=== PATIENT | male | born 1955 | race Caucasian/White ===

== ENCOUNTER → 2016-04-24 | Day surgery (SDC) | payer OTHER ==
[~2016-04-24] VITALS: Ht 162.6 cm; Wt 83.9 kg
[~2016-04-24] MED LIST: ASPIRIN 81 MG CHEW TABLET PO ONE; ATOR1TAB18 PO; BSS with VANC/TOB/EPI for EYE CASES IR ONE; CARV12.5 PO; ESMOLOL INJ 100MG/10ML VIAL As Ordered ONE; GLYCOPYRROLATE INJ 0.2 MG/ML 2 ML VIAL As Ordered ONE; LIDOCAINE 2% INJ 100 MG/5 ML SDV (FOR ANES.) As Ordered ONE; LIDOCAINE 2% W/EPIN INJ 20ML **PRES FREE As Ordered ONE; LIDOCAINE 2% W/EPIN INJ 20ML **PRES FREE XX ONE; LIDOCAINE 4% INJ 5 ML AMP OU ONE; LR 1,000 ML IV SCH; MAXITROL OPHTH OINT 3.5 GM As Ordered ONE; MAXITROL OPHTH OINT 3.5 GM OD ONE; MAXITROL OPHTH SUSP 5 ML As Ordered ONE; MAXITROL OPHTH SUSP 5 ML XX ONE; MIDAZOLAM INJ 2 MG/2 ML VIAL (J2250) As Ordered ONE; NEOSTIGMINE 1MG/ML 5 ML SYRINGE (J2710) As Ordered ONE; OMEP20CA3 PO; ONDANSETRON 4MG/2ML VIAL (J2405) As Ordered ONE; ONDANSETRON 4MG/2ML VIAL (J2405) IV PRN; POVIDONE-IODINE 5% OPHTH PREP SOL 30ML As Ordered ONE; PROPOFOL 200 MG/20 ML VIAL As Ordered ONE; fentaNYL 100 MCG/2 ML INJECTION (J3010) As Ordered ONE; fentaNYL 100 MCG/2 ML INJECTION (J3010) IV PRN
[2016-04-24 13:15] VITALS: BP 150/72
--- NOTE | 2016-04-28 13:59 | RO ---
DATE OF PROCEDURE: 04/24/2016 PREPROCEDURE DIAGNOSIS: Blind, painful right eye. POSTPROCEDURE DIAGNOSIS: Status post enucleation with silicone implant, 22 mm in orbit and placement of a large conformer, right side. There is no longer a right eye. INDICATION FOR PROCEDURE: Blind, painful right eye. SURGEON: Tristin Kitchen Jr., DO, FACS PHOTOENGRAVING ETCHER APPRENTICE: ANESTHESIA: General, 2% lidocaine with epinephrine block was performed to help with anesthesia and hemostasis. SPECIMEN: Sent to pathology and will also be sent to [facility] Department of Opthalmology Pathology Division for analysis. ESTIMATED BLOOD LOSS: Minimal. COMPLICATIONS: None. DESCRIPTION OF PROCEDURE: After obtaining informed consent and ascertaining that there was no light perception from the right eye, the patient was taken to the operating room and placed under general endotracheal anesthesia. The right eye was prepped and draped in a sterile fashion. A Daniela lid speculum was introduced in the right eye. It was obvious that this eye was very inflamed, the cornea was cloudy. A 360 degree conjunctival peritomy was performed. This was also advanced through Tenon's capsule 360 degrees and the fornices were opened horizontally. The extraocular muscles were hooked, tagged with #5-0 Vicryl and disinserted. The optic nerve was found with blunt and sharp dissection and the right eye was enucleated. Orbital sizer, 20 mm, was put in the orbit and loose. Therefore, a 22 mm silicone implant was inserted in the posterior orbit. The extraocular muscles were tied in place over the orbit with #5-0 Vicryl suture. Tenon's capsule and then conjunctiva were closed with running #5-0 Vicryl suture, creating a three layer closure. A large conformer was introduced into the conjunctival fornix. Maxitrol ointment was placed in the conjunctival fornix. The upper lids did not close all the say so a #4-0 silk Barnes suture was created. Next, a pressure patch was created using eye pads and Elastoplast dressing. The patient was successfully extubated and returned to the recovery room in excellent condition. He will followup in the office on postoperative day #2. He will also take Keflex postoperatively 500 mg four times a day.
== END | disposition home or self-care (01) ==
LOC: M SDC 06:54
PROVIDERS: ATTEND Ophthalmology
DX: H54.41 Blindness, right eye, normal vision left eye (principal); I25.10 Atherosclerotic heart disease of native coronary artery without angina pectoris; I10 Essential (primary) hypertension; E78.00 Pure hypercholesterolemia, unspecified; K21.9 Gastro-esophageal reflux disease without esophagitis; R29.898 Other symptoms and signs involving the musculoskeletal system; G43.909 Migraine, unspecified, not intractable, without status migrainosus; Z72.0 Tobacco use; Z95.5 Presence of coronary angioplasty implant and graft; Z79.899 Other long term (current) drug therapy; Z96.1 Presence of intraocular lens
CPT/HCPCS: 65103; 88300; J2250; J2405; J2710; J3010

== ENCOUNTER 2016-11-04 09:51 | Emergency (ER) | payer OTHER ==
[~2016-11-04] VITALS: Ht 167.6 cm; Wt 79.5 kg
[~2016-11-04 09:51] MED LIST changes: -ASPIRIN 81 MG CHEW TABLET PO ONE; -ATOR1TAB18 PO; +ATOR80TA59 PO; -BSS with VANC/TOB/EPI for EYE CASES IR ONE; -ESMOLOL INJ 100MG/10ML VIAL As Ordered ONE; -GLYCOPYRROLATE INJ 0.2 MG/ML 2 ML VIAL As Ordered ONE; -LIDOCAINE 2% INJ 100 MG/5 ML SDV (FOR ANES.) As Ordered ONE; -LIDOCAINE 2% W/EPIN INJ 20ML **PRES FREE As Ordered ONE; -LIDOCAINE 2% W/EPIN INJ 20ML **PRES FREE XX ONE; -LIDOCAINE 4% INJ 5 ML AMP OU ONE; -LR 1,000 ML IV SCH; -MAXITROL OPHTH OINT 3.5 GM As Ordered ONE; -MAXITROL OPHTH OINT 3.5 GM OD ONE; -MAXITROL OPHTH SUSP 5 ML As Ordered ONE; -MAXITROL OPHTH SUSP 5 ML XX ONE; -MIDAZOLAM INJ 2 MG/2 ML VIAL (J2250) As Ordered ONE; -NEOSTIGMINE 1MG/ML 5 ML SYRINGE (J2710) As Ordered ONE; -ONDANSETRON 4MG/2ML VIAL (J2405) As Ordered ONE; -ONDANSETRON 4MG/2ML VIAL (J2405) IV PRN; -POVIDONE-IODINE 5% OPHTH PREP SOL 30ML As Ordered ONE; -PROPOFOL 200 MG/20 ML VIAL As Ordered ONE; -fentaNYL 100 MCG/2 ML INJECTION (J3010) As Ordered ONE; -fentaNYL 100 MCG/2 ML INJECTION (J3010) IV PRN
[2016-11-04 09:52] VITALS: BP 196/79
[2016-11-04] MEDS ORDERED: ASPI81TA85 PO (10:07)
[2016-11-04] MEDS ORDERED: KETOROLAC 30 MG/ML VIAL (J1885) IV ONE (10:15)
[2016-11-04 10:22] LABS: BASO # 0.1 K/mm3 (0.0-0.2); BASO % 0.8 % (0.0-1.0); EOS # 0.3 K/mm3 (0.0-0.50); EOS % 2.6 % (0.0-3.0); LARGE UNSTAINED CELL # 0.2 K/mm3 (0.0-0.4); LARGE UNSTAINED CELL % 1.4 % (0.0-4.0); LYMPH # 1.9 K/mm3 (1.5-4.5); LYMPH % 13.8 % (24.0-44.0); MEAN CORPUSCULAR HEMOGLOBIN 32.9 pg (27.0-33.0); MEAN CORPUSCULAR HGB CONC 34.3 g/dl (32.0-36.5); MONO # 0.7 K/mm3 (0.0-0.8); MONO % 5.9 % (0.0-5.0); NEUTROPHILS # 9.3 K/mm3 (1.8-7.7); NEUTROPHILS % 75.4 % (36.0-66.0); PLATELET COUNT, AUTOMATED 262 k/mm3 (150-450); RED CELL DISTRIBUTION WIDTH 12.5 % (11.5-14.5); WHITE BLOOD COUNT 12.4 K/mm3 (4.0-10.0)
--- NOTE | 2016-11-04 10:40 | REP ---
Portable chest, single AP view, patient sitting: Comparison is 08/28/2010. There is no interval change. The lung marrero are clear. The cardiac size is normal. The dasha, mediastinum, and bony thorax are unremarkable. Impression: Negative portable chest. No interval change. Signed by Henrik Ziegler MD 11/04/2016 10:31 A
[2016-11-04 10:47] LABS: ALBUMIN 3.3 GM/DL (3.2-5.2); ALBUMIN/GLOBULIN RATIO 0.85 (1.00-1.93); ALKALINE PHOSPHATASE 136 U/L (45-117); ALT/SGPT 21 U/L (12-78); ANION GAP 4 MEQ/L (8-16); AST/SGOT 12 U/L (15-37); BILIRUBIN,DIRECT < 0.1 MG/DL (0.0-0.2); BILIRUBIN,TOTAL 0.4 MG/DL (0.2-1.0); BLOOD UREA NITROGEN 11 MG/DL (7-18); CALCIUM LEVEL 8.9 MG/DL (8.5-10.1); CARBON DIOXIDE LEVEL 28 MEQ/L (21-32); CHLORIDE LEVEL 102 MEQ/L (98-107); CREATININE FOR GFR 0.87 MG/DL (0.70-1.30); GLOMERULAR FILTRATION RATE > 60.0 (>56); GLUCOSE, FASTING 99 MG/DL (70-105); POTASSIUM SERUM 3.9 MEQ/L (3.5-5.1); SODIUM LEVEL 134 MEQ/L (136-145); TOTAL PROTEIN 7.2 GM/DL (6.4-8.2)
[2016-11-04] MEDS ORDERED: ISOVUE-370 76% 100ML VIAL (Q9967) As Ordered ONE (12:27)
--- NOTE | 2016-11-04 13:05 | REP ---
CT of the chest, pulmonary CT angiography: Comparison is the portable plain film study performed earlier today. There are no emboli in the pulmonary trunk or central pulmonary arteries. There are no emboli in the lobe or segment pulmonary artery branches. There are no infiltrates. There are no effusions. There is no mediastinal or hilar adenopathy or mass. There is no axillary adenopathy. The thoracic aorta is unremarkable. Cardiac size is normal. There is no pericardial effusion. Within the visualized upper abdomen there is a ring-shaped gallbladder calcification in the gallbladder neck measuring 70 mm in diameter. The gallbladder is not distended. There is no biliary duct distension. The visualized areas of the pancreas, spleen and adrenals are unremarkable except for multiple calcified splenic granulomas. Impression: There are no pulmonary emboli. There are no acute infiltrates or effusions. No mass or adenopathy. There is a gallbladder calculus. There are calcified granulomas in the spleen. Signed by Henrik Ziegler MD 11/04/2016 12:56 P
--- NOTE | 2016-11-04 15:08 | ED PDOC ---
Post-Departure Follow-Up certitied letter sent to pt re formal read of cta. incidental gallstone found on report. please let pt know. Meg Lewis MD Nov 04, 2016 15:08
--- NOTE | 2016-11-05 08:55 | ECGEPIP ---
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
== END 2016-11-04 14:17 | disposition home or self-care (01) ==
LOC: M ED 09:51
DX: R07.89 Other chest pain (principal); F17.210 Nicotine dependence, cigarettes, uncomplicated; Z79.2 Long term (current) use of antibiotics; Z98.61 Coronary angioplasty status
CPT/HCPCS: 71010; 71275; 80048; 80076; 82550; 82553; 83690; 83880; 85025; 85379; 85652; 93000; 93041; 94760; 96374; 99284; J1885; Q9967

== ENCOUNTER 2016-11-09 18:04 | Emergency (ER) | payer OTHER ==
[~2016-11-09] VITALS: Ht 167.6 cm; Wt 81.8 kg
[~2016-11-09 18:04] MED LIST changes: +ASPI81TA85 PO
[2016-11-09] MEDS ORDERED: PANTOPRAZOLE 40MG INJ (PROTONIX) (C9113) IV ONE (19:00)
[2016-11-09] MEDS ORDERED: NS 1,000 ML IV ONE (19:00)
[2016-11-09] MEDS ORDERED: ONDANSETRON 4MG/2ML VIAL (J2405) IV ONE (19:00)
[2016-11-09 19:06] LABS: BASO # 0.1 K/mm3 (0.0-0.2); BASO % 0.6 % (0.0-1.0); EOS # 0.1 K/mm3 (0.0-0.50); EOS % 0.8 % (0.0-3.0); LARGE UNSTAINED CELL # 0.3 K/mm3 (0.0-0.4); LARGE UNSTAINED CELL % 1.7 % (0.0-4.0); LYMPH # 1.9 K/mm3 (1.5-4.5); LYMPH % 10.4 % (24.0-44.0); MEAN CORPUSCULAR HEMOGLOBIN 32.3 pg (27.0-33.0); MEAN CORPUSCULAR HGB CONC 34.1 g/dl (32.0-36.5); MEAN CORPUSCULAR VOLUME 94.6 fl (80.0-96.0); MONO # 1.1 K/mm3 (0.0-0.8); MONO % 7.1 % (0.0-5.0); NEUTROPHILS # 12.7 K/mm3 (1.8-7.7); NEUTROPHILS % 79.4 % (36.0-66.0); PLATELET COUNT, AUTOMATED 281 k/mm3 (150-450); RED CELL DISTRIBUTION WIDTH 12.3 % (11.5-14.5)
[2016-11-09 19:37] LABS: ALBUMIN/GLOBULIN RATIO 0.73 (1.00-1.93); ALKALINE PHOSPHATASE 116 U/L (45-117); ALT/SGPT 31 U/L (12-78); AMYLASE 30 U/L (25-115); ANION GAP 9 MEQ/L (8-16); AST/SGOT 27 U/L (15-37); BILIRUBIN,DIRECT 0.2 MG/DL (0.0-0.2); BILIRUBIN,TOTAL 0.5 MG/DL (0.2-1.0); BLOOD UREA NITROGEN 16 MG/DL (7-18); CALCIUM LEVEL 8.7 MG/DL (8.5-10.1); CARBON DIOXIDE LEVEL 29 MEQ/L (21-32); CHLORIDE LEVEL 95 MEQ/L (98-107); CREATININE FOR GFR 1.09 MG/DL (0.70-1.30); GLOMERULAR FILTRATION RATE > 60.0 (>56); GLUCOSE, FASTING 114 MG/DL (70-105); POTASSIUM SERUM 4.2 MEQ/L (3.5-5.1); SODIUM LEVEL 133 MEQ/L (136-145); TOTAL PROTEIN 7.1 GM/DL (6.4-8.2)
--- NOTE | 2016-11-09 21:20 | REPUSA ---
CT of the abdomen and pelvis without contrast Clinical statement: Pain. Technique: Multiple axial CT images were obtained from the base of the lungs to the floor of the pelv is utilizing 5 mm axial slices without administration of contrast. Coronal and sagittal reconstructio ns were also obtained. No comparison is available. Findings: Chest: The visualized lung bases are clear. Abdomen: The kidneys are normal in size bilaterally. There is no evidence of hydronephrosis or nephro lithiasis. There is a 1.2 cm gallstone within the gallbladder. No pericholecystic inflammation is not ed. The liver, spleen, pancreas, and adrenal glands are unremarkable. The aorta demonstrates normal c aliber and contour. There is no abdominal lymphadenopathy or ascites. Pelvis: The bowel is unremarkable, with no obstructive or inflammatory changes. The appendix is jose l. The urinary bladder is within normal limits. There is no pelvic lymphadenopathy or ascites. The ot her pelvic structures appear unremarkable. Bones: There are no suspicious osseous abnormalities seen. Impression: 1. No focal abnormality to explain the patient's pain. 2. Cholelithiasis without evidence of acute cholecystitis.
[2016-11-09] MEDS ORDERED: MOXIFLOXACIN 400 MG TAB PO ONE (21:30)
[2016-11-09] MEDS ORDERED: ACETAMINOPHEN 325 MG TAB As Ordered ONE (21:39)
[2016-11-09] MEDS ORDERED: AVEL1TAB3 PO (21:44)
[2016-11-09] MEDS ORDERED: ALBUTEROL 90 MCG/ACT 8GM HFA INHALER INH ONE (21:45)
[2016-11-09] MEDS ORDERED: ACETAMINOPHEN 325 MG TAB PO ONE (21:45)
[2016-11-09 22:04] VITALS: BP 123/77
--- NOTE | 2016-11-10 08:22 | REP ---
REASON: Abdominal pain. COMPARISON: Chest portable exam of 11/04/2016. The accompanying frontal view of the chest of today shows a new left lower lobe opacity with blunting of the left CP angle. The lung marrero are otherwise clear and the heart is not enlarged. The osseous structures are stable and intact. Supine and upright views of the abdomen show the intestinal gas pattern to be nonspecific. There is no free intraperitoneal air. The organ silhouettes, insofar as delineated, are within normal limits. The osseous structures are within normal limits. Left lower lobe pneumonia. Signed by Jeff Self DO 11/10/2016 09:21 A
== END 2016-11-09 22:07 | disposition home or self-care (01) ==
LOC: M ED 18:04
DX: J18.9 Pneumonia, unspecified organism (principal); I10 Essential (primary) hypertension; Z72.0 Tobacco use; Z98.61 Coronary angioplasty status
CPT/HCPCS: 74022; 74176; 80048; 80076; 80320; 81001; 82150; 83690; 85025; 96374; 96375; 96376; 99283; C9113; J2405

== ENCOUNTER 2017-08-06 16:32 | Observation (INO) | payer OTHER ==
[2017-08-06] MEDS ORDERED: ISOVUE-370 76% 100ML VIAL (Q9967) As Ordered (17:19)
[2017-08-06 17:23] LABS: BASO # 0.1 10^3/uL (0.0-0.2); BASO % 0.7 % (0.0-1.0); EOS # 0.2 10^3/uL (0.0-0.50); EOS % 2.1 % (0.0-3.0); HEMATOCRIT 43.2 % (42.0-52.0); IMMATURE GRANULOCYTE % 0.6 % (0-3.0); LYMPH # 2.6 10^3/uL (1.5-4.5); LYMPH % 24.2 % (24.0-44.0); MEAN CORPUSCULAR HEMOGLOBIN 32.2 pg (27.0-33.0); MEAN CORPUSCULAR HGB CONC 34.7 g/dl (32.0-36.5); MEAN CORPUSCULAR VOLUME 92.7 fl (80.0-96.0); MONO # 0.8 10^3/uL (0.0-0.8); MONO % 7.4 % (0.0-5.0); PLATELET COUNT, AUTOMATED 293 10^3/uL (150-450); RED BLOOD COUNT 4.66 10^6/uL (4.30-6.10); RED CELL DISTRIBUTION WIDTH 12.4 % (11.5-14.5); WHITE BLOOD COUNT 10.7 10^3/uL (4.0-10.0)
[2017-08-06] MEDS: ASPIRIN 325 MG TAB PO (17:34)
[2017-08-06 17:35] LABS: BEDSIDE GLUCOSE 130 MG/DL (70-105)
[2017-08-06 17:44] LABS: INR 0.89
[2017-08-06 17:45] LABS: PARTIAL THROMBOPLASTIN TIME 31.4 SECONDS (26.8-37.9)
[2017-08-06 17:58] LABS: ANION GAP 7 MEQ/L (8-16); BLOOD UREA NITROGEN 17 MG/DL (7-18); CARBON DIOXIDE LEVEL 26 MEQ/L (21-32); CHLORIDE LEVEL 108 MEQ/L (98-107); CK-MB VALUE MASS 2.7 NG/ML (<3.6); CPK CREATINE PHOSPHOKINASE 251 U/L (39-308); CREATININE FOR GFR 0.95 MG/DL (0.70-1.30); GLOMERULAR FILTRATION RATE > 60.0 (>56); GLUCOSE, FASTING 122 MG/DL (70-100); MB/CK RELATIVE INDEX 1.07 (< OR =4); POTASSIUM SERUM 3.7 MEQ/L (3.5-5.1); SODIUM LEVEL 141 MEQ/L (136-145); TROPONIN I < 0.02 NG/ML (< 0.10)
[2017-08-06] MEDS: METOPROLOL TART 25 MG TABLET PO (20:13)
[2017-08-06] MEDS: D5W 1,000 ML IV (21:48)
[2017-08-06] MEDS: ATORVASTATIN 20 MG TAB PO (22:20)
[2017-08-07] MEDS: D5W 1,000 ML IV (04:59)
[2017-08-07] MEDS: HEPARIN SOD (PORCINE) 5000 UNITS/ML VIAL SC ×3 (05:38→21:11)
[2017-08-07] MEDS: ASPIRIN 325 MG TAB PO (08:01)
[2017-08-07] MEDS ORDERED: PRAVASTATIN 20 MG TAB PO (09:00)
[2017-08-07] MEDS ORDERED: SLF 3 ML SYR IV (15:15)
[2017-08-07] MEDS: SLF 3 ML SYR IV (21:11)
[2017-08-07] MEDS: ATORVASTATIN 20 MG TAB PO (21:11)
[2017-08-08] MEDS: HEPARIN SOD (PORCINE) 5000 UNITS/ML VIAL SC ×3 (06:02→22:51)
[2017-08-08] MEDS: SLF 3 ML SYR IV ×3 (06:03→19:58)
[2017-08-08 08:17] LABS: HEMATOCRIT 42.9 % (42.0-52.0); HEMOGLOBIN 14.5 g/dl (13.5-17.5); MEAN CORPUSCULAR HEMOGLOBIN 31.7 pg (27.0-33.0); MEAN CORPUSCULAR HGB CONC 33.8 g/dl (32.0-36.5); MEAN CORPUSCULAR VOLUME 93.9 fl (80.0-96.0); PLATELET COUNT, AUTOMATED 274 10^3/uL (150-450); RED BLOOD COUNT 4.57 10^6/uL (4.30-6.10); RED CELL DISTRIBUTION WIDTH 12.4 % (11.5-14.5)
[2017-08-08] MEDS: ASPIRIN 325 MG TAB PO (08:39)
[2017-08-08 08:44] LABS: ANION GAP 5 MEQ/L (8-16); BLOOD UREA NITROGEN 14 MG/DL (7-18); CALCIUM LEVEL 8.7 MG/DL (8.5-10.1); CARBON DIOXIDE LEVEL 26 MEQ/L (21-32); CHLORIDE LEVEL 111 MEQ/L (98-107); CREATININE FOR GFR 0.91 MG/DL (0.70-1.30); GLOMERULAR FILTRATION RATE > 60.0 (>56); GLUCOSE, FASTING 95 MG/DL (70-100); MAGNESIUM LEVEL 2.2 MG/DL (1.8-2.4); POTASSIUM SERUM 4.4 MEQ/L (3.5-5.1); SODIUM LEVEL 142 MEQ/L (136-145)
[2017-08-08 09:46] LABS: CHOLESTEROL LEVEL 154 MG/DL (<200); CHOLESTEROL RISK RATIO 4.529 (<5); HDL CHOLESTEROL 34 MG/DL (>40); LDL CHOLESTEROL 96.6 MG/DL (<100); NON-HDL-C 120 MG/DL; TRIGLYCERIDES LEVEL 117 MG/DL (<150)
[2017-08-08] MEDS: amLODIPine 5 MG TAB PO (09:47)
[2017-08-08] MEDS: NICOTINE 7 MG/24 HR TRANSDERMAL TD (17:02)
[2017-08-08] MEDS: ATORVASTATIN 20 MG TAB PO (19:58)
[2017-08-09] MEDS: SLF 3 ML SYR IV (05:48)
[2017-08-09] MEDS: HEPARIN SOD (PORCINE) 5000 UNITS/ML VIAL SC (05:48)
[2017-08-09 06:23] LABS: HEMATOCRIT 41.7 % (42.0-52.0); HEMOGLOBIN 14.2 g/dl (13.5-17.5); MEAN CORPUSCULAR HGB CONC 34.1 g/dl (32.0-36.5); MEAN CORPUSCULAR VOLUME 93.9 fl (80.0-96.0); PLATELET COUNT, AUTOMATED 247 10^3/uL (150-450); RED BLOOD COUNT 4.44 10^6/uL (4.30-6.10); RED CELL DISTRIBUTION WIDTH 11.9 % (11.5-14.5)
[2017-08-09 06:42] LABS: ANION GAP 6 MEQ/L (8-16); BLOOD UREA NITROGEN 15 MG/DL (7-18); CALCIUM LEVEL 8.6 MG/DL (8.5-10.1); CARBON DIOXIDE LEVEL 26 MEQ/L (21-32); CHLORIDE LEVEL 110 MEQ/L (98-107); CREATININE FOR GFR 0.83 MG/DL (0.70-1.30); GLOMERULAR FILTRATION RATE > 60.0 (>56); GLUCOSE, FASTING 90 MG/DL (70-100); MAGNESIUM LEVEL 2.1 MG/DL (1.8-2.4); POTASSIUM SERUM 3.9 MEQ/L (3.5-5.1); SODIUM LEVEL 142 MEQ/L (136-145)
[2017-08-09] MEDS: ASPIRIN 325 MG TAB PO (08:35)
[2017-08-09] MEDS: NICOTINE 7 MG/24 HR TRANSDERMAL TD (08:35)
[2017-08-09] MEDS: amLODIPine 10 MG TAB PO (08:35)
[2017-08-09] MEDS: LISINOPRIL 5 MG TAB PO (11:12)
[2017-08-10] MEDS ORDERED: LISINOPRIL 5 MG TAB PO (09:00)
== END 2017-08-09 11:50 | disposition home health service (06) ==
LOC: M PCU 08-07 04:30 → M ED 16:32 → M MS5PR 08-07 21:30 → M ED INP 21:48
PROVIDERS: Internal Medicine
DX: I63.8 Other cerebral infarction (principal); I67.82 Cerebral ischemia; I25.10 Atherosclerotic heart disease of native coronary artery without angina pectoris; I10 Essential (primary) hypertension; Z98.61 Coronary angioplasty status; F17.210 Nicotine dependence, cigarettes, uncomplicated; Z91.14 Patient's other noncompliance with medication regimen; Z79.82 Long term (current) use of aspirin; Z79.899 Other long term (current) drug therapy
CPT/HCPCS: Q9967

== ENCOUNTER 2017-08-20 08:37 | Outpatient (RCR) | payer OTHER | END 2017-09-11 | LOC: M OT 08:37 → M PT 08-25 09:42 → M OT 08-28 08:15 → M ST 09-02 13:40 → M PT 09-04 10:45 → M OT 08:37 → M PT 09-04 10:45 → M OT 08-28 08:15 | DX: Z51.89 Encounter for other specified aftercare (principal); I63.9 Cerebral infarction, unspecified ==

== ENCOUNTER 2017-09-16 09:38 | Outpatient (RCR) | payer OTHER | END 2017-10-11 | LOC: M PT 09:38 → M OT 09-22 07:00 → M PT 09:38 | DX: Z51.89 Encounter for other specified aftercare (principal); I63.9 Cerebral infarction, unspecified; I69.019 Unspecified symptoms and signs involving cognitive functions following nontraumatic subarachnoid hemorrhage | CPT/HCPCS: 97110 ==

== ENCOUNTER → 2017-10-04 | Outpatient (CLI) | payer OTHER ==
[2017-10-04 10:00] LABS: ALBUMIN 3.3 GM/DL (3.2-5.2); ALBUMIN/GLOBULIN RATIO 0.97 (1.00-1.93); ALKALINE PHOSPHATASE 136 U/L (45-117); ALT/SGPT 42 U/L (12-78); AST/SGOT 17 U/L (7-37); BILIRUBIN,DIRECT 0.1 MG/DL (0.0-0.2); BILIRUBIN,TOTAL 0.5 MG/DL (0.2-1.0); CHOLESTEROL LEVEL 151 MG/DL (<200); CHOLESTEROL RISK RATIO 3.595 (<5); CPK CREATINE PHOSPHOKINASE 220 U/L (39-308); HDL CHOLESTEROL 42 MG/DL (>40); NON-HDL-C 109 MG/DL; TOTAL PROTEIN 6.7 GM/DL (6.4-8.2); TRIGLYCERIDES LEVEL 140 MG/DL (<150)
== END ==
LOC: M LAB 08:53
DX: E78.00 Pure hypercholesterolemia, unspecified (principal)
CPT/HCPCS: 82550

== ENCOUNTER → 2017-10-20 | Outpatient (REF) | payer OTHER ==
[2017-10-20 16:13] LABS: D-DIMER QUANT 328.7 ng/ml (<500)
== END ==
LOC: M LAB REF 15:41
DX: R06.09 Other forms of dyspnea (principal)
CPT/HCPCS: 85379

== ENCOUNTER → 2017-11-13 | Outpatient (CLI) | payer OTHER ==
[2017-11-13 13:26] LABS: ERYTHROCYTE SEDIMENTATION RATE 29 mm/hr (0-20)
[2017-11-13 13:45] LABS: RHEUMATOID FACTOR QUANT < 10.0 IU/ML (<15.0); TOTAL PROTEIN 7.2 GM/DL (6.4-8.2)
[2017-11-13 13:47] LABS: VITAMIN B12 LEVEL 224 PG/ML
[2017-11-13 13:48] LABS: FOLATE 6.6 NG/ML
[2017-11-13 14:25] LABS: ESTIMATED AVERAGE GLUCOSE 114 MG/DL (60-110); HEMOGLOBIN A1c 5.6 %
[2017-11-14 14:15] LABS: ANTINUCLEAR ANTIBODIES DIRECT Negative (Negative); IgG P18 AB Absent (.); IgG P23 AB Present (.); IgG P28 AB Absent (.); IgG P30 AB Absent (.); IgG P39 AB Absent (.); IgG P41 AB Absent (.); IgG P45 AB Absent (.); IgG P58 AB Absent (.); IgG P66 AB Present (.); IgG P93 AB Absent (.); IgM P23 AB Absent (.); IgM P39 AB Absent (.); IgM P41 AB Absent (.); LYME IgG WB INTERPRETATION Negative (.); LYME IgM WB INTERPRETATION Negative (.)
== END ==
LOC: M LAB 12:24
DX: G62.9 Polyneuropathy, unspecified (principal); R51 Headache; M54.9 Dorsalgia, unspecified; M79.606 Pain in leg, unspecified
CPT/HCPCS: 82746

== ENCOUNTER → 2018-03-18 | Outpatient (CLI) | payer OTHER | LOC: M RAD 10:34 | DX: Z12.2 Encounter for screening for malignant neoplasm of respiratory organs (principal); Z87.891 Personal history of nicotine dependence | CPT/HCPCS: G0297 ==

== ENCOUNTER → 2018-03-19 | Outpatient (CLI) | payer OTHER | LOC: M CARPUL 08:18 | DX: R06.00 Dyspnea, unspecified (principal) | CPT/HCPCS: 94060 ==

== ENCOUNTER 2018-06-28 19:11 | Observation (INO) | payer OTHER ==
[~2018-06-28] VITALS: Ht 170.2 cm; Wt 96.0 kg
[2018-06-28] MEDS: GABAPENTIN 400 MG CAP PO SCH (01:08)
[2018-06-28] MEDS: HEPARIN SOD (PORCINE) 5000 UNITS/ML VIAL SC SCH (01:08)
[~2018-06-28 19:11] MED LIST changes: +AMLO10TA5 PO; +ASPI1TAB PO; +ATOR1TAB21 PO; +AVEL1TAB3 PO; +LISI-542 PO; +NICO7PA TD
[2018-06-28] MEDS ORDERED: MONT10TA2 PO (19:39)
[2018-06-28] MEDS ORDERED: AMIT50TA PO (19:39)
[2018-06-28] MEDS ORDERED: HYDR-3713 PO (19:39)
[2018-06-28] MEDS ORDERED: GABA800T4 PO (19:39)
[2018-06-28] MEDS ORDERED: STRI1AER2 INH (19:39)
[2018-06-28] MEDS ORDERED: ATOR40TA75 PO (19:39)
[2018-06-28] MEDS ORDERED: OMEP40CA2 PO (19:39)
[2018-06-28] MEDS ORDERED: ISOS60TA2 PO (19:39)
[2018-06-28] MEDS ORDERED: LIPI10TA PO (19:39)
[2018-06-28 20:02] LABS: BASO # 0.1 10^3/uL (0.0-0.2); BASO % 0.9 % (0.0-1.0); EOS # 0.4 10^3/uL (0.0-0.50); EOS % 3.3 % (0.0-3.0); HEMOGLOBIN 13.3 g/dl (13.5-17.5); LYMPH # 2.5 10^3/uL (1.5-4.5); LYMPH % 23.6 % (24.0-44.0); MEAN CORPUSCULAR HEMOGLOBIN 31.1 pg (27.0-33.0); MEAN CORPUSCULAR HGB CONC 33.3 g/dl (32.0-36.5); MEAN CORPUSCULAR VOLUME 93.7 fl (80.0-96.0); MONO % 9.1 % (0.0-5.0); NEUTROPHILS # 6.6 10^3/uL (1.8-7.7); NEUTROPHILS % 62.4 % (36.0-66.0); PLATELET COUNT, AUTOMATED 281 10^3/uL (150-450); RED BLOOD COUNT 4.27 10^6/uL (4.30-6.10); WHITE BLOOD COUNT 10.6 10^3/uL (4.0-10.0)
[2018-06-28 20:13] LABS: INR 0.92; PROTHROMBIN TIME 12.4 SECONDS (12.1-14.4)
[2018-06-28 20:14] LABS: PARTIAL THROMBOPLASTIN TIME 28.6 SECONDS (25.4-37.6)
[2018-06-28] MEDS ORDERED: hydrALAZINE INJ 20 MG/ML VIAL IV ONE (20:15)
--- NOTE | 2018-06-28 20:29 | REPVR ---
EXAM: CT Head Without Contrast EXAM DATE/TIME: 06/28/2018 7:50 PM CLINICAL HISTORY: 62 years old, male; Pain; Headache; Headache not specified TECHNIQUE: Axial computed tomography images of the head/brain without contrast. All CT scans at this facility use at least one of these dose optimization techniques: automated exposure control; mA and/or kV adjustment per patient size (includes targeted exams where dose is matched to clinical indication); or iterative reconstruction. COMPARISON: CT Head without contrast 08/06/2017 4:50 PM FINDINGS: Brain: Very mild low density in the periventricular white matter extending into the enrique radiata and the centrum semiovale bilaterally. No hemorrhage.. No edema. Ventricles: Normal. No ventriculomegaly. Bones/joints: Unremarkable. No acute fracture. Sinuses: Visualized sinuses are unremarkable. No acute sinusitis. Mastoid air cells: Visualized mastoid air cells are unremarkable. No mastoid effusion. Orbits: There is a right ocular prosthesis. Soft tissues: Unremarkable. IMPRESSION: No acute findings 2. Mild chronic microvascular ischemic change in the deep white matter Electronically signed by: Shaye Kumar On 06/28/2018 20:28:39 PM
[2018-06-28 20:33] LABS: BLOOD UREA NITROGEN 18 MG/DL (7-18); CALCIUM LEVEL 8.9 MG/DL (8.8-10.2); CARBON DIOXIDE LEVEL 29 MEQ/L (21-32); CHLORIDE LEVEL 105 MEQ/L (98-107); CPK CREATINE PHOSPHOKINASE 429 U/L (39-308); CREATININE FOR GFR 1.08 MG/DL (0.70-1.30); GLOMERULAR FILTRATION RATE > 60.0 (>49); GLUCOSE, FASTING 115 MG/DL (70-100); MB/CK RELATIVE INDEX 1.45 (< OR =4); POTASSIUM SERUM 4.4 MEQ/L (3.5-5.1); SODIUM LEVEL 140 MEQ/L (136-145); TROPONIN I < 0.02 NG/ML (< 0.10)
[2018-06-28] MEDS ORDERED: LORazepam 2 MG/ML VIAL (J2060) IV STA (20:58)
[2018-06-28] MEDS ORDERED: ISOVUE-370 76% 125ML VIAL (Q9967 PER ML) As Ordered ONE (20:58)
[2018-06-28] MEDS ORDERED: MONTELUKAST 10 MG TAB PO SCH (21:00)
[2018-06-28] MEDS ORDERED: AMITRIPTYLINE 50 MG TAB PO SCH (21:00)
[2018-06-28] MEDS ORDERED: ATORVASTATIN 20 MG TAB PO SCH (21:00)
--- NOTE | 2018-06-28 21:27 | REPVR ---
EXAM: CT Angiography Abdomen and Pelvis With Contrast EXAM DATE/TIME: 06/28/2018 9:06 PM CLINICAL HISTORY: 62 years old, male; Pain; Abdominal pain; Acute; Additional info: Chest pain, back pain, AMS, R/O dissection TECHNIQUE: Axial computed tomographic angiography images of the abdomen and pelvis with intravenous contrast material, including non-contrast images if performed. All CT scans at this facility use at least one of these dose optimization techniques: automated exposure control; mA and/or kV adjustment per patient size (includes targeted exams where dose is matched to clinical indication); or iterative reconstruction. Coronal and sagittal reformatted images were created and reviewed. MIP reconstructed images were created and reviewed. CONTRAST: Contrast Material: 100 ml of iso 370; Contrast Route: iv COMPARISON: CT ABD PELVIS W/O CONTRAST 11/09/2016 8:57 PM FINDINGS: Mediastinum: There is a small sliding hiatal hernia. VASCULATURE: Aorta: Arteriosclerotic changes noted of the abdominal aorta with no evidence of aneurysm. Celiac trunk and mesenteric arteries: No occlusion or significant stenosis. Renal arteries: There is a 50-60% stenosis noted of the left main renal artery. Right iliac arteries: There is a 60-70% stenosis at the origin of the right common iliac artery. Left iliac arteries: No occlusion or significant stenosis. ABDOMEN: Liver: The liver is low in density. Gallbladder and bile ducts: 1.7 cm gallstone noted in the gallbladder. Pancreas: Unremarkable. No mass. No ductal dilation. Spleen: Multiple calcified splenic granulomas are present. Adrenals: Unremarkable. No mass. Kidneys and ureters: 9 mm simple cyst in the midportion of the left kidney. Stomach and bowel: Unremarkable. No obstruction. No mucosal thickening. Appendix: No evidence of appendicitis. PELVIS: Bladder: Unremarkable. No mass. Reproductive: The prostate measures 4.1 x 3.2 x 3.8 cm. ABDOMEN and PELVIS: Intraperitoneal space: Unremarkable. No free air. No significant fluid collection. Bones/joints: Compression deformity of the L1 vertebral body with approximately 20% loss of height of the vertebral body. No retropulsed fragments seen.. No dislocation. Soft tissues: Unremarkable. Lymph nodes: Unremarkable. No enlarged lymph nodes. IMPRESSION: 1. No evidence of aortic dissection or aneurysm. 2. Compression fracture of L1 with approximately 20% loss of height of the vertebral body. No retropulsed fragments. This was not present on a CT scan dated 11/09/2016. 3. 50-60% stenosis of left main renal artery. 4. 60-70% stenosis at the origin of the right common iliac artery. 5. Hepatic steatosis. 6. Small sliding dasha hernia. 7. 9 mm simple cyst in the left kidney. 8. Gallstone. Electronically signed by: Shaye Kumar On 06/28/2018 21:26:22 PM
--- NOTE | 2018-06-28 21:33 | REPVR ---
EXAM: CT Angiography Chest With Contrast EXAM DATE/TIME: 06/28/2018 9:06 PM CLINICAL HISTORY: 62 years old, male; Pain; Chest pain; Additional info: Chest pain, back pain, AMS, R/O dissection TECHNIQUE: Axial computed tomographic angiography images of the chest with intravenous contrast using CT angiography protocol. All CT scans at this facility use at least one of these dose optimization techniques: automated exposure control; mA and/or kV adjustment per patient size (includes targeted exams where dose is matched to clinical indication); or iterative reconstruction. Coronal and sagittal reformatted images were created and reviewed. MIP reconstructed images were created and reviewed. CONTRAST: Contrast Material: 100 ml of iso 370; Contrast Route: iv COMPARISON: CT ANGIO CHEST 11/04/2016 12:28 PM FINDINGS: Pulmonary arteries: Normal. No pulmonary emboli. Aorta: Arteriosclerotic changes noted of the thoracic aorta. No aortic dissection. Lungs: Normal. No consolidation. No masses. Pleural space: Normal. No pneumothorax. No pleural effusion. Heart: Coronary calcifications present. Liver: There is hepatic steatosis. Gallbladder: There is a calcified gallstone. Spleen: Splenic calcifications are present. Lymph nodes: Unremarkable. No enlarged lymph nodes. Bones/joints: Compression deformity noted of the L1 vertebral body with approximately 20% loss of height of the vertebral body. Soft tissues: Unremarkable. Stomach: There is a small sliding hiatal hernia. IMPRESSION: 1. No aortic aneurysm or dissection. Arteriosclerotic changes noted. 2. Compression deformity of the L1 vertebral body with 20% loss of height of the vertebral body. 3. Hepatic steatosis. 4. Gallstones 5. Small sliding hiatal hernia. Electronically signed by: Shaye Kumar On 06/28/2018 21:32:55 PM
[2018-06-28 22:04] LABS: AMORPHOUS SEDIMENT SMALL (NEGATIVE); APPEARANCE, URINE HAZY (CLEAR); BACTERIA, URINE AUTO NEGATIVE (NEGATIVE); BILIRUBIN, URINE AUTO NEGATIVE (NEGATIVE); BLOOD, URINE BLOOD NEGATIVE (NEGATIVE); COLOR, URINE YELLOW (YELLOW); GLUCOSE, URINE (UA) AUTO NEGATIVE (NEGATIVE); KETONE, URINE AUTO NEGATIVE (NEGATIVE); LEUKOCYTE ESTERASE, URINE AUTO NEGATIVE (NEGATIVE); MUCUS, URINE SMALL (NEGATIVE); NITRITE, URINE AUTO NEGATIVE (NEGATIVE); PROTEIN, URINE AUTO NEGATIVE (NEGATIVE); RBC, URINE AUTO 1 /HPF (0-3); SPECIFIC GRAVITY URINE AUTO 1.024 (1.002-1.035); SQUAMOUS EPITHELIAL CELL UR AU 0 /HPF (0-6); WBC, URINE AUTO 2 /HPF (0-3)
[2018-06-28] MEDS ORDERED: ASPI1TAB PO (22:56)
[2018-06-28] MEDS ORDERED: LISI-538 PO (22:59)
[2018-06-28] MEDS ORDERED: IPRATROPIUM 0.5MG/ALBUTEROL 2.5MG INH SOL UD 3ML (DUONEB)(J7620) NEB PRN (23:00)
[2018-06-28] MEDS ORDERED: ARNU1INH PO (23:10)
[2018-06-28] MEDS ORDERED: NORCO, ANEXSIA 5/325MG TABLET (HYDROcodone/ACETAMINOPHEN) PO PRN (23:15)
--- NOTE | 2018-06-29 00:55 | REPVR ---
EXAM: MR Head Without Contrast EXAM DATE/TIME: 06/28/2018 11:56 PM CLINICAL HISTORY: 62 years old, male; Signs and symptoms; Other: Overall weakness, and headache with high blood pressure; Patient HX: PT states had nasty headache that started in the front and wrapped arount, PT was shaking with pain and did have slurred speech and high blood pressure; Additional info: AMS, weakness TECHNIQUE: MR of the head without contrast. COMPARISON: MRI-Brain without Contrast 08/07/2017 9:01 AM FINDINGS: Brain: No evidence of restricted diffusion to suggest an acute infarct. No mass effect or midline shift, or mass effect. No evidence of hemorrhage. Mild small vessel ischemic changes. Ventricles: Ventricles and sulci representing mild volume loss. Bones/joints: Unremarkable. Soft tissues: Normal. Sinuses: Normal as visualized. No acute sinusitis. Mastoid air cells: Normal as visualized. No mastoid effusion. Orbits: Unremarkable. IMPRESSION: No acute finding. Mild volume loss and small vessel ischemic changes. Electronically signed by: Marilyn Adkins On 06/29/2018 00:54:28 AM
--- NOTE | 2018-06-29 00:58 | REPVR ---
EXAM: MR Angiogram Head Without Contrast, Arteries EXAM DATE/TIME: 06/28/2018 11:56 PM CLINICAL HISTORY: 62 years old, male; Signs and symptoms; Headache and weakness; Patient HX: PT states had nasty headache that started in the front and wrapped arount, PT was shaking with pain and did have slurred speech and high blood pressure; Additional info: AMS, weakness TECHNIQUE: MR angiogram head without contrast. Exam focused on the arteries. MIP reconstructed images were created and reviewed. COMPARISON: MRA BRAIN W/O CONTRAST 08/07/2017 8:51 AM FINDINGS: Right internal carotid artery: Unremarkable. Intracranial segment is patent with no significant stenosis. No aneurysm. Right anterior cerebral artery: Unremarkable. No occlusion or significant stenosis. No aneurysm. Right middle cerebral artery: Unremarkable. No occlusion or significant stenosis. No aneurysm. Right posterior cerebral artery: Unremarkable. No occlusion or significant stenosis. No aneurysm. Right vertebral artery: Unremarkable. No occlusion or significant stenosis. No aneurysm. Left internal carotid artery: Unremarkable. Intracranial segment is patent with no significant stenosis. No aneurysm. Left anterior cerebral artery: Unremarkable. No occlusion or significant stenosis. No aneurysm. Left middle cerebral artery: Unremarkable. No occlusion or significant stenosis. No aneurysm. Left posterior cerebral artery: Unremarkable. No occlusion or significant stenosis. No aneurysm. Left vertebral artery: Mild narrowing of the left intracranial left mid vertebral artery. Basilar artery: Unremarkable. No occlusion or significant stenosis. No aneurysm. IMPRESSION: Mild narrowing of the left intracranial left mid vertebral artery. Electronically signed by: Marilyn Adkins On 06/29/2018 00:57:37 AM
[2018-06-29 01:35] VITALS: BP 137/74
--- NOTE | 2018-06-29 03:59 | REP ---
Clinical: Acute cerebrovascular accident . Comparison: 08/06/2017 . Findings: The mediastinum and cardiac silhouette are stable and within normal limits for portable technique. The lung marrero are clear without acute consolidation, effusion, or pneumothorax. Skeletal structures are intact. Impression: No acute cardiopulmonary process appreciated. Electronically Signed by Jevon Klein MD 06/29/2018 03:49 A
--- NOTE | 2018-06-29 04:41 | REP ---
Clinical: Possible cerebrovascular accident . Technique: Gonzalez scale and color Doppler evaluation using linear high frequency transducer Findings: Two-dimensional gonzalez scale and color images demonstrate normal arterial lumen with laminar flow and no appreciable narrowing. Color Doppler interrogation demonstrates normal arterial wave patterns and velocities with no significant spectral broadening. Normal flow direction is appreciated in the bilateral vertebral arteries. RIGHT (cm/s) LEFT (cm/s) ICA peak systolic velocity 148.1 124.4 ICA diastolic velocity 54.7 54.5 ECA peak systolic velocity 145.6 133.7 CCA peak systolic velocity 109.4 101.1 ICA/CCA ratio 1.35 1.03 Impression: No hemodynamically significant areas of narrowing or stenosis appreciated. Based on set standards narrowing falls within the less than 50% range for the left ICA and 50-69% range for the right ICA. Electronically Signed by Jevon Klein MD 06/29/2018 04:33 A
[2018-06-29 06:00] VITALS: BP 155/68
[2018-06-29 06:01] LABS: HEMATOCRIT 40.4 % (42.0-52.0); HEMOGLOBIN 13.4 g/dl (13.5-17.5); MEAN CORPUSCULAR HEMOGLOBIN 31.2 pg (27.0-33.0); MEAN CORPUSCULAR HGB CONC 33.2 g/dl (32.0-36.5); PLATELET COUNT, AUTOMATED 254 10^3/uL (150-450); WHITE BLOOD COUNT 8.5 10^3/uL (4.0-10.0)
[2018-06-29] MEDS: HEPARIN SOD (PORCINE) 5000 UNITS/ML VIAL SC SCH ×2 (06:07→13:27)
--- NOTE | 2018-06-29 06:29 | ECGEPIP ---
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
[2018-06-29 06:36] LABS: BLOOD UREA NITROGEN 17 MG/DL (7-18); CALCIUM LEVEL 8.6 MG/DL (8.8-10.2); CARBON DIOXIDE LEVEL 29 MEQ/L (21-32); CHLORIDE LEVEL 104 MEQ/L (98-107); CHOLESTEROL LEVEL 148 MG/DL (<200); CHOLESTEROL RISK RATIO 4.111 (<5); CREATININE FOR GFR 1.05 MG/DL (0.70-1.30); GLOMERULAR FILTRATION RATE > 60.0 (>49); GLUCOSE, FASTING 100 MG/DL (70-100); HDL CHOLESTEROL 36 MG/DL (>40); LDL CHOLESTEROL 91 MG/DL (<100); NON-HDL-C 112 MG/DL; POTASSIUM SERUM 4.1 MEQ/L (3.5-5.1); SODIUM LEVEL 138 MEQ/L (136-145); TRIGLYCERIDES LEVEL 106 MG/DL (<150); TROPONIN I < 0.02 NG/ML (< 0.10)
[2018-06-29 08:23] VITALS: BP 130/78
[2018-06-29] MEDS: GABAPENTIN 400 MG CAP PO SCH (08:24)
[2018-06-29] MEDS ORDERED: LISINOPRIL 20 MG TAB PO SCH (09:00)
[2018-06-29] MEDS ORDERED: ASPIRIN 81 MG ENTERIC TAB PO SCH (09:00)
[2018-06-29] MEDS ORDERED: ISOSORBIDE MON. (IMDUR) 60 MG XR TAB PO SCH (09:00)
[2018-06-29] MEDS ORDERED: OMEPRAZOLE 20 MG CAP PO SCH (09:00)
--- NOTE | 2018-06-29 12:21 | HPE ---
DATE OF ADMISSION: 06/28/2018 CHIEF COMPLAINT: Headache, uncontrolled blood pressure. HISTORY OF PRESENT ILLNESS: The patient is a 62-year-old male with significant past medical history of coronary artery disease (CAD) status post PCI in 2016, chronic obstructive pulmonary disease (COPD), hypertension, history of cerebrovascular accident (CVA) with right sided residual deficits, migraines, who presents to the emergency room with headache that started today. It is a bitemporal headache associated with what his family seems to believe was confusion, through during my examination the patient is alert and oriented, has no focal neurological deficits during the exam. He states he has been having chest pain on and off with exertion for the previous several months. He states the chest pain is substernal, it relieves with rest. He had a stress test in 2018. He cannot pinpoint the exact date which was negative. He has stents from 2016. He denies any cough, fevers, chills, urinary symptoms, abdominal pain, constipation, diarrhea. PAST MEDICAL HISTORY: See history of present illness. PAST SURGICAL HISTORY: He has a right eye removal with prosthetic right eye, unstated reason why, as well as stents. ALLERGIES: No known drug allergies. HOME MEDICATIONS: - aspirin - Lipitor - Striverdi Respimat - Breo Ellipta - [place] - amitriptyline - gabapentin - Imdur - lisinopril - Montelukast - omeprazole SOCIAL HISTORY: He is a former smoker. Denies alcohol or elicit drug use. REVIEW OF SYSTEMS: A 12 point review of system was complete all of which were negative except those in history of present illness. FAMILY HISTORY: Cerebrovascular accident. VITAL SIGNS ON ADMISSION: He is afebrile. Pulse is 99, respirations 20, sating 97% on room air. Initial blood pressure 189/101, subsequently dropped down to 125/94 after IV hydralazine. PHYSICAL EXAMINATION: General: He is well nourished, in no apparent distress. Head is normocephalic, atraumatic. Lungs are clear to auscultation. No crackles, wheezes, rales or rhonchi. Cardiovascular: Regular rate and rhythm. Normal S1, S2. No murmurs, gallops or rubs. Abdomen is soft, nontender, nondistended. Positive bowel sounds. No rebound or guarding. Extremities: No pitting edema or calf tenderness. Skin is intact. No rashes, lesions or breakdown. Neurological exam: He is alert and oriented times three. Power is diminished in the right lower extremity which is at his baseline. Sensation is intact. LABS AND IMAGING COMPLETED IN THE EMERGENCY ROOM: White count of 10, hemoglobin and hematocrit of 13/40, platelet count of 281. Coags within normal limits. Chemistry shows a BUN and creatinine of 18/1.08. UA is negative. Fingerstick of 128. Imaging done: CT of the chest only shows compression deformity of L1 and hepatic steatosis as well as a hiatal hernia. CT of the abdomen and pelvis shows 50-60% stenosis of the left main artery, 60-70% stenosis of the right common iliac artery. Chest x-ray: No acute disease. Noncontrast CT of the head, no acute findings. ASSESSMENT AND PLAN: Headache likely secondary to hypertensive urgency/emergency. Blood pressure has since decreased within goal. Symptoms have since resolved. Will continue her oral medications. Will keep the patient on telemetry. Will rule out cerebrovascular accident. Emergency room provider was concerned. He ordered the MRI/MRA. Will finish up the stroke workup by getting ultrasound, carotid Doppler and echo. The patient has no focal deficits at this point in time other than the baseline deficit. This is very unlikely to be cerebrovascular accident (CVA) or transient ischemic attack (TIA). We will complete the workup. Neuro checks. Will keep the patient on telemetry. Will continue aspirin and Lipitor. Will send lipid panel. Chest pain. Will rule out ACS. He is status post PCI in 2016, had a negative stress test per the patient in 2018, the month unclear. Serial troponins, serial EKG, telemetry, continue aspirin, Imdur, and Lipitor. Chronic obstructive pulmonary disease (COPD), DuoNebs as needed. This is currently stable. Migraines. The patient is not on any medication. Hypertensive urgency, see problem 1. Continue oral medication. Cerebrovascular accident with right sided deficit. Continue aspirin and Lipitor. Supportive deep venous thrombosis (DVT) prophylaxis, heparin subcutaneous. Gastroesophageal (GI) prophylaxis not indicated. Diet: Cardiac. MRI/MRA of the head has been ordered by the emergency room provider. Will followup when studies are completed. LENARD
--- NOTE | 2018-06-29 16:30 | DS.PDOC ---
Discharge Summary General Date of Admission Jun 28, 2018 at 22:55 Date of Discharge 06/29/2018 Attending Physician: RAHUL MONTAGUE MD Discharge Summary PROCEDURES PERFORMED DURING STAY: [None]. ADMITTING DIAGNOSES: 1. Hypertensive Urgency DISCHARGE DIAGNOSES: 1. Hypertensive Urgency COMPLICATIONS/CHIEF COMPLAINT: Ams/Hypertensive Urgency. HISTORY OF PRESENT ILLNESS: Patient is a 62 year old male with a past medical history significant for CAD s/p PCI in 2016, COPD, hypertension, history of CVA with right sided residual deficits, and migraines who presented to the [facility] ER with complaint of a headache. Patients family had noted that during the time of his headache he appeared to be confused. In addition, the patient admitted that he has had some chest pain on and off for the past several months, he denied chest pain at presentation. Patient states that he had a stress test in 2018 which was negative. The patient stated that he had not taken his blood pressure medication for several days because he has run out and did not have time to fill his script. In the ER the patient was found to have hypertensive urgency/emergency and was admitted for further blood pressure management HOSPITAL COURSE: Once admitted the patient received a stroke workup including an MRI/MRA, Carotid U/S w/ doppler, and echo which was negative for any acute findings. He was noted to have no focal neurological deficits different from his baseline throughout his hospital stay. He was given hydralazine and aspirin. He was continued on his home blood pressure medications. The patients blood pressure did come down and his headache resolved. Patient was informed that it is important to continue his medications. Patient was discharged home with instructions to follow-up with his primary care physician in 1-2 weeks. DISCHARGE MEDICATIONS: Please see below. ALLERGIES: Please see below. PHYSICAL EXAMINATION ON DISCHARGE: VITAL SIGNS: Please see below. GENERAL: Awake, alert, and oriented. He appears in no acute distress. Lying comfortably in bed. HEENT: Atraumamtic normocephalic. Eyes are nonicteric. Trachea is midline. CARDIOVASCULAR EXAMINATION: Normal S1, S2. Regular rate and rhythm. No clicks, rubs, or murmurs appreciated RESPIRATORY EXAMINATION: Clear vesicular lung sounds to auscultation bilaterally. No wheezes, rhonci, or rales ABDOMINAL EXAMINATION: Obese, distended. Nontender to palpation throughout out. No rebound tenderness or guarding. Positive bowel sounds throughout EXTREMITIES: No edema. Pulses full and equal in upper and lower extremities bilaterally SKIN: No rashes or lesions NEUROLOGICAL EXAMINATION: Decreased strength 3/5 in right lower extremity consistent with patients baseline. No facial asymmetry. CN II-XII grossly intact PSYCHIATRIC EXAMINATION: Mood and affect appear appropriate LABORATORY DATA: Please see below. IMAGING: EXAM: CT Head Without Contrast EXAM DATE/TIME: 06/28/2018 7:50 PM CLINICAL HISTORY: 62 years old, male; Pain; Headache; Headache not specified TECHNIQUE: Axial computed tomography images of the head/brain without contrast. All CT scans at this facility use at least one of these dose optimization techniques: automated exposure control; mA and/or kV adjustment per patient size (includes targeted exams where dose is matched to clinical indication); or iterative reconstruction. COMPARISON: CT Head without contrast 08/06/2017 4:50 PM FINDINGS: Brain: Very mild low density in the periventricular white matter extending into the enrique radiata and the centrum semiovale bilaterally. No hemorrhage.. No edema. Ventricles: Normal. No ventriculomegaly. Bones/joints: Unremarkable. No acute fracture. Sinuses: Visualized sinuses are unremarkable. No acute sinusitis. Mastoid air cells: Visualized mastoid air cells are unremarkable. No mastoid effusion. Orbits: There is a right ocular prosthesis. Soft tissues: Unremarkable. IMPRESSION: No acute findings 2. Mild chronic microvascular ischemic change in the deep white matter Electronically signed by: Shaye Kumar On 06/28/2018 20:28:39 PM Clinical: Acute cerebrovascular accident . Comparison: 08/06/2017 . Findings: The mediastinum and cardiac silhouette are stable and within normal limits for portable technique. The lung marrero are clear without acute consolidation, effusion, or pneumothorax. Skeletal structures are intact. Impression: No acute cardiopulmonary process appreciated. Electronically Signed by Jevon Klein MD 06/29/2018 03:49 A EXAM: CT Angiography Abdomen and Pelvis With Contrast EXAM DATE/TIME: 06/28/2018 9:06 PM CLINICAL HISTORY: 62 years old, male; Pain; Abdominal pain; Acute; Additional info: Chest pain, back pain, AMS, R/O dissection TECHNIQUE: Axial computed tomographic angiography images of the abdomen and pelvis with intravenous contrast material, including non-contrast images if performed. All CT scans at this facility use at least one of these dose optimization techniques: automated exposure control; mA and/or kV adjustment per patient size (includes targeted exams where dose is matched to clinical indication); or iterative reconstruction. Coronal and sagittal reformatted images were created and reviewed. MIP reconstructed images were created and reviewed. CONTRAST: Contrast Material: 100 ml of iso 370; Contrast Route: iv COMPARISON: CT ABD PELVIS W/O CONTRAST 11/09/2016 8:57 PM FINDINGS: Mediastinum: There is a small sliding hiatal hernia. VASCULATURE: Aorta: Arteriosclerotic changes noted of the abdominal aorta with no evidence of aneurysm. Celiac trunk and mesenteric arteries: No occlusion or significant stenosis. Renal arteries: There is a 50-60% stenosis noted of the left main renal artery. Right iliac arteries: There is a 60-70% stenosis at the origin of the right common iliac artery. Left iliac arteries: No occlusion or significant stenosis. ABDOMEN: Liver: The liver is low in density. Gallbladder and bile ducts: 1.7 cm gallstone noted in the gallbladder. Pancreas: Unremarkable. No mass. No ductal dilation. Spleen: Multiple calcified splenic granulomas are present. Adrenals: Unremarkable. No mass. Kidneys and ureters: 9 mm simple cyst in the midportion of the left kidney. Stomach and bowel: Unremarkable. No obstruction. No mucosal thickening. Appendix: No evidence of appendicitis. PELVIS: Bladder: Unremarkable. No mass. Reproductive: The prostate measures 4.1 x 3.2 x 3.8 cm. ABDOMEN and PELVIS: Intraperitoneal space: Unremarkable. No free air. No significant fluid collection. Bones/joints: Compression deformity of the L1 vertebral body with approximately 20% loss of height of the vertebral body. No retropulsed fragments seen.. No dislocation. Soft tissues: Unremarkable. Lymph nodes: Unremarkable. No enlarged lymph nodes. IMPRESSION: 1. No evidence of aortic dissection or aneurysm. 2. Compression fracture of L1 with approximately 20% loss of height of the vertebral body. No retropulsed fragments. This was not present on a CT scan dated 11/09/2016. 3. 50-60% stenosis of left main renal artery. 4. 60-70% stenosis at the origin of the right common iliac artery. 5. Hepatic steatosis. 6. Small sliding dasha hernia. 7. 9 mm simple cyst in the left kidney. 8. Gallstone. Electronically signed by: Shaye Kumar On 06/28/2018 21:26:22 PM EXAM: MR Angiogram Head Without Contrast, Arteries EXAM DATE/TIME: 06/28/2018 11:56 PM CLINICAL HISTORY: 62 years old, male; Signs and symptoms; Headache and weakness; Patient HX: PT states had nasty headache that started in the front and wrapped arount, PT was shaking with pain and did have slurred speech and high blood pressure; Additional info: AMS, weakness TECHNIQUE: MR angiogram head without contrast. Exam focused on the arteries. MIP reconstructed images were created and reviewed. COMPARISON: MRA BRAIN W/O CONTRAST 08/07/2017 8:51 AM FINDINGS: Right internal carotid artery: Unremarkable. Intracranial segment is patent with no significant stenosis. No aneurysm. Right anterior cerebral artery: Unremarkable. No occlusion or significant stenosis. No aneurysm. Right middle cerebral artery: Unremarkable. No occlusion or significant stenosis. No aneurysm. Right posterior cerebral artery: Unremarkable. No occlusion or significant stenosis. No aneurysm. Right vertebral artery: Unremarkable. No occlusion or significant stenosis. No aneurysm. Left internal carotid artery: Unremarkable. Intracranial segment is patent with no significant stenosis. No aneurysm. Left anterior cerebral artery: Unremarkable. No occlusion or significant stenosis. No aneurysm. Left middle cerebral artery: Unremarkable. No occlusion or significant stenosis. No aneurysm. Left posterior cerebral artery: Unremarkable. No occlusion or significant stenosis. No aneurysm. Left vertebral artery: Mild narrowing of the left intracranial left mid vertebral artery. Basilar artery: Unremarkable. No occlusion or significant stenosis. No aneurysm. IMPRESSION: Mild narrowing of the left intracranial left mid vertebral artery. Electronically signed by: Marilyn Adkins On 06/29/2018 00:57:37 AM EXAM: MR Head Without Contrast EXAM DATE/TIME: 06/28/2018 11:56 PM CLINICAL HISTORY: 62 years old, male; Signs and symptoms; Other: Overall weakness, and headache with high blood pressure; Patient HX: PT states had nasty headache that started in the front and wrapped arount, PT was shaking with pain and did have slurred speech and high blood pressure; Additional info: AMS, weakness TECHNIQUE: MR of the head without contrast. COMPARISON: MRI-Brain without Contrast 08/07/2017 9:01 AM FINDINGS: Brain: No evidence of restricted diffusion to suggest an acute infarct. No mass effect or midline shift, or mass effect. No evidence of hemorrhage. Mild small vessel ischemic changes. Ventricles: Ventricles and sulci representing mild volume loss. Bones/joints: Unremarkable. Soft tissues: Normal. Sinuses: Normal as visualized. No acute sinusitis. Mastoid air cells: Normal as visualized. No mastoid effusion. Orbits: Unremarkable. IMPRESSION: No acute finding. Mild volume loss and small vessel ischemic changes. Electronically signed by: Marilyn Adkins On 06/29/2018 00:54:28 AM EXAM: CT Angiography Chest With Contrast EXAM DATE/TIME: 06/28/2018 9:06 PM CLINICAL HISTORY: 62 years old, male; Pain; Chest pain; Additional info: Chest pain, back pain, AMS, R/O dissection TECHNIQUE: Axial computed tomographic angiography images of the chest with intravenous contrast using CT angiography protocol. All CT scans at this facility use at least one of these dose optimization techniques: automated exposure control; mA and/or kV adjustment per patient size (includes targeted exams where dose is matched to clinical indication); or iterative reconstruction. Coronal and sagittal reformatted images were created and reviewed. MIP reconstructed images were created and reviewed. CONTRAST: Contrast Material: 100 ml of iso 370; Contrast Route: iv COMPARISON: CT ANGIO CHEST 11/04/2016 12:28 PM FINDINGS: Pulmonary arteries: Normal. No pulmonary emboli. Aorta: Arteriosclerotic changes noted of the thoracic aorta. No aortic dissection. Lungs: Normal. No consolidation. No masses. Pleural space: Normal. No pneumothorax. No pleural effusion. Heart: Coronary calcifications present. Liver: There is hepatic steatosis. Gallbladder: There is a calcified gallstone. Spleen: Splenic calcifications are present. Lymph nodes: Unremarkable. No enlarged lymph nodes. Bones/joints: Compression deformity noted of the L1 vertebral body with approximately 20% loss of height of the vertebral body. Soft tissues: Unremarkable. Stomach: There is a small sliding hiatal hernia. IMPRESSION: 1. No aortic aneurysm or dissection. Arteriosclerotic changes noted. 2. Compression deformity of the L1 vertebral body with 20% loss of height of the vertebral body. 3. Hepatic steatosis. 4. Gallstones 5. Small sliding hiatal hernia. Electronically signed by: Shaye Kumar On 06/28/2018 21:32:55 PM Clinical: Possible cerebrovascular accident . Technique: Gonzalez scale and color Doppler evaluation using linear high frequency transducer Findings: Two-dimensional gonzalez scale and color images demonstrate normal arterial lumen with laminar flow and no appreciable narrowing. Color Doppler interrogation demonstrates normal arterial wave patterns and velocities with no significant spectral broadening. Normal flow direction is appreciated in the bilateral vertebral arteries. RIGHT (cm/s) LEFT (cm/s) ICA peak systolic velocity 148.1 124.4 ICA diastolic velocity 54.7 54.5 ECA peak systolic velocity 145.6 133.7 CCA peak systolic velocity 109.4 101.1 ICA/CCA ratio 1.35 1.03 Impression: No hemodynamically significant areas of narrowing or stenosis appreciated. Based on set standards narrowing falls within the less than 50% range for the left ICA and 50-69% range for the right ICA. Electronically Signed by Jevon Klein MD 06/29/2018 04:33 A PROGNOSIS: Good ACTIVITY: [As tolerated]. DIET: As tolerated DISCHARGE PLAN: Patient is to be discharged home with follow-up with his primary care doctor in 1-2 weeks. He is to continue taking his hypertensive medications as prescribed. He is to return to the ER if his symptoms worsen. DISPOSITION: 01 Home, Self-Care. DISCHARGE CONDITION: [Stable]. TIME SPENT ON DISCHARGE: Greater than 40 minutes. Vital Signs/I&Os Vital Signs Date Time Temp Pulse Resp B/P (MAP) Pulse Ox O2 Delivery O2 Flow Rate FiO2 06/29/18 08:23 130/78 06/29/18 06:00 97.4 66 18 94 06/29/18 01:21 Room Air I&O- Last 24 Hours up to 6 AM 06/29/18 06:00 Intake Total 0 ml Output Total 0 ml Balance 0 ml Laboratory Data Labs 24H Laboratory Tests 2 06/28/18 19:33: Immature Granulocyte % (Auto) 0.7, White Blood Count 10.6H, Red Blood Count 4.27L, Hemoglobin 13.3L, Hematocrit 40.0L, Mean Corpuscular Volume 93.7, Mean Corpuscular Hemoglobin 31.1, Mean Corpuscular Hemoglobin Concent 33.3, Red Cell Distribution Width 12.1, Platelet Count 281, Neutrophils (%) (Auto) 62.4, Lymphocytes (%) (Auto) 23.6L, Monocytes (%) (Auto) 9.1H, Eosinophils (%) (Auto) 3.3H, Basophils (%) (Auto) 0.9, Neutrophils # (Auto) 6.6, Lymphocytes # (Auto) 2.5, Monocytes # (Auto) 1.0H, Eosinophils # (Auto) 0.4, Basophils # (Auto) 0.1, Nucleated Red Blood Cells % (auto) 0.0, Prothrombin Time 12.4, Prothromb Time International Ratio 0.92, Activated Partial Thromboplast Time 28.6, Anion Gap 6L, Glomerular Filtration Rate > 60.0, Blood Urea Nitrogen 18, Creatinine 1.08, Sodium Level 140, Potassium Level 4.4, Chloride Level 105, Carbon Dioxide Level 29, Calcium Level 8.9, Total Creatine Kinase 429H, Creatine Kinase MB 6.0H, Creatine Kinase MB Relative Index 1.45, Troponin I < 0.02 06/28/18 19:55: Bedside Glucose (Misc Panel) 128H 06/28/18 20:18: Urine Appearance HAZY, Urine Color YELLOW, Urine pH 6.0, Urine Specific Ernest 1.024, Urine Protein NEGATIVE, Urine Glucose (UA) NEGATIVE, Urine Ketones NEGATIVE, Urine Urobilinogen 4.0H, Urine Bilirubin NEGATIVE, Urine Leukocyte Esterase NEGATIVE, Urine Blood NEGATIVE, Urine Nitrite NEGATIVE, Urine WBC (Auto) 2, Urine RBC (Auto) 1, Urine Hyaline Casts (Auto) 0, Urine Bacteria (Auto) NEGATIVE, Urine Squamous Epithelial Cells 0, Urine Amorphous Sediment SMALLH, Urine Mucus (Auto) SMALL, Urine Sperm (Auto) 06/29/18 05:25: Nucleated Red Blood Cells % (auto) 0.0, Anion Gap 5L, Glomerular Filtration Rate > 60.0, Calcium Level 8.6L, Troponin I < 0.02, Triglycerides Level 106, LDL Cholesterol 91, Total Cholesterol 148, Non-HDL Cholesterol (LDL + VLDL) 112, Total HDL Cholesterol 36L, Cholesterol/HDL Ratio 4.111 06/29/18 10:35: Troponin I < 0.02 CBC/BMP Laboratory Tests 06/28/18 19:33 Red Blood Count 4.27 L, Mean Corpuscular Volume 93.7, Mean Corpuscular Hemoglobin 31.1, Mean Corpuscular Hemoglobin Concent 33.3, Red Cell Distribution Width 12.1, Neutrophils (%) (Auto) 62.4, Lymphocytes (%) (Auto) 23.6 L, Monocytes (%) (Auto) 9.1 H, Eosinophils (%) (Auto) 3.3 H, Basophils (%) (Auto) 0.9, Neutrophils # (Auto) 6.6, Lymphocytes # (Auto) 2.5, Monocytes # (Auto) 1.0 H, Eosinophils # (Auto) 0.4, Basophils # (Auto) 0.1, Calcium Level 8.9, Total Creatine Kinase 429 H 06/29/18 05:25 Red Blood Count 4.30, Mean Corpuscular Volume 94.0, Mean Corpuscular Hemoglobin 31.2, Mean Corpuscular Hemoglobin Concent 33.2, Red Cell Distribution Width 12.3 FSBS Laboratory Tests Test 06/28/18 19:55 Range/Units Bedside Glucose (Misc Panel) 128 80-115 MG/DL Discharge Medications Scheduled (Striverdi Respimat) 2.5 Mcg/Act Aer, 2 PUFFS INH DAILY, (Reported) (Arnuity Ellipta) 100 Mcg/Act Inh, 1 PUFF PO DAILY, (Reported) Amitriptyline HCl (Amitriptyline HCl) 50 Mg Tab, 50 MG PO QHS, (Reported) Aspirin (Aspirin 81) 81 Mg Tab, 81 MG PO DAILY, (Reported) Atorvastatin Calcium (Atorvastatin Calcium) 40 Mg Tab, 40 MG PO QHS, (Reported) Gabapentin (Gabapentin) 800 Mg Tab, 800 MG PO BID, (Reported) Isosorbide Mononitrate (Isosorbide Mononitrate ER) 60 Mg Tab, 60 MG PO DAILY, (Reported) Lisinopril (Lisinopril) 20 Mg Tab, 20 MG PO DAILY, (Reported) Montelukast Sodium (Montelukast Sodium) 10 Mg Tab, 10 MG PO QHS, (Reported) Omeprazole (Omeprazole) 40 Mg Cap, 40 MG PO DAILY, (Reported) Scheduled PRN Acetaminophen/Hydrocodone (Hydrocodone/Acetaminophen 5-325 mg) 1 Tab Tab, 1 TAB PO BID PRN for PAIN, (Reported) Allergies Coded Allergies: No Known Allergies (Unverified , 11/09/16) GME ATTESTATION GME ATTESTATION My faculty preceptor for this patient encounter was physically present during the encounter and was fully available. All aspects of the patient interview, examination, medical decision making process, and medical care plan development were reviewed and approved by the faculty preceptor. The faculty preceptor is aware and concurs with the plan as stated in the body of this note and will attest to such by his/her cosignature. PINA BURKS DO Jun 29, 2018 16:30
--- NOTE | 2018-07-01 00:34 | ECGEPIP ---
Stationary ECG Study [facility] Test Date: 2018-06-29 Pat Name: HUNTER DUARTE Department: Room: [place] [address] Gender: M Section Gang: DOMINIQUE : 1955 Requested By: SHERICE CHRISTINE Order Number: [id number] Reading MD: Roman Queen Measurements Intervals [place] Rate: 70 P: 40 [place]: 162 QRS: 10 QRSD: 100 T: 43 QT: 395 QTc: 429 Interpretive Statements SINUS RHYTHM POSSIBLE INFERIOR MYOCARDIAL INFARCTION, PROBABLY OLD COMPARED TO THE FOR TRACINGS IN THE SYSTEM, NO SIGNIFICANT CHANGES Electronically Signed On 07-01-2018 0:34:35 EDT by Roman Queen
== END 2018-06-29 14:04 | disposition home or self-care (01) ==
LOC: M ED 19:11 → M ED INP 22:55 → M MSPAV 06-29 01:34
PROVIDERS: ADMIT Internal Medicine; ATTEND Internal Medicine
DX: I16.0 Hypertensive urgency (principal); I25.10 Atherosclerotic heart disease of native coronary artery without angina pectoris; J44.9 Chronic obstructive pulmonary disease, unspecified; I10 Essential (primary) hypertension; Z98.61 Coronary angioplasty status; Z86.73 Personal history of transient ischemic attack (TIA), and cerebral infarction without residual deficits; Z79.82 Long term (current) use of aspirin; Z79.899 Other long term (current) drug therapy; Z87.891 Personal history of nicotine dependence
CPT/HCPCS: 36415; 70450; 70544; 70551; 71045; 71275; 74174; 80048; 80061; 81001; 82550; 82553; 85025; 85027; 85610; 85730; 86850; 86900; 86901; 93005; 93041; 93880; 94760; 96374; 96375; 99285; J2060; Q9967

== ENCOUNTER → 2018-07-28 | Outpatient (CLI) | payer OTHER ==
[~2018-07-28] MED LIST changes: +AMIT50TA PO; +ARNU1INH PO; -ASPI1TAB PO; +ASPI81TA26 PO; +ATOR40TA75 PO; +GABA800T4 PO; +HYDR-3713 PO; +ISOS60TA2 PO; +LIPI10TA PO; +LISI-538 PO; +MONT10TA2 PO; +OMEP40CA2 PO; +STRI1AER2 INH
--- NOTE | 2018-07-28 10:45 | REP ---
Renal ultrasound: The right kidney measures 11.2 x 6.06 point 8 cm. The left kidney measures 11.1 x 5.5 x 6.6 cm. There is bilateral renal cortical echogenicity, compatible with medical renal disease. There is no hydronephrosis on the right on the left. There are no renal calculi. There are no solid or cystic renal masses. There nonobstructive are calcifications in the kidneys bilaterally, artifact from vascular atheroma versus renal collecting system calculi. Bladder: The bladder appears adequately distended. No bladder wall masses are identified. No bladder calculi are identified. Impression: The Bilateral renal cortical echogenicity, compatible with medical renal disease. Bilateral renal calculi, artifact from vascular calcified atheroma versus nonobstructing collecting system calculi. Electronically Signed by Henrik Ziegler MD 07/28/2018 10:36 A
--- NOTE | 2018-07-28 11:01 | REP ---
Bilateral lower extremity arterial Doppler ultrasound: History: Peripheral vascular disease. Bilateral claudication. Atherosclerosis. Findings: Elevated distal superficial femoral artery velocities are noted on the right consistent with moderate stenosis. Mild bilateral plaquing is seen. The ankle brachial indices are normal measured at 1.1 on the right and 1.0 on the left. Right lower extremity arterial Doppler velocity chart: CF A 163 cm/S Profunda 128 Proximal SFA 138 Mid SFA 124 Distal SFA 200 Popliteal 96 Proximal AT A 21 Tibioperoneal trunk 76 Proximal OPEN SOAPER TENDER 50 Distal OPEN SOAPER TENDER 60 Distal AT A 22 Left lower extremity arterial Doppler velocity chart: Left CF A 98 cm/S Profunda 71 Proximal SFA 84 Mid SFA 106 Distal SFA 58 Popliteal 80 Proximal AT A 36 Tibioperoneal trunk 63 Proximal OPEN SOAPER TENDER 61 Distal OPEN SOAPER TENDER 60 Distal AT A 46 Electronically Signed by Dirk Red MD 07/28/2018 10:52 A
== END ==
LOC: M RAD 08:42
PROVIDERS: ATTEND Surgery Vascular Surgery
DX: I70.213 Atherosclerosis of native arteries of extremities with intermittent claudication, bilateral legs (principal)

== ENCOUNTER → 2018-08-24 | Outpatient (CLI) | payer OTHER ==
--- NOTE | 2018-08-25 04:20 | REP ---
Clinical: Atherosclerotic disease. Technique: Gonzalez scale and color Doppler evaluation of the kidneys and renal vasculature using curved array transducer. Findings: The kidneys are essentially normal in contour size and echogenicity and reniform shape without hydronephrosis, nephrolithiasis, or renal mass lesion. Right kidney measures 10/01 9 x 5.4 x 6.7 cm . Left kidney measures 11.5 x 5.1 x 5.9 cm with 12 mm simple upper pole cyst. Bladder is incompletely distended and grossly normal by current evaluation. Color Doppler evaluation of the renal vasculature demonstrates normal arterial wave patterns, velocities, renal aortic ratios, resistive indices and the acceleration time. No sonographic evidence for renal arterial stenosis noted. Renal vein is patent. Right Kidney: Peak arterial velocity: 91.6 cm/sec . Renal aortic ratio: 2.0 . Resistive indices: 0.71 - 0.72 . Acceleration times: 0.017 - 0.033 . Left kidney: Peak arterial velocity: 123.0 cm/sec . Renal aortic ratio: 2.6 . Resistive indices: 0.66 - 0.67 . Acceleration times: 0.034 - 0.042 . Impression: Essentially normal examination. No evidence for renal arterial stenosis. Electronically Signed by Jevon Klein MD 08/25/2018 04:12 A
== END ==
LOC: M RAD 08:27
PROVIDERS: ATTEND Surgery Vascular Surgery
DX: Z87.448 Personal history of other diseases of urinary system (principal)

== ENCOUNTER → 2018-08-24 | Outpatient (CLI) | payer OTHER ==
[2018-08-24 08:48] LABS: BASO # 0.1 10^3/uL (0.0-0.2); EOS # 0.3 10^3/uL (0.0-0.50); EOS % 3.3 % (0.0-3.0); HEMATOCRIT 40.6 % (42.0-52.0); HEMOGLOBIN 13.5 g/dl (13.5-17.5); LYMPH # 2.2 10^3/uL (1.5-4.5); LYMPH % 21.4 % (24.0-44.0); MEAN CORPUSCULAR HEMOGLOBIN 31.5 pg (27.0-33.0); MEAN CORPUSCULAR HGB CONC 33.3 g/dl (32.0-36.5); MEAN CORPUSCULAR VOLUME 94.6 fl (80.0-96.0); MONO # 0.8 10^3/uL (0.0-0.8); MONO % 7.9 % (0.0-5.0); NEUTROPHILS # 6.7 10^3/uL (1.8-7.7); NEUTROPHILS % 65.5 % (36.0-66.0); PLATELET COUNT, AUTOMATED 328 10^3/uL (150-450); RED BLOOD COUNT 4.29 10^6/uL (4.30-6.10); WHITE BLOOD COUNT 10.2 10^3/uL (4.0-10.0)
[2018-08-24 09:12] LABS: ALBUMIN 3.4 GM/DL (3.2-5.2); ALT/SGPT 45 U/L (12-78); BILIRUBIN,TOTAL 0.4 MG/DL (0.2-1.0); BLOOD UREA NITROGEN 21 MG/DL (7-18); CALCIUM LEVEL 8.8 MG/DL (8.8-10.2); CARBON DIOXIDE LEVEL 27 MEQ/L (21-32); CHLORIDE LEVEL 105 MEQ/L (98-107); CHOLESTEROL LEVEL 179 MG/DL (<200); CHOLESTEROL RISK RATIO 4.261 (<5); CREATININE FOR GFR 1.01 MG/DL (0.70-1.30); GLOMERULAR FILTRATION RATE > 60.0 (>49); GLUCOSE, FASTING 122 MG/DL (70-100); HDL CHOLESTEROL 42 MG/DL (>40); LDL CHOLESTEROL 113 MG/DL (<100); NON-HDL-C 137 MG/DL; POTASSIUM SERUM 4.4 MEQ/L (3.5-5.1); SODIUM LEVEL 137 MEQ/L (136-145); TOTAL PROTEIN 6.9 GM/DL (6.4-8.2); TRIGLYCERIDES LEVEL 121 MG/DL (<150)
== END ==
LOC: M LAB 08:13
PROVIDERS: ATTEND Physician Assistant
DX: I25.10 Atherosclerotic heart disease of native coronary artery without angina pectoris (principal)

== ENCOUNTER → 2018-08-28 | Outpatient (CLI) | payer OTHER ==
[2018-08-28 14:11] LABS: APPEARANCE, URINE CLEAR (CLEAR); BACTERIA, URINE AUTO NEGATIVE (NEGATIVE); BILIRUBIN, URINE AUTO NEGATIVE (NEGATIVE); BLOOD, URINE BLOOD NEGATIVE (NEGATIVE); COLOR, URINE STRAW (YELLOW); GLUCOSE, URINE (UA) AUTO NEGATIVE (NEGATIVE); KETONE, URINE AUTO NEGATIVE (NEGATIVE); LEUKOCYTE ESTERASE, URINE AUTO NEGATIVE (NEGATIVE); NITRITE, URINE AUTO NEGATIVE (NEGATIVE); PROTEIN, URINE AUTO NEGATIVE (NEGATIVE); RBC, URINE AUTO 0 /HPF (0-3); SPECIFIC GRAVITY URINE AUTO 1.006 (1.002-1.035); SQUAMOUS EPITHELIAL CELL UR AU 0 /HPF (0-6); UROBILINOGEN, URINE AUTO 0.2 mg/dL (0.0-2.0); WBC, URINE AUTO 1 /HPF (0-3)
== END ==
LOC: M SMT 11:08
PROVIDERS: ATTEND Nurse Practitioner Women's Health
DX: Z12.5 Encounter for screening for malignant neoplasm of prostate (principal); R35.0 Frequency of micturition

== ENCOUNTER → 2018-09-22 | Outpatient (CLI) | payer OTHER ==
--- NOTE | 2018-09-22 12:29 | REP ---
TRANSRECTAL PROSTATE BIOPSY WITH ULTRASOUND GUIDANCE FOR PROSTATE BIOPSY: Real-time sonographic evaluation of the prostate performed utilizing transrectal probe. The size of the gland is 3.3 x 3.2 x 3.8 cm for a total volume of 20.9 mL. Echotexture is heterogenous with scattered cysts and calcifications. A hypoechoic nodule in the mid left lateral apex measures 5 mm and another in the anterior right lobe measures 7 mm. Seminal vesicles appear symmetrical. Ultrasound guidance was provided for Dr. Cueto who performed ultrasound-guided biopsy of the prostate. Electronically Signed by Henrik Gonzalez MD 09/22/2018 07:35 P
== END ==
LOC: M SMT PRO 10:17
PROVIDERS: ATTEND Urology
DX: R97.20 Elevated prostate specific antigen [PSA] (principal); C61 Malignant neoplasm of prostate
CPT/HCPCS: 76872; 76942; G0416

== ENCOUNTER → 2018-10-01 | Outpatient (CLI) | payer OTHER ==
[2018-10-01 13:54] LABS: BLOOD UREA NITROGEN 23 MG/DL (7-18); CALCIUM LEVEL 9.3 MG/DL (8.8-10.2); CARBON DIOXIDE LEVEL 26 MEQ/L (21-32); CHLORIDE LEVEL 106 MEQ/L (98-107); CREATININE FOR GFR 1.11 MG/DL (0.70-1.30); GLOMERULAR FILTRATION RATE > 60.0 (>49); GLUCOSE, FASTING 100 MG/DL (70-100); SODIUM LEVEL 139 MEQ/L (136-145)
== END ==
LOC: M WUC 10:10
PROVIDERS: ATTEND Urology
DX: C61 Malignant neoplasm of prostate (principal)

== ENCOUNTER → 2018-10-05 | Outpatient (CLI) | payer OTHER ==
[~2018-10-05] MED LIST changes: +ISOVUE-370 76% 100ML VIAL (Q9967) As Ordered ONE
--- NOTE | 2018-10-05 18:02 | REP ---
Clinical: History of prostate carcinoma. Technique: Axial contrast enhanced images from the lung bases to the pubic symphysis using 100 ml Isovue 370 intravenous contrast material with coronal and sagittal re-formations. Delayed images of the abdomen obtained. Comparison: 06/28/2018, 11/09/2016. Findings: Lung bases demonstrate chronic changes. Very subtle air space disease involving the lingula cannot be excluded. The fatty infiltration to the liver noted without focal hepatic lesion. Parenchymal calcifications within the spleen consistent with prior granulomas disease. Cholelithiasis noted without acute cholecystitis. Pancreas, and bilateral adrenal glands are normal. Kidneys demonstrate age-related cortical thinning without obvious acute renal process. 1.1 cm left renal cyst noted. The enteric system is without obstruction or acute inflammatory process. Colonic diverticulosis noted without acute diverticulitis. Normal terminal ileum and appendix identified in the right lower quadrant. Pelvis demonstrates normal bladder and grossly age appropriate prostate gland without obvious focal prostate lesion or abnormality noted. No pelvic fluid or ascites. No significant adenopathy. Abdominal aorta demonstrates atherosclerotic changes without aneurysm or dissection. Musculoskeletal structures demonstrate age-related degenerative changes without focal sclerotic or lytic / destructive lesions appreciated. Impression: 1. Hepatic steatosis without focal hepatic lesion. 2. 1.1 cm left renal hypodensity compatible with cyst. 3. Cholelithiasis. 4. Colonic diverticula without acute diverticulitis. 5. Atherosclerotic disease to the aorta and coronary arteries. 6. No obvious evidence for metastatic disease. Electronically Signed by Jevon Klein MD 10/05/2018 05:54 P
== END ==
LOC: M RAD 16:01
PROVIDERS: ATTEND Urology
DX: I70.0 Atherosclerosis of aorta (principal); I70.8 Atherosclerosis of other arteries; K57.30 Diverticulosis of large intestine without perforation or abscess without bleeding; K76.0 Fatty (change of) liver, not elsewhere classified; K76.89 Other specified diseases of liver; K80.00 Calculus of gallbladder with acute cholecystitis without obstruction; C61 Malignant neoplasm of prostate
CPT/HCPCS: 74177; Q9967

== ENCOUNTER → 2018-10-22 | Outpatient (CLI) | payer OTHER ==
[~2018-10-22] MED LIST changes: -ISOVUE-370 76% 100ML VIAL (Q9967) As Ordered ONE; -OMEP20CA3 PO; +OMEP20CA4 PO
--- NOTE | 2018-10-22 18:07 | REP ---
WHOLE BODY BONE SCAN: Following the intravenous administration of 21.8 millicuries of Technetium 99M MDP, patient's whole body was imaged in the anterior and posterior projections with additional oblique and lateral views obtained. There is no compelling scintigraphic evidence of osseous metastases in the axial appendicular skeleton. There is arthritic uptake in the left knee. There appears to be stress changes at the inferior and posterior aspect of the left calcaneus. Renal and bladder activity are seen. IMPRESSION: No compelling scintigraphic evidence of osseous metastases. Electronically Signed by Henrik Gonzalez MD 10/24/2018 10:34 A
== END ==
LOC: M RAD 09:58
PROVIDERS: ATTEND Urology
DX: C61 Malignant neoplasm of prostate (principal)
CPT/HCPCS: 78306; A9503

== ENCOUNTER → 2018-10-30 | Outpatient (CLI) | payer OTHER ==
--- NOTE | 2018-10-30 13:49 | REP ---
PA and lateral chest: Comparison is 08/28/2010. The lung marrero are clear. The cardiac size is normal. The dasha, mediastinum, and skeletal structures are unremarkable. Impression: Negative PA and lateral chest. There are no interval changes. Electronically Signed by Henrik Ziegler MD 10/30/2018 01:41 P
[2018-10-30 13:55] LABS: HEMATOCRIT 37.8 % (42.0-52.0); HEMOGLOBIN 12.5 g/dl (13.5-17.5); MEAN CORPUSCULAR HEMOGLOBIN 32.1 pg (27.0-33.0); MEAN CORPUSCULAR HGB CONC 33.1 g/dl (32.0-36.5); MEAN CORPUSCULAR VOLUME 96.9 fl (80.0-96.0); PLATELET COUNT, AUTOMATED 296 10^3/uL (150-450); WHITE BLOOD COUNT 9.2 10^3/uL (4.0-10.0)
[2018-10-30 14:12] LABS: PARTIAL THROMBOPLASTIN TIME 25.9 SECONDS (25.0-38.4)
[2018-10-30 14:29] LABS: BLOOD UREA NITROGEN 13 MG/DL (7-18); CARBON DIOXIDE LEVEL 28 MEQ/L (21-32); CHLORIDE LEVEL 107 MEQ/L (98-107); CREATININE FOR GFR 1.01 MG/DL (0.70-1.30); GLOMERULAR FILTRATION RATE > 60.0 (>49); GLUCOSE, FASTING 89 MG/DL (70-100); POTASSIUM SERUM 4.2 MEQ/L (3.5-5.1); SODIUM LEVEL 141 MEQ/L (136-145)
[2018-10-30 14:44] LABS: INR 0.99; PROTHROMBIN TIME 12.8 SECONDS (11.8-14.0)
== END ==
LOC: M LAB 12:42
PROVIDERS: ATTEND Urology
DX: Z01.818 Encounter for other preprocedural examination (principal); C61 Malignant neoplasm of prostate

== ENCOUNTER → 2018-11-10 | Outpatient (REF) | payer OTHER | LOC: M SMT 11:44 | PROVIDERS: ATTEND Urology | DX: C61 Malignant neoplasm of prostate (principal); N39.0 Urinary tract infection, site not specified; Z01.818 Encounter for other preprocedural examination ==

== ENCOUNTER 2018-11-19 05:56 | Inpatient (IN) | payer OTHER ==
[~2018-11-19] VITALS: Ht 170.2 cm; Wt 95.2 kg
[2018-11-19] MEDS ORDERED: LR 1,000 ML IV ONE (06:00)
[2018-11-19] MEDS ORDERED: DESFLURANE 240 ML INHALANT As Ordered ONE (06:58)
[2018-11-19] MEDS ORDERED: dexameTHASONE 4 MG/ML 1ML VIAL (J1100) As Ordered ONE (06:59)
[2018-11-19] MEDS ORDERED: KETOROLAC 60 MG/2 ML VIAL (J1885) As Ordered ONE (06:59)
[2018-11-19] MEDS ORDERED: ONDANSETRON 4MG/2ML VIAL (J2405) As Ordered ONE (06:59)
[2018-11-19] MEDS ORDERED: ROCURONIUM BROMIDE 50 MG/5 ML VIAL As Ordered ONE ×2 (07:00→08:30)
[2018-11-19] MEDS ORDERED: PROPOFOL 200 MG/20 ML VIAL As Ordered ONE (07:00)
[2018-11-19] MEDS ORDERED: LIDOCAINE 2% INJ 100 MG/5 ML SDV (FOR ANES.) As Ordered ONE (07:00)
[2018-11-19] MEDS ORDERED: SUGAMMADEX SODIUM 500 MG/5 ML VIAL (BRIDION) As Ordered ONE (07:00)
[2018-11-19] MEDS ORDERED: fentaNYL 250 MCG/5 ML INJECTION (J3010) As Ordered ONE (07:00)
[2018-11-19] MEDS ORDERED: MIDAZOLAM INJ 2 MG/2 ML VIAL (J2250) As Ordered ONE (07:01)
[2018-11-19] MEDS ORDERED: ALBUTEROL SULFATE 2.5 MG/0.5 ML INH NEB SOLN As Ordered ONE (07:04)
[2018-11-19] MEDS ORDERED: BUPIVACAINE HCL 0.25% 30 ML VIAL As Ordered ONE (07:12)
[2018-11-19] MEDS ORDERED: LIDOCAINE 1% SDV INJ 30 ML VIAL As Ordered ONE (07:12)
[2018-11-19] MEDS ORDERED: ALBUTEROL SULFATE 2.5 MG/0.5 ML INH NEB SOLN INH ONE (07:15)
[2018-11-19] MEDS ORDERED: ONDANSETRON 4MG/2ML VIAL (J2405) IV PRN ×2 (07:30→13:15)
[2018-11-19] MEDS ORDERED: MORPHINE 4 MG/ML 1ML VIAL/SYRINGE (J2270) IV PRN (07:30)
[2018-11-19] MEDS ORDERED: PERCOCET 5MG/325MG TAB PO PRN ×2 (07:30→13:15)
[2018-11-19] MEDS ORDERED: ACETAMINOPHEN TAB 650MG DOSE (2X325MG) PO PRN (07:30)
[2018-11-19] MEDS: HEPARIN SOD (PORCINE) 5000 UNITS/ML VIAL SC SCH ×2 (07:45→21:14)
[2018-11-19] MEDS ORDERED: ePHEDrine SULFATE 25 MG/5 ML(5MG/ML) SYRINGE As Ordered ONE (08:34)
[2018-11-19] MEDS ORDERED: PHENYLephrine HCL 500 MCG/5 ML (100MCG/ML) SYRINGE (J2370) As Ordered ONE (08:34)
[2018-11-19] MEDS ORDERED: HEPARIN SOD (PORCINE) 5000 UNITS/ML VIAL As Ordered ONE (11:52)
[2018-11-19] MEDS ORDERED: HYDROmorphone HCL 2 MG/ML 1ML VIAL (J1170) As Ordered ONE (11:55)
[2018-11-19] MEDS ORDERED: HYDROMORPHONE HCL 0.5 MG/ 0.5 ML SYRINGE (J1170 PER 1) IV PRN (13:15)
[2018-11-19] MEDS ORDERED: LR 1,000 ML IV SCH (13:15)
[2018-11-19] MEDS: fentaNYL 100 MCG/2 ML INJECTION (J3010) IV PRN ×4 (13:17→13:50)
--- NOTE | 2018-11-19 13:17 | ROOPDOC ---
[facility] Report Of Operation Report of Operation DATE OF PROCEDURE: 11/19/18 PREPROCEDURE DIAGNOSES: Prostate Cancer. POSTPROCEDURE DIAGNOSES: Prostate Cancer. PROCEDURE: Robotic-assisted Laparoscopic Radical Prostatectomy with Bilateral Pelvic Lymph Node Dissection. SURGEON: Yuniel Galicia MD MASCARA MOLDER: Rebecca Meneses NP ANESTHESIA: General. OPERATIVE INDICATIONS: This is a 63 year old male with clinical T1c [place] 4+3 prostate cancer, here today for treatment. DESCRIPTION OF PROCEDURE: The patient was brought to the operating room and general anesthesia was induced. Prophylactic antibiotics were infused. He was then placed in the supine position and prepped and draped in the usual sterile fashion. At this point, a Knox catheter was inserted into the bladder and the balloon was filled with 10 mL of sterile water. We then made a midline incision just above the umbilicus for an 8 mm port. A Veress needle was utilized to achieve pneumoperitoneum. Next, an 8 mm port was inserted into the incision and subsequently a camera was inserted. There were no injuries from the Veress needle or initial trocar placement. Then three robotic ports were placed in the usual configuration in line just below the level of the umbilicus. An 12 mm physician assistant surgery port was inserted lateral to the camera port. Once all the ports were placed, the robot was docked. Additional lysis of adhesions between the sigmoid colon and abdominal wall was then performed. The bladder was then released from the anterior abdominal wall using electrocautery. Once the bladder was dropped, the fat overlying the prostate was cleared using electrocautery. The superficial dorsal vein was controlled with electrocautery. The endopelvic fascia was opened on both sides and the dorsal venous complex was cleared. Next, a #0 Vicryl [id number] stitch was placed around the dorsal venous complex. Once that was done, the bladder was opened and dissected away from the prostate. At this point, the prostate was lifted up. The vasa deferentia were identified in the midline. They were controlled with electrocautery and then transected. The seminal vesicles were also dissected bilaterally. The rectum was safely mobilized away from the prostate. At this point I ligated and transected bilateral prostatic pedicles using the Harmonic scalpel. The pedicles were carried towards the apex. After taking care of the pedicles and mobilizing the rectum off the prostate below, the prostate was only connected by the urethra. At this point, the dorsal venous complex was transected with electrocautery. The urethra was then opened and the catheter was withdrawn and the posterior urethra was transected, thus freeing the prostate. At this point, we checked for hemostasis and it appeared very good. Next, we performed bilateral pelvic lymph node dissection. This was done in a standard fashion. The limits of dissection were the iliac vein proximally, the obturator nerve distally, the pelvic sidewall laterally, and the bladder medially. All lymphatic tissue within these limits was removed. I performed the same procedure on both the right and left sides. Hemostasis was then obtained with a combination of bipolar electrocautery and Weck clips. The lymphatic packets were then placed in separate Endo Catch bags for future retrieval. Once hemostasis was confirmed, I then moved on to perform the vesicourethral anastomosis. The vesicourethral anastomosis was performed in running fashion using a Quill stitch. Once this was done, the final #20-Pashto Knox catheter was placed. The balloon was filled with 15 mL of sterile water. Upon completion of the vesicourethral anastomosis, it was tested by filling the bladder with sterile water. The anastomosis appeared to be watertight. At this point, the p rostate and seminal vesicles were placed in an Endo Catch bag for future retrieval. A Javier-Fields drain was brought in through the left robotic port skin site and the drain was positioned anterior to the bladder. The robot was then undocked. A Rasta-Trina fascial closure device was utilized to place a #0 Vicryl suture through the fascia of the 12 mm physician assistant surgery port. The drain was secured to the skin with #2-0 Ethilon suture. The prostate, as well as the lymphatic packets were then extracted from the camera port site after the skin was extended. The fascia in this incision was then closed with a running #0 Vicryl stitch. Next, all the remaining ports were removed and there did not appear to be any bleeding from any of the port sites. The previously placed #0 Vicryl free ties through the physician assistant surgery port were then tied down and all incisions were irrigated. Last, all of the incisions were closed with running subcuticular #4-0 Monocryl sutures. Local anesthesia was applied. Dermabond was then applied to the incisions. This marked the conclusion of the procedure. The patient was then awakened from anesthesia and transported to the recovery room in stable condition. ESTIMATED BLOOD LOSS: 100 mL. COMPLICATIONS: None. SPECIMENS: Prostate and seminal vesicles, right pelvic lymph nodes, left pelvic lymph nodes. PLAN: The patient will be admitted to the hospital postoperatively, and he will likely be discharged home within the next 1-2 days. YUNIEL GALICIA MD Nov 19, 2018 13:17
[2018-11-19 13:29] LABS: HEMATOCRIT 36.7 % (42.0-52.0); HEMOGLOBIN 12.1 g/dl (13.5-17.5); MEAN CORPUSCULAR HEMOGLOBIN 31.3 pg (27.0-33.0); MEAN CORPUSCULAR VOLUME 95.1 fl (80.0-96.0); PLATELET COUNT, AUTOMATED 283 10^3/uL (150-450); RED BLOOD COUNT 3.86 10^6/uL (4.30-6.10); WHITE BLOOD COUNT 13.3 10^3/uL (4.0-10.0)
[2018-11-19 13:57] LABS: CALCIUM LEVEL 9.5 MG/DL (8.8-10.2); CREATININE FOR GFR 1.58 MG/DL (0.70-1.30); GLOMERULAR FILTRATION RATE 47.7 (>49); POTASSIUM SERUM 5.3 MEQ/L (3.5-5.1)
[2018-11-19] MEDS ORDERED: FUROSEMIDE 20 MG/2 ML VIAL (J1940) As Ordered ONE (14:38)
[2018-11-19] MEDS ORDERED: FUROSEMIDE 20 MG/2 ML VIAL (J1940) IV ONE (14:45)
[2018-11-19] MEDS: NS 1,000 ML IV SCH ×2 (15:16→16:03)
[2018-11-19 16:00] VITALS: BP 94/66
[2018-11-19] MEDS: PERCOCET 5MG/325MG TAB PO PRN ×2 (16:03→21:13)
[2018-11-19] MEDS: DOCUSATE SODIUM 100 MG CAP PO SCH ×2 (16:03→21:12)
[2018-11-19 16:30] VITALS: BP 112/73
[2018-11-19] MEDS: GABAPENTIN 300 MG CAP PO SCH ×2 (17:10→21:13)
[2018-11-19] MEDS: ceFAZolin SOD 1 GM in D5W MINI-BAG PLUS 50 ML IV SCH (17:10)
[2018-11-19 17:29] VITALS: BP 118/73
[2018-11-19 18:34] VITALS: BP 116/74
[2018-11-19] MEDS ORDERED: MONTELUKAST 10 MG TAB PO SCH (21:00)
[2018-11-19] MEDS ORDERED: AMITRIPTYLINE 25 MG TAB PO SCH (21:00)
[2018-11-19] MEDS ORDERED: ISOSORBIDE MON. (IMDUR) 60 MG XR TAB PO SCH (21:00)
[2018-11-19] MEDS ORDERED: ATORVASTATIN 20 MG TAB PO SCH (21:00)
[2018-11-19] MEDS ORDERED: AMITRIPTYLINE 50 MG TAB PO SCH (21:00)
[2018-11-19 21:35] VITALS: BP 119/74
[2018-11-20] MEDS: NS 1,000 ML IV SCH (00:06)
[2018-11-20] MEDS: ceFAZolin SOD 1 GM in D5W MINI-BAG PLUS 50 ML IV SCH (00:06)
[2018-11-20 01:41] VITALS: BP 122/76
[2018-11-20] MEDS: PERCOCET 5MG/325MG TAB PO PRN ×3 (02:09→12:35)
[2018-11-20] MEDS: HEPARIN SOD (PORCINE) 5000 UNITS/ML VIAL SC SCH ×2 (05:53→14:00)
[2018-11-20] MEDS ORDERED: LevoFLOXacin 500 MG TABLET PO SCH (06:00)
[2018-11-20 06:13] LABS: HEMATOCRIT 32.1 % (42.0-52.0); HEMOGLOBIN 10.4 g/dl (13.5-17.5); MEAN CORPUSCULAR HEMOGLOBIN 31.5 pg (27.0-33.0); MEAN CORPUSCULAR HGB CONC 32.4 g/dl (32.0-36.5); MEAN CORPUSCULAR VOLUME 97.3 fl (80.0-96.0); PLATELET COUNT, AUTOMATED 263 10^3/uL (150-450); WHITE BLOOD COUNT 17.1 10^3/uL (4.0-10.0)
[2018-11-20 06:34] LABS: BLOOD UREA NITROGEN 28 MG/DL (7-18); CALCIUM LEVEL 8.1 MG/DL (8.8-10.2); CARBON DIOXIDE LEVEL 26 MEQ/L (21-32); CHLORIDE LEVEL 101 MEQ/L (98-107); CREATININE FOR GFR 1.25 MG/DL (0.70-1.30); GLOMERULAR FILTRATION RATE > 60.0 (>49); GLUCOSE, FASTING 108 MG/DL (70-100); POTASSIUM SERUM 4.8 MEQ/L (3.5-5.1); SODIUM LEVEL 132 MEQ/L (136-145)
[2018-11-20 07:12] VITALS: BP 12/71
[2018-11-20] MEDS ORDERED: SALMETEROL DISKUS 50MCG INHALER (SEREVENT) INH SCH (08:00)
[2018-11-20] MEDS ORDERED: FLUTICASONE HFA 110 MCG 12 GM INHALER (FLOVENT) INH SCH (08:00)
[2018-11-20 08:49] VITALS: BP 120/71
[2018-11-20] MEDS: GABAPENTIN 300 MG CAP PO SCH ×2 (08:49→16:09)
[2018-11-20] MEDS: DOCUSATE SODIUM 100 MG CAP PO SCH (08:49)
--- NOTE | 2018-11-20 08:51 | IPNPDOC ---
Subjective Review oF Systems Chief Complaint The patient is a 63-year-old male admitted with a reason for visit of Prostate Cancer. Events since Last Encounter No acute events o/n. Patient notes acceptable incision pain. He notes that the majority of his discomfort is from intermittent suprapubic pressure giving him the sensation that he needs to void. He also notes left hand numbness since surgery. Denies n/v. No f/c/ns. Objective Physical Examination General Exam: Alert, Cooperative, No Acute Distress ABDOMEN EXAM: Soft, Tenderness (minimal), Other (incisions clean/dry/intact; INEZ w/ serosanguinous output) Vital Signs/I&O Vital Signs Date Time Temp Pulse Resp B/P (MAP) Pulse Ox O2 Delivery O2 Flow Rate FiO2 11/20/18 07:28 16 11/20/18 07:12 97.6 67 (52) 94 11/19/18 15:18 2 I&O- Last 24 Hours up to 6 AM 11/20/18 06:00 Intake Total 1645 ml Output Total 1795 ml Balance -150 ml Laboratory Data Labs 24H Laboratory Tests 2 11/19/18 13:07: Nucleated Red Blood Cells % (auto) 0.0, Anion Gap 5L, Glomerular Filtration Rate 47.7L, Blood Urea Nitrogen 21H, Creatinine 1.58H, Sodium Level 132L, Potassium Level 5.3H, Chloride Level 102, Carbon Dioxide Level 25, Calcium Level 9.5 11/20/18 05:22: Nucleated Red Blood Cells % (auto) 0.0, Anion Gap 5L, Glomerular Filtration Rate > 60.0, Blood Urea Nitrogen 28H, Creatinine 1.25, Sodium Level 132L, Potassium Level 4.8, Chloride Level 101, Carbon Dioxide Level 26, Calcium Level 8.1L CBC/BMP Laboratory Tests 11/19/18 13:07 Red Blood Count 3.86 L, Mean Corpuscular Volume 95.1, Mean Corpuscular Hemogl obin 31.3, Mean Corpuscular Hemoglobin Concent 33.0, Red Cell Distribution Width 13.0, Calcium Level 9.5 11/20/18 05:22 Red Blood Count 3.30 L, Mean Corpuscular Volume 97.3 H, Mean Corpuscular Hemoglobin 31.5, Mean Corpuscular Hemoglobin Concent 32.4, Red Cell Distribution Width 13.2, Calcium Level 8.1 L Assessment/Plan Date Seen The patient was seen on 11/20/18. Patient Summary This is a 63 y/o M POD1 s/p RALP w/ BPLND. UOP has been good w/ minimal INEZ output. His main complaint this morning is suprapubic pressure, likely due to bladder spasms. He also has left hand numbness and is likely due the IV that was previously in that hand. Plan/VTE VTE Prophylaxis Ordered?: Yes VTE Exclusion Mechanical Proph: N/A:VTE Prophy Ordered VTE Exclusion Pharmacological: N/A:VTE Prophy Ordered Plan/Urinary Catheter Urinary Catheter: Other Catheter: (catheter will need to stay in for 7-10 days for healing of the vesicourethral anastomosis) Plan - d/c IVF - start oxybutynin for bladder spasms - cont percocet for incisional pain - cont home meds - start levaquin for UTI diagnosed preop - SCDs when in bed - ambulate - SQH - incentive spirometry - advance diet as tolerated YUNIEL GALICIA MD Nov 20, 2018 08:51
[2018-11-20] MEDS: oxyBUTYnin 5 MG TAB PO PRN ×2 (08:55→16:10)
[2018-11-20] MEDS ORDERED: LISINOPRIL 20 MG TAB PO SCH (09:00)
[2018-11-20] MEDS ORDERED: COLA100C5 PO (16:35)
[2018-11-20] MEDS ORDERED: LEVA1TAB2 PO (16:36)
[2018-11-20] MEDS ORDERED: ACET1TAB55 PO (16:37)
[2018-11-20] MEDS ORDERED: Ditropan PO (16:38)
--- NOTE | 2018-11-22 20:25 | DSES ---
DATE OF ADMISSION: 11/19/2018 DATE OF DISCHARGE: 11/20/2018 ADMISSION DIAGNOSIS: Prostate cancer. DISCHARGE DIAGNOSIS: Prostate cancer. ADMITTING PHYSICIAN: Bandar Cueto MD DISCHARGING PHYSICIAN: Bandar Cueto MD PROCEDURES PERFORMED: Robotic assisted laparoscopic radical prostatectomy with bilateral pelvic lymph node dissection on 11/19/2018. HISTORY OF PRESENT ILLNESS: This is a 63-year-old male who underwent the above listed procedure and was admitted to the hospital postoperatively. HOSPITALIZATION COURSE: The patient's postoperative course was unremarkable. On postoperative day #1, he had good incisional pain control with oral pain medication. He did note that he had a moderate amount of bladder spasms and this improved with oxybutynin. His labs were all within acceptable limits. He had excellent urine output through his catheter and minimal output from his Javier-Fields drain. He ambulated well on postoperative day #1 and tolerated a regular diet. He was deemed ready for discharge home on postoperative day #1. His Javier-Fields drain was removed and he was discharged home with his catheter in place with a plan for him to followup in clinic in approximately 10 days for catheter removal and pathology results.
== END 2018-11-20 17:20 | disposition home or self-care (01) | DRG 484 ==
LOC: M OR 05:56 → M MS5PR 15:40
PROVIDERS: ADMIT Urology; ATTEND Urology
PROC: 07BC4ZX Excision of Pelvis Lymphatic, Percutaneous Endoscopic Approach, Diagnostic (ICD-10-PCS; 2018-11-19)
PROC: 8E0W4CZ Robotic Assisted Procedure of Trunk Region, Percutaneous Endoscopic Approach (ICD-10-PCS; 2018-11-19)
PROC: 0VT04ZZ Resection of Prostate, Percutaneous Endoscopic Approach (ICD-10-PCS; principal; 2018-11-19 07:30)
DX: C61 Malignant neoplasm of prostate (principal); N32.89 Other specified disorders of bladder; I73.9 Peripheral vascular disease, unspecified; I10 Essential (primary) hypertension; R06.09 Other forms of dyspnea; K21.9 Gastro-esophageal reflux disease without esophagitis; E66.9 Obesity, unspecified; N52.9 Male erectile dysfunction, unspecified; H54.61 Unqualified visual loss, right eye, normal vision left eye; I25.10 Atherosclerotic heart disease of native coronary artery without angina pectoris; E55.9 Vitamin D deficiency, unspecified; K02.9 Dental caries, unspecified; Z86.73 Personal history of transient ischemic attack (TIA), and cerebral infarction without residual deficits; Z79.82 Long term (current) use of aspirin; Z79.899 Other long term (current) drug therapy; Z95.5 Presence of coronary angioplasty implant and graft; Z87.891 Personal history of nicotine dependence; Z68.33 Body mass index [BMI] 33.0-33.9, adult

== ENCOUNTER 2018-12-20 11:18 | Observation (INO) | payer OTHER ==
[~2018-12-20] VITALS: Ht 167.6 cm; Wt 92.0 kg
[~2018-12-20 11:18] MED LIST changes: +ACET1TAB55 PO; +COLA100C5 PO; +Ditropan PO; +LEVA1TAB2 PO; +OMEP1CAP73 PO; -OMEP20CA4 PO; -OMEP40CA2 PO; +OMEP40CA97 PO
[2018-12-20] MEDS ORDERED: ASPIRIN 81 MG CHEW TABLET PO ONE (12:45)
[2018-12-20 13:15] LABS: BASO # 0.1 10^3/uL (0.0-0.2); BASO % 0.7 % (0.0-1.0); EOS # 0.2 10^3/uL (0.0-0.5); EOS % 1.9 % (0.0-3.0); HEMATOCRIT 39.3 % (42.0-52.0); HEMOGLOBIN 13.1 g/dl (13.5-17.5); LYMPH # 1.7 10^3/uL (1.5-5.0); LYMPH % 13.5 % (24.0-44.0); MEAN CORPUSCULAR HEMOGLOBIN 31.4 pg (27.0-33.0); MEAN CORPUSCULAR HGB CONC 33.3 g/dl (32.0-36.5); MEAN CORPUSCULAR VOLUME 94.2 fl (80.0-96.0); MONO % 8.4 % (0.0-5.0); NEUTROPHILS # 9.1 10^3/uL (1.5-8.5); NEUTROPHILS % 74.4 % (36.0-66.0); PLATELET COUNT, AUTOMATED 337 10^3/uL (150-450); RED BLOOD COUNT 4.17 10^6/uL (4.30-6.10); WHITE BLOOD COUNT 12.2 10^3/uL (4.0-10.0)
[2018-12-20 13:26] LABS: INR 0.96; PROTHROMBIN TIME 12.5 SECONDS (11.8-14.0)
[2018-12-20 13:27] LABS: PARTIAL THROMBOPLASTIN TIME 27.9 SECONDS (25.0-38.4)
[2018-12-20 13:44] LABS: ALBUMIN 3.4 GM/DL (3.2-5.2); ALT/SGPT 31 U/L (12-78); BILIRUBIN,DIRECT < 0.1 MG/DL (0.0-0.2); BILIRUBIN,TOTAL 0.4 MG/DL (0.2-1.0); BLOOD UREA NITROGEN 25 MG/DL (7-18); CALCIUM LEVEL 9.5 MG/DL (8.8-10.2); CARBON DIOXIDE LEVEL 26 MEQ/L (21-32); CHLORIDE LEVEL 101 MEQ/L (98-107); CK-MB VALUE MASS 7.4 NG/ML (<3.6); CPK CREATINE PHOSPHOKINASE 214 U/L (39-308); CREATININE FOR GFR 1.41 MG/DL (0.70-1.30); GLOMERULAR FILTRATION RATE 54.4 (>49); GLUCOSE, FASTING 92 MG/DL (70-100); LIPASE 116 U/L (73-393); MB/CK RELATIVE INDEX 3.46 (< OR =4); NT-PRO BNP 35 PG/ML (<125); POTASSIUM SERUM 4.7 MEQ/L (3.5-5.1); SODIUM LEVEL 135 MEQ/L (136-145); TROPONIN I < 0.02 NG/ML (< 0.10)
[2018-12-20] MEDS ORDERED: ISOVUE-370 76% 100ML VIAL (Q9967) As Ordered ONE (13:48)
--- NOTE | 2018-12-20 14:13 | REP ---
Clinical: Chest pain. . Technique: Axial contrast enhanced images from the thoracic inlet to the upper abdomen using 100 ml Isovue 370 intravenous contrast material with multiplanar re-formations. Findings: Satisfactory enhancement of the pulmonary vasculature is achieved and no filling defects are identified to suggest pulmonary embolus. Further evaluation of the mediastinum demonstrates normal thoracic aorta, heart and pericardium. The bilateral lung marrero are well aerated and clear without consolidation pleural effusion or pneumothorax. Tracheobronchial tree is patent. No nodule or mass lesion is identified. No adenopathy noted. Surrounding musculoskeletal structures intact Impression: No evidence for pulmonary embolus. No acute mediastinal or pleural parenchymal process. Electronically Signed by Jevon Klein MD 12/20/2018 02:05 P
--- NOTE | 2018-12-20 14:19 | REP ---
Clinical: Abdominal pain. Right incisional hernia. Technique: Axial contrast enhanced images from the lung bases to the pubic symphysis using 100 ml Isovue 370 intravenous contrast material with coronal and sagittal re-formations. Comparison: 10/05/2018. Findings: Lung bases are clear. Visualized heart and pericardium normal. Liver, pancreas, bilateral adrenal glands and kidneys are normal. Incidental 1.1 cm left renal cyst remain stable. The spleen demonstrates parenchymal calcifications consistent with prior granulomas disease and geographic areas of low density likely related to timing of enhancement and image acquisition and less likely representing areas of infarction. Cholelithiasis. The enteric system demonstrates small hiatal hernia. There is no evidence for bowel obstruction or acute inflammatory process. Normal terminal ileum and appendix are identified in the right lower quadrant. Few sigmoid diverticula noted without acute diverticulitis. Pelvis demonstrates normal bladder and evidence of prior prostate surgery. No ascites. No free air. No adenopathy. No significant hernia. Small amounts of granulation tissue in the subcutaneous tissues of the umbilicus and along the right lateral abdominopelvic wall suggesting sites of prior surgical trocar placement. Atherosclerotic changes to the aorta and vasculature noted without aneurysm or dissection. Musculoskeletal structures demonstrate degenerative changes without focal osseous abnormality. Impression: 1. Cholelithiasis. 2. Likely normal spleen as described above. 3. Sigmoid diverticula without acute diverticulitis. 4. No acute abdominopelvic pathology appreciated. Electronically Signed by Jevon Klein MD 12/20/2018 02:10 P
[2018-12-20] MEDS ORDERED: PANT40TA3 PO (14:23)
[2018-12-20] MEDS ORDERED: CARV6.25 PO (14:23)
[2018-12-20] MEDS ORDERED: FLOM0.4C39 PO (14:23)
[2018-12-20] MEDS ORDERED: CHLO125TA PO (14:23)
[2018-12-20 18:03] LABS: CK-MB VALUE MASS 6.4 NG/ML (<3.6); CPK CREATINE PHOSPHOKINASE 182 U/L (39-308); MB/CK RELATIVE INDEX 3.52 (< OR =4); TROPONIN I < 0.02 NG/ML (< 0.10)
[2018-12-20] MEDS ORDERED: AMLO10TA5 PO (19:32)
[2018-12-20] MEDS ORDERED: GABA600T4 PO (19:32)
[2018-12-20] MEDS ORDERED: ACETAMINOPHEN TAB 650MG DOSE (2X325MG) PO PRN (20:15)
[2018-12-20] MEDS ORDERED: MAALOX 30 ML SUSP *UDC PO PRN (20:15)
--- NOTE | 2018-12-20 20:36 | ECGEPIP ---
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
--- NOTE | 2018-12-20 20:43 | ECGEPIP ---
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
[2018-12-20 23:59] VITALS: BP 141/75
[2018-12-21] MEDS: ENOXAPARIN 40 MG/0.4 ML SYRINGE (J1650) SC SCH ×2 (00:04→20:09)
[2018-12-21] MEDS ORDERED: NS 1,000 ML IV SCH (03:15)
--- NOTE | 2018-12-21 03:17 | HPEPDOC ---
General Date of Admission Dec 20, 2018 at 11:19 Date of Service: Dec 20, 2018 Chief Complaint The patient is a 63-year-old male admitted with a reason for visit of Syncope/ Collapse. History of Present Illness 63m with hx of cad/stents, copd, cva, prostate ca s/p robotic prostatectomy last month, who presents with syncope. Pt denies any chest pain, sob, or palpitations. He states he was walking, he became dizzy, then suddenly he was on the floor. He had a similar episode a few days ago when he stood up from the toilet too fast. He feels well now. a full ros was performed and negative except as above Home Medications Scheduled Amitriptyline HCl (Amitriptyline HCl) 50 Mg Tab, 50 MG PO QHS, (Reported) Amlodipine Besylate (Amlodipine Besylate) 10 Mg Tablet, 10 MG PO DAILY, (Reported) FAMILY STATES HE TAKES .5 TABLET DAILY Aspirin (Aspirin EC) 81 Mg Tab, 81 MG PO DAILY, (Reported) Atorvastatin Calcium (Atorvastatin Calcium) 40 Mg Tab, 40 MG PO QHS, (Reported) Carvedilol (Carvedilol) 6.25 Mg Tablet, 6.25 MG PO BID, (Reported) Chlorthalidone (Chlorthalidone) 25 Mg Tablet, 12.5 MG PO DAILY, (Reported) Fluticasone Furoate (Arnuity Ellipta) 100 Mcg/Act Inh, 1 PUFF PO DAILY, (Reported) Gabapentin (Gabapentin) 600 Mg Tablet, 600 MG PO TID, (Reported) Isosorbide Mononitrate (Isosorbide Mononitrate ER) 60 Mg Tab, 60 MG PO QHS, (Reported) Lisinopril (Lisinopril) 20 Mg Tab, 20 MG PO QHS, (Reported) Montelukast Sodium (Montelukast Sodium) 10 Mg Tab, 10 MG PO QHS, (Reported) Olodaterol HCl (Striverdi Respimat) 2.5 Mcg/Act Aer, 2 PUFFS INH DAILY, (Reported) Pantoprazole Sodium (Pantoprazole Sodium) 40 Mg Tablet.dr, 40 MG PO DAILY, (Reported) Tamsulosin HCl (Flomax) 0.4 Mg Capsule, 0.4 MG PO QHS, (Reported) Allergies Coded Allergies: No Known Allergies (Unverified , 11/11/18) Past Medical History Medical History cad, cva, copd, prostate ca Surgical History prostatectomy left eye prosthesis Social History * Smoker: former Smoker Alcohol: Denies Drugs: denies A-FIB/CHADSVASC A-FIB History Current/History of A-Fib/PAF?: No Current PO Anticoag Therapy: No Age/Risk Factor Scoring CHADSVASC: CHADSVASC Response (Comments) Value Age Risk Factor Age < 65 years old 0 Gender Risk Factor Male 0 Hx of CHF No 0 Hx of HTN Yes 1 Hx of Stroke/TIA/or VTE Yes 2 Hx of Diabetes No 0 Hx of Vascular Disease No 0 Total 3 Treatment Treatment ordered: NONE Reason Anticoagulant not given: Not indicated/[id number] Physical Examination General Exam: Positive: Alert, No Acute Distress Eye Exam: Positive: Conjunctiva & lids normal, Other Eye Symptoms (left eye immobile) ENT Exam: Positive: Atraumatic, Mucous membr. moist/pink, Pharynx Normal Neck Exam: Positive: Supple; Negative: JVD, thyromegaly Chest Exam: Positive: Clear to auscultation, Normal air movement Heart Exam: Positive: Rate Normal, Regular Rhythm, Normal S1, Normal S2; Negative: Murmurs, Rubs Telemetry: Positive: No significant arrhythmia Abdomen Exam: Positive: Normal bowel sounds, Soft; Negative: Tenderness, Hepatospenomegaly Extremity Exam: Positive: Normal pulses; Negative: Clubbing, Cyanosis, Edema Skin Exam: Positive: Nl turgor and temperature; Negative: Breakdown, Lesion Neuro Exam: Positive: Normal Gait, Normal Speech, Cranial Nerves 3-12 NL, Reflexes 2+ Psych Exam: Positive: Mental status NL, Mood NL, Oriented x 3 Vital Signs Vital Signs Date Time Temp Pulse Resp B/P (MAP) Pulse Ox O2 Delivery O2 Flow Rate FiO2 12/20/18 23:59 97.7 72 16 141/75 (97) 97 12/20/18 12:37 Room Air Laboratory Data Labs 24H Laboratory Tests 2 12/20/18 12:42: Immature Granulocyte % (Auto) 1.1, White Blood Count 12.2H, Red Blood Count 4.17L, Hemoglobin 13.1L, Hematocrit 39.3L, Mean Corpuscular Volume 94.2, Mean Corpuscular Hemoglobin 31.4, Mean Corpuscular Hemoglobin Concent 33.3, Red Cell Distribution Width 13.1, Platelet Count 337, Neutrophils (%) (Auto) 74.4H, Lymphocytes (%) (Auto) 13.5L, Monocytes (%) (Auto) 8.4H, Eosinophils (%) (Auto) 1.9, Basophils (%) (Auto) 0.7, Neutrophils # (Auto) 9.1H, Lymphocytes # (Auto) 1.7, Monocytes # (Auto) 1.0H, Eosinophils # (Auto) 0.2, Basophils # (Auto) 0.1, Nucleated Red Blood Cells % (auto) 0.0, Prothrombin Time 12.5, Prothromb Time International Ratio 0.96, Activated Partial Thromboplast Time 27.9, Anion Gap 8, Glomerular Filtration Rate 54.4, Calcium Level 9.5, Aspartate Amino Transf (AST/SGOT) 21, Alanine Aminotransferase (ALT/SGPT) 31, Alkaline Phosphatase 129H, Total Bilirubin 0.4, Direct Bilirubin < 0.1, Total Creatine Kinase 214, Creatine Kinase MB 7.4H, Creatine Kinase MB Relative Index 3.46, Troponin I < 0.02, CC-Xja-N-Type Natriuretic Peptide 35, Total Protein 7.0, Albumin 3.4, Albumin/Globulin Ratio 0.94L, Lipase 116 12/20/18 17:21: Total Creatine Kinase 182, Creatine Kinase MB 6.4H, Creatine Kinase MB Relative Index 3.52, Troponin I < 0.02 CBC/BMP Laboratory Tests 12/20/18 12:42 Red Blood Count 4.17 L, Mean Corpuscular Volume 94.2, Mean Corpuscular Hemoglobin 31.4, Mean Corpuscular Hemoglobin Concent 33.3, Red Cell Distribution Width 13.1, Neutrophils (%) (Auto) 74.4 H, Lymphocytes (%) (Auto) 13.5 L, Monocytes (%) (Auto) 8.4 H, Eosinophils (%) (Auto) 1.9, Basophils (%) (Auto) 0.7, Neutrophils # (Auto) 9.1 H, Lymphocytes # (Auto) 1.7, Monocytes # (Auto) 1.0 H, Eosinophils # (Auto) 0.2, Basophils # (Auto) 0.1 Assessment/Plan 63m p/w syncope not orthostatic first two troponins negative suspicious for arrhythmia monitor on tele repeat cardiac enzymes capo gentle hydration avoid nephrotoxins repeat chem in am hold lisinopril and chlorthalidone cad/htn continue asa, lipitor, coreg, norvasc prostate ca continue flomax Plan / VTE VTE Prophylaxis Ordered?: Yes ARVIND MCNAIR MD Dec 21, 2018 03:17
[2018-12-21 04:00] VITALS: BP 135/77
[2018-12-21] MEDS ORDERED: ARNU1INH3 PO (04:00)
[2018-12-21 07:09] LABS: BASO # 0.1 10^3/uL (0.0-0.2); EOS # 0.4 10^3/uL (0.0-0.5); EOS % 3.3 % (0.0-3.0); HEMATOCRIT 39.7 % (42.0-52.0); LYMPH # 2.1 10^3/uL (1.5-5.0); MEAN CORPUSCULAR HEMOGLOBIN 31.8 pg (27.0-33.0); MEAN CORPUSCULAR HGB CONC 32.7 g/dl (32.0-36.5); MEAN CORPUSCULAR VOLUME 97.1 fl (80.0-96.0); MONO # 0.9 10^3/uL (0.0-0.8); MONO % 8.9 % (0.0-5.0); NEUTROPHILS # 6.9 10^3/uL (1.5-8.5); NEUTROPHILS % 65.8 % (36.0-66.0); PLATELET COUNT, AUTOMATED 285 10^3/uL (150-450); RED BLOOD COUNT 4.09 10^6/uL (4.30-6.10); WHITE BLOOD COUNT 10.5 10^3/uL (4.0-10.0)
--- NOTE | 2018-12-21 07:36 | REP ---
Clinical: Acute chest pain . Comparison: 10/30/2018 . Findings: The mediastinum and cardiac silhouette are stable and within normal limits for portable technique. The lung marrero are clear without acute consolidation, effusion, or pneumothorax. Skeletal structures are intact. Impression: No acute cardiopulmonary process appreciated. Electronically Signed by Jevon Klein MD 12/20/2018 12:52 P
[2018-12-21 08:00] VITALS: BP 148/90
[2018-12-21] MEDS ORDERED: ENTER DRUG NAME HERE (PATIENT'S OWN MED) INH SCH ×2 (08:00)
[2018-12-21 08:17] LABS: BLOOD UREA NITROGEN 21 MG/DL (7-18); CALCIUM LEVEL 9.3 MG/DL (8.8-10.2); CARBON DIOXIDE LEVEL 26 MEQ/L (21-32); CHLORIDE LEVEL 103 MEQ/L (98-107); CK-MB VALUE MASS 5.4 NG/ML (<3.6); CPK CREATINE PHOSPHOKINASE 156 U/L (39-308); CREATININE FOR GFR 1.06 MG/DL (0.70-1.30); GLOMERULAR FILTRATION RATE > 60.0 (>49); GLUCOSE, FASTING 138 MG/DL (70-100); MB/CK RELATIVE INDEX 3.46 (< OR =4); POTASSIUM SERUM 3.6 MEQ/L (3.5-5.1); SODIUM LEVEL 139 MEQ/L (136-145); TROPONIN I < 0.02 NG/ML (< 0.10)
[2018-12-21] MEDS: PANTOPRAZOLE 40MG TAB (PROTONIX) PO SCH (08:53)
[2018-12-21] MEDS: CARVedilol 6.25 MG TAB PO SCH ×2 (08:53→20:08)
[2018-12-21] MEDS: GABAPENTIN 300 MG CAP PO SCH ×3 (08:53→20:07)
[2018-12-21] MEDS: ASPIRIN 81 MG ENTERIC TAB PO SCH (08:53)
[2018-12-21] MEDS ORDERED: amLODIPine 10 MG TAB PO SCH (09:00)
--- NOTE | 2018-12-21 11:53 | IPNPDOC ---
Text Note Date of Service The patient was seen on 12/21/18. NOTE SUBJECTIVE: No acute events overnight. Patient states that his syncope typically occurs when he is moving from a sitting to a standing position. He also notes that in the last several weeks he is had new medications added on in gabapentin increased to 600mg three times a day, as well as 2 new blood pressure medications with chlorthalidone and amlodipine. Patient presently denies any weakness, dizziness, lightheadedness, vision changes, chest pain, shortness of breath, or additional episodes of syncope. OBJECTIVE: PHYSICAL EXAM: Vitals: (see below) General: No acute distress, laying comfortably in bed. HEENT: Normocephalic, atraumatic. EOMI. strabismus present Moist mucous membranes with poor dentition. Cardiac: RRR, Normal S1 and S2, No murmurs, gallops, rubs. Pulm: Clear to auscultation b/l. Symmetric thorax. No wheezing, crackles, rhonchi Abd: Bowel Sounds present. Abdomen is soft, non-tender, non-distended. Ext: No edema or cyanosis Neuro: No focal neuro deficits psych: normal affect. LABORATORY DATA, MICROBIOLOGY: Please see below. IMAGING STUDIES: Chest x-ray: No acute cardiopulmonary process appreciated. CT angiogram of chest: No evidence for pulmonary embolus. No acute mediastinal or pleural parenchymal process. CT abdomen and pelvis: 1. Cholelithiasis. 2. Likely normal spleen as described above. 3. Sigmoid diverticula without acute diverticulitis. 4. No acute abdominopelvic pathology appreciated. ASSESSMENT AND PLAN: #. Syncopal episode Normal ECG, orthostatics negative, troponins negative. Chlorthalidone held on admission, we will also try holding the patient's Norvasc today, stopping the patient's IV fluids and having him walk around with assistance to see if he has any recurrences of his dizziness. We suspect this is likely secondary to his recent medication additions given how recently they were added to his formulary (the past month). We will continue to monitor his blood pressure to see if additional medications are truly necessary for blood pressure control. #.Renal Insufficiency Creatinine improved with fluids overnight. Will continue holding chlorthalidone. #. COPD Continue montelukast, inhaler #. CAD w/ stent placement. Continue atorvastatin, aspirin, carvedilol, isosorbide mononitrate. #. Neuropathy s/p CVA Continue amitriptyline and gabapentin #. Hx of prostate cancer s/p prostatectomy Continue flomax. #.GERD Continue pantoprazole DVT prophylaxis: Lovenox DISPOSITION: Anticipate D/C tomorrow. I saw and evaluated the patient. I agree with the findings and plan of care as d ocumented in the above note VS,Fishbone, I+O VS, Fishbone, I+O Laboratory Tests 12/20/18 12:42 Red Blood Count 4.17 L, Mean Corpuscular Volume 94.2, Mean Corpuscular Hemoglobin 31.4, Mean Corpuscular Hemoglobin Concent 33.3, Red Cell Distribution Width 13.1, Neutrophils (%) (Auto) 74.4 H, Lymphocytes (%) (Auto) 13.5 L, Monocytes (%) (Auto) 8.4 H, Eosinophils (%) (Auto) 1.9, Basophils (%) (Auto) 0.7, Neutrophils # (Auto) 9.1 H, Lymphocytes # (Auto) 1.7, Monocytes # (Auto) 1.0 H, Eosinophils # (Auto) 0.2, Basophils # (Auto) 0.1 12/21/18 06:55 Red Blood Count 4.09 L, Mean Corpuscular Volume 97.1 H, Mean Corpuscular Hemoglobin 31.8, Mean Corpuscular Hemoglobin Concent 32.7, Red Cell Distribution Width 13.1, Neutrophils (%) (Auto) 65.8, Lymphocytes (%) (Auto) 20.0 L, Monocytes (%) (Auto) 8.9 H, Eosinophils (%) (Auto) 3.3 H, Basophils (%) (Auto) 1.0, Neutrophils # (Auto) 6.9, Lymphocytes # (Auto) 2.1, Monocytes # (Auto) 0.9 H, Eosinophils # (Auto) 0.4, Basophils # (Auto) 0.1, Calcium Level 9.3, Total Creatine Kinase 156 Vital Signs Date Time Temp Pulse Resp B/P (MAP) Pulse Ox O2 Delivery O2 Flow Rate FiO2 12/21/18 08:53 148/90 12/21/18 08:00 97.1 96 19 97 12/20/18 12:37 Room Air I&O- Last 24 Hours up to 6 AM 12/21/18 06:00 Output Total 450 ml Balance -450 ml GME ATTESTATION GME ATTESTATION My faculty preceptor for this patient encounter was physically present during the encounter and was fully available. All aspects of the patient interview, examination, medical decision making process, and medical care plan development were reviewed and approved by the faculty preceptor. The faculty preceptor is aware and concurs with the plan as stated in the body of this note and will attest to such by his/her cosignature. BETSY HOWARD DO Dec 21, 2018 11:53 RAHUL MONTAGUE MD Dec 29, 2018 12:11
[2018-12-21 12:00] VITALS: BP 118/78
[2018-12-21] MEDS ORDERED: SLF 3 ML SYR IV PRN (15:30)
[2018-12-21 16:00] VITALS: BP 140/70
[2018-12-21] MEDS ORDERED: CALCIUM CARBONATE 500 MG CHEW U/D PO PRN (17:45)
[2018-12-21 20:00] VITALS: BP 138/88
[2018-12-21] MEDS ORDERED: ISOSORBIDE MON. (IMDUR) 60 MG XR TAB PO SCH (21:00)
[2018-12-21] MEDS ORDERED: TAMSULOSIN 0.4 MG CAP PO SCH (21:00)
[2018-12-21] MEDS ORDERED: AMITRIPTYLINE 50 MG TAB PO SCH (21:00)
[2018-12-21] MEDS ORDERED: ATORVASTATIN 20 MG TAB PO SCH (21:00)
[2018-12-21] MEDS ORDERED: MONTELUKAST 10 MG TAB PO SCH (21:00)
[2018-12-21] MEDS: SLF 3 ML SYR IV SCH (21:41)
[2018-12-22] VITALS: BP 111/72
[2018-12-22 04:00] VITALS: BP 122/57
[2018-12-22] MEDS: SLF 3 ML SYR IV SCH (06:24)
[2018-12-22 08:00] VITALS: BP 144/82
[2018-12-22] MEDS: ASPIRIN 81 MG ENTERIC TAB PO SCH (08:45)
[2018-12-22] MEDS: GABAPENTIN 300 MG CAP PO SCH (08:45)
[2018-12-22 08:46] VITALS: BP 164/70
[2018-12-22] MEDS: PANTOPRAZOLE 40MG TAB (PROTONIX) PO SCH (08:46)
[2018-12-22] MEDS: CARVedilol 6.25 MG TAB PO SCH (08:46)
--- NOTE | 2018-12-22 11:37 | DS.PDOC ---
Discharge Summary General Date of Admission Dec 20, 2018 at 11:19 Date of Discharge 12/22/18 Attending Physician: PHUC YAP MD Specialist/Consultants Involve PCP: Wolfgang Herrera at [facility] Discharge Summary PROCEDURES PERFORMED DURING STAY: [None]. ADMITTING/DISCHARGE DIAGNOSES: Syncopal episode likely vasovagal secondary to anti-hypertensives Renal insufficiency COPD CAD w/ stent placement Neuropathy status post CVA CVA History of prostate cancer s/p prostatectomy GERD COMPLICATIONS/CHIEF COMPLAINT: Altered Mental Status, Suicide Attempt. HISTORY OF PRESENT ILLNESS/HOSPITAL COURSE: Patient admitted on 12/20/18 after presenting to [facility] emergency department with chief complaints of becoming dizzy while walking and suddenly collapsing to the floor. He had a similar episode a couple days prior after he stood up from the toilet too fast. On admission he was found to not be orthostatic, with negative troponins, and a mildly elevated creatinine. He received some fluids overnight and nephrotoxic medications were held including lisinopril and chlorthalidone. Discussion with patient on hospital stay day 1, it was determined that his syncope was likely from too many blood pressure medications that were added from various providers so we continued to hold chlorthalidone, lisinopril, and stopped his Norvasc as well. He was ambulated and monitored by physical therapy and did well without any further episodes of syncope. He was discharged with chlorthalidone and Norvasc being held. Given his history of coronary artery disease and since his creatinine had returned to baseline, his lisinopril was restarted. DISCHARGE MEDICATIONS: Please see below. ALLERGIES: Please see below. Vitals: (see below) General: No acute distress, sitting up next to the side of the bed HEENT: Normocephalic, atraumatic. EOMI. strabismus present. Moist mucous membranes with poor dentition. Neck: No JVD, lymphadenopathy, or thyromegaly. Cardiac: RRR, Normal S1 and S2, No murmurs, gallops, rubs. Pulm: Clear to auscultation b/l. Symmetric thorax. No wheezing, crackles, rhonchi Abd: Bowel Sounds present. Abdomen is soft, non-tender, non-distended. No guarding, rebound tenderness, or rigidity. No hepatosplenomegaly. No masses or eccymosis. Ext: No edema or cyanosis Skin: No skin changes Neuro: No focal neuro deficits Psych: Appropriate affect LABORATORY DATA: Please see below. IMAGIN12/20/18 chest x-ray: No acute cardiopulmonary process appreciated. 12/20/18 CTA chest: No evidence for pulmonary embolus. No acute mediastinal or pleural parenchymal process. 12/20/18 Abdomen/pelvis CT: 1. Cholelithiasis. 2. Likely normal spleen as described above. 3. Sigmoid diverticula without acute diverticulitis. 4. No acute abdominopelvic pathology appreciated. PROGNOSIS: Stable ACTIVITY: [As tolerated]. DIET: Low-sodium diet DISPOSITION: Discharge home. DISCHARGE INSTRUCTIONS: 1. Stopped taking Norvasc and chlorthalidone. 2. Follow-up with your primary care provider in the next 7 days. 3. Return to emergency department if symptoms worsen. DISCHARGE CONDITION: [Stable]. TIME SPENT ON DISCHARGE: Greater than 30 minutes. Vital Signs/I&Os Vital Signs Date Time Temp Pulse Resp B/P (MAP) Pulse Ox O2 Delivery O2 Flow Rate FiO2 12/22/18 08:46 164/70 12/22/18 08:00 97.0 60 20 97 12/20/18 12:37 Room Air I&O- Last 24 Hours up to 6 AM 12/22/18 06:00 Intake Total 1905 ml Output Total 600 ml Balance 1305 ml Discharge Medications Scheduled Amitriptyline HCl (Amitriptyline HCl) 50 Mg Tab, 50 MG PO QHS, (Reported) Aspirin (Aspirin EC) 81 Mg Tab, 81 MG PO DAILY, (Reported) Atorvastatin Calcium (Atorvastatin Calcium) 40 Mg Tab, 40 MG PO QHS, (Reported) Carvedilol (Carvedilol) 6.25 Mg Tablet, 6.25 MG PO BID, (Reported) Fluticasone Furoate (Arnuity Ellipta) 200 Mcg Blst.w.dev, 1 PUFF PO DAILY, (Reported) Gabapentin (Gabapentin) 600 Mg Tablet, 600 MG PO TID, (Reported) Isosorbide Mononitrate (Isosorbide Mononitrate ER) 60 Mg Tab, 60 MG PO QHS, (Re ported) Lisinopril (Lisinopril) 20 Mg Tab, 20 MG PO QHS, (Reported) Montelukast Sodium (Montelukast Sodium) 10 Mg Tab, 10 MG PO QHS, (Reported) Olodaterol HCl (Striverdi Respimat) 2.5 Mcg/Act Aer, 2 PUFFS INH DAILY, (Reported) Pantoprazole Sodium (Pantoprazole Sodium) 40 Mg Tablet.dr, 40 MG PO DAILY, (Reported) Tamsulosin HCl (Flomax) 0.4 Mg Capsule, 0.4 MG PO QHS, (Reported) Allergies Coded Allergies: No Known Allergies (Unverified , 11/11/18) GME ATTESTATION GME ATTESTATION My faculty preceptor for this patient encounter was physically present during the encounter and was fully available. All aspects of the patient interview, examination, medical decision making process, and medical care plan development were reviewed and approved by the faculty preceptor. The faculty preceptor is aware and concurs with the plan as stated in the body of this note and will attest to such by his/her cosignature. ATTENDING NOTE I, Phuc Yap, have independently examined this patient and performed my own physical exam, as well as reviewed the documentation and edited where necessary. I have discussed in detail with the resident / student the findings and plan of treatment as documented by the resident / student and edited their note. I agree with their findings and treatment plan and have edited their documentation. I will continue to follow the patient during this hospital stay. Time spent on discharge 37 minutes BETSY HOWARD DO Dec 22, 2018 11:37 PHUC YAP MD Dec 22, 2018 15:39
== END 2018-12-22 10:48 | disposition home or self-care (01) ==
LOC: M ED 11:18 → M ED INP 11:19 → M PCU 23:30
PROVIDERS: ADMIT Hospitalist; ATTEND Hospitalist
DX: R55 Syncope and collapse (principal); N18.9 Chronic kidney disease, unspecified; J44.9 Chronic obstructive pulmonary disease, unspecified; I25.10 Atherosclerotic heart disease of native coronary artery without angina pectoris; Z95.5 Presence of coronary angioplasty implant and graft; Z86.73 Personal history of transient ischemic attack (TIA), and cerebral infarction without residual deficits; Z85.46 Personal history of malignant neoplasm of prostate; K21.9 Gastro-esophageal reflux disease without esophagitis; Z79.899 Other long term (current) drug therapy
CPT/HCPCS: 36415; 71045; 71275; 74177; 80048; 80076; 81001; 82550; 82553; 83690; 83880; 85025; 85610; 85730; 93005; 93041; 94760; 96360; 96361; 96372; 97161; 99285; J1650; Q9967

== ENCOUNTER → 2018-12-31 | Outpatient (CLI) | payer OTHER ==
[~2018-12-31] MED LIST changes: +ARNU1INH3 PO; +CARV6.25 PO; +CHLO125TA PO; +FLOM0.4C39 PO; +GABA600T4 PO; -OMEP1CAP73 PO; +OMEP20CA4 PO; +OMEP40CA2 PO; -OMEP40CA97 PO; +PANT40TA3 PO
== END ==
LOC: M SMT 13:21
PROVIDERS: ATTEND Urology
DX: C61 Malignant neoplasm of prostate (principal)

== ENCOUNTER → 2019-03-23 | Outpatient (CLI) | payer OTHER ==
[~2019-03-23] MED LIST changes: +OMEP-172 PO; -OMEP20CA4 PO; -OMEP40CA2 PO; +OMEP40CA97 PO
--- NOTE | 2019-03-23 17:32 | REP ---
CAROTID ULTRASOUND: Real-time ultrasound evaluation and duplex Doppler interrogation of the extracranial carotid vasculature is performed. There is mild plaquing and narrowing in both carotid bulbs extending into the internal and external carotid arteries. Luminal narrowing is less than 50%. There is no evidence of hemodynamically significant stenosis of either internal carotid artery. Normal flow velocities are seen. The vertebral arteries demonstrate normal direction of flow. RIGHT LEFT Peak systolic velocity ICA 103 cm/s 114 cm/s End diastolic velocity ICA 29.4 cm/s 35.1 cm/s Peak systolic velocity CCA 140 cm/s 127 cm/s Peak systolic velocity ECA 150 cm/s 230 cm/s ICA/CCA ratio 0.73 0.9 IMPRESSION: Bilateral luminal narrowing of the internal carotid arteries less than 50%. No evidence of hemodynamically significant stenosis. Electronically Signed by Henrik Gonzalez MD 03/23/2019 05:24 P
== END ==
LOC: M RAD 16:03
PROVIDERS: ATTEND Surgery Vascular Surgery
DX: I65.23 Occlusion and stenosis of bilateral carotid arteries (principal)

== ENCOUNTER → 2019-04-15 | Outpatient (CLI) | payer OTHER | LOC: M LAB 09:42 | PROVIDERS: ATTEND Urology | DX: C61 Malignant neoplasm of prostate (principal) ==

== ENCOUNTER → 2019-07-14 | Outpatient (CLI) | payer OTHER ==
[~2019-07-14] MED LIST changes: -MONT10TA2 PO; +MONT10TA4 PO; -OMEP-172 PO; +OMEP1CAP73 PO
== END ==
LOC: M WUC 11:19
PROVIDERS: ATTEND Urology
DX: C61 Malignant neoplasm of prostate (principal)

== ENCOUNTER → 2019-07-19 | Outpatient (CLI) | payer OTHER ==
--- NOTE | 2019-07-19 10:17 | REP ---
The bilateral lower extremity arterial Doppler ultrasound: History: Atherosclerosis of the [place] arteries. Comparison study is from July 28, 2018. Comparison CT study abdomen and pelvis December 20, 2018. Findings: Ankle brachial indices are normal measured at 1.2 on the right and left lower extremity. Relatively normal triphasic and biphasic waveforms are noted in the lower extremities bilaterally. Monophasic waveforms noted in the distal posterior tibial artery on the right. A increase in some peak systolic flow velocity is again observed in the distal superficial femoral artery on the right although it is not as prominent as on the prior study. A 3:1 velocity ratio stenosis is observed in the mid superficial femoral artery on the left on today's study. This was not observed previously. Right lower extremity arterial Doppler velocity chart: CF A PSV 179 cm/S Profunda 141 Proximal SFA 135 Mid SFA 137 Distal SFA 178 Popliteal 68 Proximal AT A 62 Tibioperoneal trunk 64 Proximal CODING VALIDATOR 49 Distal CODING VALIDATOR 65 Distal AT A 18 Left lower extremity arterial Doppler velocity chart: CF A PSV 96 cm/S Profunda 53 Proximal SFA 81 Mid SFA 226 Distal SFA 50 Popliteal 77 Proximal AT A 48 Tibioperoneal trunk 66 Proximal CODING VALIDATOR 48 Distal CODING VALIDATOR 50 Distal AT A 30 Electronically Signed by Dirk Red MD 07/19/2019 10:09 A
== END ==
LOC: M RAD 08:25
PROVIDERS: ATTEND Physician Assistant
DX: I70.203 Unspecified atherosclerosis of native arteries of extremities, bilateral legs (principal)

== ENCOUNTER → 2019-08-17 | Outpatient (CLI) | payer OTHER ==
[~2019-08-17] MED LIST changes: +BACL10TA2 PO; +MELA10TA6 PO; +PREG75CA2 PO; +SING10TA32 PO
== END ==
LOC: M ONCR 09:01
PROVIDERS: ATTEND Radiology Radiation Oncology
DX: C61 Malignant neoplasm of prostate (principal)

== ENCOUNTER 2019-09-10 09:14 | Outpatient (RCR) | payer OTHER ==
[2019-08-19 14:53] LABS: HEMATOCRIT 41.6 % (42.0-52.0); HEMOGLOBIN 13.7 g/dl (13.5-17.5); MEAN CORPUSCULAR HEMOGLOBIN 31.4 pg (27.0-33.0); MEAN CORPUSCULAR HGB CONC 32.9 g/dl (32.0-36.5); MEAN CORPUSCULAR VOLUME 95.2 fl (80.0-96.0); PLATELET COUNT, AUTOMATED 279 10^3/uL (150-450); RED BLOOD COUNT 4.37 10^6/uL (4.30-6.10); WHITE BLOOD COUNT 11.3 10^3/uL (4.0-10.0)
--- NOTE | 2019-08-20 08:10 | RADONC ---
RADIATION ONCOLOGY CONSULTATION NOTE: DATE: CHART NUMBER: [id number] DIAGNOSIS: Prostate cancer. STAGE III B, pT3b, N0, M0, Job score 7 (4-3), grade group 3, initial PSA 11.7. ECOG PERFORMANCE STATUS: 1 Mr. Crowell is a very pleasant 63-year-old white male with the diagnosis of what appears to be a stage III B, pT3b N0, M0 moderate to poorly differentiated Dong[place] score 7 (4-3), grade group III with an initial PSA of 11.7 who is presenting to me today status post robotic-assisted laparoscopic prostatectomy and bilateral pelvic lymph node sampling with biochemical failure and a rising PSA for consideration of postoperative radiation therapy in attempt to increase the likelihood of achieving local control and cure. HISTORY OF PRESENT ILLNESS: The patient was in his usual state of health until 08/28/2018 when routine PSA level was done and found to be 11.70. On 09/22/2018 the patient underwent prostatic needle biopsy and pathology revealed a Job score 7 (4-3) adenocarcinoma of the prostate involving both left and right signs of the prostate. Up to 90% of the core of the biopsy was positive on at least one sample. On 11/19/2018, the patient underwent robotic-assisted laparoscopic radical prostatectomy and bilateral pelvic lymph node sampling. Pathology revealed a moderately differentiated Job score 7 (3-4), grade group 2 adenocarcinoma of the prostate. The largest focus measured 3 cm. The percent of prostate involved by tumor was 15%. The tumor was present bilaterally. Extracapsular extension was present. The margin of resection was positive with a 3 mm positive margin in the left posterior mid prostate. There was noted to be extensive perineural invasion mainly along nerve bundle. 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 The patient has been monitored since surgery and a PSA level done 12/31/2018 was 0.04. On April 15, 2019 it had risen to 0.11 and 3 months later on 07/14/2019 it had doubled again to 0.22. The patient is now being referred to me for consideration of postoperative radiation therapy in an attempt to obtain control and cure. 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 In addition, the patient had a cardiac stent placed in 2018 at the age of 61. He has had a cystoscopy as well. ALLERGIES: The patient has NO KNOWN DRUG ALLERGIES. SOCIAL HISTORY: The patient smokes three packs of cigarettes per day for the past 45 years. He reports that he quit drinking, but he did drink alcohol heavily. He wears a leg brace on his right leg. He is on Social Security disability. FAMILY HISTORY: The patient's family history is positive for a father with lung cancer, a sister with lung cancer, and a mother with some unknown cancer. REVIEW OF SYSTEMS: The patient's review of systems is positive for physical limitations secondary to blindness in the right eye and the need for a leg brace. He has occasional headaches. His review of systems is otherwise noncontributory. PHYSICAL EXAMINATION Physical examination was deferred as per COVID-19 precautions. This was a telephone consultation. ASSESSMENT: Clearly the patient is a candidate for external beam radiation therapy and I have so informed him. I have discussed with the patient in detail the potential benefits as well as possible acute and chronic sequelae of external beam radiation therapy. We discussed logistics of treatment planning, simulation and subsequent fractionated daily radiation treatments. I have scheduled the patient for the next available simulation slot and radiation treatments will begin subsequently. Thank you for allowing us to participate in the care of this very pleasant gentleman. If I could be of any further assistance or provide you any information, please free to contact me anytime. As always warm regards nausea, cc: MD Dillon Linda MD
--- NOTE | 2019-08-23 10:39 | RADONC ---
RADIATION ONCOLOGY SIMULATION NOTE DATE: 08/19/2019 CHART #: [id number] Mr. Crowell was taken to the CT scan for CT simulation of his prostate bed field. CT was accomplished without difficulty or discomfort. Radiation treatment planning is underway and radiation treatments will begin subsequently. An immobilization device was created and will be used throughout the course of treatment. It was created without difficulty or discomfort. I was physically present throughout the course of CT simulation.
--- NOTE | 2019-08-24 11:30 | RADONC ---
RADIATION ONCOLOGY SIMULATION NOTE DATE OF SERVICE: 08/19/2019 CHART NUMBER: [id number]. SIMULATION NOTE: Mr. Crowell was taken to the CT scan for CT simulation of his prostate bed field. CT was accomplished without difficulty or discomfort. Radiation treatment planning is underway, and radiation treatments will begin subsequently. An immobilization device was created and will be used throughout the course of treatment. It was created without difficulty or discomfort. I was physically present throughout the course of CT simulation.
--- NOTE | 2019-09-01 10:14 | RADONC ---
RADIATION ONCOLOGY PROGRESS NOTE DATE: 08/30/2019 CHART NUMBER: [id number] PROGRESS NOTE: Mr. Crowell is presently at a dose of 540 cGy to his prostate bed and is tolerating treatments quite well at this point with no significant difficulties related to his radiation therapy. He is having no urinary or bowel problems. REVIEW OF SYSTEMS: The patient's review of systems continues to be positive for bilateral hip discomfort but is otherwise noncontributory. Denies nausea, vomiting, fevers, chills, night sweats, diplopia, headaches, anxiety or depression, anorexia, weight loss, visual disturbances, chest pain, urinary or bowel difficulties, bone pain, or neurological problems. PHYSICAL EXAMINATION: The patient's skin is in good condition with no evidence of radiation change present. There is no moist or dry desquamation. The remainder of his physical exam remains unchanged. Mr. Crowell is tolerating treatments quite well and radiation will continue as scheduled.
== END 2019-09-12 ==
LOC: M ONCR 09:14
PROVIDERS: ATTEND Radiology Radiation Oncology
DX: C61 Malignant neoplasm of prostate (principal)

== ENCOUNTER → 2019-10-12 | Outpatient (RCR) | payer OTHER ==
--- NOTE | 2019-09-14 15:18 | RADONC ---
RADIATION ONCOLOGY PROGRESS NOTE DATE: 09/07/2019 CHART NUMBER: [id number] PROGRESS NOTE: Mr. Crowell is presently at a dose of 1440 cGy to his prostate bed and is tolerating treatments quite well at this point with no complaints related to his radiation therapy. He is having no increased urinary or bowel difficulties. No bone pain. REVIEW OF SYSTEMS: The patient's review of systems is not basically noncontributory. Denies nausea, vomiting, fevers, chills, night sweats, diplopia, headaches, anxiety or depression, anorexia, weight loss, visual disturbances, chest pain, urinary or bowel difficulties, bone pain, or neurological problems. PHYSICAL EXAMINATION: The patient's skin is in good condition with no evidence radiation change present. There is no moist or dry desquamation. The remainder of his physical exam remains unchanged. Mr. Crowell is tolerating treatments quite well and radiation will continue as scheduled.
--- NOTE | 2019-09-19 08:16 | RADONC ---
RADIATION ONCOLOGY PROGRESS NOTE DATE: 09/13/2019 CHART NUMBER: [id number] PROGRESS NOTE: Mr. Crowell is presently at a dose of 2160 cGy to his prostate bed and is tolerating treatments quite well at this time with some loose bowel movements as well as some abdominal discomfort over the weekend. REVIEW OF SYSTEMS: The patient's review of systems is positive for some abdominal discomfort this weekend as well as some loose bowel movements, but is otherwise noncontributory. Denies nausea, vomiting, fevers, chills, night sweats, diplopia, headaches, anxiety or depression, anorexia, weight loss, visual disturbances, chest pain, urinary or bowel difficulties, bone pain, or neurological problems. PHYSICAL EXAMINATION: The patient's skin is in good condition with no evidence of moist or dry desquamation. The remainder of his physical exam remains unchanged. Mr. Crowell is tolerating treatments quite well and radiation will continue as scheduled.
--- NOTE | 2019-09-23 23:23 | RADONC ---
RADIATION ONCOLOGY PROGRESS NOTE DATE: 09/20/2019 CHART NUMBER: [id number] Mr. Crowell is presently at a dose of 3060 cGy to his prostate bed and is tolerating treatments quite well at this point with no significant difficulties related to his radiation therapy other than some pelvic pain and discomfort. The patient's review of systems is positive for pelvic discomfort but is otherwise noncontributory. He is having no urinary or bowel difficulties. No bone pain. The patient's review of systems is positive for his discomfort but is otherwise noncontributory. He denies nausea, vomiting, fevers, chills, night sweats, diplopia, headaches, anxiety or depression, anorexia, weight loss, visual disturbances, chest pain, urinary or bowel difficulties, bone pain, or neurological problems. PHYSICAL EXAMINATION: The patient's skin is in good condition with no evidence of radiation change present. There is no moist or dry desquamation. The remainder of his physical exam remains unchanged. Mr. Crowell is tolerating treatments quite well and radiation will continue as scheduled. I have instructed him take some anti-inflammatories for his discomfort.
--- NOTE | 2019-09-29 09:50 | RADONC ---
RADIATION ONCOLOGY PROGRESS NOTE DATE: 10/01/2019 CHART NUMBER: [id number] PROGRESS NOTE: Mr. Crowell is presently at a dose of 3780 cGy to his prostate bed and is tolerating treatments quite well at this point with no significant difficulties related to his radiation therapy other than some loose bowel movements. This is alleviated by Imodium. REVIEW OF SYSTEMS: The patient's review of systems is positive for some loose bowel movements but is otherwise noncontributory. Denies nausea, vomiting, fevers, chills, night sweats, diplopia, headaches, anxiety or depression, anorexia, weight loss, visual disturbances, chest pain, urinary or bowel difficulties, bone pain, or neurological problems. PHYSICAL EXAMINATION: The patient's skin is in good condition with no evidence of moist or dry desquamation. The remainder of his physical exam remains unchanged. Mr. Crowell is tolerating treatments quite well and radiation will continue as scheduled.
--- NOTE | 2019-10-06 13:58 | RADONC ---
RADIATION ONCOLOGY DATE OF SERVICE: 10/04/2019 CHART #: [id number] Mr. Crowell has a diagnosis of prostate CA. He is S/P prostatectomy. He is getting radiation to the prostatic bed. So far, he has received a dose of 4500 cGy in 25 fractions. He has a problem with abdominal cramps and loose bowel movements. He was taking Imodium and seems to be pretty well controlled. REVIEW OF SYSTEMS: Other than the loose bowel movements, he has no other complaints. He denies nausea, vomiting, headache, chest pain or bone pain. No symptoms PHYSICAL EXAMINATION: He appears to be in good general condition. The remainder of his physical examination remains unchanged. PLAN: I have discussed diet and treatment will continue as planned. MTDD
--- NOTE | 2019-10-14 08:58 | RADONC ---
RADIATION ONCOLOGY DATE OF SERVICE: 10/11/2019 CHART #: [id number] Mr. Crowell carries a diagnosis of prostatic CA. He is status post prostatectomy and is getting radiation to the prostate bed. So far, he has received a dose of 5400 cGy in 30 fractions. He had diarrhea last week, which was controlled, not taking oranges. REVIEW OF SYSTEMS: His loose bowel movements are controlled stopping oranges. He denies nausea, vomiting, headache, chest pain, bone pain, and no symptoms. PHYSICAL EXAMINATION: He is in good general condition. The remainder of his examination remained unchanged. Kevinnt tolerates tretment well and treatment will continue as planned MTDD
== END ==
LOC: M ONCR 09-13 09:09
PROVIDERS: ATTEND Radiology Radiation Oncology
DX: C61 Malignant neoplasm of prostate (principal)

== ENCOUNTER 2019-10-22 08:49 | Outpatient (RCR) | payer OTHER ==
[~2019-10-22 08:49] MED LIST changes: -AMLO10TA5 PO; +AMLO1TAB25 PO; -ASPI81TA85 PO; +ASPI81TA86 PO; +PANT40TA29 PO; -PANT40TA3 PO
--- NOTE | 2019-10-27 10:30 | RADONC ---
RADIATION ONCOLOGY PROGRESS NOTE DATE: 10/18/2019 CHART NUMBER: [id number] PROGRESS NOTE: Mr. Crowell is presently at a dose of 6120 cGy to his prostate bed and is tolerating treatments quite well at this point with some mild urinary hesitancy. REVIEW OF SYSTEMS: The patient's review of systems is positive for some urinary hesitancy but is otherwise noncontributory. Denies nausea, vomiting, fevers, chills, night sweats, diplopia, headaches, anxiety or depression, anorexia, weight loss, visual disturbances, chest pain, or bowel difficulties, bone pain, or neurological problems. PHYSICAL EXAMINATION: The patient's skin is in good condition with no evidence of moist or dry desquamation. The remainder of his physical exam remains unchanged. Mr. Rocha is tolerating treatments quite well and radiation will continue as scheduled.
--- NOTE | 2019-10-29 16:15 | RADONC ---
RADIATION ONCOLOGY TREATMENT SUMMARY DATE: 10/22/2019 CHART NUMBER: [id number] DIAGNOSIS: Prostate cancer. STAGE: Stage III B, pT3b, N0, M0, Job score 7 (4-3), grade group 3, initial PSA 11.7. ECOG PERFORMANCE STATUS: 0 TREATMENT SUMMARY: Mr. Crowell is a very pleasant 63-year-old white male with the diagnosis of what appears to be a stage III B, pT3b, N0, M0 moderate to poorly differentiated Job score 7 (4-3) adenocarcinoma of the prostate, grade group 3 with an initial PSA level of 11.7 who [place] status post robotic-assisted laparoscopic prostatectomy and bilateral pelvic lymph node sampling with biochemical failure and a rising PSA for consideration of postoperative radiation therapy in attempt to achieve local control. We treated the patient to his prostate bed for a total dose of 6660 cGy delivered in 37 treatments of 180 cGy each over 56 elapsed days from 08/26/2019 through 10/22/2019. The patient's prostate was treated on the linear accelerator utilizing a 15 MV photon beam via 3-D conformal technique with anterior posterior left and right lateral marrero. Following completion of 4500 cGy to a larger area that we coned down in order to make sure all normal structures remained in their tolerance limits. Mr. Crowell tolerated his treatments quite well and was able complete therapy as prescribed without interruption. The patient is scheduled to see me again in 1 month for further followup. He will also continue to be followed by his other physicians as well. cc: MD Dillon Linda MD
[2020-02-21] MEDS ORDERED: MAGN1CAP PO (14:03)
== END 2019-11-12 ==
LOC: M ONCR 08:49
PROVIDERS: ATTEND Radiology Radiation Oncology
DX: C61 Malignant neoplasm of prostate (principal)

== ENCOUNTER → 2019-11-18 | Outpatient (REF) | payer OTHER ==
[~2019-11-18] MED LIST changes: +MAGN1CAP PO
== END ==
LOC: M LAB REF 16:50
PROVIDERS: ATTEND Radiology Radiation Oncology
DX: C61 Malignant neoplasm of prostate (principal)

== ENCOUNTER → 2019-11-24 | Outpatient (CLI) | payer OTHER | LOC: M ONCR 09:49 | PROVIDERS: ATTEND General Practice | DX: C61 Malignant neoplasm of prostate (principal) ==

== ENCOUNTER → 2020-01-20 | Outpatient (CLI) | payer MEDICARE, OTHER | LOC: M WUC 11:08 | PROVIDERS: ATTEND Urology | DX: C61 Malignant neoplasm of prostate (principal) ==

== ENCOUNTER → 2020-01-20 | Outpatient (CLI) | payer MEDICARE, OTHER ==
[2020-01-20 12:42] LABS: HEMATOCRIT 41.6 % (42.0-52.0); HEMOGLOBIN 13.9 g/dl (13.5-17.5); MEAN CORPUSCULAR HEMOGLOBIN 32.6 pg (27.0-33.0); MEAN CORPUSCULAR HGB CONC 33.4 g/dl (32.0-36.5); MEAN CORPUSCULAR VOLUME 97.7 fl (80.0-96.0); PLATELET COUNT, AUTOMATED 267 10^3/uL (150-450); RED BLOOD COUNT 4.26 10^6/uL (4.30-6.10); WHITE BLOOD COUNT 9.2 10^3/uL (4.0-10.0)
[2020-01-20 13:20] LABS: ALBUMIN 3.3 GM/DL (3.2-5.2); ALT/SGPT 34 U/L (12-78); BILIRUBIN,TOTAL 0.4 MG/DL (0.2-1.0); BLOOD UREA NITROGEN 13 MG/DL (7-18); CALCIUM LEVEL 8.9 MG/DL (8.8-10.2); CARBON DIOXIDE LEVEL 28 MEQ/L (21-32); CHLORIDE LEVEL 106 MEQ/L (98-107); FREE T4 1.15 NG/DL (0.76-1.46); GLOMERULAR FILTRATION RATE > 60.0 (>49); GLUCOSE, FASTING 95 MG/DL (70-100); POTASSIUM SERUM 4.5 MEQ/L (3.5-5.1); SODIUM LEVEL 138 MEQ/L (136-145); TOTAL PROTEIN 6.2 GM/DL (6.4-8.2)
== END ==
LOC: M WUC 11:04
PROVIDERS: ATTEND Physician Assistant Medical
DX: R19.7 Diarrhea, unspecified (principal); C61 Malignant neoplasm of prostate

== ENCOUNTER → 2020-01-25 | Outpatient (REF) | payer MEDICARE, OTHER ==
[~2020-01-25] MED LIST changes: -MAGN1CAP PO
== END ==
LOC: M LAB REF 15:07
PROVIDERS: ATTEND Physician Assistant Medical
DX: R19.7 Diarrhea, unspecified (principal)

== ENCOUNTER → 2020-01-27 | Outpatient (CLI) | payer MEDICARE, OTHER ==
[~2020-01-27] MED LIST changes: +GASTROGRAFIN SOLUTION 30ML (Q9963) As Ordered ONE; +GLUCAGON INJ 1MG VIAL As Ordered ONE; +ISOVUE-370 76% 100ML VIAL As Ordered ONE; +MAGN1CAP PO; +VoLumen 0.1% SUSPENSION 450ML BOTTLE As Ordered ONE
--- NOTE | 2020-01-27 11:38 | REP ---
INDICATION: ABNORMAL WEIGHT LOSS, CHANGE IN BOWEL HABITS COMPARISON: None. TECHNIQUE: Axial contrast-enhanced images from the lung bases to the pubic symphysis with images obtained in arterial and portal venous phases of enhancement. Low-dose oral contrast material was administered prior to imaging. Coronal and sagittal reformations were obtained. FINDINGS: There is mild mucosal thickening and subtle pericolonic fat stranding extending from the distal sigmoid colon to the rectum. The remainder of the small and large bowel is unremarkable. Normal terminal ileum, appendix and cecum are identified in the right lower quadrant. Visualized portions of the esophagus as well as the stomach and duodenum are normal in appearance as well. Liver, spleen, pancreas, bilateral adrenal glands and right kidney are normal. Left kidney includes 1.3 cm simple cyst. Incidental splenic calcifications consistent with prior granulomatous disease. Cholelithiasis noted. Pelvis demonstrates normal bladder and findings to suggest prior prostate surgery. No ascites. No adenopathy. No free air. Atherosclerotic changes to the aorta and vasculature noted. Musculoskeletal structures demonstrate age-related changes without acute osseous abnormality. Lung bases are clear. IMPRESSION: 1. Non-specific mild mucosal thickening of the distal sigmoid through rectum with mild adjacent fat stranding. Differential diagnosis includes but is not limited to inflammatory bowel disease/ulcerative colitis and may warrant colonoscopy evaluation. Otherwise normal appearance to the enteric system. 2. Cholelithiasis. 3. Simple left renal cyst. <Electronically signed by Jevon Klein > 01/27/20 2162
== END ==
LOC: M RAD 08:46
PROVIDERS: ATTEND Physician Assistant Medical
DX: Z01.812 Encounter for preprocedural laboratory examination (principal); Z20.828 Contact with and (suspected) exposure to other viral communicable diseases; K80.20 Calculus of gallbladder without cholecystitis without obstruction; N28.1 Cyst of kidney, acquired; R63.4 Abnormal weight loss; R19.4 Change in bowel habit; K62.5 Hemorrhage of anus and rectum
CPT/HCPCS: 74177; C9803; J1610; Q9967; U0003

== ENCOUNTER → 2020-01-27 | Outpatient (CLI) | payer MEDICARE, OTHER ==
[~2020-01-27] MED LIST changes: -GASTROGRAFIN SOLUTION 30ML (Q9963) As Ordered ONE; -GLUCAGON INJ 1MG VIAL As Ordered ONE; -ISOVUE-370 76% 100ML VIAL As Ordered ONE; -VoLumen 0.1% SUSPENSION 450ML BOTTLE As Ordered ONE
== END ==
LOC: M LABSMTC 12:14
PROVIDERS: ATTEND Anesthesiology
DX: Z01.812 Encounter for preprocedural laboratory examination (principal); Z20.828 Contact with and (suspected) exposure to other viral communicable diseases

== ENCOUNTER → 2020-02-01 | Day surgery (SDC) | payer OTHER ==
[~2020-02-01] VITALS: Ht 170.2 cm; Wt 86.2 kg
[~2020-02-01] MED LIST changes: +LIDOCAINE 2% 100MG/5ML SDV (FOR ANES.) As Ordered ONE; -MAGN1CAP PO; +NS 1,000 ML IV ONE; +ePHEDrine SULFATE 25 MG/5 ML(5MG/ML) SYRINGE As Ordered ONE; +fentaNYL 100 MCG/2 ML INJECTION (J3010) As Ordered ONE; +propofoL 500 MG/50 ML VIAL As Ordered ONE
--- NOTE | 2020-02-01 14:25 | ROOR ---
Patient Name: Casa Crowell Procedure Date: 02/01/2020 2:03 PM Date of : 1955 Age: 64 Room: [facility] Gender: Male Note Status: Finalized Procedure: Upper GI endoscopy Indications: Functional Dyspepsia, Weight loss Providers: Adrian Ward MD Referring MD: Yadira Herrera NP Requesting Provider: Medicines: Monitored Anesthesia Care Complications: No immediate complications. Procedure: Pre-Anesthesia Assessment: - Prior to the procedure, a History and Physical was performed, and patient medications and allergies were reviewed. The patient is competent. The risks and benefits of the procedure and the sedation options and risks were discussed with the patient. All questions were answered and informed consent was obtained. Patient identification and proposed procedure were verified by the physician, the nurse and the anesthesiologist in the procedure room. Mental Status Examination: alert and oriented. Airway Examination: normal oropharyngeal airway and neck mobility. Respiratory Examination: clear to auscultation. CV Examination: normal. Prophylactic Antibiotics: The patient does not require prophylactic antibiotics. Prior Anticoagulants: The patient has taken no previous anticoagulant or antiplatelet agents. ASA Grade Assessment: II - A patient with mild systemic disease. After reviewing the risks and benefits, the patient was deemed in satisfactory condition to undergo the procedure. The anesthesia plan was to use monitored anesthesia care (MAC). Immediately prior to administration of medications, the patient was re-assessed for adequacy to receive sedatives. The heart rate, respiratory rate, oxygen saturations, blood pressure, adequacy of pulmonary ventilation, and response to care were monitored throughout the procedure. The physical status of the patient was re-assessed after the procedure. The Endoscope was introduced through the mouth, and advanced to the second part of duodenum. The upper GI endoscopy was accomplished without difficulty. The patient tolerated the procedure well. Findings: A medium-sized hiatal hernia was present. The Z-line was irregular and was found 39 cm from the incisors. Scattered moderate inflammation characterized by erythema and granularity was found in the gastric antrum. Biopsies were taken with a cold forceps for Helicobacter pylori testing. Verification of patient identification for the specimen was done by the physician and nurse using the patient's name, date and medical record number. Estimated blood loss was minimal. The duodenal bulb and second portion of the duodenum were normal. Biopsies for histology were taken with a cold forceps for evaluation of celiac disease. Impression: - Medium-sized hiatal hernia. - Z-line irregular, 39 cm from the incisors. - Gastritis. Biopsied. - Normal duodenal bulb and second portion of the duodenum. Biopsied. Recommendation: - Patient has a contact number available for emergencies. The signs and symptoms of potential delayed complications were discussed with the patient. Return to normal activities tomorrow. Written discharge instructions were provided to the patient. - High fiber diet. - Continue present medications. - Await pathology results. - Follow an antireflux regimen. - Telephone GI clinic for pathology results in 2 weeks. - Return to primary care physician. Adrian Ward MD Adrian Ward MD 02/01/2020 2:24:45 PM Electronically signed by Adrian Ward MD Number of Addenda: 0 Note Initiated On: 02/01/2020 2:03 PM Estimated Blood Loss: Estimated blood loss was minimal.
--- NOTE | 2020-02-01 15:05 | ROOR ---
Patient Name: Casa Crowell Procedure Date: 02/01/2020 2:04 PM Date of : 1955 Age: 64 Room: [facility] Gender: Male Note Status: Finalized Procedure: Colonoscopy Indications: Positive fecal immunochemical test Providers: Adrian Ward MD Referring MD: Yadira Herrera NP Requesting Provider: Medicines: Monitored Anesthesia Care Complications: No immediate complications. Procedure: Pre-Anesthesia Assessment: - Prior to the procedure, a History and Physical was performed, and patient medications and allergies were reviewed. The patient is competent. The risks and benefits of the procedure and the sedation options and risks were discussed with the patient. All questions were answered and informed consent was obtained. Patient identification and proposed procedure were verified by the physician, the nurse and the anesthesiologist in the procedure room. Mental Status Examination: alert and oriented. Airway Examination: normal oropharyngeal airway and neck mobility. Respiratory Examination: clear to auscultation. CV Examination: normal. Prophylactic Antibiotics: The patient does not require prophylactic antibiotics. Prior Anticoagulants: The patient has taken no previous anticoagulant or antiplatelet agents. ASA Grade Assessment: II - A patient with mild systemic disease. After reviewing the risks and benefits, the patient was deemed in satisfactory condition to undergo the procedure. The anesthesia plan was to use monitored anesthesia care (MAC). Immediately prior to administration of medications, the patient was re-assessed for adequacy to receive sedatives. The heart rate, respiratory rate, oxygen saturations, blood pressure, adequacy of pulmonary ventilation, and response to care were monitored throughout the procedure. The physical status of the patient was re-assessed after the procedure. The Colonoscope was introduced through the anus with the intention of advancing to the cecum. The scope was advanced to the transverse colon before the procedure was aborted. Medications were given. The colonoscopy was performed without difficulty. The patient tolerated the procedure well. The quality of the bowel preparation was good. The rectum was photographed. Scope insertion time was 3 minutes. Scope withdrawal time was 9 minutes. The total duration of the procedure was 12 minutes. Findings: The digital rectal exam revealed a hard and fixed rectal mass palpated 7.0 cm from the anal verge. The mass was circumferential. A fungating, infiltrative and ulcerated partially obstructing large mass was found in the rectum. The mass was circumferential. The mass measured thirteen cm in length. In addition, its diameter measured eight mm. No bleeding was present. This was biopsied with a cold forceps for histology. Verification of patient identification for the specimen was done by the physician and nurse using the patient's name, date and medical record number. Estimated blood loss was minimal. A malignant-appearing, intrinsic severe stenosis measuring 6 cm (in length) x 8 mm (inner diameter) was found in the rectum and was traversed after downsizing the scope to ultrathin scope, which could be advanced to hepatic flexure.. Non-bleeding external and internal hemorrhoids were found during retroflexion. The hemorrhoids were medium-sized. Impression: - Rectal mass 7.0 cm from the anal verge. - Likely malignant partially obstructing tumor in the rectum. Biopsied. - Stricture in the rectum. - Non-bleeding external and internal hemorrhoids. Recommendation: - Patient has a contact number available for emergencies. The signs and symptoms of potential delayed complications were discussed with the patient. Return to normal activities tomorrow. Written discharge instructions were provided to the patient. - High fiber diet. - Continue present medications. - Await pathology results. - Perform a CT scan (computed tomography) of chest with contrast, abdomen with contrast and pelvis with contrast at appointment to be scheduled. - Check CEA at appointment to be scheduled. - Telephone GI clinic for pathology results in 1 week. - Return to primary care physician. - Refer to a surgeon at appointment to be scheduled. - Refer to an oncologist at appointment to be scheduled. Adrian Ward MD Adrian Ward MD 02/01/2020 3:04:46 PM Electronically signed by Adrian Ward MD Number of Addenda: 0 Note Initiated On: 02/01/2020 2:04 PM Estimated Blood Loss: Estimated blood loss was minimal.
[2020-02-01 15:21] VITALS: BP 128/68
== END | disposition home or self-care (01) ==
LOC: M OPP 12:00
PROVIDERS: ATTEND Internal Medicine Gastroenterology
DX: C20 Malignant neoplasm of rectum (principal); K62.4 Stenosis of anus and rectum; K64.8 Other hemorrhoids; K56.690 Other partial intestinal obstruction; R19.5 Other fecal abnormalities; K44.9 Diaphragmatic hernia without obstruction or gangrene; K22.8 Other specified diseases of esophagus; K29.70 Gastritis, unspecified, without bleeding; K30 Functional dyspepsia; R63.4 Abnormal weight loss; Z80.43 Family history of malignant neoplasm of testis; Z80.0 Family history of malignant neoplasm of digestive organs; Z79.82 Long term (current) use of aspirin; Z79.899 Other long term (current) drug therapy; Z79.891 Long term (current) use of opiate analgesic; Z86.73 Personal history of transient ischemic attack (TIA), and cerebral infarction without residual deficits; Z95.5 Presence of coronary angioplasty implant and graft
CPT/HCPCS: 43239; 45380; 88305; 88342; J3010

== ENCOUNTER → 2020-02-15 | Outpatient (CLI) | payer MEDICARE, OTHER ==
[~2020-02-15] MED LIST changes: +HYDR-3716; -LIDOCAINE 2% 100MG/5ML SDV (FOR ANES.) As Ordered ONE; +MAGN1CAP PO; +MARIJUANA PO; +MIRA3350 PO; -MONT10TA4 PO; +MONT5TAB2 PO; -NS 1,000 ML IV ONE; +OXYC1TAB23 PO; +TRAZ-257; -ePHEDrine SULFATE 25 MG/5 ML(5MG/ML) SYRINGE As Ordered ONE; -fentaNYL 100 MCG/2 ML INJECTION (J3010) As Ordered ONE; -propofoL 500 MG/50 ML VIAL As Ordered ONE
[2020-02-15 17:09] LABS: ALBUMIN 3.4 GM/DL (3.2-5.2); ALT/SGPT 35 U/L (12-78); BILIRUBIN,DIRECT 0.1 MG/DL (0.0-0.2); BILIRUBIN,TOTAL 0.5 MG/DL (0.2-1.0); BLOOD UREA NITROGEN 18 MG/DL (7-18); CALCIUM LEVEL 9.2 MG/DL (8.8-10.2); CARBON DIOXIDE LEVEL 29 MEQ/L (21-32); CHLORIDE LEVEL 109 MEQ/L (98-107); CREATININE FOR GFR 1.13 MG/DL (0.70-1.30); GLOMERULAR FILTRATION RATE > 60.0 (>49); GLUCOSE, FASTING 105 MG/DL (70-100); POTASSIUM SERUM 4.5 MEQ/L (3.5-5.1); SODIUM LEVEL 140 MEQ/L (136-145); TOTAL PROTEIN 6.6 GM/DL (6.4-8.2)
[2020-02-15 17:22] LABS: BASO # 0.1 10^3/uL (0.0-0.2); BASO % 0.9 % (0.0-1.0); EOS # 0.4 10^3/uL (0.0-0.5); HEMATOCRIT 42.7 % (42.0-52.0); HEMOGLOBIN 14.2 g/dl (13.5-17.5); LYMPH # 1.2 10^3/uL (1.5-5.0); LYMPH % 12.9 % (24.0-44.0); MEAN CORPUSCULAR HEMOGLOBIN 33.7 pg (27.0-33.0); MEAN CORPUSCULAR HGB CONC 33.3 g/dl (32.0-36.5); MEAN CORPUSCULAR VOLUME 101.4 fl (80.0-96.0); MONO # 0.8 10^3/uL (0.0-0.8); MONO % 7.8 % (0.0-5.0); NEUTROPHILS # 7.1 10^3/uL (1.5-8.5); NEUTROPHILS % 73.9 % (36.0-66.0); PLATELET COUNT, AUTOMATED 280 10^3/uL (150-450); RED BLOOD COUNT 4.21 10^6/uL (4.30-6.10); WHITE BLOOD COUNT 9.6 10^3/uL (4.0-10.0)
== END ==
LOC: M WUC 11:57
PROVIDERS: ATTEND Internal Medicine Gastroenterology
DX: C20 Malignant neoplasm of rectum (principal)

== ENCOUNTER → 2020-02-17 | Outpatient (CLI) | payer MEDICARE, OTHER ==
[~2020-02-17] MED LIST changes: -HYDR-3716; -MARIJUANA PO; -MIRA3350 PO; +MONT10TA4 PO; -MONT5TAB2 PO; -OXYC1TAB23 PO; +PROHANCE 279.3MG/ML 15ML VIAL As Ordered ONE; +PROHANCE 279.3MG/ML 5ML VIAL As Ordered ONE; -TRAZ-257
--- NOTE | 2020-02-17 12:50 | REP ---
INDICATION: MAL LATOSHA OF RECTUM/FILE ROOM. COMPARISON: CT enterography 01/27/2020. TECHNIQUE: Multiple sequences obtained in the axial coronal planes prior to and following the intravenous administration of 17 mL ProHance. FINDINGS: There is a small hiatal hernia. There is a tiny subcentimeter cyst in the left lobe of the liver. The spleen demonstrates no abnormalities. The adrenal glands are normal. The pancreas is normal. No abnormalities seen of the right kidney. Left kidney demonstrates a cyst in the upper pole measuring 1.2 cm in diameter. There is no hydronephrosis bilaterally. There is a 1.5 cm gallstone in the neck of the gallbladder. There is no gallbladder wall thickening or edema. There is no evidence of biliary dilatation. The abdominal aorta is normal in caliber with no aneurysm. There is no adenopathy or free fluid in the abdomen. IMPRESSION: Cholelithiasis. No biliary dilatation or free fluid. No adenopathy. Tiny cyst left lobe of liver and small cyst upper pole left kidney. <Electronically signed by Henrik Gonzalez > 02/17/20 [id number]
--- NOTE | 2020-02-17 13:11 | REP ---
INDICATION: MAL LATOSHA OF RECTUM/FILE ROOM. COMPARISON: CT enterography 01/27/2020. TECHNIQUE: Using a phased array surface coil, was acquired using T2 weighted scans in the axial, coronal, and sagittal imaging planes. Small [id number] diffusion-weighted sequences are acquired. Small [id number] axial T1 weighted scans are acquired dynamically before and after the intravenous administration of 17 mL of ProHance. Imaging is reviewed using the [employer] computer-aided detection system. FINDINGS: There is diffuse thickening of the rectum, with enhancement of the rectal wall diffusely. This extends for a length of approximately 14 cm. There may be involvement of the very distal sigmoid colon. No perirectal mass or adenopathy is seen. There is no adenopathy in any portion of the pelvis. No free fluid is seen. Urinary bladder is mildly distended and grossly unremarkable. The appendix is normal. The visualized osseous structures demonstrate no abnormal signal or enhancement. IMPRESSION: Diffuse rectal wall thickening and enhancement consistent with the patient's history of rectal adenocarcinoma. The segment of distal colon involved is approximately 14 cm in length. There may be involvement of the very distal sigmoid colon. No perirectal mass. No adenopathy in the pelvis. <Electronically signed by Henrik Gonzalez > 02/17/20 [id number]
== END ==
LOC: M RAD 08:46
PROVIDERS: ATTEND Internal Medicine Gastroenterology
DX: C20 Malignant neoplasm of rectum (principal)
CPT/HCPCS: 72197; 74183; A9576

== ENCOUNTER → 2020-02-25 | Outpatient (CLI) | payer MEDICARE ==
[~2020-02-25] MED LIST changes: +HYDR-3716; +MIRA3350 PO; -PROHANCE 279.3MG/ML 15ML VIAL As Ordered ONE; -PROHANCE 279.3MG/ML 5ML VIAL As Ordered ONE; +TRAZ-257
--- NOTE | 2020-02-25 13:07 | RADONC.CN ---
Radiation Oncology Hx/Consult Radiation Oncology Consult Date of Service: Feb 25, 2020 Pt Identifier Casa Crowell is a 64 year old male with a history of prostate cancer pT3b [place] 4+3=7 PSA 11.7 s/p RP and salvage RT to 66.6 Gy in 37 fractions completed 10/22/19. He has now been diagnosed with a large mid-rectal tumor T2 vs T3N0M0 adenocarcinoma 7 cm from verge extending ~13 cm to the rectosigmoid junction and nearly obstructing. He is seen for consideration of neoadjuvant radiation to treat this new tumor. Diagnosis/Treatment History Oncologic History Prostate cancer: RALP on 09/22/18 pT3b [place] 4+3=7 PSA 11.2 08/26/19-10/22/19 66.6 Gy in 37 fractions salvage RT (3D plan) PSA 12/31/18 0.04 04/15/19 0.11 07/14/19 0.22 12/08/19 0.21 Seen 11/24/19 (during system wide computer outage) Was feeling well with normally formed BM but sometimes with small BRB on toilet paper. No weight loss. Rectal cancer: In December-January 2020 stools became loose and blood increased, started losing weight 01/27/20 CT enterography with mural thickening in rectum 02/01/20 Colonoscopy with circumferential rectal mass from 7cm-20cm from verge biopsies showing adenocarcinoma 02/17/20 MRI pelvis no perirectal involvement or suspicious adenopathy Interval History Has constant abdominal pain an distension. Able to move bowels and pass gas but with difficulty and pain flaring to 10/10. If he does not pass stool and flatus regularly he notes his abdomen becomes harder and pain increases. Sometime has dry heaves but no vomiting bilious material. His stool is all blood and mucus at this point. His main concern is the abdominal pain which he says is the worst of his life. He is seeing Dr. Honeycutt (general surgery) on Friday02/28/20. From a urinary standpoint his frequency and nocturia are stable (5x as before). Past Medical History: CVA residual right sided weakness Prostate cancer HTN HPL Past Surgical History: RP 2019 Family History: Sister lung cancer Father colon cancer Social History: Current everyday smoker 1 ppd 40 year history Does not drink at present Allergies / Meds Allergies: Coded Allergies: iopamidol (Verified Allergy, Intermediate, ITCHING, SWELLING, 01/27/20) PTS STATEMENT OF FEELING LIKE HIS LIPS ARE SWOLLEN AND THAT HIS THROAT IS ITCHY. Home Meds Reported Medications Magnesium Oxide (Magnesium) 500 Mg Capsule, 1 CAP PO BID for constipation for 30 Days, #60 CAP 02/21/20 Melatonin (Melatonin) 10 Mg Tab.rapdis, 3 TAB PO QPM for sleep MDD 1 Tablet(s) for 30 Days, #30 TAB 08/17/19 Pregabalin (Pregabalin) 75 Mg Capsule, 75 MG PO DAILY, CAP 08/17/19 Baclofen (Baclofen) 10 Mg Tablet, 10 MG PO DAILY, TAB 08/17/19 Tamsulosin HCl (Flomax) 0.4 Mg Capsule, 0.4 MG PO QHS 12/20/18 Pantoprazole Sodium (Pantoprazole Sodium) 40 Mg Tablet.dr, 40 MG PO DAILY 12/20/18 Carvedilol (Carvedilol) 6.25 Mg Tablet, 6.25 MG PO BID 12/20/18 Lisinopril (Lisinopril) 20 Mg Tab, 20 MG PO QHS, TAB 06/28/18 Aspirin (Aspirin EC) 81 Mg Tab, 81 MG PO DAILY 06/28/18 Isosorbide Mononitrate (Isosorbide Mononitrate ER) 60 Mg Tab, 60 MG PO QHS 06/28/18 Atorvastatin Calcium (Atorvastatin Calcium) 40 Mg Tab, 40 MG PO QHS 06/28/18 Discontinued Reported Medications Amitriptyline HCl (Amitriptyline HCl) 50 Mg Tab, 50 MG PO QHS 06/28/18 Review of Systems Constitutional: Reports: Malaise, Weakness, Fatigue, Weight Loss; Denies: Chills, Fever, Night Sweats Eyes: Denies: Pain, Vision change HEENT: Denies: Head Aches, Sore Throat Skin: Denies: Rash Pulmonary: Denies: Dyspnea, Cough Cardiovascular: Denies: Chest Pain, Orthopnea Gastrointestinal: Reports: Nausea, Abdominal Pain, Constipation, Hematochezia; Denies: Vomiting Genitourinary: Reports: Frequency; Denies: Dysuria, Incontinence, Hematuria, Retention Hematologic: Denies: Bruising, Bleeding Excessively Endocrine: Denies: Polydipsia, Heat Intolerance Musculoskeletal: Reports: Back pain; Denies: Neck pain, Leg pain Neurological: Reports: Weakness (Long standing right hemiparesis from CVA); Denies: Change in Speech, Confusion Psych: Denies: Mood Normal (Upset by constant pain), Anxiety Vital Signs Ht 67" Wt 192 lb BMI 30 T 97.2 P 68 BP 137/76 O2 93% Pain 8, abdomen Fatigue 2 General Exam: Positive: Alert, Cooperative, Mild Distress Eye Exam: Positive: PERRLA, EOMI ENT EXAM: Positive: Atraumatic, Pharynx Normal Neck Exam: Positive: Supple; Negative: Lymphadenopathy Chest Exam: Positive: Clear to auscultation, Normal air movement Heart Exam: Positive: Rate Normal, Regular Rhythm Abdomen Exam: Positive: Normal bowel sounds, Soft (Softly distended), Tenderness (Mild tenderness through all quadrants); Negative: Mass, Other (Patient refused TERRIE, concern of pain) Extremity Exam: Negative: Edema Skin Exam: Positive: Nl turgor and temperature Neuro Exam: Positive: Normal Speech, Cranial Nerves 3-12 NL Psych Exam: Positive: Mental status NL, Mood NL; Negative: Anxiety Diagnostic and Laboratory Diagnostic Review Radiologic images, relevant labs and pathology reports were personally reviewed and discussed with Mr. Crowell. Assessment and Plan Impression Mr. Crowell is a 64 year old male with a history of prostate cancer pT3b [place] 4+3=7 PSA 11.7 s/p RP and salvage RT to 66.6 Gy in 37 fractions completed 10/22/19. He has now been diagnosed with a large mid-rectal tumor T2 vs T3N0M0 adenocarcinoma 7 cm from verge extending ~13 cm to the rectosigmoid junction and nearly obstructing. He is seen for consideration of neoadjuvant radiation to treat this new tumor. Stage Stage X cT2/3N0M0 rectal adenocarcinoma Performance Status ECOG 1 Plan We had an extensive discussion with Mr. Crowell regarding the diagnosis at hand and available therapeutic options. He has an extensive rectal tumor, which is near-obstructing based on radiographic appearance and symptomatology. I discussed that diverting ostomy would be the best initial step for him given his near-emergent symptoms. He is seeing Dr. Honeycutt about this on Friday02/28/20. I cautioned him about the symptoms of obstipation and emesis which would warrant immediate surgical intervention. He will come to the ED if he develops them. With respect to his prior RT, there would be some direct overlap in the classic rectal field and the post-prostatectomy RT field. Thus I do not feel that I could safely give him long-course reirradiation. However upon careful review of his current scans and prior plan, I do think that short-course RT 25 Gy in 5 fractions delivered to a limited mesorectal and pre-sacral marilee volume (as is delivered at institutions like [facility] in [place], as a matter of standard course) would be feasible and beneficial. I would use VMAT to lower dose in areas of overlap. This would afford him downstaging, increase local control probability and likely resolve his bleeding. I would move to deliver this after appropriate healing from ostomy surgery. I will follow closely for optimal timing. I will make every effort to delineate and spare the levator complex and anorecta l interface and so hopefully not compromise his ability to undergo LAR with TME rather than APR at the appropriate time, if he responds to neoadjuvant treatment. After RT, he can begin neoadjuvant chemotherapy with Dr. Crain, whom I have discussed this case with. We discussed the logistics of receiving radiation therapy in detail including the need for a 1-time planning session. We reviewed the side effects of RT, nausea, diarrhea, irritative voiding symptoms and increased risk of post-operative complications, which exist independently of the present. After discussing the risks, benefits and alternatives to radiation therapy, Mr. Crowell was amenable to pursuing radiotherapy. All questions were answered to the patient's satisfaction. We instructed the patient that if there were any questions,concerns or changes in clinical status in the interim to contact us. Recommendations Diverting ostomy recommended Neoadjuvant short course RT with VMAT due to prior pelvic RT Neoadjuvant chemotherapy per Dr. Crain Simulation pending ostomy surgery PATRICK CULLEN MD Feb 25, 2020 13:06
== END ==
LOC: M ONCR 09:45
PROVIDERS: ATTEND General Practice
DX: C20 Malignant neoplasm of rectum (principal)

== ENCOUNTER → 2020-03-01 | Outpatient (CLI) | payer MEDICARE, MEDICAID | LOC: M LABSMTC 09:27 | PROVIDERS: ATTEND Anesthesiology | DX: Z01.812 Encounter for preprocedural laboratory examination (principal); Z20.828 Contact with and (suspected) exposure to other viral communicable diseases ==

== ENCOUNTER 2020-03-06 11:44 | Inpatient (IN) | payer MEDICARE, OTHER ==
[~2020-03-06] VITALS: Ht 170.2 cm; Wt 85.9 kg
[~2020-03-06 11:44] MED LIST changes: -MONT10TA4 PO; +MONT5TAB2 PO
[2020-03-08] MEDS ORDERED: cefoTEtan DISODIUM 2 GM in D5W MINI-BAG PLUS 50 ML IV ONE (07:00)
[2020-03-08] MEDS ORDERED: LR 1,000 ML IV ONE (07:00)
[2020-03-08] MEDS ORDERED: fentaNYL 250 MCG/5 ML INJECTION (J3010) As Ordered ONE (12:17)
[2020-03-08] MEDS ORDERED: LIDOCAINE 2% 100MG/5ML SDV (FOR ANES.) As Ordered ONE (12:17)
[2020-03-08] MEDS ORDERED: MIDAZOLAM INJ 2MG/2ML VIAL (J2250 PER 1MG) As Ordered ONE (12:17)
[2020-03-08] MEDS ORDERED: ROCURONIUM BROMIDE 50 MG/5 ML VIAL As Ordered ONE ×3 (12:17→15:25)
[2020-03-08] MEDS ORDERED: propofoL 200 MG/20 ML VIAL As Ordered ONE (12:17)
[2020-03-08] MEDS ORDERED: LIDOCAINE 1% SDV 30ML VIAL As Ordered ONE (12:22)
[2020-03-08] MEDS ORDERED: BUPIVACAINE HCL 0.25% 30ML VIAL As Ordered ONE ×2 (12:22→13:28)
[2020-03-08] MEDS ORDERED: HEPARIN SOD (PORCINE) 5000UNITS/ML 1ML VIAL/SYRINGE As Ordered ONE (12:22)
[2020-03-08] MEDS ORDERED: dexameTHASONE 4 MG/ML 1ML VIAL (J1100 PER 1MG) As Ordered ONE (13:21)
[2020-03-08] MEDS ORDERED: HYDROmorphone HCL 2 MG/ML 1ML VIAL (J1170) As Ordered ONE (13:46)
[2020-03-08] MEDS ORDERED: ONDANSETRON 4MG/2ML VIAL As Ordered ONE (14:33)
[2020-03-08] MEDS ORDERED: METOCLOPRAMIDE INJ 10MG/2ML VIAL (J2765 PER 1) As Ordered ONE (14:33)
[2020-03-08] MEDS ORDERED: ACETAMINOPHEN 1000MG 100ML IV BTL (OFIRMEV) (J0131 PER 10MG) As Ordered ONE (14:33)
[2020-03-08] MEDS ORDERED: ePHEDrine SULFATE 25 MG/5 ML(5MG/ML) SYRINGE As Ordered ONE (16:13)
--- NOTE | 2020-03-08 17:55 | REP ---
INDICATION: INFUSAPORT PLACEMENT. COMPARISON: None. TECHNIQUE: Two C-arm views chest performed. FINDINGS: Central venous catheter is placed. The tip is in the superior vena cava. IMPRESSION: 3 seconds of fluoroscopy time utilized. <Electronically signed by Henrik Gonzalez > 03/08/20 [id number]
[2020-03-08] MEDS: LR 1,000 ML IV SCH (18:07)
[2020-03-08] MEDS: fentaNYL 100 MCG/2 ML INJECTION (J3010) IV PRN ×4 (18:19→18:35)
[2020-03-08] MEDS ORDERED: fentaNYL 100 MCG/2 ML INJECTION (J3010) As Ordered ONE (18:19)
[2020-03-08] MEDS ORDERED: HYDROMORPHONE HCL 0.5 MG/ 0.5 ML SYRINGE (J1170 PER 1) IV PRN (18:30)
[2020-03-08] MEDS ORDERED: LR 1,000 ML IV SCH (18:30)
[2020-03-08] MEDS ORDERED: KETOROLAC 30 MG/ML 1ML VIAL IV PRN (18:30)
[2020-03-08] MEDS ORDERED: oxyCODONE 5MG TAB PO PRN (18:30)
[2020-03-08] MEDS ORDERED: ONDANSETRON 4MG/2ML VIAL IV PRN ×2 (18:30)
[2020-03-08] MEDS ORDERED: ACETAMINOPHEN TAB 650MG DOSE (2X325MG) PO PRN (18:30)
[2020-03-08] MEDS ORDERED: MORPHINE 2 MG/ML 1ML VIAL (J2270) IV PRN (18:30)
[2020-03-08 19:45] VITALS: BP 140/77
[2020-03-08 20:15] VITALS: BP 137/74
[2020-03-08] MEDS: CARVedilol 6.25 MG TAB PO SCH (21:00)
[2020-03-08 21:15] VITALS: BP 124/74
[2020-03-08] MEDS: traZODone 100 MG TAB PO SCH (21:17)
[2020-03-08] MEDS: ATORVASTATIN 20 MG TAB PO SCH (21:18)
[2020-03-08] MEDS: TAMSULOSIN 0.4 MG CAP PO SCH (21:18)
[2020-03-08] MEDS: ISOSORBIDE MON. (IMDUR) 60 MG XR TAB PO SCH (21:19)
[2020-03-08] MEDS: lisinopriL 20 MG TAB PO SCH (21:20)
[2020-03-08 22:15] VITALS: BP 96/59
[2020-03-08 23:15] VITALS: BP 112/67
[2020-03-09 00:15] VITALS: BP 111/67
[2020-03-09] MEDS ORDERED: cefoTEtan DISODIUM 2 GM in D5W MINI-BAG PLUS 50 ML IV ONE (01:00)
[2020-03-09] MEDS: oxyCODONE 5MG TAB PO PRN ×4 (01:12→20:22)
[2020-03-09 04:15] VITALS: BP 106/55
[2020-03-09] MEDS: LR 1,000 ML IV SCH (06:24)
[2020-03-09 07:14] LABS: BASO % 0.3 % (0.0-1.0); EOS % 0.3 % (0.0-3.0); HEMOGLOBIN 11.5 g/dl (13.5-17.5); LYMPH # 0.8 10^3/uL (1.5-5.0); LYMPH % 8.5 % (24.0-44.0); MEAN CORPUSCULAR HEMOGLOBIN 31.9 pg (27.0-33.0); MEAN CORPUSCULAR HGB CONC 32.9 g/dl (32.0-36.5); MEAN CORPUSCULAR VOLUME 97.2 fl (80.0-96.0); MONO # 0.7 10^3/uL (0.0-0.8); MONO % 7.4 % (0.0-5.0); NEUTROPHILS # 7.7 10^3/uL (1.5-8.5); NEUTROPHILS % 83.1 % (36.0-66.0); PLATELET COUNT, AUTOMATED 181 10^3/uL (150-450); WHITE BLOOD COUNT 9.3 10^3/uL (4.0-10.0)
[2020-03-09 07:45] LABS: BLOOD UREA NITROGEN 18 MG/DL (7-18); CALCIUM LEVEL 8.4 MG/DL (8.8-10.2); CARBON DIOXIDE LEVEL 24 MEQ/L (21-32); CHLORIDE LEVEL 109 MEQ/L (98-107); CREATININE FOR GFR 0.95 MG/DL (0.70-1.30); GLOMERULAR FILTRATION RATE > 60.0 (>49); GLUCOSE, FASTING 92 MG/DL (70-100); POTASSIUM SERUM 4.5 MEQ/L (3.5-5.1); SODIUM LEVEL 140 MEQ/L (136-145)
[2020-03-09 10:00] VITALS: BP 127/58
[2020-03-09] MEDS: ENOXAPARIN 40MG/0.4ML SYRINGE (J1650 PER 10MG) SC SCH (10:04)
[2020-03-09] MEDS: ASPIRIN 81 MG ENTERIC TAB PO SCH (10:04)
[2020-03-09] MEDS: PANTOPRAZOLE 40MG TAB (PROTONIX) PO SCH (10:04)
[2020-03-09] MEDS: BACLOFEN 10 MG TAB PO SCH (10:04)
[2020-03-09] MEDS: PREGABALIN 75 MG CAP(LYRICA) PO SCH (10:05)
[2020-03-09] MEDS: CARVedilol 6.25 MG TAB PO SCH ×2 (10:05→20:21)
[2020-03-09 14:00] VITALS: BP 120/57
[2020-03-09 18:00] VITALS: BP 116/61
[2020-03-09] MEDS: traZODone 100 MG TAB PO SCH (20:20)
[2020-03-09] MEDS: lisinopriL 20 MG TAB PO SCH (20:21)
[2020-03-09] MEDS: ATORVASTATIN 20 MG TAB PO SCH (20:21)
[2020-03-09] MEDS: ISOSORBIDE MON. (IMDUR) 60 MG XR TAB PO SCH (20:22)
[2020-03-09] MEDS: TAMSULOSIN 0.4 MG CAP PO SCH (20:22)
[2020-03-09 22:00] VITALS: BP 144/75
[2020-03-10 02:00] VITALS: BP 140/69
[2020-03-10] MEDS: oxyCODONE 5MG TAB PO PRN ×2 (04:44→09:28)
[2020-03-10 06:00] VITALS: BP 134/73
--- NOTE | 2020-03-10 08:18 | IPNPDOC ---
Text Note Date of Service The patient was seen on 03/10/20. NOTE He is POD2 Lap colostomy placement for near obstructing low rectal cancer He is doing well at this point, tolerating diet. His colostomy is working appropriately and he is working with the nurses on learning how to take care of it. He wishes to go home this weekend. VS stable looks very comfortable Left chest infusaport steri strips intact, no bleeding abdomen, round, soft, nondistended, llq ostomy mildly swollen otherwise healthy, with soft brown stools and air in the bag. Port sites with dressing intact Plan: Issues on sending him home over the weekend includes getting him his ostomy supplies set up. We'll see how we can arrange for discharge safely. VS,Fishbone, I+O VS, Fishbone, I+O Vital Signs Date Time Temp Pulse Resp B/P (MAP) Pulse Ox O2 Delivery O2 Flow Rate FiO2 03/10/20 06:00 97.8 54 18 134/73 (93) 96 Room Air 03/08/20 19:15 2 I&O- Last 24 Hours up to 6 AM 03/10/20 05:59 Intake Total 1456 ml Output Total 500 ml Balance 956 ml DARIUS JOYCE MD Mar 10, 2020 08:18
[2020-03-10 09:15] VITALS: BP 134/73
[2020-03-10] MEDS: CARVedilol 6.25 MG TAB PO SCH (09:15)
[2020-03-10] MEDS: PREGABALIN 75 MG CAP(LYRICA) PO SCH (09:15)
[2020-03-10] MEDS: ENOXAPARIN 40MG/0.4ML SYRINGE (J1650 PER 10MG) SC SCH (09:15)
[2020-03-10] MEDS: ASPIRIN 81 MG ENTERIC TAB PO SCH (09:15)
[2020-03-10] MEDS: BACLOFEN 10 MG TAB PO SCH (09:16)
[2020-03-10] MEDS: PANTOPRAZOLE 40MG TAB (PROTONIX) PO SCH (09:16)
[2020-03-10 10:00] VITALS: BP 136/83
[2020-03-10 14:00] VITALS: BP 141/81
--- NOTE | 2020-03-11 15:40 | IPN ---
PROGRESS NOTE DATE: 03/09/2020 05:20:00 pm HISTORY: Patient is now postoperative day #1 from a robotic-assisted laparoscopic sigmoid colectomy and end-descending colostomy. He also had a right internal jugular Dhqbjn-B-Zbcx placed. He is not having much pain and has been up to ambulate. He reports that he has been voiding well. He has tolerated some clear liquids. Vital signs show that he has been afebrile since his surgery with a pulse generally in the 50s and 60s. His blood pressure is good, and his oxygen saturation has been acceptable. Intake and output show that yesterday he had 2000 recorded in with only 200 recorded out, although his urine was not measured. PHYSICAL EXAMINATION: Patient is actually up ambulating in his room when I came to see him. He is alert and oriented. Heart exam shows a regular rhythm. Lungs are clear. The abdomen is mildly protuberant. He reports there has been gas from his stoma. He has active bowel sounds, and the stoma is pink and viable. Laboratory studies show this morning a white count of 9, hemoglobin 12, hematocrit 35, and a platelet count of 181,000. His chemistry profile is significant for a minimal elevation of the chloride to 109 and is otherwise normal. IMPRESSION: Patient is doing very well postoperative day #1 from his diverting colostomy and Mikjji-p-Smvt placement. PLAN: He will be advanced to a regular diet, and his intravenous (IV) fluid will be diminished. If his food is well tolerated, then his IV can be saline locked. He is encouraged to be up ambulating. He will need ostomy teaching. I will sign the patient out today to Dr. Rudd, who is covering for the . I discussed with him the anticipated plan for hospital stay and discharge. LENARD
--- NOTE | 2020-03-11 16:52 | RO ---
OPERATIVE NOTE DATE OF OPERATION: 03/08/2020 PREOPERATIVE DIAGNOSIS: Obstructing rectal cancer. POSTOPERATIVE DIAGNOSIS: Obstructing rectal cancer. PROCEDURES PERFORMED: 1. Robotic-assisted laparoscopic sigmoid resection with end-descending colostomy. 2. Implantation of right internal jugular PowerPort [id number]-a-Dtfh with ultrasound and fluoroscopic guidance. SURGEON: Dr. Honeycutt CHIEF DEPUTY SHERIFF: Rebecca Meneses, nurse practitioner ANESTHESIA: General. INDICATIONS FOR THE PROCEDURE: Patient is a 64-year-old man who was recently evaluated for a several-month history of some changes in his bowel habits and rectal bleeding. He was found to have a large, nearly-obstructing rectal cancer which was palpable at approximately 6-7 cm above the anal verge on digital rectal exam. Imaging has not shown any evidence of adenopathy or evidence of metastatic disease. He is to undergo presurgical chemotherapy and radiation prior to resection of his tumor. He is now for creation of a diverting colostomy and placement of an Uoxisn-z-Cxzs to support his chemotherapy needs. OPERATIVE PROCEDURE: The patient had performed a full mechanical and antibiotic bowel preparation at home. He was brought to the operating room and placed on the table in a supine position. He was placed under general endotracheal anesthesia. Thromboembolic deterrents (TEDs) and sequentials were utilized. A Knox catheter was inserted. The abdomen was prepped and draped in a sterile fashion. Marcaine 0.25% was infiltrated at each of the trocar sites as needed. The initial robotic port was placed high in the left upper quadrant. A short transverse incision was made, and a Veress needle was inserted. After a positive hanging-drop test, the abdomen was inflated with carbon dioxide gas. An 8 mm port was placed over a 5 mm scope and advanced through the abdominal wall without difficulty. Initial examination showed no evidence of any significant intra-abdominal adhesions. There was no evidence of trocar injury. A second 8 mm port was placed approximately midway between this port and a site at the midline just below the umbilicus. A 12 mm port was placed just below the umbilicus, and a final 8 mm port was placed in the left upper quadrant. The patient was tilted to a slight Trendelenburg position. The patient's cart of the SmartyContenti XI robot was brought into position, and the camera port was docked to the lower left upper abdominal port. Targeting took place in the left lower quadrant. The additional robotic arms were then docked. A SynchroSeal device, a grasping retractor, and a fenestrated bipolar were then inserted. I then moved to the control console to proceed with the operation. Inspection in the pelvis took place. The patient was tilted slightly further to a Trendelenburg position. Patient had abundant fibrofatty tissue within the mesentery of the colon. There were no signs of metastatic disease on the peritoneum in the lower abdomen. There was some irregularity to the pelvic peritoneum, consistent with his prior surgery for a prostatectomy. He also had the martin of several prior trocar sites noted on the abdominal wall but without evidence of hernia. The rectal tumor is fairly low, and by palpation I did not identify any palpable mass or thickening in the upper rectum or area of the rectosigmoid. I elected to transect the sigmoid colon just above the rectosigmoid junction. Therefore, the lateral attachments of the distal sigmoid were divided using the SynchroSeal. An opening was created through the mesentery, and the bowel was stapled with a 60 mm endoscopic robotic stapler. The mesentery was divided down to its base, and dissection was then carried superiorly, dividing the mesenteric tissues. The sigmoid vessels were divided. The lateral peritoneum was divided, extending up along a portion of the descending colon. The patient did have a fairly redundant sigmoid. As dissection proceeded, it became clear that the distal portion of the sigmoid did not appear well vascularized. I inspected the sigmoid colon using the Firefly feature of the DaVinci robot and discovered that perhaps the distal 6-8 inches did not have good perfusion. The dissection was then carried more proximally. The freeing of the descending colon was continued. The mobilization was continued from lateral medial to free the mesentry somewhat. Care was taken to try to avoid injury to any additional blood supply to the descending colon. A site was selected in the patient's left upper quadrant, slightly above the level of the umbilicus, for the colostomy. This site was marked by the surveyor's assistant, as I inspected from within the abdomen. Before proceeding with the colostomy, I elected to suture the stapled end of the rectosigmoid region over a raw area of the retroperitoneum that had been left during the dissection of the colon. The stapled end of the colon was sutured back to the retroperitoneum with several simple sutures of 2-0 Vicryl to cover this raw area in hopes that it would help to prevent some adhesion of small bowel loops in this area. After completing this, I returned to the patient's side at the operating room (OR) table. The robotic instruments were removed. The robot was undocked and withdrawn. At the selected site for the ostomy in the left upper quadrant, an approximately 2-2.5 cm disc of skin was excised in the area, approximately 6 cm to the left of midline overlying the rectus muscle. The subcutaneous fatty tissues were opened, and the rectus sheath was opened longitudinally. The rectus muscle fibers were spread, and the posterior sheath was also opened longitudinally. The end of the sigmoid colon, which was held with a clamp through one of the robotic ports, was then delivered through the ostomy site. Approximately 10 inches of the colon did not appear to be well vascularized. This was all delivered through the site so that there was clearly viable and pink colon at the site. The end of the colon was transected, and this was sent as a specimen, labeled sigmoid colon. Several sutures of 3-0 Vicryl were placed between the edge of the skin and the bowel wall to prevent retraction. The end of the colon was then opened, and the colostomy was matured with four corner sutures of 3-0 Vicryl to wilberto the end of the colon. Multiple additional sutures were then placed, suturing the wall of the bowel to the skin edge. The ostomy was covered, and the remaining robotic trocars were removed. The trocar sites were closed with buried sutures of 4-0 Vicryl. It was possible in the 12 mm port in the infraumbilical site to identify the fascia and close this with several sutures of 0 Vicryl first. The wounds were additionally covered with Steri-Strips. An ostomy appliance was then placed over the stoma, and small dressings were placed on the abdominal incisions. These were held in place with tape. I them moved on to the second procedure, which was placement of an Infuse-a- Port. The abdominal drapes were removed after dressings were applied. The patient's right neck and upper chest were exposed, and this area was prepped and draped sterilely. The ultrasound probe was draped, and this was used to inspect the right side of the neck. Patient had a large internal jugular vein, and the artery was noted adjacent. Some local anesthesia was achieved at the base of the neck, and an 18-gauge needle was inserted under ultrasound guidance into the internal jugular vein. There was excellent blood return. The guidewire was passed and the needle removed. The skin was nicked, and the peel-away sheath introducer was placed. The catheter of the Xoqxwz-k-Nigq was inserted through the peel-away sheath, and this was then removed. Blood aspirated readily from the catheter, and this was flushed with heparinized saline. Using the fluoroscopy, the insertion depth of the catheter was assessed, and at a depth of approximately 13 cm at the skin surface, the catheter appeared to lie just above the junction of the superior vena cava and the right atrium. The port being used was a PowerPort, ClearVCompositence. This was reference code [id number], lot #[id number]. A site was selected for the subcutaneous pocket for the port. This was in the infra-clavicular space, perhaps 5 cm below the edge of the clavicle. Local anesthesia was infiltrated, and a transverse incision was made approximately 3 cm in length. This was deepened into the subcutaneous tissues. The cautery was used to develop a subcutaneous space. Some of this was also accomplished with scissors. The pocket was inspected, and hemostasis was ensured with the cautery. The port site was tested by inserting the port, and this would fit nicely. The tunneling device was used to tunnel the catheter down to the port site. The port, which had been flushed with heparinized saline, was then attached to the end of the catheter using the locking ring after cutting the catheter to the appropriate length. The port was placed into the subcutaneous pocket, and two 3-0 Vicryl sutures were placed through the silicone cover of the port, suturing this at the two superior corners. The edges of the skin at the port site were brought into apposition with several buried sutures of 3-0 Vicryl. The small neck incision was closed with a 5-0 Vicryl. A running 5-0 Vicryl was used to close the port site. The port was accessed with a Toussaint needle and flushed with 100 unit/mL heparin solution. Steri-Strips were applied to the two small incisions followed by small OpSite dressings. The patient tolerated the procedure well without apparent complication. He was then awakened in the operating room, extubated, and moved to the recovery room in stable condition. LENARD
--- NOTE | 2020-03-11 18:45 | HPE ---
HISTORY AND PHYSICAL DATE OF ADMISSION: 03/08/2020 ADMITTING DIAGNOSIS: Obstructing rectal cancer. HISTORY OF PRESENT ILLNESS: The patient is a 64-year-old male who was referred to me from Medical Oncology for evaluation for surgical management of his recently diagnosed rectal cancer. The patient had undergone a robotic assisted prostatectomy for prostate cancer in November of 2018. He subsequently underwent radiation therapy. For the last several months he had noticed rectal bleeding with some mucous in his stool and some increased difficulty having bowel movements. He had noted some crampy abdominal pain intermittently. He was referred to Gastroenterology. A colonoscopy was performed by Dr. Ward on January 31. The digital rectal exam revealed a hard and fixed mass palpated 7 cm from the anal verge. The colonoscopy revealed a fungating, ulcerated, partially obstructing mass in the rectum. The opening was estimated at 8 mm. It was possible to advance the thin scope to the hepatic flexure. The narrowing was noted to be approximately 6 cm in length. Biopsies confirmed adenocarcinoma which was moderately differentiated. He underwent evaluation with an MRI of the abdomen and pelvis which showed no evidence of extension of tumor outside the rectum. There was some thickening of the rectal wall identified. There was no adenopathy identified. The patient has seen the medical oncologist and the plan is to perform chemotherapy and some limited radiation therapy. Because of his prior radiation therapy for his prostate cancer, this will likely need to be somewhat limited. Following his preoperative chemoradiation, he could undergo resection. The patient is now being admitted to undergo a robotic assisted laparoscopic diverting colostomy to prevent acute obstruction during his treatment and he will also have an infusaport placed. ALLERGIES: The patient reports no known drug allergies. CURRENT MEDICATIONS: 1. Aspirin 81 mg p.o. daily. 2. Atorvastatin 40 mg p.o. daily. 3. Baclofen 10 mg daily at bedtime. 4. Carvedilol 6.25 mg twice daily. 5. Hydrocodone/Acetaminophen 7.5/325 mg tablets, one three times daily as needed for pain. 6. Isosorbide Mononitrate ER 60 mg one tablet daily. 7. Lisinopril 20 mg p.o. daily. 8. Pregabalin 75 mg p.o. daily. 9. Protonix 40 mg daily. 10. He is also taking Tamsulosin 0.4 mg daily at bedtime. 11. Trazodone 100 mg p.o. at bedtime. PAST MEDICAL HISTORY: The patient's past medical history is significant for: 1. Hypertension. 2. Coronary artery disease and had a stent placed in 2015. He follows with Dr. Hayden of Cardiology. 3. History of hypercholesterolemia. 4. Asthma. 5. History of migraines. 6. Stroke in 2016. 7. Prostate cancer diagnosed last year and underwent a robotic assisted prostatectomy with lymph node dissection in November of 2018. PAST SURGICAL HISTORY: The patient's past surgical history is significant for: 1. Right eye removal for an injury. 2. He underwent his coronary stent in 2015. 3. Prostatectomy in November of 2018. 4. An EGD and colonoscopy in January of 2020. 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 He is a smoker who had quit in July of 2017 after 3 packs per day for 40 years. Since his prostate cancer, he has restarted smoking, though at a slightly lower level. He denies any significant alcohol use. FAMILY HISTORY: His father succumbed to a heart attack and his mother succumbed to an aneurysm. There is a history of significant hypertension and heart disease in other family members. REVIEW OF SYSTEMS: The patient's review of systems reveals no chills or fever. He denies significant weight gain or loss. He has no current chest pain or palpitations. He denies chronic cough or sputum production. He has noted some rectal bleeding with some constipation and diarrhea. He has some urinary leakage and wears an absorptive garment. He denies any significant acute extremity pains but does have some chronic back pain. He has no history of deep vein thrombosis or pulmonary embolism. PHYSICAL EXAMINATION: GENERAL APPEARANCE: A gentleman who appears comfortable at rest and is alert and oriented. Height is 67 inches with a weight of 88 kg. SKIN: Warm and dry. HEENT: He has a prosthetic right eye. The left eye is without icterus. Mucous membranes are moist. NECK: Supple without apparent mass. HEART: Regular rate and rhythm. He does seem to have a faint, short duration mid pitched bruit on the right neck. LUNGS: Clear to auscultation bilaterally. ABDOMEN: Somewhat protuberant. He has several small trocar site scars in the lower abdomen, consistent with his prior prostatectomy. There is no sign of hernia. He has active bowel sounds. The abdomen feels somewhat full but without significant tenderness. There were no palpable inguinal lymph nodes. GENITALIA: Examination of the perineum showed no evidence of acute inflammation. RECTAL: Digital rectal examination revealed normal sphincter tone. At approximately 7 cm from the anal verge, there is a mass palpable. This appears most prominent posteriorly but seems to be circumferential at that level. EXTREMITIES: Without significant edema and he has palpable peripheral pulses. LABORATORY STUDIES: The patient had some lab work on the 14 of February that showed a white count of 10, hemoglobin 14, hematocrit 43 and a platelet count of 280,000. Chemistries profile showed a sodium of 140, potassium 4.5, chloride 109, CO2 of 29, BUN of 18, creatinine 1.1 and a glucose of 105. Liver function tests are normal with a CEA level of 6.0. IMAGING: His abdomen and pelvis MRI had been performed on the 16 of February. This was read as showing some diffuse rectal wall thickening and enhancement over a distance of approximately 14 cm. There was no perirectal mass or adenopathy in the pelvis. IMPRESSION: 1. Rectal cancer with partial obstruction. 2. Atherosclerotic coronary artery disease - status post stenting. 3. Hypertension. 4. Hypercholesterolemia. 5. Asthma. 6. History of stroke in 2017. 7. History of migraine. 8. History of prostate cancer - status post prostatectomy and radiation. PLAN: The patient is to perform a full mechanical and antibiotic bowel preparation with Neomycin and Flagyl and GoLYTELY on the 07 of March. He will be admitted on the to undergo a robotic assisted diverting colostomy and placement an infusaport. The patient has been counseled regarding the risks of his scheduled surgery. The risks include but are not limited to: bleeding, infection, scarring, adverse drug reaction, need for further surgery, injury of internal organ, and hernia. Risks of the infusaport were also discussed. He had an opportunity to ask questions. He desires to proceed with the surgery as scheduled. LENARD
[2020-03-13] MEDS ORDERED: MARIJUANA PO (09:10)
[2020-03-13] MEDS ORDERED: OXYC1TAB23 PO (09:45)
== END 2020-03-10 17:20 | disposition home health service (06) | DRG 331 ==
LOC: M OR 03-08 11:00 → M MS5PR 03-08 19:38
PROVIDERS: ADMIT Surgery; ATTEND Surgery
PROC: 8E0W4CZ Robotic Assisted Procedure of Trunk Region, Percutaneous Endoscopic Approach (ICD-10-PCS; 2020-03-08)
PROC: 0DBN4ZZ Excision of Sigmoid Colon, Percutaneous Endoscopic Approach (ICD-10-PCS; principal; 2020-03-08 12:30)
PROC: 0D1N4J4 Bypass Sigmoid Colon to Cutaneous with Synthetic Substitute, Percutaneous Endoscopic Approach (ICD-10-PCS; 2020-03-08 12:30)
DX: C20 Malignant neoplasm of rectum (principal); I10 Essential (primary) hypertension; I25.10 Atherosclerotic heart disease of native coronary artery without angina pectoris; F17.200 Nicotine dependence, unspecified, uncomplicated; E78.00 Pure hypercholesterolemia, unspecified; J45.909 Unspecified asthma, uncomplicated; G43.909 Migraine, unspecified, not intractable, without status migrainosus; Z86.73 Personal history of transient ischemic attack (TIA), and cerebral infarction without residual deficits; Z92.3 Personal history of irradiation; Z79.82 Long term (current) use of aspirin; Z79.899 Other long term (current) drug therapy; Z95.5 Presence of coronary angioplasty implant and graft; Z85.46 Personal history of malignant neoplasm of prostate

== ENCOUNTER 2020-04-24 10:00 | Outpatient (RCR) | payer MEDICARE, MEDICAID ==
[~2020-04-24 10:00] MED LIST changes: +AMIT25TA17 PO; +ISOS1TAB36 PO; -ISOS60TA2 PO; -LISI-538 PO; -LISI-542 PO; +LISI-898 PO; +LISI20TA33 PO; +MARIJUANA PO; +MONT10TA10 PO; -MONT5TAB2 PO; +OXYC1TAB23 PO
[2020-05-24] MEDS ORDERED: ASPI81CH33 PO (15:46)
[2020-05-24] MEDS ORDERED: PERC5TAB12 PO (17:58)
[2020-05-25] MEDS ORDERED: ONDA8TAB10 PO (15:40)
[2020-05-25] MEDS ORDERED: PROC10TA4 PO (15:40)
[2020-06-20] MEDS ORDERED: PERC5TAB12 PO (13:35)
[2020-06-20] MEDS ORDERED: ELIQ5TAB PO (18:31)
[2020-06-21] MEDS ORDERED: PERC5TAB12 PO (14:11)
== END 2020-05-04 23:59 | disposition home or self-care (01) ==
LOC: M ONCR 10:00
PROVIDERS: ATTEND General Practice
DX: C20 Malignant neoplasm of rectum (principal)

== ENCOUNTER → 2020-05-05 | Outpatient (REF) | payer MEDICARE, MEDICAID ==
[~2020-05-05] MED LIST changes: +ASPI81CH33 PO; +ELIQ5TAB PO; +ONDA8TAB10 PO; +PERC5TAB12 PO; +PROC10TA4 PO
[2020-05-05 15:02] LABS: BASO # 0.1 10^3/uL (0.0-0.2); BASO % 0.7 % (0.0-1.0); EOS # 0.3 10^3/uL (0.0-0.5); EOS % 4.3 % (0.0-3.0); HEMATOCRIT 43.2 % (42.0-52.0); HEMOGLOBIN 14.3 g/dl (13.5-17.5); LYMPH % 13.9 % (24.0-44.0); MEAN CORPUSCULAR HEMOGLOBIN 32.6 pg (27.0-33.0); MEAN CORPUSCULAR HGB CONC 33.1 g/dl (32.0-36.5); MEAN CORPUSCULAR VOLUME 98.4 fl (80.0-96.0); MONO # 0.5 10^3/uL (0.0-0.8); MONO % 7.5 % (0.0-5.0); NEUTROPHILS # 5.3 10^3/uL (1.5-8.5); PLATELET COUNT, AUTOMATED 275 10^3/uL (150-450); RED BLOOD COUNT 4.39 10^6/uL (4.30-6.10); WHITE BLOOD COUNT 7.2 10^3/uL (4.0-10.0)
[2020-05-05 15:36] LABS: ALBUMIN 3.6 GM/DL (3.2-5.2); ALT/SGPT 32 U/L (12-78); BILIRUBIN,TOTAL 0.3 MG/DL (0.2-1.0); BLOOD UREA NITROGEN 16 MG/DL (7-18); CALCIUM LEVEL 9.7 MG/DL (8.8-10.2); CARBON DIOXIDE LEVEL 29 MEQ/L (21-32); CHLORIDE LEVEL 103 MEQ/L (98-107); CHOLESTEROL LEVEL 163 MG/DL (<200); CHOLESTEROL RISK RATIO 4.794 (<5); CREATININE FOR GFR 0.79 MG/DL (0.70-1.30); FREE T4 1.11 NG/DL (0.76-1.46); GLOMERULAR FILTRATION RATE > 60.0 (>49); GLUCOSE, FASTING 80 MG/DL (70-100); HDL CHOLESTEROL 34 MG/DL (>40); LDL CHOLESTEROL 88 MG/DL (<100); NON-HDL-C 129 MG/DL; POTASSIUM SERUM 4.5 MEQ/L (3.5-5.1); SODIUM LEVEL 137 MEQ/L (136-145); TOTAL 25(OH) VITAMIN D 12.9 NG/ML (30.0-100.0); TRIGLYCERIDES LEVEL 206 MG/DL (<150)
== END ==
LOC: M SHH 14:16
PROVIDERS: ATTEND Physician Assistant
DX: I10 Essential (primary) hypertension (principal); E78.5 Hyperlipidemia, unspecified; I25.10 Atherosclerotic heart disease of native coronary artery without angina pectoris; E55.9 Vitamin D deficiency, unspecified; Z20.822 Contact with and (suspected) exposure to COVID-19
CPT/HCPCS: 80053; 80061; 82306; 84439; 84443; 85025; U0003

== ENCOUNTER 2020-05-08 14:12 | Outpatient (RCR) | payer MEDICARE, MEDICAID ==
[~2020-05-08 14:12] MED LIST changes: -ASPI81CH33 PO; -ELIQ5TAB PO; -ONDA8TAB10 PO; -PERC5TAB12 PO; -PROC10TA4 PO
[2020-05-24] MEDS ORDERED: ASPI81CH33 PO (15:46)
[2020-05-24] MEDS ORDERED: PERC5TAB12 PO (17:58)
[2020-05-25] MEDS ORDERED: ONDA8TAB10 PO (15:40)
[2020-05-25] MEDS ORDERED: PROC10TA4 PO (15:40)
[2020-06-20] MEDS ORDERED: PERC5TAB12 PO (13:35)
[2020-06-20] MEDS ORDERED: ELIQ5TAB PO (18:31)
[2020-06-21] MEDS ORDERED: PERC5TAB12 PO (14:11)
== END 2020-05-08 16:00 | disposition home or self-care (01) ==
LOC: M ONCR 14:12
PROVIDERS: ATTEND General Practice
DX: C20 Malignant neoplasm of rectum (principal)

== ENCOUNTER 2020-05-12 13:53 | Outpatient (RCR) | payer MEDICARE, MEDICAID ==
[~2020-05-12 13:53] MED LIST changes: -ISOS1TAB36 PO; +ISOS60TA2 PO; +LISI-538 PO; +LISI-542 PO; -LISI-898 PO; -LISI20TA33 PO; -MONT10TA10 PO; +MONT5TAB2 PO
== END 2020-05-14 ==
LOC: M ONCR 13:53
PROVIDERS: ATTEND General Practice
DX: C20 Malignant neoplasm of rectum (principal)

== ENCOUNTER → 2020-05-17 | Outpatient (CLI) | payer MEDICARE, MEDICAID ==
[~2020-05-17] MED LIST changes: +ELIQ5TAB PO
--- NOTE | 2020-05-17 15:22 | REP ---
INDICATION: OCCLUSION/STENOSIS CAROTID ARTERY, LABS 1ST THEN US COMPARISON: 03/23/2019 TECHNIQUE: Gonzalez scale and color Doppler evaluation using linear high frequency transducer Findings: FINDINGS: Two-dimensional gonzalez scale and color images demonstrate mild bilateral atheromatous plaquing at the carotid bulbs and proximal internal carotid arteries without significant luminal narrowing or occlusion and with normal laminar flow. Color Doppler interrogation demonstrates normal arterial wave patterns and velocities with mild spectral broadening. Normal flow direction is appreciated in the bilateral vertebral arteries. Incidental small amount of nonocclusive thrombus in the right jugular vein adjacent to the meta port catheter. ICA peak systolic velocity: Right 102 cm/s; Left 115 cm/s ICA diastolic velocity: Right 32.9 cm/s; Left 41.6 cm/s ECA peak systolic velocity: Right 101 cm/s; Left 126 cm/s CCA peak systolic velocity: Right 106 cm/s; Left 112 cm/s ICA/CCA ratio: Right 0.96 cm/s; Left 1.03 cm/s IMPRESSION: No hemodynamically significant areas of narrowing or stenosis appreciated. Based on set standards narrowing falls within the less than 50% range. Small amount of nonocclusive thrombus in the right internal jugular vein adjacent to the meta port catheter. <Electronically signed by Jevon Klein > 05/17/20 [id number]
== END ==
LOC: M RAD 13:21
PROVIDERS: ATTEND Surgery Vascular Surgery
DX: I65.29 Occlusion and stenosis of unspecified carotid artery (principal)

== ENCOUNTER → 2020-05-17 | Outpatient (CLI) | payer MEDICARE, MEDICAID ==
[2020-05-17 14:06] LABS: BASO # 0.1 10^3/uL (0.0-0.2); BASO % 0.8 % (0.0-1.0); EOS # 0.3 10^3/uL (0.0-0.5); EOS % 5.8 % (0.0-3.0); HEMATOCRIT 40.2 % (42.0-52.0); HEMOGLOBIN 13.3 g/dl (13.5-17.5); LYMPH # 0.8 10^3/uL (1.5-5.0); LYMPH % 14.1 % (24.0-44.0); MEAN CORPUSCULAR HGB CONC 33.1 g/dl (32.0-36.5); MEAN CORPUSCULAR VOLUME 96.9 fl (80.0-96.0); MONO # 0.5 10^3/uL (0.0-0.8); MONO % 8.7 % (0.0-5.0); NEUTROPHILS # 4.1 10^3/uL (1.5-8.5); NEUTROPHILS % 70.1 % (36.0-66.0); PLATELET COUNT, AUTOMATED 237 10^3/uL (150-450); RED BLOOD COUNT 4.15 10^6/uL (4.30-6.10); WHITE BLOOD COUNT 5.9 10^3/uL (4.0-10.0)
[2020-05-17 14:37] LABS: ALBUMIN 3.3 GM/DL (3.2-5.2); ALT/SGPT 22 U/L (12-78); BILIRUBIN,TOTAL 0.3 MG/DL (0.2-1.0); BLOOD UREA NITROGEN 14 MG/DL (7-18); CALCIUM LEVEL 9.2 MG/DL (8.8-10.2); CARBON DIOXIDE LEVEL 30 MEQ/L (21-32); CHLORIDE LEVEL 104 MEQ/L (98-107); CREATININE FOR GFR 0.73 MG/DL (0.70-1.30); GLOMERULAR FILTRATION RATE > 60.0 (>49); GLUCOSE, FASTING 89 MG/DL (70-100); POTASSIUM SERUM 4.2 MEQ/L (3.5-5.1); SODIUM LEVEL 138 MEQ/L (136-145); TOTAL PROTEIN 6.5 GM/DL (6.4-8.2)
== END ==
LOC: M LAB 13:25
PROVIDERS: ATTEND General Practice
DX: C61 Malignant neoplasm of prostate (principal); I65.29 Occlusion and stenosis of unspecified carotid artery

== ENCOUNTER 2020-05-18 10:10 | Emergency (ER) | payer MEDICARE, MEDICAID ==
[~2020-05-18] VITALS: Ht 170.2 cm; Wt 94.1 kg
[~2020-05-18 10:10] MED LIST changes: -ELIQ5TAB PO
[2020-05-18] MEDS ORDERED: ELIQ5TAB PO (11:13)
[2020-05-18] MEDS ORDERED: APIXABAN 5 MG TAB (ELIQUIS) PO ONE (11:15)
[2020-05-18 11:47] VITALS: BP 149/66
== END 2020-05-18 12:01 | disposition home or self-care (01) ==
LOC: M ED 10:10
DX: I82.C11 Acute embolism and thrombosis of right internal jugular vein (principal); I10 Essential (primary) hypertension; J45.909 Unspecified asthma, uncomplicated; E78.9 Disorder of lipoprotein metabolism, unspecified; G43.909 Migraine, unspecified, not intractable, without status migrainosus; Z79.899 Other long term (current) drug therapy; Z79.82 Long term (current) use of aspirin; Z79.01 Long term (current) use of anticoagulants; Z88.8 Allergy status to other drugs, medicaments and biological substances; Z91.041 Radiographic dye allergy status; Z87.891 Personal history of nicotine dependence

== ENCOUNTER → 2020-05-24 | Outpatient (CLI) | payer MEDICARE, MEDICAID ==
[~2020-05-24] MED LIST changes: +ASPI81CH33 PO; +ELIQ5TAB PO; +ISOS1TAB36 PO; -ISOS60TA2 PO; -LISI-538 PO; -LISI-542 PO; +LISI-898 PO; +LISI20TA33 PO; +MONT10TA10 PO; -MONT5TAB2 PO; +ONDA8TAB10 PO; +PERC5TAB12 PO; +PROC10TA4 PO
--- NOTE | 2020-05-25 08:06 | RADENCPD ---
Date/Time of Encounter Date of Encounter: May 24, 2020 Time of Encounter: 15:00 Encounter Casa asked to be seen today in advance of his appointment with Dr. Crain due to concern of rectal bleeding. Briefly he completed 25 Gy in 5 fractions to his rectal mass (eg. short course RT) which constituted direct reirradiation of his prior prostate bed marrero. I took care to minimize dose in the areas of significant overlap. Since radiation was completed he was started on anticoagulation with eliquis for a jugular vein thrombus. Upon starting eliquis he notes BRBPR sometime copious, associated with tenesmus and fecal urgency 10-12x daily. His ostomy output remains loose and brown. His pain in the left leg and abdomen has worsened. He has follow up with palliative care upcoming for this. This increased frequency of BM is likely due to radiation effects exacerbated by now bleeding from tumor in the setting of anticoagulation. I recommend he start imodium to slow down the tenesmus and reduce traumatic bleeding. He can take 2 tabs after every bowel movement. I discussed his case with Dr. Crain who has been in touch with Dr. Honeycutt. The consensus is to proceed with neoadjuvant FOLFOX as the alternative of immediate resection undoubtedly would be APR which is undesirable. There is no role for additional radiation after any resection in his case due to the cumulative doses in the region. Casa is aware of this. Per his request I have also drawn PSA, which in the setting of his active rectal cancer is really moot, however he was curious what it is presently so I had no objection to ordering it. I am happy to see him and help manage his rectal bleeding and CTCAE grade 2 radiation induced diarrhea. Hopefully with chemotherapy and reduced eliquis dose this bleeding will subside. I have a follow up scheduled with me in 6 months time. This can be adjusted if needed. PATRICK CULLEN MD May 25, 2020 08:06
== END ==
LOC: M ONCR 14:34
PROVIDERS: ATTEND General Practice
DX: C61 Malignant neoplasm of prostate (principal); C20 Malignant neoplasm of rectum; Z92.3 Personal history of irradiation; Z79.01 Long term (current) use of anticoagulants

== ENCOUNTER → 2020-07-05 | Outpatient (REF) | payer MEDICARE, MEDICAID, OTHER ==
[2020-07-05 11:08] LABS: CHOLESTEROL RISK RATIO 3.441 (<5)
== END ==
LOC: M LAB REF 10:34
PROVIDERS: ATTEND Physician Assistant
DX: E78.00 Pure hypercholesterolemia, unspecified (principal)

== ENCOUNTER → 2020-07-05 | Outpatient (REF) | payer MEDICARE, OTHER | LOC: M LAB REF 10:31 | PROVIDERS: ATTEND Urology | DX: C61 Malignant neoplasm of prostate (principal) ==

== ENCOUNTER → 2020-07-12 | Outpatient (RCR) | payer OTHER | LOC: M PT 06-15 11:16 | PROVIDERS: ATTEND Student in an Organized Health Care Education/Training Program | DX: S82.872A Displaced pilon fracture of left tibia, initial encounter for closed fracture (principal) ==

== ENCOUNTER → 2020-07-13 | Outpatient (REF) | payer MEDICARE, OTHER ==
[2020-07-14 14:08] LABS: AMORPHOUS SEDIMENT MODERATE (NEGATIVE); APPEARANCE, URINE TURBID (CLEAR); BACTERIA, URINE AUTO NEGATIVE (NEGATIVE); BILIRUBIN, URINE AUTO NEGATIVE (NEGATIVE); BLOOD, URINE BLOOD NEGATIVE (NEGATIVE); CALCIUM OXALATE CRYSTALS SMALL; COLOR, URINE AMBER (YELLOW); GLUCOSE, URINE (UA) AUTO NEGATIVE (NEGATIVE); KETONE, URINE AUTO TRACE mg/dL (NEGATIVE); LEUKOCYTE ESTERASE, URINE AUTO NEGATIVE (NEGATIVE); MUCUS, URINE LARGE (NEGATIVE); NITRITE, URINE AUTO NEGATIVE (NEGATIVE); PROTEIN, URINE AUTO NEGATIVE (NEGATIVE); RBC, URINE AUTO 5 /HPF (0-3); SPECIFIC GRAVITY URINE AUTO 1.028 (1.002-1.035); SQUAMOUS EPITHELIAL CELL UR AU 0 /HPF (0-6); UROBILINOGEN, URINE AUTO 0.2 mg/dL (0.0-2.0); WBC, URINE AUTO 0 /HPF (0-3)
== END ==
LOC: M SMT 13:27
PROVIDERS: ATTEND Urology
DX: R39.9 Unspecified symptoms and signs involving the genitourinary system (principal)

== ENCOUNTER 2020-07-25 10:49 | Outpatient (RCR) | payer OTHER ==
[2020-08-14] MEDS ORDERED: PERC5TAB12 PO (09:45)
== END 2020-08-11 ==
LOC: M PT 10:49
PROVIDERS: ATTEND Student in an Organized Health Care Education/Training Program
DX: S82.872D Displaced pilon fracture of left tibia, subsequent encounter for closed fracture with routine healing (principal)

== ENCOUNTER → 2020-08-11 | Outpatient (CLI) | payer MEDICARE, MEDICAID ==
--- NOTE | 2020-08-11 17:12 | REP ---
INDICATION: A[facility] [place] [facility] LEGS COMPARISON: 07/19/2019 TECHNIQUE: Real time gonzalez scale and color Doppler evaluation of the bilateral lower extremity arterial vasculature using linear high frequency transducer. FINDINGS: Gonzalez scale and color images demonstrate moderate amounts of atheromatous plaquing with areas of minimal narrowing and nearly 2:1 stenosis through the distal left superficial femoral artery. Doppler interrogation demonstrates predominately biphasic arterial wave patterns through the right lower extremity and triphasic arterial wave patterns through the left lower extremity. Right ROSA: 1.17; left ROSA: Was not obtainable due to prior trauma at the ankle. Peak systolic velocities (cm/sec) Common femoral artery: Right 138; Left 102 Profunda femoris: Right 166; Left 73 SFA (proximal): Right 155; Left 114 SFA (mid): Right 115/142; Left 102/159 SFA (distal): Right 120; Left 145/230 Popliteal artery: Right 113; Left 65 ALLAN (prox.): Right 95; Left 80 Tibioperoneal trunk: Right 115; Left 83 HAND WASHER (prox.): Right 70; Left 98 HAND WASHER (distal): Right 76; Left 65 ALLAN (distal): Right 29; Left 36 IMPRESSION: Moderate bilateral atheromatous plaquing. Nearly 2:1 stenosis through the distal left superficial femoral artery. Previously noted 3:1 stenosis through the mid left superficial femoral artery appears to be improved as per current imaging. <Electronically signed by Jevon Klein > 08/11/20 [id number]
== END ==
LOC: M RAD 15:04
PROVIDERS: ATTEND Physician Assistant
DX: I70.203 Unspecified atherosclerosis of native arteries of extremities, bilateral legs (principal); R09.89 Other specified symptoms and signs involving the circulatory and respiratory systems

== ENCOUNTER → 2020-08-16 | Outpatient (CLI) | payer MEDICARE, MEDICAID ==
[~2020-08-16] MED LIST changes: +READI-CAT 2 As Ordered ONE
== END ==
LOC: M RAD 12:23
PROVIDERS: ATTEND Specialist
DX: C18.9 Malignant neoplasm of colon, unspecified (principal)

== ENCOUNTER 2020-08-24 11:36 | Outpatient (RCR) | payer OTHER ==
[~2020-08-24 11:36] MED LIST changes: -READI-CAT 2 As Ordered ONE
[2020-09-06] MEDS ORDERED: OXYC-403 PO (14:11)
[2020-09-06] MEDS ORDERED: OXYC-517 PO (14:14)
== END 2020-09-11 ==
LOC: M PT 11:36
PROVIDERS: ATTEND Student in an Organized Health Care Education/Training Program
DX: S82.872A Displaced pilon fracture of left tibia, initial encounter for closed fracture (principal)

== ENCOUNTER 2020-09-27 14:30 | Outpatient (RCR) | payer MEDICARE, OTHER ==
[~2020-09-27 14:30] MED LIST changes: +OMEP40CA4 PO; -OMEP40CA97 PO; +OXYC-403 PO; +OXYC-517 PO
[2020-09-29] MEDS ORDERED: MYRB50TA PO (10:31)
[2020-09-29] MEDS ORDERED: LORA1TAB4 PO (10:31)
[2020-10-02] MEDS ORDERED: OXYC-517 PO (08:52)
[2020-10-03] MEDS ORDERED: VITA200030 PO (20:46)
[2020-10-03] MEDS ORDERED: MAGN400T3 PO (20:46)
[2020-10-03] MEDS ORDERED: ELIQ5TAB PO (21:11)
[2020-10-03] MEDS ORDERED: OXYC-517 PO (21:11)
[2020-10-18] MEDS ORDERED: OXYC-404 PO (10:34)
== END 2020-10-11 ==
LOC: M PT 14:30
PROVIDERS: ATTEND Student in an Organized Health Care Education/Training Program
DX: S82.872A Displaced pilon fracture of left tibia, initial encounter for closed fracture (principal)

== ENCOUNTER 2020-10-03 06:01 | Inpatient (IN) | payer MEDICARE, OTHER ==
[~2020-10-03] VITALS: Ht 170.2 cm; Wt 78.7 kg
[~2020-10-03 06:01] MED LIST changes: +ALVIMOPAN 12 MG CAPSULE (ENTEREG) PO ONE; +HEPARIN SOD (PORCINE) 5000UNITS/ML 1ML VIAL/SYRINGE SQ ONE; +LORA1TAB4 PO; +LR 1,000 ML IV ONE; +MYRB50TA PO; +cefoTEtan DISODIUM 2 GM in D5W MINI-BAG PLUS 50 ML IV ONE; +metroNIDAZOLE 500 MG in IV 1 EA IV ONE
[2020-10-03] MEDS ORDERED: BUPIVACAINE HCL 0.25% 10ML VIAL As Ordered ONE (07:09)
[2020-10-03] MEDS ORDERED: LIDOCAINE 1% SDV 30ML VIAL As Ordered ONE (07:09)
[2020-10-03] MEDS ORDERED: BUPIVACAINE HCL 0.25% 30ML VIAL As Ordered ONE (07:09)
[2020-10-03] MEDS ORDERED: BUPIVACAINE LIPOSOME/PF 1.3% 20ML VIAL (13.3MG/ML)(EXPAREL)(C9290 PER1MG) As Ordered ONE (07:09)
[2020-10-03] MEDS ORDERED: LACRILUBE (AKWA TEARS) OPHTH OINT 3.5 GM As Ordered ONE (07:20)
[2020-10-03] MEDS ORDERED: ROCURONIUM BROMIDE 50 MG/5 ML VIAL As Ordered ONE ×5 (07:21→15:44)
[2020-10-03] MEDS ORDERED: LIDOCAINE 2% 100MG/5ML SDV (FOR ANES.) As Ordered ONE (07:21)
[2020-10-03] MEDS ORDERED: propofoL 200 MG/20 ML VIAL As Ordered ONE (07:21)
[2020-10-03] MEDS ORDERED: ONDANSETRON 4MG/2ML VIAL As Ordered ONE (07:21)
[2020-10-03] MEDS ORDERED: dexameTHASONE 4 MG/ML 1ML VIAL (J1100 PER 1MG) As Ordered ONE (07:21)
[2020-10-03] MEDS ORDERED: fentaNYL 100 MCG/2 ML INJECTION (J3010) As Ordered ONE (07:25)
[2020-10-03] MEDS ORDERED: KETAMINE HCL 200 MG/20 ML VIAL As Ordered ONE (07:25)
[2020-10-03] MEDS ORDERED: MIDAZOLAM INJ 2MG/2ML VIAL (J2250 PER 1MG) As Ordered ONE (07:25)
[2020-10-03] MEDS ORDERED: ASPIRIN 325 MG TAB PO ONE (07:30)
[2020-10-03] MEDS ORDERED: HYDROmorphone HCL 2 MG/ML 1ML VIAL (J1170) As Ordered ONE ×2 (08:23→14:52)
[2020-10-03] MEDS ORDERED: SUGAMMADEX SODIUM 500 MG/5 ML VIAL (BRIDION) As Ordered ONE (08:54)
--- NOTE | 2020-10-03 09:04 | ROOPDOC ---
[facility] Report Of Operation Report of Operation DATE OF PROCEDURE: 10/03/20 PREPROCEDURE DIAGNOSES: [rectal cancer, request for ureteral catheters by general surgeon]. POSTPROCEDURE DIAGNOSES: [same]. PROCEDURE: [cystoscopy, placement of bl ureteral catheters, simple urethral catheterization]. SURGEON: [Leesa Petersen]MD HOME HEALTH ATTENDANT: MD ANESTHESIA: [general]. ESTIMATED BLOOD LOSS: Approximately [0] mL. COMPLICATIONS: [none]. REMARKS: . PROCEDURE NOTE: [64yo wm. Rectal cancer. Surgery today. General surgeon requested placement of ureteral catheters]. DESCRIPTION OF PROCEDURE: [Met with pt in preop area. Surgery discussed and informed consent obtained. Questions answered. Pt brought to OR. General anesthesia secured without difficulty. Time out performed. Dorsal litho position. Well padded. Prepped and draped in sterile fashion. Rigid cystoscopy performed. No stricture. Mild bph. Ureteral orifices found. 5fr open ended catheters advanced up ureters without resistance. Scope removed and 18fr urethral catheter then placed. Ureteral catheters passed through urethral catheter and then secured with umbilical tape. Drainage instituted. No complications. JULIEN PETERSEN MD Oct 03, 2020 09:04
[2020-10-03] MEDS ORDERED: LABETALOL 100MG/20ML VIAL As Ordered ONE (09:05)
[2020-10-03] MEDS ORDERED: DESFLURANE 240 ML INHALANT As Ordered ONE (11:14)
[2020-10-03] MEDS ORDERED: SEVOFLURANE INHAL SOLN 250 ML BTL As Ordered ONE (11:17)
[2020-10-03] MEDS ORDERED: cefoTEtan INJ 2GM VIAL (S0074 PER 500MG) As Ordered ONE ×2 (11:54→15:49)
[2020-10-03] MEDS ORDERED: ACETAMINOPHEN 1000MG 100ML IV BTL (OFIRMEV) (J0131 PER 10MG) As Ordered ONE (14:42)
[2020-10-03] MEDS ORDERED: KETOROLAC 60MG 2ML VIAL As Ordered ONE (16:11)
[2020-10-03] MEDS ORDERED: ACETAMINOPHEN TAB 650MG DOSE (2X325MG) PO PRN (17:55)
[2020-10-03] MEDS ORDERED: PROCHLORPERAZINE 5 MG TAB (S0183) PO PRN (17:55)
[2020-10-03] MEDS: LR 1,000 ML IV SCH (17:55)
[2020-10-03] MEDS ORDERED: LR 1,000 ML IV SCH (18:00)
[2020-10-03] MEDS ORDERED: MORPHINE 2 MG/ML 1ML VIAL (J2270) IV PRN (18:00)
[2020-10-03] MEDS ORDERED: oxyCODONE 5MG TAB PO PRN (18:00)
[2020-10-03] MEDS ORDERED: ONDANSETRON 4MG/2ML VIAL IV PRN ×2 (18:00→18:05)
[2020-10-03] MEDS ORDERED: MORPHINE 1MG/ML IN 0.9% NACL 100ML IV BAG As Ordered ONE (18:04)
[2020-10-03] MEDS ORDERED: NS 1,000 ML IV SCH (18:05)
[2020-10-03] MEDS ORDERED: diphenhydrAMINE 50MG/ML VIAL (J1200) IV PRN (18:05)
[2020-10-03] MEDS ORDERED: EPIDURAL/PCA KEYS XX PRN (18:05)
[2020-10-03] MEDS ORDERED: NALOXONE INJ 0.4MG/1ML VIAL (J2310 PER 1MG) IV PRN (18:05)
[2020-10-03] MEDS: fentaNYL 100 MCG/2 ML INJECTION (J3010) IV PRN ×5 (18:10→18:30)
[2020-10-03] MEDS: MORPHINE 1MG/ML IN 0.9% NACL 100ML IV BAG IV PRN (18:31)
[2020-10-03 19:50] VITALS: BP 118/73
[2020-10-03 20:20] VITALS: BP 119/70
[2020-10-03] MEDS ORDERED: VITA200030 PO (20:46)
[2020-10-03] MEDS ORDERED: MAGN400T3 PO (20:46)
[2020-10-03 20:50] VITALS: BP 125/68
[2020-10-03] MEDS ORDERED: ISOSORBIDE MON. (IMDUR) 60 MG XR TAB PO SCH (21:00)
[2020-10-03] MEDS ORDERED: traZODone 100 MG TAB PO SCH (21:00)
[2020-10-03] MEDS ORDERED: MONTELUKAST 10 MG TAB PO SCH (21:00)
[2020-10-03] MEDS ORDERED: ELIQ5TAB PO (21:11)
[2020-10-03] MEDS ORDERED: OXYC-517 PO (21:11)
[2020-10-03] MEDS: SENOKOT S TAB PO SCH (21:27)
[2020-10-03] MEDS: CARVedilol 6.25 MG TAB PO SCH (21:27)
[2020-10-03] MEDS: ATORVASTATIN 20 MG TAB PO SCH (21:27)
[2020-10-03] MEDS: BACLOFEN 10 MG TAB PO SCH (21:46)
[2020-10-03] MEDS: PREGABALIN 75 MG CAP(LYRICA) PO SCH (21:46)
[2020-10-03 21:50] VITALS: BP 125/64
[2020-10-03 22:50] VITALS: BP 128/57
[2020-10-03] MEDS: KETOROLAC 30 MG/ML 1ML VIAL IV SCH (23:39)
[2020-10-03 23:50] VITALS: BP 108/58
[2020-10-04 00:50] VITALS: BP 110/64
[2020-10-04] MEDS: LR 1,000 ML IV SCH ×3 (02:24→17:11)
--- NOTE | 2020-10-04 03:02 | ROOPDOC ---
[facility] Report Of Operation Report of Operation DATE OF PROCEDURE: 10/04/20 PREPROCEDURE DIAGNOSES: Low rectal cancer. POSTPROCEDURE DIAGNOSES: Low rectal cancer PROCEDURE: Robotic assisted laparoscopic abdominoperineal resection. SURGEON: Joao Rudd MD FIELD REPRESENTATIVE: ALEXY Worthy MD ANESTHESIA: General endotracheal anesthesia. ESTIMATED BLOOD LOSS: Approximately 300 mL. COMPLICATIONS: none REMARKS: 64-year-old male with prior prostatectomy, radiation therapy with a low-lying rectal cancer about 5 cm from the anal verge, has finished neoadjuvant chemotherapy and could not get any further radiation therapy due to prior history of radiation, continues to have bleeding per rectum, perianal pain, plan for low anterior resection but due to multiple factors including extensive scaring probably from radiation and prostatectomy as well as involvement and fibrosis of the mesorectal space, very narrow pelvis could not get adequate space for adequate distal and even circumferential resection margin. I then converted to APR to complete the surgery. PROCEDURE NOTE: No signs of peritoneal studding, suspicious lesions in the surface of the liver on diagnostic laparoscopy. Very narrow pelvis with bulky, hardened mesentery, scarring from prior prostatectomy over the superior lateral portion of the mid to distal rectum. Due to a combination of this factors it was difficult to complete and fully resect the involved margins of the rectum both circumferentially and distally. A complete abdominoperineal resection was then performed. DESCRIPTION OF PROCEDURE: Patient received cefotetan 2 gm IV (with redosing 1 gm q4hrs intraop) and metronidazole 500 mg IV preoperatively for wound prophylaxis. He received 5000 units of heparin subcutaneously for DVT prophylaxis and Entereg 12 mg by mouth and Celebrex 400 mg PO as part of ERAS protocol. He went to the operating room and initially placed supine on the table. Compression boots placed on slight extremities for mechanical DVT prophylaxis. General endotracheal anesthesia started. He was then placed in Rusty stirrups in the lithotomy position. Pressure points are padded and his left arm was tucked. A Knox catheter was placed for urine output monitoring. His positioning was tested by tilting the bed and the severe steep Trendelenburg position and 30 to make sure he maintains his positioning. I closed hsi colostomy with 2-0 silk in a running fashion and covered this with a 4x4 gauze and tegaderm. His abdomen and perineal area was then prepped and draped in usual sterile fashion. We paused for a surgical timeout using both pre-incision safety checklist to verify correct patient, procedure site and additional clinical information prior to beginning the procedure. Prior to my part of the procedure, Dr. Aguilar came in and placed bilateral ureteral stents. Entry to the abdomen done via Veress needle technique over the patients right upper quadrant subcostal area. Proper placement confirmed with saline drop technique. CO2 insufflation was then performed to pressure 15 mmHg. Using the same incision a 5 mm optical port was placed under direct vision of laparoscope. Initial diagnostic laparoscopy was performed and no evidence of metastasis around the liver or peritoneal surfaces noted. He has small amount of omental adhesions close to the colostomy. Bowels are free of abdominal wall adhesions and pelvic adhesions save for a loop of bowel at the right side. The end colostomy is noted with a small peristomal hernia. . He was placed on a steep Trendelenburg position of the in about 22 initially with the right side tilted up towards 8 degrees. I placed a 12 mm port by the patients right lower quadrant area 2 cms medial to the right ASIS and established 3 8 mm ports in an oblique fashion with my top most port just to the left of the falciform ligament to avoid the colostomy, my camera port just below the umbilicus. I placed another 5 mm port in between my camera and 12 mm port for my kindergarten teacher assistant. Under laparoscopic guidance bilateral transabdominal plain block was performed using a mixture of % Marcaine and Exparel and NS. The da Brit robotic tower was then maneuvered in place over the patients left side. The trochars were docked to the robot and camera centered over the patients pelvis. The instruments and camera were placed. I used the tips up fenestrated grasper for my retractor, a force bipolar forceps on my left hand and a combination of scissors and vessel sealer for my right hand at the stapler port. After placement of the instruments I then scrubbed in to control of the camera and instruments at the surgeons console. I used a 30 laparoscope throughout most of the procedure, switching to a 0 laparoscope working deep down in the pelvis. I started working on freeing the omentum from its attachments to the colostomy, the adhesions of the small bowel to the right side of the pelvis. The small bowel was retracted out of the pelvis and retained with rolled up cottonoids. The rectal stump is identified slightly adhered to the right side of the pelvis. This was freed up from its adhesions. This seems to be at the top of the rectum. There is some bulkiness a few centimeters below the rectal stump. I started by freeing up the lateral peritoneal attachments of the rectum along the curvature of the sacrum to enter the TME plane. I proceeded with both blunt and sharp dissection freeing up the upper part of the rectum. I proceeded going superiorly behind the course of the inferior mesenteric artery which appears to be intact along the course. The JOHN was divided up as high output I believe this was distal to the bifurcation to the left colic artery which was hard to delineate due to some scarring from the prior colostomy formation. The whole of the upper part of the rectum was then able to be retracted superiorly to the abdominal wall to allow for further dissection to the TME plane posterior to the rectum. This was held in place by my kindergarten teacher assistant. I sutured a piece of cottonoid circumferentially to help with the upwards retraction of the upper rectum. I continued my posterior TME dissection. He has a very narrow male pelvis and this did not provide a good amount of space specially distally. The left lateral and anterior margins are quite adhered to one another and to the pelvis, the mesentery is bulky and hardened at this area and there are no clear margins between the areolar and soft tissues the mesorectal envelope as well as the prior denovillier's fascia (prior prostatectomy). Posteriorly the planes are easier to develop. Over the medial right side at the mid rectum level complaints are likewise easily developed but as the mesentery and rectum becomes harder more distally and the pelvis narrows down further, the planes also became harder to develop. The margins laterally or free air were of the right side and bulkier over the left and anterior side. Patient has had previous pro statectomy, pelvic radiation following prostatectomy for his prostate cancer. He also has quite a bulky mesorectum with the mesorectal mass inside. I continued the dissection down to the pelvic floor and then extended this laterally (right side) and medially (left side). The previously placed stents were visible on both sides and I stayed clear of the structures. As that was developing the 9-12 o'clock margins,, I noted that was deviating towards the rectum and I noticed that I had a small perforation at the rectum at the antimesenteric side to side though the payne of the rectum was not well- defined and seems is more scar tissue then rectal wall. There was no semblance of mucosa or muscular layers at all aside from the scaring. Which leads me to believe possibly there the neoadjuvant treatment has deteriorated the tissues at the side. I further developed my posterior plane and I get down to the levator muscles posteriorly. I tried to develop more anteriorly and to the right side to get beyond that area of the left anterolateral rectal wall but due to the narrowness of the pelvis this is quite difficult to achieve. At this point I asked Dr. Palafox who was present in the room to perform a flexible sigmoidoscopy to verify the position of the lesion and adequacy of the distal portion of the resection. He performed flexible endoscopy, located the distal margin of the lesion and injected Merly ink as tattoo martin. This was visible posteriorly but not anteriorly and also medially and laterally. U nfortunately could not further develop the planes laparoscopically furthe despite spending more time trying to achieve thisr down and could not keep an intact mesorectal circumferential margin over the left anterior lateral planes. After spending much time trying to gain further distal, circumferential margins at the area, I felt this was no longer possible and I had to go down further to the pelvic floor taken down and thus he will need a full abdominoperineal resection. I ended the robotic/laparoscopic approach and went down inferiorly with a perineal approach to complete the resection. The abdomen is deflated, the instruments and robot were detached to the trochars but left sterile. The peritoneum was reprepped with Betadine and the patient positioned. I marked the location of the perineal body anteriorly, the bony prominences of the ischial tuberosities bilaterally and the coccyx posteriorly. A bennett-shaped skin incision was created connecting this 4 points encompassing the anus. We then proceeded dissecting through the subcutaneous tissue circumferentially using Bovie cautery. As we continued to go superiorly the narrowness of the pelvis again played into a significant factor making the perineal dissection difficult as after placing retractors in her hands there was barely anything to review to guide the dissection so most of the dissection was done by feel. We were able to enter the abdomen eventually at the posterior medial (right) plane and then we circumferentially divided the pelvic floor muscles (levators) initially posterior medially and then proceeding anteriorly with the LigaSure device. I then proceeded posteriorly and laterally. Again at the anteromedially I had a lot of difficulty defining the margins as the bulkiness of the rectum/mesial rectum, scar and the narrowness of the pelvis played a big role. I had to resume laparoscopy while Dr. Mascorro continued perineally to help with the dissection. The specimen was eventually circumferentially divided but as we are trying to pull it out this was avulsed in 2 pieces with the break at the anterolateral portion. After delivering the specimen perineally I came back to examine the perineal field. Check for adequate hemostasis. I closed the perineal floor muscles as well as the deep subcutaneous tissue with 2-0 Vicryl, then left a perineal drain using 19 Parminder drains in between the deep and superficial planes. The superficial subcutaneous tissue was closed with interrupted 3-0 Vicryls. The skin was closed with a running, subcuticular 4-0 Vicryl. I returned laparoscopically after closing the perineal wound examined the abdominal cavity. The pelvis is irrigated and checked for adequate hemostasis. I tried to close some of the peritoneum but the sutures were not holding up. I reinforced the pelvic floor muscle closure with a running stitch of 2 OV lock. Some leftover scar tissue that was hard and was also removed. I left a 19 Parminder drain in the pelvis and threaded this through the right lower quadrant port. The abdomen was then deflated, the rest of the ports were removed. Port sites were closed with 4-0 Monocryl in a subcuticular fashion. Dermabond dressing was placed. The suture closing the colostomy was removed and a new colostomy appliance placed. It was noted throughout the procedure the patient has been having some bloody urine but no clots and this continued perioperatively. Patient was promptly awakened, extubated and brought to recovery room in stable condition. All counts of sponges and instruments were verified correct. JOAO RUDD MD Oct 04, 2020 03:02
[2020-10-04] MEDS: KETOROLAC 30 MG/ML 1ML VIAL IV SCH ×4 (05:02→23:59)
[2020-10-04 06:00] VITALS: BP 115/57
[2020-10-04 06:33] LABS: BASO % 0.2 % (0.0-1.0); EOS % 0.1 % (0.0-3.0); HEMATOCRIT 26.7 % (42.0-52.0); HEMOGLOBIN 8.3 g/dl (13.5-17.5); LYMPH # 0.5 10^3/uL (1.5-5.0); LYMPH % 4.1 % (24.0-44.0); MEAN CORPUSCULAR HEMOGLOBIN 31.8 pg (27.0-33.0); MEAN CORPUSCULAR HGB CONC 31.1 g/dl (32.0-36.5); MEAN CORPUSCULAR VOLUME 102.3 fl (80.0-96.0); MONO # 0.5 10^3/uL (0.0-0.8); MONO % 3.7 % (2.0-8.0); NEUTROPHILS # 11.2 10^3/uL (1.5-8.5); NEUTROPHILS % 91.5 % (36.0-66.0); PLATELET COUNT, AUTOMATED 222 10^3/uL (150-450); RED BLOOD COUNT 2.61 10^6/uL (4.30-6.10); WHITE BLOOD COUNT 12.2 10^3/uL (4.0-10.0)
[2020-10-04 06:55] LABS: BLOOD UREA NITROGEN 17 MG/DL (7-18); CALCIUM LEVEL 8.3 MG/DL (8.8-10.2); CARBON DIOXIDE LEVEL 27 MEQ/L (21-32); CHLORIDE LEVEL 106 MEQ/L (98-107); CREATININE FOR GFR 0.94 MG/DL (0.70-1.30); GLOMERULAR FILTRATION RATE > 60.0 (>49); GLUCOSE, FASTING 99 MG/DL (70-100); SODIUM LEVEL 138 MEQ/L (136-145)
[2020-10-04] MEDS: SENOKOT S TAB PO SCH ×2 (08:36→21:24)
[2020-10-04] MEDS: PREGABALIN 75 MG CAP(LYRICA) PO SCH ×3 (08:36→21:24)
[2020-10-04] MEDS: PANTOPRAZOLE 40MG VIAL (C9113 PER 1) IV SCH (08:37)
[2020-10-04] MEDS: ALVIMOPAN 12 MG CAPSULE (ENTEREG) PO SCH ×2 (08:37→21:24)
[2020-10-04] MEDS ORDERED: ISOSORBIDE MON. (IMDUR) 60 MG XR TAB PO SCH (09:00)
[2020-10-04] MEDS ORDERED: BACLOFEN 10 MG TAB PO SCH (09:00)
[2020-10-04] MEDS ORDERED: PREGABALIN 75 MG CAP(LYRICA) PO SCH (09:00)
[2020-10-04 10:00] VITALS: BP 114/59
[2020-10-04] MEDS: CARVedilol 6.25 MG TAB PO SCH ×2 (13:52→21:25)
[2020-10-04] MEDS: ASPIRIN 81MG ENTERIC TABLET PO SCH (13:52)
[2020-10-04] MEDS: ENOXAPARIN 40MG/0.4ML SYRINGE (J1650 PER 10MG) SC SCH (13:54)
[2020-10-04 14:00] VITALS: BP 115/59
[2020-10-04] MEDS: BACLOFEN 10 MG TAB PO SCH (21:24)
[2020-10-04] MEDS: ATORVASTATIN 20 MG TAB PO SCH (21:24)
[2020-10-04 22:00] VITALS: BP 115/60
[2020-10-04] MEDS: MORPHINE 1MG/ML IN 0.9% NACL 100ML IV BAG IV PRN (22:21)
[2020-10-05] MEDS: LR 1,000 ML IV SCH ×2 (01:42→08:29)
[2020-10-05 02:00] VITALS: BP 102/58
--- NOTE | 2020-10-05 04:23 | IPNPDOC ---
Text Note Date of Service The patient was seen on 10/04/20. NOTE Patient seen and examined through the course of the day. He felt good yesterday has had some loose bowel movements which the nurses describe us braden colored. He has been tolerating soft diet. He reports that pain control is fairly adequate with the Percocets. He has been ambulating through the hallways. Over the course of the day patient has been having somewhat bloody bowel movement both bright red blood as well as braden colored and has been complaining of crampy abdominal pain. Vital signs remained stable on examination I have seen him both in bed and sitting on the chair overall looks comfortable Lung sounds are clear to auscultation bilaterally He is nontachycardic Abdomen is obese, soft, mildly distended. He has 3 port sites at the extraction site at the suprapubic area which are all clean dry and intact. Slight bruising at the extraction site. Mostly mildly tender at the extraction site. He does not look very distended. Labs reviewed histocytosis resolved hemoglobin and hematocrit are stable impression and plan He is now postop day 2 following robotic assisted laparoscopic right colectomy for cecal mass Pathology remains pending which I expect to be for the next couple days still before the results are nevertheless he has been treated for right colectomy so should be adequate both for a benign and malignant lesion Overall looks well but he has been having some staple line bleeding so we will continue to monitor this for now Initially I thought he would be ready to go home today but with the persistent, bloody bowel movements, I will keep him for another day to monitor this. We will repeat labs in the morning VS,Danae, I+O VS, Dhirajbone, I+O Laboratory Tests 10/04/20 05:44 Vital Signs Date Time Temp Pulse Resp B/P (MAP) Pulse Ox O2 Delivery O2 Flow Rate FiO2 10/05/20 02:00 98.6 64 17 102/58 (73) 95 Nasal Cannula 2.0 10/03/20 18:35 100 I&O- Last 24 Hours up to 6 AM 10/05/20 06:00 Intake Total 2890 ml Output Total 2085 ml Balance 805 ml DARIUS JOYCE MD Oct 05, 2020 04:23
[2020-10-05] MEDS: KETOROLAC 30 MG/ML 1ML VIAL IV SCH (05:06)
[2020-10-05 06:00] VITALS: BP 111/57
[2020-10-05] MEDS: ALVIMOPAN 12 MG CAPSULE (ENTEREG) PO SCH ×2 (08:27→21:17)
[2020-10-05] MEDS: PREGABALIN 75 MG CAP(LYRICA) PO SCH ×3 (08:27→21:17)
[2020-10-05] MEDS: SENOKOT S TAB PO SCH ×2 (08:27→21:17)
[2020-10-05] MEDS: ASPIRIN 81MG ENTERIC TABLET PO SCH (08:27)
[2020-10-05] MEDS: CARVedilol 6.25 MG TAB PO SCH ×2 (08:28→21:20)
[2020-10-05] MEDS: PANTOPRAZOLE 40MG VIAL (C9113 PER 1) IV SCH (08:29)
[2020-10-05] MEDS: ENOXAPARIN 40MG/0.4ML SYRINGE (J1650 PER 10MG) SC SCH (08:29)
[2020-10-05 09:15] LABS: BASO % 0.3 % (0.0-1.0); EOS # 0.3 10^3/uL (0.0-0.5); EOS % 1.9 % (0.0-3.0); HEMATOCRIT 24.2 % (42.0-52.0); HEMOGLOBIN 7.5 g/dl (13.5-17.5); LYMPH # 0.4 10^3/uL (1.5-5.0); LYMPH % 3.1 % (24.0-44.0); MEAN CORPUSCULAR HEMOGLOBIN 32.2 pg (27.0-33.0); MEAN CORPUSCULAR VOLUME 103.9 fl (80.0-96.0); MONO # 0.7 10^3/uL (0.0-0.8); MONO % 4.6 % (2.0-8.0); NEUTROPHILS # 12.8 10^3/uL (1.5-8.5); NEUTROPHILS % 88.9 % (36.0-66.0); PLATELET COUNT, AUTOMATED 184 10^3/uL (150-450); RED BLOOD COUNT 2.33 10^6/uL (4.30-6.10); WHITE BLOOD COUNT 14.4 10^3/uL (4.0-10.0)
[2020-10-05] MEDS: oxyCODONE 10 MG CR TAB PO SCH ×2 (09:26→21:17)
[2020-10-05 09:32] LABS: BLOOD UREA NITROGEN 17 MG/DL (7-18); CALCIUM LEVEL 8.1 MG/DL (8.8-10.2); CARBON DIOXIDE LEVEL 28 MEQ/L (21-32); CHLORIDE LEVEL 108 MEQ/L (98-107); GLOMERULAR FILTRATION RATE > 60.0 (>49); GLUCOSE, FASTING 126 MG/DL (70-100); POTASSIUM SERUM 3.6 MEQ/L (3.5-5.1); SODIUM LEVEL 141 MEQ/L (136-145)
[2020-10-05 10:00] VITALS: BP 111/62
[2020-10-05] MEDS ORDERED: FUROSEMIDE 40MG/4ML VIAL (J1940) IV ONE (10:10)
[2020-10-05 14:00] VITALS: BP 141/64
[2020-10-05] MEDS: PERCOCET 5MG/325MG TAB PO PRN (14:56)
--- NOTE | 2020-10-05 14:58 | IPNPDOC ---
Text Note Date of Service The patient was seen on 10/05/20. NOTE Patient reports feeling well better today than yesterday. The is on soft diet and is tolerating this in his colostomy is working. He has been afebrile, hemodynamically stable. He reports some discomfort in his abdomen and also right by the perineal drain especially when he sits on that and had some small amount of leakage around the drain at the perineum. Otherwise he would like to resume his oral pain medications. 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 He denies any nausea. Vital signs stable Examination Patient looks comfortable Skin is warm moist Lungs clear to auscultation bilaterally Regular heart rate and rhythm Abdomen is mildly distended but soft. He has laparoscopic port sites obliquely oriented in his abdomen which are covered with Dermabond. This is clean dry and intact. He has a right lower quadrant Javier-Fields drain that it is putting mostly serous appearing fluid now. I examine his backside. The closure of the perineum is intact and no active drainage in here. He has a perineal drain that has a small amount of serosanguineous fluid. No significant extremity edema. Impression and plan He is postop day #2 following a robotic assisted laparoscopic abdominoperineal resection for low-lying rectal cancer Pathology not available yet Patient is doing well. 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 We will continue the Toradol for another day. He still has his Knox catheter we will keep this. I will just clamped the Knox catheter and see if he has adequate sensation of his bladder filling up. He is ambulating in his room with a walker due to the left ankle limiting his activity. Continue to hold Eliquis. He is on Lovenox for DVT prophylaxis. I have advanced him to a regular diet. I expect he will stay through the weekend I am hoping he will be ready for discharge early the following week when the drains are ready to come out. Patients with APR usually have some form of urinary retention so we will keep the Knox catheter for now. VS,Fishbone, I+O VS, Fishbone, I+O Laboratory Tests 10/05/20 08:46 Vital Signs Date Time Temp Pulse Resp B/P (MAP) Pulse Ox O2 Delivery O2 Flow Rate FiO2 10/05/20 11:04 70 13 93 Room Air 10/05/20 10:00 98.3 111/62 (78) 2.0 10/03/20 18:35 100 I&O- Last 24 Hours up to 6 AM0 10/05/20 06:00 Intake Total 2890 ml Output Total 2435 ml Balance 455 ml DARIUS JOYCE MD Oct 05, 2020 14:58
[2020-10-05] MEDS ORDERED: MORPHINE 4 MG/ML 1ML VIAL/SYRINGE (J2270) IV ONE (16:15)
[2020-10-05 18:14] VITALS: BP 106/56
[2020-10-05] MEDS: ATORVASTATIN 20 MG TAB PO SCH (21:17)
[2020-10-05] MEDS: BACLOFEN 10 MG TAB PO SCH (21:17)
[2020-10-05 22:00] VITALS: BP 117/57
[2020-10-06 02:00] VITALS: BP 111/58
[2020-10-06 06:00] VITALS: BP 110/64
[2020-10-06] MEDS: PERCOCET 5MG/325MG TAB PO PRN ×3 (06:26→18:07)
[2020-10-06 06:36] LABS: BASO % 0.2 % (0.0-1.0); EOS # 0.3 10^3/uL (0.0-0.5); EOS % 2.3 % (0.0-3.0); HEMATOCRIT 23.7 % (42.0-52.0); HEMOGLOBIN 7.5 g/dl (13.5-17.5); LYMPH % 6.7 % (24.0-44.0); MEAN CORPUSCULAR HEMOGLOBIN 31.8 pg (27.0-33.0); MEAN CORPUSCULAR HGB CONC 31.6 g/dl (32.0-36.5); MEAN CORPUSCULAR VOLUME 100.4 fl (80.0-96.0); MONO # 0.4 10^3/uL (0.0-0.8); MONO % 2.6 % (2.0-8.0); NEUTROPHILS # 12.4 10^3/uL (1.5-8.5); NEUTROPHILS % 86.9 % (36.0-66.0); PLATELET COUNT, AUTOMATED 200 10^3/uL (150-450); RED BLOOD COUNT 2.36 10^6/uL (4.30-6.10); WHITE BLOOD COUNT 14.3 10^3/uL (4.0-10.0)
[2020-10-06 07:00] LABS: BLOOD UREA NITROGEN 14 MG/DL (7-18); CALCIUM LEVEL 8.1 MG/DL (8.8-10.2); CARBON DIOXIDE LEVEL 31 MEQ/L (21-32); CHLORIDE LEVEL 105 MEQ/L (98-107); CREATININE FOR GFR 0.74 MG/DL (0.70-1.30); GLOMERULAR FILTRATION RATE > 60.0 (>49); GLUCOSE, FASTING 98 MG/DL (70-100); POTASSIUM SERUM 3.2 MEQ/L (3.5-5.1); SODIUM LEVEL 139 MEQ/L (136-145)
[2020-10-06] MEDS: ASPIRIN 81MG ENTERIC TABLET PO SCH (09:18)
[2020-10-06] MEDS: SENOKOT S TAB PO SCH ×2 (09:18→20:23)
[2020-10-06] MEDS: PANTOPRAZOLE 40MG TAB (PROTONIX) PO SCH (09:18)
[2020-10-06] MEDS: ALVIMOPAN 12 MG CAPSULE (ENTEREG) PO SCH (09:18)
[2020-10-06] MEDS: ENOXAPARIN 40MG/0.4ML SYRINGE (J1650 PER 10MG) SC SCH (09:18)
[2020-10-06] MEDS: POTASSIUM CHLORIDE 10 MEQ SR TABLET PO SCH (09:19)
[2020-10-06] MEDS: MAGNESIUM OXIDE 400MG TAB (MAG-OX) PO SCH ×2 (09:19→20:24)
[2020-10-06] MEDS: FERROUS GLUCONATE 324 MG TAB PO SCH (09:19)
[2020-10-06] MEDS: PREGABALIN 75 MG CAP(LYRICA) PO SCH ×3 (09:19→20:25)
[2020-10-06] MEDS: oxyCODONE 10 MG CR TAB PO SCH ×2 (09:20→20:24)
[2020-10-06] MEDS: CARVedilol 6.25 MG TAB PO SCH ×2 (09:23→20:25)
[2020-10-06 10:00] VITALS: BP 129/66
--- NOTE | 2020-10-06 11:39 | IPNPDOC ---
Text Note Date of Service The patient was seen on 10/06/20. NOTE Patient is reporting more pain and seems to be more pelvic/groin in nature. He reports that this crampy, comes in waves. He denies any associated nausea or bloating. His colostomy continues to work. He is eating and tolerating food. He had an episode of low-grade fever last night, aside from that has been afebrile. Nurses report that he refuses to get out of bed because of the pain. He tells me that when we try to clamp his Knox catheter that he had some leakage and that is when the groin pain started. Vital signs T-max 100.2 T-current 99.2 at 6 AM Pulse rate 69, respiratory rate 16, blood pressure 110/64 Pulse oximetry reading 94% at room air Examination Patient seen laying slightly towards the left side. Seems uncomfortable mainly holding his suprapubic groin area pointing to where it hurts although when you press and there he tells me the lower abdomen is also hurt. Skin is warm and moist Lung sounds slightly decreased at posterior bases but no rales Regular heart rate and rhythm Abdomen is round seems to be mildly distended, slightly tympanic to percussion. Old left lower quadrant ostomy is working with soft brown stool. He has 4 port sites one of them containing the Javier-Fields drain in the abdomen which is light pink serosanguineous. He also has a peritoneal drain. There is only minimal output from the peritoneal drain. None of them are purulent. He has some vague tenderness when I press on his abdomen, no rebound or guarding. He also complains of some tenderness when I press at the base of his penis and also right groin area most well. None tenderness on the thigh area. His perineal incision is clean and dry and intact and no active drainage, no erythema. His Knox is putting out clear yellow urine No significant extremity edema Labs reviewed still has leukocytosis of 14.3 hemoglobin 7.5, hematocrit 23.7 which is stable platelet counts 200, potassium is 3.2 BUN of 14 creatinine 0.74 Impression and plan He is now postop day 3 following robotic assisted laparoscopic APR Main issue at this point is pain and my main concern is the persistent leukocytosis and low-grade fever last evening I can explain the degree of pain which seems to be more at the groin, pelvic area and my concern is that there may be some collection that is not being drained out by my abdominal and my perineal drain deep in the pelvis though I would think he will feel this more at the perineum, lower back even sciatica type pain rather done at the anterior pubis area. I will get a noncontrast CT made to look for collections in the pelvis. I will also start him on Zosyn for possible infection brewing and I would think this will be at some undrained pelvic collection. Externally the perineum looks good and were barely making on anything from the perineal drain likewise the abdominal drain is mainly almost serous now and output has been decreasing in amount daily. He only has 4 port site incisions. I advised him to take deep breaths and use his incentive spirometer as he is having some atelectasis findings on auscultation. Also it is important for him to try to ambulate and get out of bed so get PT although he very well might refuse PT when he is hurting. I have adjusted his pain medications. The Toradol is now discontinued. I will add Celebrex and scheduled doses and also add breakthrough morphine. He has some long-term pain issues on the back he is on pregabalin as well as gabapentin as well as was using OxyContin every 4 hours instead of every 12 hours at home. 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 Pathology not available yet. VS,Lluy, I+O VS, Luly, I+O Laboratory Tests 10/06/20 05:50 Vital Signs Date Time Temp Pulse Resp B/P (MAP) Pulse Ox O2 Delivery O2 Flow Rate FiO2 10/06/20 10:00 99.0 71 18 129/66 (87) 94 Nasal Cannula 1.0 10/03/20 18:35 100 I&O- Last 24 Hours up to 6 AM 10/06/20 06:00 Intake Total 1075 ml Output Total 2771 ml Balance -1696 ml DARIUS JOYCE MD Oct 06, 2020 11:39
[2020-10-06] MEDS: CelecoXIB (CeleBREX) 100 MG CAP PO SCH (11:54)
[2020-10-06] MEDS: PIPERACILLIN/TAZOBACTAM SOD 3.375 GM in D5W MINI-BAG PLUS 50 ML IV SCH ×3 (11:54→23:49)
--- NOTE | 2020-10-06 12:05 | REP ---
INDICATION: abdominal pain postop 3 (lower abdomen) s/p apr there is a history of prostate as well as colorectal carcinoma. Patient is status post robotic assisted abdominal peroneal resection on 03 October 2020. abdomen/groin pain and leukocytosis. COMPARISON: Comparison is made with a prior CT studies dated August 16, 2020 and January 27, 2020.. TECHNIQUE: Helical scanning is acquired and 3 mm axial images were reformatted. Coronal and sagittal MPR images were generated and reviewed. FINDINGS: Preliminary digital laboratory animal facility supervisor radiograph shows left lower quadrant enterostomy, a right pelvic surgical drain, and gallstone in the right upper quadrant. There are 1 or 2 loops of air distended small bowel in the central abdomen. On axial CT images, there is a small quantity of left pleural fluid and some by lateral lower lobe subsegmental atelectatic change. There are granulomatous calcifications again noted scattered throughout the spleen. There is a large gallstone in the neck of the gallbladder. The gallbladder is otherwise unremarkable. No pancreatic abnormality is seen. No adrenal or renal lesion is seen. There is some residual postoperative air in the abdominal wall myofascial interfaces on the right. There is no evidence of free intraperitoneal air. There is mild mural thickening in small bowel loops in the lower central abdomen adjacent to the surgical drain. No abnormal fluid collection is seen. A Knox catheter is noted. There is mild postoperative fluid at the site of the abdominal peroneal resection. Minimal presacral edema is seen. No evidence of abscess or abdominal wall defect. No large bowel dilation is seen. A surgical drain is seen in the perineal soft tissues as well. IMPRESSION: There is mural thickening in several loops of small bowel in the pelvis and lower abdomen. 1 or 2 loops of air distended small bowel question ileus. Expected postoperative fluid and edema in the abdominal peroneal resection site. Cholelithiasis and left lower quadrant colostomy again noted. Surgical drains. Knox catheter. Minimal left pleural fluid. <Electronically signed by Dylan Red > 10/06/20 1201
[2020-10-06] MEDS: MORPHINE 4 MG/ML 1ML VIAL/SYRINGE (J2270) IV PRN (13:31)
[2020-10-06 14:00] VITALS: BP 150/70
[2020-10-06] MEDS: PHENAZOPYRIDINE 100 MG TAB PO SCH ×2 (16:06→20:23)
[2020-10-06] MEDS: ATORVASTATIN 20 MG TAB PO SCH (20:23)
[2020-10-06] MEDS: BACLOFEN 10 MG TAB PO SCH (20:24)
[2020-10-06 22:00] VITALS: BP 127/65
[2020-10-06] MEDS: ONDANSETRON 4MG/2ML VIAL IV PRN (23:49)
[2020-10-07] MEDS ORDERED: CALCIUM CARBONATE 500 MG CHEW U/D PO ONE (00:15)
[2020-10-07 02:00] VITALS: BP 151/74
[2020-10-07] MEDS: PIPERACILLIN/TAZOBACTAM SOD 3.375 GM in D5W MINI-BAG PLUS 50 ML IV SCH ×4 (05:05→23:54)
[2020-10-07 06:00] VITALS: BP 155/73
[2020-10-07 06:41] LABS: BASO % 0.3 % (0.0-1.0); EOS # 0.5 10^3/uL (0.0-0.5); EOS % 3.2 % (0.0-3.0); HEMATOCRIT 27.8 % (42.0-52.0); HEMOGLOBIN 8.8 g/dl (13.5-17.5); LYMPH # 0.5 10^3/uL (1.5-5.0); LYMPH % 3.8 % (24.0-44.0); MEAN CORPUSCULAR HEMOGLOBIN 31.7 pg (27.0-33.0); MEAN CORPUSCULAR HGB CONC 31.7 g/dl (32.0-36.5); MONO # 0.9 10^3/uL (0.0-0.8); MONO % 6.3 % (2.0-8.0); NEUTROPHILS # 12.1 10^3/uL (1.5-8.5); NEUTROPHILS % 85.3 % (36.0-66.0); PLATELET COUNT, AUTOMATED 262 10^3/uL (150-450); RED BLOOD COUNT 2.78 10^6/uL (4.30-6.10); WHITE BLOOD COUNT 14.2 10^3/uL (4.0-10.0)
[2020-10-07 07:00] LABS: BLOOD UREA NITROGEN 12 MG/DL (7-18); CALCIUM LEVEL 8.2 MG/DL (8.8-10.2); CARBON DIOXIDE LEVEL 31 MEQ/L (21-32); CHLORIDE LEVEL 105 MEQ/L (98-107); CREATININE FOR GFR 0.65 MG/DL (0.70-1.30); GLOMERULAR FILTRATION RATE > 60.0 (>49); GLUCOSE, FASTING 117 MG/DL (70-100); POTASSIUM SERUM 3.5 MEQ/L (3.5-5.1); SODIUM LEVEL 139 MEQ/L (136-145)
[2020-10-07] MEDS: ASPIRIN 81MG ENTERIC TABLET PO SCH (09:57)
[2020-10-07] MEDS: POTASSIUM CHLORIDE 10 MEQ SR TABLET PO SCH (09:58)
[2020-10-07] MEDS: PANTOPRAZOLE 40MG TAB (PROTONIX) PO SCH (09:58)
[2020-10-07] MEDS: FERROUS GLUCONATE 324 MG TAB PO SCH (09:58)
[2020-10-07] MEDS: PHENAZOPYRIDINE 100 MG TAB PO SCH ×3 (09:58→20:46)
[2020-10-07] MEDS: PREGABALIN 75 MG CAP(LYRICA) PO SCH ×3 (09:58→20:48)
[2020-10-07] MEDS: SENOKOT S TAB PO SCH ×2 (09:59→20:46)
[2020-10-07] MEDS: ENOXAPARIN 40MG/0.4ML SYRINGE (J1650 PER 10MG) SC SCH (09:59)
[2020-10-07] MEDS: oxyCODONE 10 MG CR TAB PO SCH ×2 (09:59→20:47)
[2020-10-07 10:00] VITALS: BP 128/67
[2020-10-07] MEDS: CARVedilol 6.25 MG TAB PO SCH ×2 (10:00→20:48)
[2020-10-07] MEDS: MAGNESIUM OXIDE 400MG TAB (MAG-OX) PO SCH ×2 (10:01→20:48)
[2020-10-07] MEDS: CelecoXIB (CeleBREX) 100 MG CAP PO SCH (10:01)
--- NOTE | 2020-10-07 12:08 | IPNPDOC ---
Text Note Date of Service The patient was seen on 10/07/20. NOTE Patient seen this morning. He looks more comfortable than he was yesterday. He tells me that the Pyridium has helped so this could be bladder spasm that he was complaining of when he was complaining of groin pain yesterday. They had a CT abdomen and pelvis done as I was not so sure why he was having increasing pain. There is not much pelvic collections. The perineal drain seems to have drained more yesterday. The abdominal drain is not draining much anymore. His col ostomy is working. He reports increased heartburn overnight that kept him from sleeping and is requesting medications for this. He has been afebrile. He says he will work with PT today. The nurses were able to get him out of bed yesterday with some prodding. Vital signs stable Afebrile, nontachycardic On examination Very comfortable today Lung sounds clear to auscultation slightly decreased on the left side especially at the basal area no rales Regular heart rate and rhythm Abdomen is mildly distended soft. His port sites are clean dry and intact. His INEZ abdominal drain has minimal serous fluid. His peritoneal drain also has minimal almost serous fluid. His Knox catheter has a slight orange tinge because of the Pyridium. No significant extremity edema. Impression and plan He is now postop day 4 for robotic assisted laparoscopic APR He appears to be doing much better. I am reassured that the CT does not show a lot of perineal or pelvic collection. I did start him on Zosyn yesterday we will continue this for now. He has persistent leukocytosis though he has been afebrile now. His pain is better. I have readjusted his pain medications yesterday we will keep the same regimen. I will remove the abdominal drain today, will probably try to get the Knox catheter out tomorrow and lastly the peritoneal drain the next day if he continues to do well. We will have to watch out for urinary retention once a Knox is out. Pathology is pending Lovenox for DVT prophylaxis. He is on Eliquis. If he does well we will resume this tomorrow. His hemoglobin and hematocrit has been stable and looks like he will not need transfusion. VS,Fishbone, I+O VS, Fishbone, I+O Laboratory Tests 10/07/20 05:50 Vital Signs Date Time Temp Pulse Resp B/P (MAP) Pulse Ox O2 Delivery O2 Flow Rate FiO2 10/07/20 10:00 59 130/66 10/07/20 09:59 18 10/07/20 06:00 96.7 92 Room Air 10/06/20 10:00 1.0 10/03/20 18:35 100 I&O- Last 24 Hours up to 6 AM 10/07/20 06:00 Intake Total 1220 ml Output Total 2050 ml Balance -830 ml DARIUS JOYCE MD Oct 07, 2020 12:08
[2020-10-07] MEDS: FAMOTIDINE 20 MG TAB PO SCH ×2 (12:19→20:46)
[2020-10-07 14:00] VITALS: BP 111/66
[2020-10-07] MEDS: PERCOCET 5MG/325MG TAB PO PRN (16:56)
[2020-10-07 18:00] VITALS: BP 111/66
[2020-10-07 20:30] VITALS: BP 122/65
[2020-10-07] MEDS: ATORVASTATIN 20 MG TAB PO SCH (20:46)
[2020-10-07] MEDS: BACLOFEN 10 MG TAB PO SCH (20:48)
[2020-10-08] MEDS: ONDANSETRON 4MG/2ML VIAL IV PRN ×2 (04:25→20:14)
[2020-10-08] MEDS: MORPHINE 4 MG/ML 1ML VIAL/SYRINGE (J2270) IV PRN (04:26)
[2020-10-08] MEDS: PIPERACILLIN/TAZOBACTAM SOD 3.375 GM in D5W MINI-BAG PLUS 50 ML IV SCH ×3 (05:25→18:29)
[2020-10-08 06:00] VITALS: BP 153/77
[2020-10-08 06:53] LABS: BASO # 0.1 10^3/uL (0.0-0.2); BASO % 0.5 % (0.0-1.0); EOS # 0.8 10^3/uL (0.0-0.5); EOS % 6.8 % (0.0-3.0); HEMATOCRIT 25.1 % (42.0-52.0); LYMPH # 0.5 10^3/uL (1.5-5.0); LYMPH % 4.4 % (24.0-44.0); MEAN CORPUSCULAR HEMOGLOBIN 32.1 pg (27.0-33.0); MEAN CORPUSCULAR HGB CONC 31.9 g/dl (32.0-36.5); MEAN CORPUSCULAR VOLUME 100.8 fl (80.0-96.0); MONO # 0.8 10^3/uL (0.0-0.8); MONO % 7.2 % (2.0-8.0); NEUTROPHILS % 80.3 % (36.0-66.0); PLATELET COUNT, AUTOMATED 248 10^3/uL (150-450); RED BLOOD COUNT 2.49 10^6/uL (4.30-6.10); WHITE BLOOD COUNT 11.2 10^3/uL (4.0-10.0)
[2020-10-08 07:05] LABS: BLOOD UREA NITROGEN 10 MG/DL (7-18); CARBON DIOXIDE LEVEL 27 MEQ/L (21-32); CHLORIDE LEVEL 106 MEQ/L (98-107); CREATININE FOR GFR 0.64 MG/DL (0.70-1.30); GLOMERULAR FILTRATION RATE > 60.0 (>49); GLUCOSE, FASTING 126 MG/DL (70-100); POTASSIUM SERUM 3.5 MEQ/L (3.5-5.1); SODIUM LEVEL 139 MEQ/L (136-145)
[2020-10-08] MEDS: CelecoXIB (CeleBREX) 100 MG CAP PO SCH (08:47)
[2020-10-08] MEDS: ASPIRIN 81MG ENTERIC TABLET PO SCH (08:48)
[2020-10-08] MEDS: FAMOTIDINE 20 MG TAB PO SCH ×2 (08:49→20:14)
[2020-10-08] MEDS: FERROUS GLUCONATE 324 MG TAB PO SCH (08:49)
[2020-10-08] MEDS: CARVedilol 6.25 MG TAB PO SCH ×2 (08:49→20:20)
[2020-10-08] MEDS: PANTOPRAZOLE 40MG TAB (PROTONIX) PO SCH (08:49)
[2020-10-08] MEDS: MAGNESIUM OXIDE 400MG TAB (MAG-OX) PO SCH ×2 (08:50→20:12)
[2020-10-08] MEDS: SENOKOT S TAB PO SCH ×2 (08:50→20:14)
[2020-10-08] MEDS: POTASSIUM CHLORIDE 10 MEQ SR TABLET PO SCH (08:50)
[2020-10-08] MEDS: PREGABALIN 75 MG CAP(LYRICA) PO SCH ×3 (08:51→20:14)
[2020-10-08] MEDS: PHENAZOPYRIDINE 100 MG TAB PO SCH ×3 (08:51→20:14)
[2020-10-08] MEDS: ENOXAPARIN 40MG/0.4ML SYRINGE (J1650 PER 10MG) SC SCH (08:52)
[2020-10-08] MEDS: oxyCODONE 10 MG CR TAB PO SCH ×2 (08:52→20:14)
[2020-10-08 14:00] VITALS: BP 124/60
[2020-10-08] MEDS: PERCOCET 5MG/325MG TAB PO PRN (15:20)
[2020-10-08] MEDS: ATORVASTATIN 20 MG TAB PO SCH (20:14)
[2020-10-08] MEDS: BACLOFEN 10 MG TAB PO SCH (20:15)
[2020-10-08 22:00] VITALS: BP 121/61
[2020-10-09] MEDS: PERCOCET 5MG/325MG TAB PO PRN ×3 (00:09→13:45)
[2020-10-09] MEDS: PIPERACILLIN/TAZOBACTAM SOD 3.375 GM in D5W MINI-BAG PLUS 50 ML IV SCH ×5 (00:09→23:52)
[2020-10-09 02:00] VITALS: BP 109/56
[2020-10-09 06:00] VITALS: BP 127/60
[2020-10-09 07:07] LABS: BASO # 0.1 10^3/uL (0.0-0.2); BASO % 0.5 % (0.0-1.0); EOS # 0.7 10^3/uL (0.0-0.5); EOS % 6.2 % (0.0-3.0); HEMATOCRIT 26.2 % (42.0-52.0); HEMOGLOBIN 8.4 g/dl (13.5-17.5); LYMPH # 0.7 10^3/uL (1.5-5.0); MEAN CORPUSCULAR HEMOGLOBIN 32.3 pg (27.0-33.0); MEAN CORPUSCULAR HGB CONC 32.1 g/dl (32.0-36.5); MEAN CORPUSCULAR VOLUME 100.8 fl (80.0-96.0); MONO # 1.1 10^3/uL (0.0-0.8); MONO % 9.4 % (2.0-8.0); NEUTROPHILS # 9.2 10^3/uL (1.5-8.5); NEUTROPHILS % 76.9 % (36.0-66.0); PLATELET COUNT, AUTOMATED 276 10^3/uL (150-450); WHITE BLOOD COUNT 11.9 10^3/uL (4.0-10.0)
[2020-10-09 07:27] LABS: BLOOD UREA NITROGEN 10 MG/DL (7-18); CALCIUM LEVEL 8.8 MG/DL (8.8-10.2); CARBON DIOXIDE LEVEL 30 MEQ/L (21-32); CHLORIDE LEVEL 105 MEQ/L (98-107); CREATININE FOR GFR 0.62 MG/DL (0.70-1.30); GLOMERULAR FILTRATION RATE > 60.0 (>49); GLUCOSE, FASTING 102 MG/DL (70-100); POTASSIUM SERUM 3.6 MEQ/L (3.5-5.1); SODIUM LEVEL 136 MEQ/L (136-145)
[2020-10-09] MEDS: ONDANSETRON 4MG/2ML VIAL IV PRN (08:17)
[2020-10-09] MEDS: MAGNESIUM OXIDE 400MG TAB (MAG-OX) PO SCH ×2 (08:18→20:27)
[2020-10-09] MEDS: CelecoXIB (CeleBREX) 100 MG CAP PO SCH (08:18)
[2020-10-09] MEDS: PREGABALIN 75 MG CAP(LYRICA) PO SCH ×3 (08:18→21:00)
[2020-10-09] MEDS: ASPIRIN 81MG ENTERIC TABLET PO SCH (08:18)
[2020-10-09] MEDS: SENOKOT S TAB PO SCH ×2 (08:18→20:27)
[2020-10-09] MEDS: FERROUS GLUCONATE 324 MG TAB PO SCH (08:18)
[2020-10-09] MEDS: PANTOPRAZOLE 40MG TAB (PROTONIX) PO SCH (08:18)
[2020-10-09] MEDS: PHENAZOPYRIDINE 100 MG TAB PO SCH ×3 (08:19→21:00)
[2020-10-09] MEDS: ENOXAPARIN 40MG/0.4ML SYRINGE (J1650 PER 10MG) SC SCH (08:21)
[2020-10-09] MEDS: FAMOTIDINE 20 MG TAB PO SCH ×2 (08:23→20:27)
[2020-10-09] MEDS: CARVedilol 6.25 MG TAB PO SCH ×2 (08:26→20:27)
[2020-10-09] MEDS: oxyCODONE 10 MG CR TAB PO SCH ×2 (08:28→20:28)
[2020-10-09 10:00] VITALS: BP 151/65
[2020-10-09 14:00] VITALS: BP 121/55
--- NOTE | 2020-10-09 14:32 | IPNPDOC ---
Text Note Date of Service The patient was seen on 10/09/20. NOTE Gen. surgery . Dr. Rudd The patient is a 64-year-old male status post Robotic assisted laparoscopic abdominoperineal resection as per Dr. Rudd 10/04/20. He states he has not been out of bed yet today but plans to participate with physical therapy. Reports pain is reasonably controlled. Afebrile, VSS Resting in bed, no acute distress. Lungs clear to auscultation S1-S2 regular rate rhythm Abdomen is soft, incision sites C/D/I. Colostomy. Peritoneal drain is still in place, 90 mL output. WBC 11.9, hemoglobin of 8.4 increased slightly Assessment/plan Rectal Ca, Status post Robotic assisted laparoscopic abdominoperineal resection as per Dr. Rudd 10/04/20. Patient is reviewed and examined as per Dr. Rudd this morning. Pathology pending. Plan is to remove peritoneal drain today. Continue to encourage out of bed and participate with physical therapy. IV Zosyn. Plan to finish 7 days antibiotic as outpatient at discharge. Possibly consider discharge in the next 1-2 days. DVT prophylaxis. Currently on Lovenox. H/O UE DVT related to Port, Eliquis on hold. VS,Fishbone, I+O VS, Fishbone, I+O Laboratory Tests 10/09/20 06:47 Vital Signs Date Time Temp Pulse Resp B/P (MAP) Pulse Ox O2 Delivery O2 Flow Rate FiO2 10/09/20 14:00 97.2 66 14 121/55 (77) 96 Room Air 10/06/20 10:00 1.0 10/03/20 18:35 100 I&O- Last 24 Hours up to 6 AM 10/09/20 06:00 Intake Total 750 ml Output Total 490 ml Balance 260 ml Yaneli Kelley Oct 09, 2020 14:32
[2020-10-09 18:00] VITALS: BP 135/61
[2020-10-09] MEDS: ATORVASTATIN 20 MG TAB PO SCH (20:27)
[2020-10-09] MEDS: BACLOFEN 10 MG TAB PO SCH (20:28)
[2020-10-09 22:00] VITALS: BP 149/69
[2020-10-10 02:00] VITALS: BP 128/60
[2020-10-10] MEDS: PIPERACILLIN/TAZOBACTAM SOD 3.375 GM in D5W MINI-BAG PLUS 50 ML IV SCH ×3 (05:25→18:26)
[2020-10-10 06:00] VITALS: BP 156/79
[2020-10-10 08:16] LABS: BASO # 0.1 10^3/uL (0.0-0.2); BASO % 0.4 % (0.0-1.0); EOS # 0.3 10^3/uL (0.0-0.5); EOS % 2.4 % (0.0-3.0); HEMOGLOBIN 8.2 g/dl (13.5-17.5); LYMPH # 0.6 10^3/uL (1.5-5.0); LYMPH % 4.5 % (24.0-44.0); MEAN CORPUSCULAR HEMOGLOBIN 31.4 pg (27.0-33.0); MEAN CORPUSCULAR HGB CONC 31.5 g/dl (32.0-36.5); MEAN CORPUSCULAR VOLUME 99.6 fl (80.0-96.0); MONO # 0.8 10^3/uL (0.0-0.8); MONO % 6.4 % (2.0-8.0); NEUTROPHILS # 10.4 10^3/uL (1.5-8.5); NEUTROPHILS % 85.4 % (36.0-66.0); PLATELET COUNT, AUTOMATED 315 10^3/uL (150-450); RED BLOOD COUNT 2.61 10^6/uL (4.30-6.10); WHITE BLOOD COUNT 12.2 10^3/uL (4.0-10.0)
[2020-10-10 08:49] LABS: BLOOD UREA NITROGEN 11 MG/DL (7-18); CALCIUM LEVEL 8.2 MG/DL (8.8-10.2); CARBON DIOXIDE LEVEL 29 MEQ/L (21-32); CHLORIDE LEVEL 104 MEQ/L (98-107); CREATININE FOR GFR 0.51 MG/DL (0.70-1.30); GLOMERULAR FILTRATION RATE > 60.0 (>49); GLUCOSE, FASTING 94 MG/DL (70-100); POTASSIUM SERUM 4.2 MEQ/L (3.5-5.1); SODIUM LEVEL 138 MEQ/L (136-145)
[2020-10-10] MEDS: ENOXAPARIN 40MG/0.4ML SYRINGE (J1650 PER 10MG) SC SCH (09:00)
[2020-10-10] MEDS: ASPIRIN 81MG ENTERIC TABLET PO SCH (09:00)
[2020-10-10] MEDS: FAMOTIDINE 20 MG TAB PO SCH ×2 (09:00→20:06)
[2020-10-10] MEDS: oxyCODONE 10 MG CR TAB PO SCH ×2 (09:00→21:00)
[2020-10-10] MEDS: FERROUS GLUCONATE 324 MG TAB PO SCH (09:00)
[2020-10-10] MEDS: PANTOPRAZOLE 40MG TAB (PROTONIX) PO SCH (09:00)
[2020-10-10] MEDS: PHENAZOPYRIDINE 100 MG TAB PO SCH ×3 (09:00→20:05)
[2020-10-10] MEDS: CARVedilol 6.25 MG TAB PO SCH ×2 (09:00→20:07)
[2020-10-10] MEDS: SENOKOT S TAB PO SCH ×2 (09:00→20:05)
[2020-10-10] MEDS: CelecoXIB (CeleBREX) 100 MG CAP PO SCH (09:00)
[2020-10-10] MEDS: PREGABALIN 75 MG CAP(LYRICA) PO SCH ×3 (09:00→20:06)
[2020-10-10] MEDS: MAGNESIUM OXIDE 400MG TAB (MAG-OX) PO SCH ×2 (09:00→20:06)
--- NOTE | 2020-10-10 09:29 | REP ---
INDICATION: abdominal pain COMPARISON: None. TECHNIQUE: Supine view of the abdomen and pelvis. FINDINGS: Bowel gas pattern demonstrates dilated air-filled small bowel consistent with small bowel obstruction. Ostomy identified at the left lower abdomen. IMPRESSION: Findings consistent with small-bowel obstruction. <Electronically signed by Jevon Klein > 10/10/20 0998
[2020-10-10 10:00] VITALS: BP 154/83
[2020-10-10] MEDS: ONDANSETRON 4MG/2ML VIAL IV PRN (12:48)
[2020-10-10] MEDS: MORPHINE 4 MG/ML 1ML VIAL/SYRINGE (J2270) IV PRN ×2 (12:49→20:05)
--- NOTE | 2020-10-10 13:10 | IPNPDOC ---
Text Note Date of Service The patient was seen on 10/10/20. NOTE Gen. surgery . Dr. Rudd The patient is a 64-year-old male status post Robotic assisted laparoscopic abdominoperineal resection as per Dr. Rudd 10/04/20. Patient is reporting abdominal pain this morning, nausea, vomiting. States has received Zofran which is ineffective. Afebrile, VSS Resting in bed, reporting pain and nausea Lungs clear to auscultation S1-S2 regular rate rhythm Abdomen is soft but distended, generalized tenderness with palpation. incision sites C/D/I. Colostomy with small amount of output in the bag. WBC 12.2, increased slightly hemoglobin 8.2 Colostomy output not recorded Assessment/plan Rectal Ca, Status post Robotic assisted laparoscopic abdominoperineal resection as per Dr. Rudd 10/04/20. Patient is reviewed and examined as per Dr. Ware this morning. Pathology pending. The patient is reporting increased abdominal pain with nausea and vomiting. Requested abdominal x-ray which indicates SBO. Reviewed and discussed with Dr. Ware. NPO, NGT to LIS. Will add IVF 75cc/hr. IV Zosyn. Monitor closely. History of prostate cancer/prostatectomy. The patient had reported bladder spasms, this was improved with the addition of Pyridium. The patient has chronic urinary incontinence, currently using condom catheter. Knox catheter was removed 10/08. Monitor for urinary retention. Monitor I/O. Bladder scan. HTN. Lisinopril CAD. Coreg/ASA/statin DVT prophylaxis. Currently on Lovenox. H/O UE DVT related to Port, Eliquis on hold. VS,Fishbone, I+O VS, Fishbone, I+O Laboratory Tests 10/10/20 08:06 Vital Signs Date Time Temp Pulse Resp B/P (MAP) Pulse Ox O2 Delivery O2 Flow Rate FiO2 10/10/20 12:49 18 10/10/20 10:00 98.0 68 154/83 (106) 95 Room Air 10/06/20 10:00 1.0 I&O- Last 24 Hours up to 6 AM 10/10/20 06:00 Intake Total 580 ml Output Total 305 ml Balance 275 ml Yaneli Kelley Oct 10, 2020 13:10
[2020-10-10 14:00] VITALS: BP 154/76
[2020-10-10] MEDS: NS 1,000 ML IV SCH ×2 (14:56→20:09)
--- NOTE | 2020-10-10 16:36 | REP ---
INDICATION: confirm NG tube placement in stomach COMPARISON: 03/18/2020 TECHNIQUE: Portable AP view of the chest FINDINGS: Nasogastric tube extends below the left hemidiaphragm, but the position of the side port cannot be confirmed and may be above the diaphragm. Consider further advancement. [id number] identified with tip in the SVC. Cardiac silhouette is normal. Lung marrero demonstrate chronic appearing changes without focal consolidation, effusion, or pneumothorax. Skeletal structures intact. IMPRESSION: 1. Nasogastric tube extends below left hemidiaphragm although the side port may be above the diaphragm and advancement may be warranted. <Electronically signed by Jevon Klein > 10/10/20 [id number]
[2020-10-10 18:00] VITALS: BP 150/74
[2020-10-10] MEDS: ATORVASTATIN 20 MG TAB PO SCH (20:06)
[2020-10-10] MEDS: BACLOFEN 10 MG TAB PO SCH (20:07)
[2020-10-10 22:00] VITALS: BP 150/75
[2020-10-11] MEDS: PIPERACILLIN/TAZOBACTAM SOD 3.375 GM in D5W MINI-BAG PLUS 50 ML IV SCH ×5 (00:49→23:53)
[2020-10-11] MEDS: PERCOCET 5MG/325MG TAB PO PRN ×2 (00:49→05:18)
[2020-10-11] MEDS: ONDANSETRON 4MG/2ML VIAL IV PRN (00:49)
[2020-10-11 06:00] VITALS: BP 153/77
[2020-10-11] MEDS: NS 1,000 ML IV SCH ×2 (08:51→23:54)
[2020-10-11 10:00] VITALS: BP 153/81
[2020-10-11] MEDS: FERROUS GLUCONATE 324 MG TAB PO SCH (10:42)
[2020-10-11] MEDS: PREGABALIN 75 MG CAP(LYRICA) PO SCH ×3 (10:42→20:44)
[2020-10-11] MEDS: SENOKOT S TAB PO SCH ×2 (10:43→20:43)
[2020-10-11] MEDS: FAMOTIDINE 20 MG TAB PO SCH ×2 (10:43→20:44)
[2020-10-11] MEDS: PANTOPRAZOLE 40MG TAB (PROTONIX) PO SCH (10:43)
[2020-10-11] MEDS: PHENAZOPYRIDINE 100 MG TAB PO SCH ×3 (10:43→20:43)
[2020-10-11] MEDS: ASPIRIN 81MG ENTERIC TABLET PO SCH (10:43)
[2020-10-11] MEDS: CelecoXIB (CeleBREX) 100 MG CAP PO SCH (10:43)
[2020-10-11] MEDS: CARVedilol 6.25 MG TAB PO SCH ×2 (10:43→20:43)
[2020-10-11] MEDS: MAGNESIUM OXIDE 400MG TAB (MAG-OX) PO SCH ×2 (10:43→20:44)
[2020-10-11] MEDS: ENOXAPARIN 40MG/0.4ML SYRINGE (J1650 PER 10MG) SC SCH (10:44)
--- NOTE | 2020-10-11 11:34 | IPNPDOC ---
Text Note Date of Service The patient was seen on 10/11/20. NOTE Gen. surgery . Dr. Rudd The patient is a 64-year-old male status post Robotic assisted laparoscopic abdominoperineal resection as per Dr. Rudd 10/04/20. Patient is reporting improvement in abdominal pain, denies nausea. NG tube in place. Afebrile, VSS Resting in bed comfortably, no acute distress Lungs clear to auscultation S1-S2 regular rate rhythm Abdomen is soft but less distended, nontender this morning. incision sites C/D/I. Colostomy with only small amount of output in the bag. 100 mL stool docu mented yesterday. No new labs Urine 500 mL output yesterday. 600 mL NG tube output yesterday. Assessment/plan Rectal Ca, Status post Robotic assisted laparoscopic abdominoperineal resection as per Dr. Rudd 10/04/20. Patient is reviewed by Dr. Ware.. Pathology pending. Continue NPO, NGT to LIS. 600 mL NG tube output yesterday. IVF 75cc/hr. IV Zosyn. Monitor closely. History of prostate cancer/prostatectomy. The patient had reported bladder spasms, this was improved with the addition of Pyridium. The patient has chronic urinary incontinence, currently using condom catheter. Knox catheter was removed 10/08. Monitor for urinary retention. Monitor I/O. Bladder scan. HTN. Lisinopril CAD. Coreg/ASA/statin DVT prophylaxis. Currently on Lovenox. H/O UE DVT related to Port, Eliquis on hold. VS,Fishbone, I+O VS, Fishbone, I+O Vital Signs Date Time Temp Pulse Resp B/P (MAP) Pulse Ox O2 Delivery O2 Flow Rate FiO2 10/11/20 10:44 153/81 10/11/20 10:43 67 10/11/20 10:00 97.6 16 92 Nasal Cannula 2.0 I&O- Last 24 Hours up to 6 AM 10/11/20 05:59 Intake Total 950 ml Output Total 1600 ml Balance -650 ml Yaneli Kelley Oct 11, 2020 11:34
[2020-10-11] MEDS: MORPHINE 4 MG/ML 1ML VIAL/SYRINGE (J2270) IV PRN ×2 (12:46→20:44)
[2020-10-11 14:00] VITALS: BP 140/76
[2020-10-11 18:00] VITALS: BP 130/64
[2020-10-11] MEDS: KETOROLAC 30 MG/ML 1ML VIAL IV PRN (18:27)
[2020-10-11] MEDS: ATORVASTATIN 20 MG TAB PO SCH (20:43)
[2020-10-11] MEDS: BACLOFEN 10 MG TAB PO SCH (20:43)
[2020-10-11 22:00] VITALS: BP 147/76
[2020-10-12] MEDS: KETOROLAC 30 MG/ML 1ML VIAL IV PRN ×3 (02:15→17:13)
[2020-10-12] MEDS: MORPHINE 4 MG/ML 1ML VIAL/SYRINGE (J2270) IV PRN ×3 (05:12→20:15)
[2020-10-12] MEDS: PIPERACILLIN/TAZOBACTAM SOD 3.375 GM in D5W MINI-BAG PLUS 50 ML IV SCH ×3 (05:13→17:13)
[2020-10-12 06:00] VITALS: BP 153/79
--- NOTE | 2020-10-12 08:34 | IPNPDOC ---
Text Note Date of Service The patient was seen on 10/12/20. NOTE No acute events overnight. No problems with fevers. His ostomy is producing lots and some stool. NG output is still yellow, but it has decreased. He feels 100% better and wants to go home. VSSAF NAD abd - soft, nt, nd, ostomy is in place. stool in the bag labs - pending A) 64y/o male s/p APR with permanent diverting colostomy for rectal cancer P) clamp NG clq diet amb in dee if tolerating diet in the am, then I will dc the ng. Joce Ware DO VS,Fishbone, I+O VS, Fishbone, I+O Vital Signs Date Time Temp Pulse Resp B/P (MAP) Pulse Ox O2 Delivery O2 Flow Rate FiO2 10/12/20 06:00 98.7 59 18 153/79 (103) 93 Room Air 10/11/20 10:00 2.0 I&O- Last 24 Hours up to 6 AM 10/12/20 06:00 Intake Total 985 ml Output Total 1375 ml Balance -390 ml EVELINE WARE DO Oct 12, 2020 08:34
[2020-10-12] MEDS: PANTOPRAZOLE 40MG TAB (PROTONIX) PO SCH (09:06)
[2020-10-12] MEDS: PHENAZOPYRIDINE 100 MG TAB PO SCH ×3 (09:07→20:16)
[2020-10-12] MEDS: SENOKOT S TAB PO SCH ×2 (09:07→20:16)
[2020-10-12] MEDS: PREGABALIN 75 MG CAP(LYRICA) PO SCH ×3 (09:08→20:16)
[2020-10-12] MEDS: ASPIRIN 81MG ENTERIC TABLET PO SCH (09:08)
[2020-10-12] MEDS: FERROUS GLUCONATE 324 MG TAB PO SCH (09:08)
[2020-10-12] MEDS: FAMOTIDINE 20 MG TAB PO SCH ×2 (09:08→20:16)
[2020-10-12] MEDS: MAGNESIUM OXIDE 400MG TAB (MAG-OX) PO SCH ×2 (09:08→20:16)
[2020-10-12] MEDS: ENOXAPARIN 40MG/0.4ML SYRINGE (J1650 PER 10MG) SC SCH (09:09)
[2020-10-12] MEDS: CARVedilol 6.25 MG TAB PO SCH ×2 (09:10→20:19)
[2020-10-12 14:00] VITALS: BP 161/77
[2020-10-12] MEDS: NS 1,000 ML IV SCH (17:12)
[2020-10-12] MEDS: BACLOFEN 10 MG TAB PO SCH (20:15)
[2020-10-12] MEDS: ATORVASTATIN 20 MG TAB PO SCH (20:16)
[2020-10-12 22:00] VITALS: BP 155/75
[2020-10-13] MEDS: PIPERACILLIN/TAZOBACTAM SOD 3.375 GM in D5W MINI-BAG PLUS 50 ML IV SCH ×5 (00:19→23:08)
[2020-10-13] MEDS: KETOROLAC 30 MG/ML 1ML VIAL IV PRN ×4 (00:19→23:08)
[2020-10-13] MEDS: MORPHINE 4 MG/ML 1ML VIAL/SYRINGE (J2270) IV PRN ×3 (04:17→18:30)
[2020-10-13 06:00] VITALS: BP 158/75
[2020-10-13 06:31] LABS: HEMATOCRIT 22.6 % (42.0-52.0); HEMOGLOBIN 7.3 g/dl (13.5-17.5); MEAN CORPUSCULAR HEMOGLOBIN 31.7 pg (27.0-33.0); MEAN CORPUSCULAR HGB CONC 32.3 g/dl (32.0-36.5); MEAN CORPUSCULAR VOLUME 98.3 fl (80.0-96.0); PLATELET COUNT, AUTOMATED 318 10^3/uL (150-450); WHITE BLOOD COUNT 12.5 10^3/uL (4.0-10.0)
[2020-10-13 06:54] LABS: BLOOD UREA NITROGEN 10 MG/DL (7-18); CALCIUM LEVEL 7.7 MG/DL (8.8-10.2); CARBON DIOXIDE LEVEL 28 MEQ/L (21-32); CHLORIDE LEVEL 104 MEQ/L (98-107); GLOMERULAR FILTRATION RATE > 60.0 (>49); GLUCOSE, FASTING 87 MG/DL (70-100); POTASSIUM SERUM 3.4 MEQ/L (3.5-5.1); SODIUM LEVEL 138 MEQ/L (136-145)
[2020-10-13] MEDS: NS 1,000 ML IV SCH (07:10)
[2020-10-13] MEDS: SENOKOT S TAB PO SCH ×2 (08:31→20:57)
[2020-10-13] MEDS: ASPIRIN 81MG ENTERIC TABLET PO SCH (08:32)
[2020-10-13] MEDS: PANTOPRAZOLE 40MG TAB (PROTONIX) PO SCH (08:32)
[2020-10-13] MEDS: FAMOTIDINE 20 MG TAB PO SCH ×2 (08:32→20:57)
[2020-10-13] MEDS: PHENAZOPYRIDINE 100 MG TAB PO SCH ×3 (08:32→20:57)
[2020-10-13] MEDS: FERROUS GLUCONATE 324 MG TAB PO SCH (08:33)
[2020-10-13] MEDS: PREGABALIN 75 MG CAP(LYRICA) PO SCH ×3 (08:33→20:57)
[2020-10-13] MEDS: MAGNESIUM OXIDE 400MG TAB (MAG-OX) PO SCH ×2 (08:33→20:57)
[2020-10-13] MEDS: ENOXAPARIN 40MG/0.4ML SYRINGE (J1650 PER 10MG) SC SCH (08:34)
[2020-10-13] MEDS: CARVedilol 6.25 MG TAB PO SCH ×2 (08:36→20:57)
--- NOTE | 2020-10-13 09:00 | IPNPDOC ---
Text Note Date of Service The patient was seen on 10/13/20. NOTE No acute events overnight. No problems with fevers. His ostomy is producing lots and some stool. He has tolerated the NG clamped for 24 hours with clq diet and no nausea or emesis. VSSAF NAD abd - soft, nt, nd, ostomy is in place. stool in the bag labs - pending A) 64y/o male s/p APR with permanent diverting colostomy for rectal cancer P) dc NG reg diet amb in dee if tolerating diet in the am, then I will nery Ware DO VS,Fishbone, I+O VS, Fishbone, I+O Laboratory Tests 10/13/20 06:02 Vital Signs Date Time Temp Pulse Resp B/P (MAP) Pulse Ox O2 Delivery O2 Flow Rate FiO2 10/13/20 08:36 62 173/77 10/13/20 06:00 98.6 16 96 Room Air 10/11/20 10:00 2.0 I&O- Last 24 Hours up to 6 AM 10/13/20 05:59 Intake Total 2790 ml Output Total 1250 ml Balance 1540 ml EVELINE WARE DO Oct 13, 2020 09:00
[2020-10-13 14:00] VITALS: BP 140/66
[2020-10-13] MEDS: BACLOFEN 10 MG TAB PO SCH (20:57)
[2020-10-13] MEDS: ATORVASTATIN 20 MG TAB PO SCH (20:57)
[2020-10-13 22:00] VITALS: BP 156/74
[2020-10-14] MEDS: NS 1,000 ML IV SCH (03:00)
[2020-10-14] MEDS: MORPHINE 4 MG/ML 1ML VIAL/SYRINGE (J2270) IV PRN ×2 (03:00→08:35)
[2020-10-14 06:00] VITALS: BP_SYST 115; BP_SYST 119; BP_DIAS 55; BP_DIAS 73
[2020-10-14] MEDS: PIPERACILLIN/TAZOBACTAM SOD 3.375 GM in D5W MINI-BAG PLUS 50 ML IV SCH (06:01)
[2020-10-14] MEDS: KETOROLAC 30 MG/ML 1ML VIAL IV PRN (06:02)
[2020-10-14 06:39] LABS: HEMOGLOBIN 7.7 g/dl (13.5-17.5); MEAN CORPUSCULAR HEMOGLOBIN 31.4 pg (27.0-33.0); MEAN CORPUSCULAR HGB CONC 32.1 g/dl (32.0-36.5); PLATELET COUNT, AUTOMATED 334 10^3/uL (150-450); RED BLOOD COUNT 2.45 10^6/uL (4.30-6.10); WHITE BLOOD COUNT 11.7 10^3/uL (4.0-10.0)
[2020-10-14 07:07] LABS: BLOOD UREA NITROGEN 6 MG/DL (7-18); CALCIUM LEVEL 8.1 MG/DL (8.8-10.2); CARBON DIOXIDE LEVEL 28 MEQ/L (21-32); CHLORIDE LEVEL 105 MEQ/L (98-107); CREATININE FOR GFR 0.52 MG/DL (0.70-1.30); GLOMERULAR FILTRATION RATE > 60.0 (>49); GLUCOSE, FASTING 104 MG/DL (70-100); POTASSIUM SERUM 3.3 MEQ/L (3.5-5.1); SODIUM LEVEL 139 MEQ/L (136-145)
[2020-10-14] MEDS: PREGABALIN 75 MG CAP(LYRICA) PO SCH (08:33)
[2020-10-14] MEDS: SENOKOT S TAB PO SCH (08:33)
[2020-10-14] MEDS: ASPIRIN 81MG ENTERIC TABLET PO SCH (08:33)
[2020-10-14] MEDS: FERROUS GLUCONATE 324 MG TAB PO SCH (08:33)
[2020-10-14 08:34] VITALS: BP 154/78
[2020-10-14] MEDS: PANTOPRAZOLE 40MG TAB (PROTONIX) PO SCH (08:34)
[2020-10-14] MEDS: FAMOTIDINE 20 MG TAB PO SCH (08:34)
[2020-10-14] MEDS: MAGNESIUM OXIDE 400MG TAB (MAG-OX) PO SCH (08:34)
[2020-10-14] MEDS: CARVedilol 6.25 MG TAB PO SCH (08:34)
[2020-10-14] MEDS: PHENAZOPYRIDINE 100 MG TAB PO SCH (08:34)
[2020-10-14] MEDS: ENOXAPARIN 40MG/0.4ML SYRINGE (J1650 PER 10MG) SC SCH (08:35)
[2020-10-18] MEDS ORDERED: OXYC-404 PO (10:34)
[2020-10-24] MEDS ORDERED: OXYC-404 PO (12:59)
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
[2020-11-01] MEDS ORDERED: ZOLO50TA PO (09:03)
[2020-11-01] MEDS ORDERED: LIDO1CRE42 TOP (09:29)
== END 2020-10-14 09:47 | disposition home or self-care (01) | DRG 333 ==
LOC: M OR 06:01 → M MSPAV 19:47
PROVIDERS: ADMIT Surgery; ATTEND Surgery
PROC: 0T9880Z Drainage of Bilateral Ureters with Drainage Device, Via Natural or Artificial Opening Endoscopic (ICD-10-PCS; 2020-10-03)
PROC: 0DTP4ZZ Resection of Rectum, Percutaneous Endoscopic Approach (ICD-10-PCS; principal; 2020-10-04)
PROC: 0DTQ4ZZ Resection of Anus, Percutaneous Endoscopic Approach (ICD-10-PCS; 2020-10-04)
PROC: 8E0W4CZ Robotic Assisted Procedure of Trunk Region, Percutaneous Endoscopic Approach (ICD-10-PCS; 2020-10-04)
DX: C20 Malignant neoplasm of rectum (principal); K91.30 Postprocedural intestinal obstruction, unspecified as to partial versus complete; I10 Essential (primary) hypertension; I25.10 Atherosclerotic heart disease of native coronary artery without angina pectoris; Z92.21 Personal history of antineoplastic chemotherapy; Z92.3 Personal history of irradiation; Z85.46 Personal history of malignant neoplasm of prostate; Z95.2 Presence of prosthetic heart valve; N32.89 Other specified disorders of bladder; Z79.899 Other long term (current) drug therapy; Z79.82 Long term (current) use of aspirin; Z91.041 Radiographic dye allergy status; Z88.8 Allergy status to other drugs, medicaments and biological substances

== ENCOUNTER → 2020-11-01 | Outpatient (CLI) | payer MEDICAID, MEDICARE ==
[~2020-11-01] MED LIST changes: -ALVIMOPAN 12 MG CAPSULE (ENTEREG) PO ONE; +AMOX875T2 PO; -HEPARIN SOD (PORCINE) 5000UNITS/ML 1ML VIAL/SYRINGE SQ ONE; +HYDR-4517 PO; +IRON65TA2 PO; +LIDO1CRE42 TOP; -LISI-898 PO; +LISI5TAB11 PO; -LR 1,000 ML IV ONE; +MACR100C43 PO; +MAGN400T33 PO; +MEGE20TA3 PO; -MONT10TA10 PO; +MONT10TA97 PO; +ONDA-84 PO; -ONDA8TAB10 PO; +OXYB10TA23 PO; +OXYC-404 PO; +PHEN1TAB73 PO; +POLY17PO18 PO; -PROC10TA4 PO; +PROC10TA5 PO; +PYRI1TAB5 PO; +VITA200030 PO; +ZOLO50TA PO; -cefoTEtan DISODIUM 2 GM in D5W MINI-BAG PLUS 50 ML IV ONE; -metroNIDAZOLE 500 MG in IV 1 EA IV ONE
== END ==
LOC: M ONCR 09:36
PROVIDERS: ATTEND General Practice
DX: C20 Malignant neoplasm of rectum (principal); C61 Malignant neoplasm of prostate; F17.210 Nicotine dependence, cigarettes, uncomplicated; R10.2 Pelvic and perineal pain; S31.501A Unspecified open wound of unspecified external genital organs, male, initial encounter; Z79.82 Long term (current) use of aspirin; Z79.899 Other long term (current) drug therapy; Z88.8 Allergy status to other drugs, medicaments and biological substances; Z91.041 Radiographic dye allergy status; Z91.048 Other nonmedicinal substance allergy status; Z92.3 Personal history of irradiation; Z96.0 Presence of urogenital implants

== ENCOUNTER 2020-11-08 19:29 | Inpatient (IN) | payer MEDICARE, OTHER ==
[~2020-11-08] VITALS: Ht 170.2 cm; Wt 80.3 kg
[~2020-11-08 19:29] MED LIST changes: -AMOX875T2 PO; -HYDR-4517 PO; -IRON65TA2 PO; +LISI-898 PO; -LISI5TAB11 PO; -MACR100C43 PO; +MAGN400T3 PO; -MAGN400T33 PO; -MEGE20TA3 PO; +MONT10TA10 PO; -MONT10TA97 PO; -ONDA-84 PO; +ONDA8TAB10 PO; -OXYB10TA23 PO; -PHEN1TAB73 PO; -POLY17PO18 PO; +PROC10TA4 PO; -PROC10TA5 PO; -PYRI1TAB5 PO
[2020-11-08] MEDS ORDERED: IRON65TA2 PO (19:44)
[2020-11-08] MEDS ORDERED: MEGE20TA3 PO (19:44)
[2020-11-08 20:37] LABS: BASO # 0.1 10^3/uL (0.0-0.2); BASO % 0.5 % (0.0-1.0); EOS # 0.3 10^3/uL (0.0-0.5); EOS % 2.6 % (0.0-3.0); HEMOGLOBIN 8.2 g/dl (13.5-17.5); LYMPH # 0.8 10^3/uL (1.5-5.0); LYMPH % 6.9 % (24.0-44.0); MEAN CORPUSCULAR HEMOGLOBIN 28.5 pg (27.0-33.0); MEAN CORPUSCULAR HGB CONC 31.5 g/dl (32.0-36.5); MEAN CORPUSCULAR VOLUME 90.3 fl (80.0-96.0); MONO # 0.8 10^3/uL (0.0-0.8); NEUTROPHILS # 9.4 10^3/uL (1.5-8.5); NEUTROPHILS % 82.6 % (36.0-66.0); PLATELET COUNT, AUTOMATED 484 10^3/uL (150-450); RED BLOOD COUNT 2.88 10^6/uL (4.30-6.10); WHITE BLOOD COUNT 11.4 10^3/uL (4.0-10.0)
[2020-11-08] MEDS ORDERED: oxyCODONE 20 MG CR TAB PO SCH (21:00)
[2020-11-08] MEDS ORDERED: ONDANSETRON 4MG/2ML VIAL IV ONE (21:10)
[2020-11-08] MEDS: MORPHINE 4 MG/ML 1ML VIAL/SYRINGE (J2270) IV PRN ×2 (21:28→22:46)
[2020-11-08 21:36] LABS: ALBUMIN 1.9 GM/DL (3.2-5.2); ALT/SGPT 20 U/L (12-78); BILIRUBIN,DIRECT 0.1 MG/DL (0.0-0.2); BILIRUBIN,TOTAL 0.3 MG/DL (0.2-1.0); BLOOD UREA NITROGEN 15 MG/DL (7-18); CARBON DIOXIDE LEVEL 27 MEQ/L (21-32); CHLORIDE LEVEL 101 MEQ/L (98-107); CK-MB VALUE MASS < 1.0 NG/ML (<3.6); CPK CREATINE PHOSPHOKINASE 24 U/L (39-308); CREATININE FOR GFR 0.75 MG/DL (0.70-1.30); GLOMERULAR FILTRATION RATE > 60.0 (>49); GLUCOSE, FASTING 111 MG/DL (70-100); LIPASE 80 U/L (73-393); MB/CK RELATIVE INDEX 4.17 (< OR =4); POTASSIUM SERUM 4.1 MEQ/L (3.5-5.1); SODIUM LEVEL 137 MEQ/L (136-145); TOTAL PROTEIN 7.6 GM/DL (6.4-8.2); TROPONIN I < 0.02 NG/ML (< 0.10)
[2020-11-08 21:47] LABS: RSV AMPLIFICATION NEGATIVE (NEGATIVE)
--- NOTE | 2020-11-08 22:45 | REPVR ---
PROCEDURE INFORMATION: Exam: CT Abdomen And Pelvis Without Contrast Exam date and time: 11/08/2020 8:58 PM Age: 65 years old Clinical indication: Other: Purlent drainage from perianal SX site; Prior surgery; Surgery date: 1-6 months; Additional info: Recent colectomy, purlent drainage from perianal SX site TECHNIQUE: Imaging protocol: Computed tomography of the abdomen and pelvis without contrast. Radiation optimization: All CT scans at this facility use at least one of these dose optimization techniques: automated exposure control; mA and/or kV adjustment per patient size (includes targeted exams where dose is matched to clinical indication); or iterative reconstruction. COMPARISON: CT ABD PELVIS W/O CONTRAST 10/06/2020 11:04 AM FINDINGS: Lungs: Patchy ground-glass opacification in the lingula and visualized right lower lobe. Liver: Normal. No mass. Gallbladder and bile ducts: Cholelithiasis. Pancreas: Normal. No ductal dilation. Spleen: Calcified granuloma in the spleen. Adrenal glands: Normal. No mass. Kidneys and ureters: Normal. No hydronephrosis. Stomach and bowel: Left lower quadrant colostomy. Multiple foci of air and fat stranding in the region of prior rectal surgery . A 3.8 x 3.7 cm fluid collections/abscess in the postoperative site. Appendix: No evidence of appendicitis. Intraperitoneal space: Unremarkable. No free air. No significant fluid collection. Vasculature: Unremarkable. No abdominal aortic aneurysm. Lymph nodes: Unremarkable. No enlarged lymph nodes. Urinary bladder: Knox's catheter in the bladder. Reproductive: Unremarkable as visualized. Bones/joints: Unremarkable. No acute fracture. Soft tissues: Unremarkable. IMPRESSION: Extensive edema and fat stranding with a fluid collection/abscess measuring approximately 3.8 x 3.7 in the prior rectal surgical bed. Electronically signed by: Derik Botello On 11/08/2020 22:44:43 PM
[2020-11-08] MEDS ORDERED: PIPERACILLIN/TAZOBACTAM SOD 3.375 GM in D5W MINI-BAG PLUS 50 ML IV ONE (23:50)
[2020-11-09] VITALS (9 sets, daily range): BP systolic 96–137; BP diastolic 50–65
[2020-11-09] MEDS ORDERED: OXYC-404 PO (00:46)
[2020-11-09] MEDS ORDERED: HOME MED LIST COMPLETE! XX SCH (00:50)
[2020-11-09] MEDS ORDERED: ACETAMINOPHEN TAB 650MG DOSE (2X325MG) PO PRN (01:35)
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
[2020-11-09] MEDS ORDERED: VANCOMYCIN HCL 1,000 MG, VIAL MATE ADAPTER 1 EACH in NS 250 ML IV ONE (02:45)
[2020-11-09] MEDS: PREGABALIN 75 MG CAP(LYRICA) PO SCH ×4 (03:18→20:20)
[2020-11-09] MEDS: SERTRALINE HCL 50 MG TAB PO SCH ×2 (03:19→20:20)
[2020-11-09] MEDS: ATORVASTATIN 20 MG TAB PO SCH ×2 (03:19→20:19)
--- NOTE | 2020-11-09 03:44 | REPVR ---
PROCEDURE INFORMATION: Exam: XR Chest Exam date and time: 11/09/2020 1:02 AM Age: 65 years old Clinical indication: Pain; Angina pectoris; Additional info: Rll opacification noted on CT TECHNIQUE: Imaging protocol: XR of the chest. Views: 1 view. COMPARISON: 1. CR PORTABLE CHEST X-RAY 2020-10-10 16:[address] Chest without contrast 2020-08-16 14:22 3. RI PORTABLE CHEST X-RAY 2020-03-18 15:[address] ABD PELVIS W/O CONTRAST 2020-11-08 20:56 FINDINGS: Tubes, catheters and devices: Right IJ Port-A-Cath unchanged. Lungs: Nodularity along the right lower lobes better seen on CT overlaps the diaphragm and is not well visualized. Pleural spaces: Unremarkable. No pleural effusion. No pneumothorax. Heart/Mediastinum: Unremarkable. No cardiomegaly. Bones/joints: Unremarkable. IMPRESSION: Nodularity along the right lower lobe is better seen on CT as it overlaps the diaphragm and liver. Electronically signed by: Thomas Lainez On 11/09/2020 03:44:18 AM
[2020-11-09] MEDS: CARVedilol 6.25 MG TAB PO SCH ×3 (04:06→20:20)
[2020-11-09] MEDS: D5W/0.45% SODIUM CHLORIDE 1,000 ML IV SCH ×2 (05:30→15:27)
[2020-11-09] MEDS: MORPHINE 4 MG/ML 1ML VIAL/SYRINGE (J2270) IV PRN ×3 (07:27→18:39)
--- NOTE | 2020-11-09 07:45 | ECGEPIP ---
[facility] - ED Test Date: 2020-11-08 Pat Name: HUNTER DUARTE Department: Room: - Gender: Male Medical Information Officer: RAVI : 1955 Requested By: PINA Contreras Order Number: [id number] Reading MD: Noah Esposito Measurements Intervals [place] Rate: 66 P: 55 ND: 116 QRS: 26 QRSD: 86 T: 28 QT: 418 QTc: 438 Interpretive Statements Normal sinus rhythm SIMILAR TO 12/20/18 Electronically Signed on 11-09-2020 7:45:27 EDT by Noah Esposito
--- NOTE | 2020-11-09 09:01 | IPNPDOC ---
Text Note Date of Service The patient was seen on 11/09/20. NOTE Subjective: Patient was admitted on 11/08 for possible rectal abscess. Patient recently received Colorectal surgery for removal of tumor in his colon. Patient was found sleeping supine in his bed in the ER when seen. On exam patient says that he has had pain around his rectum for a few weeks, but says that the pain has decreased since he first came to the ER after administration of antibiotics. Patient still says that he is still in a lot of pain. Review of systems: Patient denies headache, chest pain, palpitations, SOB, tingling, or numbness. Physical exam: General: Patient has no fever or chills Head and neck: No thyroid or lymph node enlargement on palpation Heart: Normal heart sounds on auscultation with S1 and S2, no abnormal heart sounds or murmurs. Lungs: Clear and equal BL MSK: No joint pain with movement SKIN: Erythema and swelling from area anterior to rectum, with drainage of thick, purulent fluid Neurological: No weakness, tingling or numbness. Extremities: Pedal pulse and posterior tibial pulse is present in both feet. Imaging: Abdominal CT as reported: Extensive edema and fat stranding with a fluid collection/abscess measuring approximately 3.8 x 3.7 in the prior rectal surgical bed. Chest X-ray as reported: Nodularity along the right lower lobe is better seen on CT as it overlaps the diaphragm and liver. Assessment: 65 male with previous medical history of HTN, former smoker, CAD and colorectal cancer. Patient came in because of pain in the rectal area and was found to have an abscess in the ER. Patient received piperacillin + tazobactam and Vancomycin in the ER and is also being given morphine and oxycodone for pain. Plan is to manage the abscess with antibiotics. Patient had low Hemoglobin so 2 units of blood were transfused. Plan: 1. Abscess of rectal surgical bed: - Treating with antibiotics Vancomycin and piperacillin + tazobactam. - Symptom management/supportive care with pain control - Oxycodone and morphine. 2. Questionable developing right lower lobe pneumonia: - Opacity noted CT scan. Patient had no SOB or productive cough. - Patient already on Vancomycin and Zosyn. 3. Indwelling Knox - Patient with history of prostate cancer, radical prostatectomy - he currently has an indwelling Knox which was changed at admission 4. Hypertension - Continue beta-chris. 5. Acute on chronic anemia - H/H dropped today to 6.9, ordered for 2 units PRBCs - recheck H/H after transfusions - no current signs of bleeding - Ordered Transferrin, Iron, TIBC, and ferritin to determine cause of patient normocytic anemia. - Eliquis on hold 5. Deconditioning: - PT eval ordered on admission DVT: SCDs, patient has been on Eliquis for hc of LLE DVT, presently on hold given acute anemia CODE STATUS: Full code Disposition: pending clinical improvement VS,Fishbone, I+O VS, Fishbone, I+O Laboratory Tests 11/08/20 20:16 Vital Signs Date Time Temp Pulse Resp B/P (MAP) Pulse Ox O2 Delivery O2 Flow Rate FiO2 11/09/20 08:30 98.0 62 20 137/60 (85) 98 Room Air GME ATTESTATION GME ATTESTATION My faculty preceptor for this patient encounter was physically present during the encounter and was fully available. All aspects of the patient interview, examination, medical decision making process, and medical care plan development were reviewed and approved by the faculty preceptor. The faculty preceptor is aware and concurs with the plan as stated in the body of this note and will attest to such by his/her cosignature. ATTENDING NOTE I, Phuc Schofield, have independently examined this patient and performed my own physical exam, as well as reviewed the documentation and edited where necessary. I have discussed in detail with the resident / student the findings and plan of treatment as documented by the resident / student and edited their note. I agree with their findings and treatment plan and have edited their documentation. I will continue to follow the patient during this hospital stay. MARIUSZ NORRIS OMS-3 Nov 09, 2020 09:01 PHUC SCHOFIELD MD Nov 09, 2020 14:33 CONOR PERAZA D.O. Nov 09, 2020 18:36
[2020-11-09] MEDS: oxyCODONE 10 MG CR TAB PO SCH ×2 (09:03→20:21)
[2020-11-09] MEDS: oxyCODONE 5MG TAB PO PRN ×2 (09:04→15:26)
[2020-11-09] MEDS: ISOSORBIDE MON. (IMDUR) 60 MG XR TAB PO SCH (09:05)
[2020-11-09] MEDS: PIPERACILLIN/TAZOBACTAM SOD 3.375 GM in D5W MINI-BAG PLUS 50 ML IV SCH ×3 (09:06→20:00)
[2020-11-09] MEDS: PANTOPRAZOLE 40MG TAB (PROTONIX) PO SCH (09:07)
[2020-11-09 11:08] LABS: BASO # 0.1 10^3/uL (0.0-0.2); BASO % 0.6 % (0.0-1.0); EOS # 0.2 10^3/uL (0.0-0.5); EOS % 2.5 % (0.0-3.0); HEMATOCRIT 22.2 % (42.0-52.0); LYMPH # 0.7 10^3/uL (1.5-5.0); LYMPH % 7.5 % (24.0-44.0); MEAN CORPUSCULAR HGB CONC 31.1 g/dl (32.0-36.5); MEAN CORPUSCULAR VOLUME 90.2 fl (80.0-96.0); MONO # 0.7 10^3/uL (0.0-0.8); MONO % 7.9 % (2.0-8.0); NEUTROPHILS # 7.3 10^3/uL (1.5-8.5); NEUTROPHILS % 80.7 % (36.0-66.0); PLATELET COUNT, AUTOMATED 392 10^3/uL (150-450); RED BLOOD COUNT 2.46 10^6/uL (4.30-6.10)
[2020-11-09 11:12] LABS: HEMOGLOBIN 6.9 g/dl (13.5-17.5)
[2020-11-09 11:33] LABS: BLOOD UREA NITROGEN 14 MG/DL (7-18); CALCIUM LEVEL 8.6 MG/DL (8.8-10.2); CARBON DIOXIDE LEVEL 29 MEQ/L (21-32); CHLORIDE LEVEL 102 MEQ/L (98-107); GLOMERULAR FILTRATION RATE > 60.0 (>49); GLUCOSE, FASTING 104 MG/DL (70-100); POTASSIUM SERUM 4.3 MEQ/L (3.5-5.1); SODIUM LEVEL 137 MEQ/L (136-145)
[2020-11-09] MEDS: FERROUS SULFATE 325MG TAB PO SCH (13:46)
[2020-11-09] MEDS: VANCOMYCIN HCL 500 MG in D5W MINI-BAG PLUS 100 ML IV SCH ×2 (13:47→21:14)
[2020-11-09 14:21] LABS: PERCENT SATURATION 17.1 % (19.7-50.0)
--- NOTE | 2020-11-09 16:20 | CR.PDOC ---
General Surgery Consultation Date of Consultation 11/09/20 History and Physical CONSULT REPORT FOR: hospitalist service (Dr. Schofield) REASON FOR CONSULTATION: perineal wound drainage, wound, abscess HISTORY OF PRESENT ILLNESS: Patient is a 65-year-old male with low-lying rectal cancer who had neoadjuvant chemotherapy. He had prior pelvic radiation from his prostatectomy likewise has had radical prostatectomy. He continued to have bleeding after completing his neoadjuvant chemotherapy and still has some hardened mass over the area. He underwent abdominoperineal resection done by me on October 03, 2020. I saw him 1 time and was supposed to follow-up with the. He is complaining of increasing pain at the perineal area and has been having some foul-smelling drainage from a small wound opening at the perineal incision line. He presented to the emergency department last night and was subsequently admitted for suspicion of abscess deep in the perineal wound. reports low-grade fever at home. Poor appetite. He was also complaining of abdominal pain last night which got her worried. He concurrently is following up with oncology and radiation oncology. PAST MEDICAL HISTORY: 1. . PAST SURGICAL HISTORY: INCLUDES: 1. . PREVIOUS ANESTHESIA REACTIONS: ALLERGIES: Please see below. FAMILY HISTORY: . HOME MEDICATIONS: Please see below. REVIEW OF SYSTEMS: GENERAL: [Denies chills, reports weight gain, reports feeling febrile yesterday]. HEENT: [Denies blurred vision and double vision. Denies ear symptoms. Denies hoarseness]. NECK: Denies any neck pain]. CARDIOVASCULAR: [Denies chest pain and palpitations]. MUSCULOSKELETAL: [Denies arthralgias, back pain and thrombophlebitis]. SKIN: [Denies rash]. NEUROLOGIC: [Denies headache, stroke and transient ischemic attack]. PSYCHIATRIC: [Denies anxiety and depression]. ENDOCRINE: [Denies thyroid disease]. HEMATOLOGY/ONCOLOGY: [Denies bleeding or clotting disorder]. HEART: [Denies any chest pains, palpitations, paroxysmal dyspnea, orthopnea]. PULMONARY: [Denies chronic cough, dyspnea and wheezing]. GASTROINTESTINAL: [Denies rectal bleeding, family history of colon cancer, constipation, diarrhea, dysphagia, heartburn and jaundice]. GENITOURINARY: [Denies dysuria, frequency, hematuria and nocturia]. ENDOCRINE: [Denies polydipsia, polyphagia, polyuria, heat or cold intolerance]. INFECTIOUS: [Denies any recent upper respiratory tract infection, UTI, need for use of antibiotics]. NUTRITION: [Reports good appetite]. PHYSICAL EXAMINATION: VITALS SIGNS: Please see below. GENERAL APPEARANCE:[Patient seen, laying in bed, awake, alert, and oriented. Comfortable, in no acute distress]. SKIN: [Warm and moist]. HEENT: [Normocephalic, atraumatic. [place] palpebral conjunctiva, anicteric sclerae. Lips and mucosa appear moist]. NECK: [Supple, no thyromegaly. No obvious jugular venous distention]. LUNGS: [Clear to auscultation bilaterally. No wheezing appreciated]. HEART: [No chest wall abnormalities. Regular rate and rhythm with no murmurs appreciated]. ABDOMEN: Abdomen is , soft, . [No hepatosplenomegaly. No umbilical or groin herniations, nondistended. No noticeable rebound or guarding. No grimacing with palpation. No rebound tenderness. No masses appreciated]. EXTREMITIES: [Extremities have no deformities. No edema identified] ANCILLARIES: . LABORATORY DATA: Please see below. IMAGING STUDIES: . IMPRESSION AND PLAN: Deep soft tissue infection at the perineal surgical site with question of there is a deep lying abscess. I probed the wound opening and really got deep with the cotton tip applicator likewise with a culture stick. I did not get much drainage despite getting into the wound cavity itself. I got some wound cultures. There is a question of whether there is enough of an abscess at the deep peroneal soft tissue on the CT. Nighttime radiologist thinks duress, our daytime radiologist thinks is all just a collection of air without much fluid collection. Ideally would like to do a contrast CT. He reports severe allergy to iodine contrast with difficulty of breathing, his throat closing and I discussed possibly premedicating him with our hospitalist who was understandably reluctant to take a chance. He is not showing severe sepsis which is more common in those with severe soft tissue infection in the perineum. He does have a lot of pain though this is hard to gauge whether this is just from the surgery, swelling or infection. He is on some stronger narcotic pain medications. I will await wound cultures. Tentatively will plan to redo a CT which is noncontrast after the weekend to see if there is any interval changes. Tailor the antibiotics with results of the wound culture. We will follow along. Vital Signs Vital Signs Date Time Temp Pulse Resp B/P (MAP) Pulse Ox O2 Delivery O2 Flow Rate FiO2 11/09/20 15:26 18 Room Air 11/09/20 14:00 98.3 59 101/56 (71) 97 Laboratory Data Labs 24H Laboratory Tests 2 11/08/20 20:16: Immature Granulocyte % (Auto) 0.4, Neutrophils (%) (Auto) 82.6H, Lymphocytes (%) (Auto) 6.9L, Monocytes (%) (Auto) 7.0, Eosinophils (%) (Auto) 2.6, Basophils (%) (Auto) 0.5, Neutrophils # (Auto) 9.4H, Lymphocytes # (Auto) 0.8L, Monocytes # (Auto) 0.8, Eosinophils # (Auto) 0.3, Basophils # (Auto) 0.1, Nucleated Red Blood Cells % (auto) 0.0, Anion Gap 9, Glomerular Filtration Rate > 60.0, Lactic Acid Level 1.1, Calcium Level 9.0, Total Bilirubin 0.3, Direct Bilirubin 0.1, Aspartate Amino Transf (AST/SGOT) 21, Alanine Aminotransferase (ALT/SGPT) 20, Alkaline Phosphatase 204H, Total Creatine Kinase 24L, Creatine Kinase MB < 1.0, Creatine Kinase MB Relative Index 4.17H, Troponin I < 0.02, Total Protein 7.6, Albumin 1.9L, Albumin/Globulin Ratio 0.3, Lipase 80 11/08/20 20:57: Coronavirus (COVID-19)(PCR) NEGATIVE, Influenza Type A (RT-PCR) NEGATIVE, Influenza Type B (RT-PCR) NEGATIVE, Respiratory Syncytial Virus (PCR) NEGATIVE 11/09/20 10:32: Iron Level 19L, Total Iron Binding Capacity 111L, Transferrin % Saturation 17.1L, Ferritin 511H 11/09/20 10:44: Immature Granulocyte % (Auto) 0.8, Neutrophils (%) (Auto) 80.7H, Lymphocytes (%) (Auto) 7.5L, Monocytes (%) (Auto) 7.9, Eosinophils (%) (Auto) 2.5, Basophils (%) (Auto) 0.6, Neutrophils # (Auto) 7.3, Lymphocytes # (Auto) 0.7L, Monocytes # (Auto) 0.7, Eosinophils # (Auto) 0.2, Basophils # (Auto) 0.1, Nucleated Red Blood Cells % (auto) 0.0, Anion Gap 6L, Glomerular Filtration Rate > 60.0, Calcium Level 8.6L 11/09/20 15:05: CBC/BMP Laboratory Tests 11/08/20 20:16 11/09/20 10:44 Microbiology Microbiology 11/08/20 Wound Culture, Received Pending 11/08/20 Blood Culture, Received Pending 11/08/20 Blood Culture, Received Pending Home Medications Scheduled Apixaban (Eliquis) 5 Mg Tablet, 2.5 MG PO BID, (Reported) Aspirin (Aspirin EC) 81 Mg Tab, 81 MG PO DAILY, (Reported) TAKES AT NOON Atorvastatin Calcium (Atorvastatin Calcium) 40 Mg Tablet, 40 MG PO QHS, (Reported) Baclofen (Baclofen) 10 Mg Tablet, 15 MG PO QHS, (Reported) Carvedilol (Carvedilol) 6.25 Mg Tablet, 6.25 MG PO BID, (Reported) Cholecalciferol (Vitamin D3) (Vitamin D3) 50 Mcg Tablet, 50 MCG PO DAILY, (Reported) TAKES AT NOON Ferrous Sulfate (Iron) 325 Mg Tablet, 325 MG PO DAILY, (Reported) Isosorbide Mononitrate (Isosorbide Mononitrate ER) 60 Mg Tab, 60 MG PO DAILY, (Reported) Lidocaine/Prilocaine (Lidocaine-Prilocaine Cream) 2.5%/2.5% Cream..g., 1 APLCT TOP ASDIRECTED Lisinopril (Lisinopril) 20 Mg Tablet, 20 MG PO DAILY, (Reported) Magnesium Oxide (Magnesium Oxide) 400 Mg Tablet, 400 MG PO BID, (Reported) Megestrol Acetate (Megestrol Acetate) 20 Mg Tablet, 20 MG PO DAILY, (Reported) TAKES AT NOON Mirabegron (Myrbetriq) 50 Mg Tab.er.24h, 50 MG PO DAILY, (Reported) TAKES AT NOON Oxycodone HCl (Oxycodone HCl ER) 20 Mg Tab.er.12h, 20 MG PO BID, (Reported) Pantoprazole Sodium (Pantoprazole Sodium) 40 Mg Tablet.dr, 40 MG PO DAILY, (Reported) Pregabalin (Pregabalin) 75 Mg Capsule, 75 MG PO TID, (Reported) TAKES AT NOON Sertraline Hcl (Zoloft) 50 Mg Tablet, 50 MG PO QHS, (Reported) Scheduled PRN Lorazepam (Lorazepam) 1 Mg Tablet, 1.5 MG PO QHS PRN for INSOMNIA, (Reported) Ondansetron HCl (Ondansetron HCl) 8 Mg Tablet, 8 MG PO Q8HP PRN for NAUSEA OR VOMITING Oxycodone HCl (Oxycodone HCl) 5 Mg Tablet, 5 MG PO BID PRN for PAIN LEVEL 5-10, (Reported) Prochlorperazine Maleate (Prochlorperazine Maleate) 10 Mg Tablet, 10 MG PO Q8H PRN for NAUSEA OR VOMITING Allergies Coded Allergies: iopamidol (Verified Allergy, Intermediate, ITCHING, SWELLING, 02/29/20) PTS STATEMENT OF FEELING LIKE HIS LIPS ARE SWOLLEN AND THAT HIS THROAT IS ITCHY. Contrast Media (Verified Allergy, Mild, "itchy throat", 04/25/20) iodine (Verified Allergy, Mild, "ithcy throat", 04/25/20) DARIUS JOYCE MD Nov 09, 2020 16:20
[2020-11-09 18:44] LABS: C REACTIVE PROTEIN QUANTITATIV 11.8 MG/DL (0.00-0.30)
[2020-11-09 22:41] LABS: HEMATOCRIT 27.7 % (42.0-52.0)
[2020-11-10] MEDS: VANCOMYCIN HCL 1,000 MG, VIAL MATE ADAPTER 1 EACH in NS 250 ML IV SCH ×4 (00:09→23:20)
[2020-11-10] MEDS: PIPERACILLIN/TAZOBACTAM SOD 3.375 GM in D5W MINI-BAG PLUS 50 ML IV SCH ×4 (01:32→20:18)
[2020-11-10] MEDS: D5W/0.45% SODIUM CHLORIDE 1,000 ML IV SCH ×2 (04:43→17:34)
[2020-11-10] MEDS: oxyCODONE 5MG TAB PO PRN ×2 (04:43→12:23)
[2020-11-10 06:00] VITALS: BP 121/59
[2020-11-10 07:08] LABS: BASO # 0.1 10^3/uL (0.0-0.2); BASO % 0.6 % (0.0-1.0); EOS # 0.3 10^3/uL (0.0-0.5); EOS % 3.1 % (0.0-3.0); HEMOGLOBIN 9.2 g/dl (13.5-17.5); LYMPH # 0.7 10^3/uL (1.5-5.0); LYMPH % 7.6 % (24.0-44.0); MEAN CORPUSCULAR HEMOGLOBIN 28.6 pg (27.0-33.0); MEAN CORPUSCULAR HGB CONC 32.9 g/dl (32.0-36.5); MONO # 0.9 10^3/uL (0.0-0.8); MONO % 9.4 % (2.0-8.0); NEUTROPHILS # 7.6 10^3/uL (1.5-8.5); NEUTROPHILS % 78.7 % (36.0-66.0); PLATELET COUNT, AUTOMATED 362 10^3/uL (150-450); RED BLOOD COUNT 3.22 10^6/uL (4.30-6.10); WHITE BLOOD COUNT 9.7 10^3/uL (4.0-10.0)
[2020-11-10 07:27] LABS: BLOOD UREA NITROGEN 9 MG/DL (7-18); CALCIUM LEVEL 8.6 MG/DL (8.8-10.2); CARBON DIOXIDE LEVEL 27 MEQ/L (21-32); CHLORIDE LEVEL 103 MEQ/L (98-107); CREATININE FOR GFR 0.53 MG/DL (0.70-1.30); GLOMERULAR FILTRATION RATE > 60.0 (>49); GLUCOSE, FASTING 109 MG/DL (70-100); POTASSIUM SERUM 4.2 MEQ/L (3.5-5.1); SODIUM LEVEL 135 MEQ/L (136-145)
--- NOTE | 2020-11-10 09:04 | IPNPDOC ---
Text Note Date of Service The patient was seen on 11/10/20. NOTE Subjective: Patient was admitted to the hospital for treatment of perirectal abscess. Patient recently had surgery to remove tumor from his colon and started complaining of rectal pain a few weeks ago. When patient was seen he was found laying supine on his bed. When asked the patient said he had not ambulated since coming to the hospital. In the morning Patient said that his rectal pain has worsened since yesterday despite continued treatment with antibiotics. Patient says his fatigue is much better after receiving 2 units of blood yesterday. Patient had chest pain that radiated to the left shoulder and was sharp pain "he felt were a heart attack" this occurred at 8:50am. Patients chest pain was reproducible with Abdominal palpation in all four quadrants. Troponin, Chest X- ray, EKG, and ABD KUB were ordered - results of imaging below. ECG and troponin were negative for cardiac changes. Pain improved on its own and eventually resolved within an hour. Surgery was agreeable to placement of drainage of abscess. After drainage the patient says his rectal pain is now 0/10. Patient will be prescribed a stool softener and laxative to alleviate bowel constipation. Review of systems: Pt denies headaches, chest pain, palpitations, SOB, has no new ABD pain at rest - but has worsening deny-rectal pain, no urinary or bladder discomfort. Physical exam: General: Patient has no fever or chills Psych: Alert and oriented *3 HEENT: No pain with movement of his neck or nuchal rigidity Neck: No visible enlargement of thyroid or lymph nodes Heart: Normal heart sounds with S1 and S2. No murmur or extra heart sounds. Lungs: Lung sounds are clear and equal BL. ABD: Patient has new tenderness with palpation om the entire right side of the ABD. Started sometime today morning. Patient's bowel sounds are normoactive to hyperactive. Extremities: Patient's pedal and posterior tibial pulses are 2/4 equal BL. No weakness in arms or legs. New imaging: Abdominal KUB IMPRESSION: Left-sided ostomy without signs of colonic or small bowel obstruction. Some vascular calcifications in the pelvis. Bones without acute finding. Chest X-ray IMPRESSION: Left perihilar infiltrate consistent with pneumonia. Assessment: 65 year old male with past medical history of HTN, former smoker, CAD and colorectal cancer. Patient came in because of pain is his rectal area that pers isted for 2 weeks and was diagnosed through CT imaging of the abdomen with a rectal abscess. Patient received piperacillin + tazobactam and Vancomycin in the ER and is also being given morphine and oxycodone for pain. Patient in the morning had more pain today than yesterday. Surgery was consulted and drained rectal abscess. After abscess drainage patient said pain was 0/10. Patient was also complaining of fatigue and had anemia - he had two units of blood transfused yesterday and says his fatigue today is much better than yesterday. Plan: 1. Abscess of rectal surgical bed: - Treating with antibiotics Vancomycin and piperacillin + tazobactam. - Symptom management/supportive care with pain control - Oxycodone and morphine. - Surgery performed drainage today. Patient says pain at rectum is 0/10 after drainage. 2. Questionable developing right lower lobe pneumonia: - Opacity noted CT scan. Patient had no SOB or productive cough. - Patient already on Vancomycin and Zosyn. - Will check sputum cultures. 3. Indwelling Knox - Patient with history of prostate cancer, radical prostatectomy - he currently has an indwelling Knox which was changed at admission 4. Hypertension - Continue beta-chris. 5. Acute on chronic anemia - anemia of chronic disease - Hb went from 6.9 to 9.2 after transfusion of two bags of RBCs - no current signs of bleeding - Transferrin, Iron, TIBC, and ferritin levels point to anemia of chronic disease as most likely etiology. (Transferrin, Iron and TIBC were all low and Ferritin was elevated) - Eliquis on hold 6. Constipation - Patient has not had much bowel production into Ostomy bag and had Chest pain that was reproducible with palpation today. Patient was given combination of senna and docusate to help reduce constipation. 7. Deconditioning: - PT eval ordered on admission. Disposition: - Patient is expected to stay for at least 2 midnights. VS,Fishbone, I+O VS, Fishbone, I+O Laboratory Tests 11/09/20 10:44 11/09/20 22:32 11/10/20 06:56 Vital Signs Date Time Temp Pulse Resp B/P (MAP) Pulse Ox O2 Delivery O2 Flow Rate FiO2 11/10/20 06:00 98.1 62 20 121/59 (79) 94 Room Air I&O- Last 24 Hours up to 6 AM 11/10/20 05:59 Intake Total 2700 ml Output Total 700 ml Balance 2000 ml GME ATTESTATION GME ATTESTATION My faculty preceptor for this patient encounter was physically present during the encounter and was fully available. All aspects of the patient interview, ex amination, medical decision making process, and medical care plan development were reviewed and approved by the faculty preceptor. The faculty preceptor is aware and concurs with the plan as stated in the body of this note and will attest to such by his/her cosignature. ATTENDING NOTE I, Phuc Schofield, have independently examined this patient and performed my own p hysical exam, as well as reviewed the documentation and edited where necessary. I have discussed in detail with the resident / student the findings and plan of treatment as documented by the resident / student and edited their note. I agree with their findings and treatment plan and have edited their documentation. I will continue to follow the patient during this hospital stay. MARIUSZ NORRIS OMS-3 Nov 10, 2020 09:04 PHUC SCHOFIELD MD Nov 10, 2020 12:27 CONOR PERAZA D.O. Nov 10, 2020 15:44
[2020-11-10] MEDS: oxyCODONE 10 MG CR TAB PO SCH ×2 (09:08→20:22)
[2020-11-10] MEDS: PANTOPRAZOLE 40MG TAB (PROTONIX) PO SCH (09:09)
[2020-11-10] MEDS: PREGABALIN 75 MG CAP(LYRICA) PO SCH ×3 (09:09→20:23)
[2020-11-10] MEDS: FERROUS SULFATE 325MG TAB PO SCH (09:09)
[2020-11-10] MEDS: ISOSORBIDE MON. (IMDUR) 60 MG XR TAB PO SCH (09:09)
[2020-11-10] MEDS: CARVedilol 6.25 MG TAB PO SCH ×2 (09:10→20:21)
--- NOTE | 2020-11-10 09:16 | REP ---
INDICATION: abdominal pain. COMPARISON: CT 11/08/2020, AP abdomen 10/10/2020 TECHNIQUE: AP supine FINDINGS: There is a left mid abdominal ostomy with stool and gas scattered in the colon without dilated small bowel loops on today's study. Few pelvic phleboliths and vascular calcifications noted in some iliac vessels in the pelvis. No acute finding radiographically today. IMPRESSION: Left-sided ostomy without signs of colonic or small bowel obstruction. Some vascular calcifications in the pelvis. Bones without acute finding. <Electronically signed by Ezio Camarena > 11/10/20 0924
--- NOTE | 2020-11-10 09:16 | REP ---
INDICATION: chest pain. COMPARISON: Comparison chest x-ray November 09, 2020. TECHNIQUE: Portable upright AP chest radiograph. FINDINGS: There are increased markings again noted in the left perihilar region consistent with pneumonia. no other infiltrate is appreciated. Pleural angles are sharp. Heart size is normal. Pulmonary vasculature is not increased.. There is a right-sided [id number] catheter noted in place. IMPRESSION: Left perihilar infiltrate consistent with pneumonia.. <Electronically signed by Dylan Red > 11/10/20 0946
[2020-11-10] MEDS ORDERED: LIDOCAINE 1% MDV 20ML VIAL As Ordered ONE (09:22)
--- NOTE | 2020-11-10 09:53 | IPNPDOC ---
Text Note Date of Service The patient was seen on 11/10/20. NOTE Patient complains of perianal pain, lower abdominal pain this morning, chest pain this morning. seems to be located at the pelvic/lower abdominal area. complains of mild nausea. Nurse reports not much ostomy output but with air in the bag. VS afebrile moaning, uncomfortable abdomen soft, minimally distended. ostomy healthy, small amount of soft stool in the lumen, (+) air. seems tender over bilateral lower abdomen perineum: (+) foul smelling drainage, actually more since I probed it yesterday afternoon. No cellulitis. Impression and plan deep soft tissue infection at the perineum/ presacral area, draining through the perineal incision about a 1 cm opening/tract opening. I enlarged this and placed a tremaine drain through to try to encourage more drainage. will leave him with this setup over the weekend. Pls. set up for Ct abdomen and pelvis on friday. follow up crp. VS,Danae, I+O VS, Danae, I+O Laboratory Tests 11/09/20 10:44 11/09/20 22:32 11/10/20 06:56 Vital Signs Date Time Temp Pulse Resp B/P (MAP) Pulse Ox O2 Delivery O2 Flow Rate FiO2 11/10/20 09:10 62 121/59 11/10/20 09:08 18 Room Air 11/10/20 06:00 98.1 94 I&O- Last 24 Hours up to 6 AM 11/10/20 06:00 Intake Total 2800 ml Output Total 1600 ml Balance 1200 ml DARIUS JOYCE MD Nov 10, 2020 09:53
[2020-11-10] MEDS: PHENAZOPYRIDINE 100 MG TAB PO SCH ×3 (12:27→20:23)
[2020-11-10] MEDS: SENOKOT S TAB PO SCH ×2 (12:27→20:21)
[2020-11-10 14:24] VITALS: BP 130/63
[2020-11-10] MEDS: ONDANSETRON 4MG/2ML VIAL IV PRN (15:04)
[2020-11-10] MEDS: MORPHINE 4 MG/ML 1ML VIAL/SYRINGE (J2270) IV PRN ×2 (15:04→23:24)
[2020-11-10 20:00] VITALS: BP 151/70
[2020-11-10] MEDS: ATORVASTATIN 20 MG TAB PO SCH (20:21)
[2020-11-10] MEDS: SERTRALINE HCL 50 MG TAB PO SCH (20:23)
[2020-11-11] MEDS: PIPERACILLIN/TAZOBACTAM SOD 3.375 GM in D5W MINI-BAG PLUS 50 ML IV SCH ×4 (02:42→20:18)
[2020-11-11] MEDS: MORPHINE 2 MG/ML 1ML VIAL (J2270) IV PRN ×2 (03:37→13:07)
[2020-11-11] MEDS: oxyCODONE 5MG TAB PO PRN ×2 (06:13→17:22)
[2020-11-11 06:14] VITALS: BP 149/72
[2020-11-11 06:46] LABS: BASO # 0.1 10^3/uL (0.0-0.2); BASO % 0.7 % (0.0-1.0); EOS # 0.3 10^3/uL (0.0-0.5); EOS % 3.1 % (0.0-3.0); HEMATOCRIT 29.1 % (42.0-52.0); HEMOGLOBIN 9.5 g/dl (13.5-17.5); LYMPH # 0.7 10^3/uL (1.5-5.0); LYMPH % 7.9 % (24.0-44.0); MEAN CORPUSCULAR HEMOGLOBIN 29.1 pg (27.0-33.0); MEAN CORPUSCULAR HGB CONC 32.6 g/dl (32.0-36.5); MONO # 0.6 10^3/uL (0.0-0.8); NEUTROPHILS # 6.7 10^3/uL (1.5-8.5); NEUTROPHILS % 80.5 % (36.0-66.0); PLATELET COUNT, AUTOMATED 346 10^3/uL (150-450); RED BLOOD COUNT 3.27 10^6/uL (4.30-6.10); WHITE BLOOD COUNT 8.4 10^3/uL (4.0-10.0)
[2020-11-11 07:16] LABS: BLOOD UREA NITROGEN 6 MG/DL (7-18); CALCIUM LEVEL 8.5 MG/DL (8.8-10.2); CARBON DIOXIDE LEVEL 28 MEQ/L (21-32); CHLORIDE LEVEL 105 MEQ/L (98-107); CREATININE FOR GFR 0.74 MG/DL (0.70-1.30); GLOMERULAR FILTRATION RATE > 60.0 (>49); GLUCOSE, FASTING 127 MG/DL (70-100); POTASSIUM SERUM 3.5 MEQ/L (3.5-5.1); SODIUM LEVEL 137 MEQ/L (136-145)
[2020-11-11] MEDS: CARVedilol 6.25 MG TAB PO SCH ×2 (09:00→20:18)
[2020-11-11] MEDS: PHENAZOPYRIDINE 100 MG TAB PO SCH ×3 (09:15→20:28)
[2020-11-11] MEDS: SENOKOT S TAB PO SCH ×2 (09:16→20:28)
[2020-11-11] MEDS: PANTOPRAZOLE 40MG TAB (PROTONIX) PO SCH (09:17)
[2020-11-11] MEDS: ISOSORBIDE MON. (IMDUR) 60 MG XR TAB PO SCH (09:17)
[2020-11-11] MEDS: FERROUS SULFATE 325MG TAB PO SCH (09:17)
--- NOTE | 2020-11-11 09:17 | ECGEPIP ---
[facility] Test Date: 2020-11-10 Pat Name: HUNTER DUARTE Department: Room: [place] [address] Gender: Male Load Planner: walt : 1955 Requested By: CONOR PERAZA D.O. Order Number: [id number] Reading MD: Roman Queen Measurements Intervals [place] Rate: 57 P: 56 TX: 158 QRS: 20 QRSD: 86 T: 33 QT: 412 QTc: 401 Interpretive Statements Sinus bradycardia Compared to prior tracings in the system. No remarkable changes but slower heart rate. No manifestations of prior inferior infarct this time Electronically Signed on 11-11-2020 9:16:54 EDT by Roman Queen
[2020-11-11] MEDS: D5W/0.45% SODIUM CHLORIDE 1,000 ML IV SCH ×2 (09:37→20:17)
[2020-11-11] MEDS: PREGABALIN 75 MG CAP(LYRICA) PO SCH ×3 (09:38→20:28)
[2020-11-11] MEDS: oxyCODONE 10 MG CR TAB PO SCH ×2 (09:39→20:29)
[2020-11-11] MEDS: ENOXAPARIN 40MG/0.4ML SYRINGE (J1650 PER 10MG) SC SCH (09:40)
--- NOTE | 2020-11-11 11:36 | IPNPDOC ---
Text Note Date of Service The patient was seen on 11/11/20. NOTE SUBJECTIVE: Patient was seen and examined this morning at bedside. States his pain is improved. Dr. Rudd placed a drain in the perirectal abscess yesterday. He does still report some rectal pressure and discomfort with the drain in place. Otherwise he is feeling well. OBJECTIVE: VITAL SIGNS: See below GENERAL: Alert, comfortable, in no acute distress HEENT: Normocephalic, atraumatic, moist mucous membranes NECK: Supple, trachea midline CARDIOVASCULAR: Regular rate and rhythm, normal S1 and S2. No murmurs, rubs, or gallops RESPIRATORY: Clear to auscultation bilaterally with equal air entry bilaterally. No wheezing, rhonchi, or rales. ABDOMEN: Soft, nontender, nondistended, bowel sounds present. Colostomy bag present with small amount of stool and gas. EXTREMITIES: No edema. Pulses 2+/4 in bilateral upper and lower extremities NEUROLOGIC: No focal deficits appreciated PSYCHIATRIC: Mood and affect appropriate ASSESSMENT/PLAN: 65-year-old male with history of colorectal cancer status post colostomy, CAD, hypertension, former smoker, presented with rectal pain found to have perirectal abscess on CT imaging admitted for further management and surgical consultation. #Perirectal abscess Preliminary wound culture with E. coli, Klebsiella, corynebacterium. Repeat wound culture from drain placement pending Discontinued IV vancomycin. Continue IV antibiotics with Zosyn day #3 Blood cultures x2 negative at 48 hours Pain control with oxycodone and IV morphine as needed General surgery consulted, appreciate recommendations. Dr. Rudd placed a drain and recommends follow-up CT scan on Monday 11/13 #Possible right lower lobe pneumonia Patient is not symptomatic but possible infiltrate was noted on his abdominal CT scan Antibiotics coverage for perirectal abscess with Zosyn will also cover for this Check sputum culture #Indwelling Knox catheter Status post radical prostatectomy now with chronic Knox Patient was due for exchange and this was done on admission #Possible acute on chronic anemia versus chronic anemia Iron studies reveal anemia of chronic disease. He also does have low iron and is on iron supplement No evidence of bleeding. We have held his Eliquis. Continue to hold Eliquis pending possible surgical intervention Status post 2 units PRBCs for hemoglobin 6.2, now corrected to 9.5 Continue to monitor H&H daily and transfuse for hemoglobin less than 7 #Constipation Continue with Senokot twice daily and simethicone for gas pain #Hypertension Continue home medication #Deconditioning PT eval and treat DVT prophylaxis: Since he is not going to surgery until least Friday we will start him on subcutaneous Lovenox dosed only for DVT prophylaxis. We are currently holding his Eliquis in case of surgical intervention. Disposition: Pending repeat imaging on Monday 11/13, culture results, and clinical improvement VS,Fishbone, I+O VS, Fishbone, I+O Laboratory Tests 11/11/20 06:32 Vital Signs Date Time Temp Pulse Resp B/P (MAP) Pulse Ox O2 Delivery O2 Flow Rate FiO2 11/11/20 09:39 12 11/11/20 09:17 146/69 11/11/20 09:00 56 11/11/20 06:43 98.6 97 Room Air I&O- Last 24 Hours up to 6 AM 11/11/20 06:00 Intake Total 4470 ml Output Total 2025 ml Balance 2445 ml GME ATTESTATION GME ATTESTATION My faculty preceptor for this patient encounter was physically present during the encounter and was fully available. All aspects of the patient interview, examination, medical decision making process, and medical care plan development were reviewed and approved by the faculty preceptor. The faculty preceptor is aware and concurs with the plan as stated in the body of this note and will attest to such by his/her cosignature. ATTENDING NOTE I, Phuc Schofield, have independently examined this patient and performed my own physical exam, as well as reviewed the documentation and edited where necessary. I have discussed in detail with the resident / student the findings and plan of treatment as documented by the resident / student and edited their note. I agree with their findings and treatment plan and have edited their documentation. I will continue to follow the patient during this hospital stay. CONOR PERAZA D.O. Nov 11, 2020 11:36 PHUC SCHOFIELD MD Nov 11, 2020 13:53
[2020-11-11 13:40] VITALS: BP 145/70
[2020-11-11] MEDS: LORazepam 0.5 MG TAB PO PRN (20:28)
[2020-11-11] MEDS: SERTRALINE HCL 50 MG TAB PO SCH (20:28)
[2020-11-11] MEDS: ATORVASTATIN 20 MG TAB PO SCH (20:28)
[2020-11-11 22:00] VITALS: BP 157/80
[2020-11-12] MEDS: PIPERACILLIN/TAZOBACTAM SOD 3.375 GM in D5W MINI-BAG PLUS 50 ML IV SCH ×2 (02:35→07:50)
[2020-11-12 06:00] VITALS: BP 173/84
[2020-11-12] MEDS: oxyCODONE 5MG TAB PO PRN ×2 (06:03→18:13)
[2020-11-12 06:25] LABS: BASO # 0.1 10^3/uL (0.0-0.2); BASO % 0.7 % (0.0-1.0); EOS # 0.2 10^3/uL (0.0-0.5); EOS % 2.5 % (0.0-3.0); HEMATOCRIT 30.6 % (42.0-52.0); HEMOGLOBIN 9.8 g/dl (13.5-17.5); LYMPH # 0.7 10^3/uL (1.5-5.0); MEAN CORPUSCULAR HEMOGLOBIN 28.7 pg (27.0-33.0); MEAN CORPUSCULAR VOLUME 89.5 fl (80.0-96.0); MONO # 0.7 10^3/uL (0.0-0.8); MONO % 8.2 % (2.0-8.0); NEUTROPHILS # 6.4 10^3/uL (1.5-8.5); NEUTROPHILS % 79.7 % (36.0-66.0); PLATELET COUNT, AUTOMATED 366 10^3/uL (150-450); RED BLOOD COUNT 3.42 10^6/uL (4.30-6.10); WHITE BLOOD COUNT 8.1 10^3/uL (4.0-10.0)
[2020-11-12 06:50] LABS: BLOOD UREA NITROGEN 5 MG/DL (7-18); C REACTIVE PROTEIN QUANTITATIV 9.32 MG/DL (0.00-0.30); CALCIUM LEVEL 8.8 MG/DL (8.8-10.2); CARBON DIOXIDE LEVEL 28 MEQ/L (21-32); CHLORIDE LEVEL 104 MEQ/L (98-107); CREATININE FOR GFR 0.67 MG/DL (0.70-1.30); GLOMERULAR FILTRATION RATE > 60.0 (>49); GLUCOSE, FASTING 111 MG/DL (70-100); POTASSIUM SERUM 3.4 MEQ/L (3.5-5.1); SODIUM LEVEL 138 MEQ/L (136-145)
[2020-11-12] MEDS ORDERED: POTASSIUM CHLORIDE 10 MEQ SR TABLET PO ONE (07:05)
[2020-11-12] MEDS: PHENAZOPYRIDINE 100 MG TAB PO SCH ×3 (09:26→20:11)
[2020-11-12] MEDS: ENOXAPARIN 40MG/0.4ML SYRINGE (J1650 PER 10MG) SC SCH (09:26)
[2020-11-12] MEDS: FERROUS SULFATE 325MG TAB PO SCH (09:27)
[2020-11-12] MEDS: PANTOPRAZOLE 40MG TAB (PROTONIX) PO SCH (09:27)
[2020-11-12] MEDS: oxyCODONE 10 MG CR TAB PO SCH ×2 (09:27→20:11)
[2020-11-12] MEDS: PREGABALIN 75 MG CAP(LYRICA) PO SCH ×3 (09:28→20:12)
[2020-11-12] MEDS: SENOKOT S TAB PO SCH ×2 (09:28→20:12)
[2020-11-12] MEDS: CARVedilol 6.25 MG TAB PO SCH ×2 (09:29→20:15)
[2020-11-12] MEDS: ISOSORBIDE MON. (IMDUR) 60 MG XR TAB PO SCH (09:29)
--- NOTE | 2020-11-12 10:06 | IPNPDOC ---
Text Note Date of Service The patient was seen on 11/12/20. NOTE Subjective: Patient is a 65-year-old male with a PMHx of Colorectal CA (s/p Colostomy), CAD s/p stent (2015), HTN, DVT of LLE (on Eliquis), BPH (s/p radical prostatectomy w/ Knox), who presented to the emergency room complaints of rectal pain for several weeks. In the emergency room, patient had a CT scan completed that had revealed evidence of a deny-rectal abscess. Patient was admitted to the hospital service for further evaluation and treatment. General surgery was called on consultation. Patient was seen and examined at the bedside. Patient reports that he is still experiencing some pain, however, has improved compared to prior. Denies any nausea, vomiting, chest pain, shortness breath or palpitations. Reports that he still constipated. Objective: Vitals (See below) General: Lying in bed, appears reactively comfortable, AAOx3 HEENT: NC, AT CVS: RRR, +S1S2 Lungs: Fair air entry b/l, -w/r/r Abdomen: Soft, ND, NT, + Colostomy Extremities: - Edema, - Calf tenderness Imaging: CT abdomen / pelvis 11/08: Extensive edema and fat stranding with a fluid collection/abscess measuring approximately 3.8 x 3.7 in the prior rectal surgical bed. CXR 11/10: Nodularity along the right lower lobe is better seen on CT as it overlaps the diaphragm and liver. CXR 11/09: Left perihilar infiltrate consistent with pneumonia.. Abdomen XR 11/10: Left-sided ostomy without signs of colonic or small bowel obstruction. Some vascular calcifications in the pelvis. Bones without acute finding. Assessment and plan: Rectal pain - likely 2/2 Perirectal abscess - Currently patient reports slight improvement of his pain - Hemodynamically stable and afebrile - No leukocytosis - CRP trending down - Blood cultures 11/08: No growth at 72 hours - Wound cultures 11/09: E. coli, Streptococcus intermedius, corynebacterium species, Enterococcus faecalis - s/p I&D with Dr. Rudd on 11/10 at the bedside - Will start Augmentin; Will DC Zosyn; s/p Vancomycin (Antibiotic day #4) - c/w symptomatic control with Morphine / Oxycodone / Tylenol - General surgery on consultation; appreciate their input - likely plan for repeat imaging on Friday Possible right lower lobe pneumonia - Patient denies any chest pain, shortness of breath, palpitations or cough - Sputum cultures pending - c/w Antibiotics stated above Radical prostatectomy w/ Knox catheter - c/w Knox catheter Acute on chronic anemia - possibly 2/2 AOCD - H&H has remains stable post transfusion - s/p 2 units PRBC - c/w Iron supplementation - Eliquis on hold (re: possible surgical intervention) Constipation - c/w Bowel regimen as ordered HTN - BP well controlled - c/w Carvedilol, Isosorbide DLP - c/w Atorvastatin LLE DVT - Eliquis on hold (re: possible surgical intervention) Neuropathy - c/w Pregabalin Depression - c/w Sertraline Deconditioning - c/w PT and OT GI prophylaxis - c/w Protonix DVT prophylaxis - c/w Lovenox - Full anticoagulation with Eliquis on hold Disposition: - Pending clinical improvement VSLuly I+O VSLuly I+O Laboratory Tests 11/12/20 05:59 Vital Signs Date Time Temp Pulse Resp B/P (MAP) Pulse Ox O2 Delivery O2 Flow Rate FiO2 11/12/20 09:29 60 170/84 11/12/20 09:27 16 11/12/20 06:00 98.0 95 Room Air I&O- Last 24 Hours up to 6 AM 11/12/20 06:00 Intake Total 3445 ml Output Total 2275 ml Balance 1170 ml AMBER YAP MD Nov 12, 2020 10:06
[2020-11-12] MEDS: AUGMENTIN 875 MG TAB PO SCH ×2 (10:28→20:12)
[2020-11-12] MEDS: MORPHINE 2 MG/ML 1ML VIAL (J2270) IV PRN (13:29)
[2020-11-12 14:00] VITALS: BP 141/71
[2020-11-12] MEDS: SERTRALINE HCL 50 MG TAB PO SCH (20:12)
[2020-11-12] MEDS: ATORVASTATIN 20 MG TAB PO SCH (20:12)
[2020-11-12 22:00] VITALS: BP 160/82
[2020-11-12] MEDS: LORazepam 0.5 MG TAB PO PRN (23:01)
[2020-11-13 06:00] VITALS: BP 148/79
[2020-11-13 06:10] LABS: BASO # 0.1 10^3/uL (0.0-0.2); BASO % 0.8 % (0.0-1.0); EOS # 0.3 10^3/uL (0.0-0.5); EOS % 3.4 % (0.0-3.0); HEMOGLOBIN 9.5 g/dl (13.5-17.5); LYMPH # 0.7 10^3/uL (1.5-5.0); LYMPH % 8.3 % (24.0-44.0); MEAN CORPUSCULAR HEMOGLOBIN 28.1 pg (27.0-33.0); MEAN CORPUSCULAR HGB CONC 31.7 g/dl (32.0-36.5); MEAN CORPUSCULAR VOLUME 88.8 fl (80.0-96.0); MONO # 0.7 10^3/uL (0.0-0.8); MONO % 8.6 % (2.0-8.0); NEUTROPHILS # 6.7 10^3/uL (1.5-8.5); NEUTROPHILS % 78.1 % (36.0-66.0); PLATELET COUNT, AUTOMATED 357 10^3/uL (150-450); RED BLOOD COUNT 3.38 10^6/uL (4.30-6.10); WHITE BLOOD COUNT 8.6 10^3/uL (4.0-10.0)
[2020-11-13 06:35] LABS: BLOOD UREA NITROGEN 6 MG/DL (7-18); C REACTIVE PROTEIN QUANTITATIV 7.52 MG/DL (0.00-0.30); CALCIUM LEVEL 8.6 MG/DL (8.8-10.2); CARBON DIOXIDE LEVEL 27 MEQ/L (21-32); CHLORIDE LEVEL 105 MEQ/L (98-107); CREATININE FOR GFR 0.56 MG/DL (0.70-1.30); GLOMERULAR FILTRATION RATE > 60.0 (>49); GLUCOSE, FASTING 95 MG/DL (70-100); POTASSIUM SERUM 4.1 MEQ/L (3.5-5.1); SODIUM LEVEL 138 MEQ/L (136-145)
[2020-11-13] MEDS ORDERED: MOM 30ML SUSPENSION UDC PO ONE (06:35)
[2020-11-13] MEDS: oxyCODONE 5MG TAB PO PRN (06:56)
--- NOTE | 2020-11-13 08:06 | IPNPDOC ---
Text Note Date of Service The patient was seen on 11/13/20. Subjective: Patient was admitted for rectal pain caused by abscess. When patient was seen today he was supine in his bed. Patient had more energy than before and he said he has improved significantly since he came in. Patient asked when he can be discharged and is eager to go home. Patient says that his rectal pain is very little if any. Review of systems: Patient denies headaches, chest pain, palpitations, SOB, difficulty breathing, ABD pain, urinary pain or tenderness, tingling, numbness, or swelling. Physical exam: General: Patient has no fever Psych: Patient is alert and oriented*3. HEENT: No visible thyroid enlargement or lymph node enlargement Heart: Normal heart sounds with S1 and S2, No extra heart sounds or murmurs on auscultation. Lungs: Lung sounds are clear and equal BL Extremities: No pain on palpation, no pitting edema, and BL pedal and posterior tibial pulses and 2/4. Neuro: Patient has no loss of sensation or weakness compared to baseline New Imaging: Abdominal CT 11/13: Inferior pelvic, presacral abscess not significantly changed. Surgical packing is now noted in the rectum. There is no free intraperitoneal air or fluid otherwise. There is a gallbladder calculus as described. There is a small nodular infiltrate in the posterior basilar segment of the right lung lower lobe. Follow-up is recommended. Assessment: 65 year old male with past medical history of Colorectal CA (s/p Colostomy), CAD s/p stent (2015), HTN, DVT of LLE (on Eliquis), BPH (s/p radical prostatectomy w/ Knox). Patient presented to the ER with Rectal pain that had persisted for at least two weeks. Imaging revealed deny-rectal abscess. Patient was strated on antibiotics Vancomycin and Zosyn and after surgical consult a drain was placed to treat the abscess. Patient's antibiotics were switched from Zosyn to Augmentin. Patient says that his pain is almost not present and that he is ready to be discharged. Patient has had difficulty walking and has not attemped to walk since his last hospital visit in August of 2020. Patient will be assessed by PT and home safety will also be assessed before discharge. Plan: Assessment and plan: Rectal pain - likely 2/2 Perirectal abscess - Currently patient reports slight improvement of his pain - Hemodynamically stable and afebrile - No leukocytosis - CRP trending down - Blood cultures 11/08: No growth at 72 hours - Wound cultures 11/09: E. coli, Streptococcus intermedius, corynebacterium s pecies, Enterococcus faecalis - s/p I&D with Dr. Rudd on 11/10 at the bedside - Started Augmentin; Will DC Zosyn; s/p Vancomycin (Antibiotic day #4) - c/w symptomatic control with Morphine / Oxycodone / Tylenol - Repeat imaging noted above Possible right lower lobe pneumonia - Patient denies any chest pain, shortness of breath, palpitations or cough - Sputum cultures pending - c/w Antibiotics stated above Radical prostatectomy w/ Knox catheter - c/w Knox catheter Acute on chronic anemia - possibly 2/2 AOCD - H&H has remains stable post transfusion - s/p 2 units PRBC - c/w Iron supplementation - Eliquis on hold (re: possible surgical intervention) Constipation - Patient says that constipation is no longer present. - c/w current medications. HTN - BP well controlled - c/w Carvedilol, Isosorbide. DLP - c/w Atorvastatin LLE DVT - Eliquis on hold (re: possible surgical intervention) Neuropathy - c/w Pregabalin Depression - c/w Sertraline. Deconditioning - c/w PT and OT GI prophylaxis - c/w Protonix DVT prophylaxis - c/w Lovenox - Full anticoagulation with Eliquis on hold Disposition: - Will need to clear PT and OT VS,Fishbone, I+O VS, Fishbone, I+O Laboratory Tests 11/13/20 05:55 Vital Signs Date Time Temp Pulse Resp B/P (MAP) Pulse Ox O2 Delivery O2 Flow Rate FiO2 11/13/20 06:56 18 11/13/20 06:00 97.7 65 148/79 (102) 96 Room Air I&O- Last 24 Hours up to 6 AM 11/13/20 06:00 Intake Total 800 ml Output Total 1120 ml Balance -320 ml GME ATTESTATION GME ATTESTATION My faculty preceptor for this patient encounter was physically present during the encounter and was fully available. All aspects of the patient interview, examination, medical decision making process, and medical care plan development were reviewed and approved by the faculty preceptor. The faculty preceptor is aware and concurs with the plan as stated in the body of this note and will attest to such by his/her cosignature. ATTENDING NOTE I, Phuc Schofield, have independently examined this patient and performed my own physical exam, as well as reviewed the documentation and edited where necessary. I have discussed in detail with the resident / student the findings and plan of treatment as documented by the resident / student and edited their note. I agree with their findings and treatment plan and have edited their documentation. I will continue to follow the patient during this hospital stay. MARIUSZ NORRIS OMS-3 Nov 13, 2020 08:06 PHUC SCHOFIELD MD Nov 13, 2020 14:27
[2020-11-13] MEDS: PHENAZOPYRIDINE 100 MG TAB PO SCH ×3 (08:24→20:21)
[2020-11-13] MEDS: SENOKOT S TAB PO SCH ×2 (08:24→20:20)
[2020-11-13] MEDS: PREGABALIN 75 MG CAP(LYRICA) PO SCH ×3 (08:24→20:20)
[2020-11-13] MEDS: AUGMENTIN 875 MG TAB PO SCH ×2 (08:24→20:20)
[2020-11-13] MEDS: CARVedilol 6.25 MG TAB PO SCH ×2 (08:25→20:23)
[2020-11-13] MEDS: ISOSORBIDE MON. (IMDUR) 60 MG XR TAB PO SCH (08:25)
[2020-11-13] MEDS: FERROUS SULFATE 325MG TAB PO SCH (08:25)
[2020-11-13] MEDS: PANTOPRAZOLE 40MG TAB (PROTONIX) PO SCH (08:26)
[2020-11-13] MEDS: ENOXAPARIN 40MG/0.4ML SYRINGE (J1650 PER 10MG) SC SCH (08:26)
[2020-11-13] MEDS: oxyCODONE 10 MG CR TAB PO SCH ×2 (08:26→20:21)
--- NOTE | 2020-11-13 09:51 | REP ---
INDICATION: ffup presacral and pelvic abscess. COMPARISON: Abdomen/pelvis CT dated 10/06/2020 and abdomen/pelvis CT dated 11/08/2020. TECHNIQUE: Abdomen/pelvis CT without IV or bowel contrast. FINDINGS: Patient has a left hemicolectomy with a left lower quadrant colostomy as previously. There is surgical packing in the rectum as an interval change. There is increased induration in the presacral and inferior pelvic fat at the abdominal peritoneal surgical site. Within this area of increased induration there are multiple tiny air/gas bubbles, similar to 11/08/2020.. Findings are compatible with presacral and pelvic abscess. Are It has not significantly changed from 11/08/2020. There is no bowel distention or obstruction. No free intraperitoneal air otherwise. The small bowel wall thickening identified on 10/06/2020 has significantly improved. The is zone in the lingular segment of the left upper lobe containing an infiltrate on 11/08/2020 is not included on the current study. The visualized lower lung marrero today demonstrate a small nodular infiltrate in the posterior basilar segment of the right lower lobe. Follow-up is recommended. The unenhanced hepatic parenchyma is unremarkable. There is no ascites. There is a 17 mm gallbladder calculus in the gallbladder neck with rim calcification. This is unchanged. There is no gallbladder distention, wall thickening or pericholecystic fluid. This is unchanged. The pancreas, spleen and adrenals are unchanged unremarkable except for persistent splenic calcifications, likely granulomas. Abdominal aorta is unremarkable. There is no periaortic adenopathy, mass or fluid collection. No bowel distention or obstruction. Terminal ileum is unremarkable. Appendix is unremarkable. IMPRESSION: Inferior pelvic, presacral abscess not significantly changed. Surgical packing is now noted in the rectum. There is no free intraperitoneal air or fluid otherwise. There is a gallbladder calculus as described. There is a small nodular infiltrate in the posterior basilar segment of the right lung lower lobe. Follow-up is recommended. <Electronically signed by Henrik Ziegler > 11/13/20 [id number]
[2020-11-13] MEDS: MORPHINE 2 MG/ML 1ML VIAL (J2270) IV PRN (13:01)
[2020-11-13 14:00] VITALS: BP 153/69
--- NOTE | 2020-11-13 15:56 | DS.PDOC ---
Discharge Summary General Date of Admission Nov 09, 2020 at 01:34 Date of Discharge 11/14/20 Attending Physician: PHUC SCHOFIELD MD Discharge Summary PROCEDURES PERFORMED DURING STAY: None. ADMITTING DIAGNOSES: 1. Donna-rectal abscess. 2. Possible right lower lobe pneumonia 3. Radical prostatectomy w/ Knox catheter 4. Acute on chronic anemia - possibly 2/2 AOCD 5. Constipation 6. HTN 7. DLP 8. LLE DVT 9. Neuropathy 10. Depression DISCHARGE DIAGNOSES: 1. Donna-rectal abscess. 2.. Radical prostatectomy w/ Knox catheter 3. Acute on chronic anemia - possibly 2/2 AOCD 4. Constipation 5. HTN 6. DLP 7. LLE DVT 8. Neuropathy 9. Depression COMPLICATIONS/CHIEF COMPLAINT: Donna-Rectal Abscess. HISTORY OF PRESENT ILLNESS: Pt was admitted to the hospital on 11/09/20 for rectal pain that was on-going for at least 2 weeks. Patient had recently (august 2020) been operated for colon cancer resection. Abscess was confirmed with CT imaging. HOSPITAL COURSE: In treatment of his abscess patient was put on appropriate antibiotics. This relieved the pain only slightly. After consult with General surgery a drain was placed for the patient and significantly reduced his symptoms. Patient was also found to have some Infiltrate in the lungs on imaging suggestive of pneumonia. Patient never complained of any difficulty breathing or Shortness of breath. Patient also received two units of blood for anemia that was attributed to anemia of chronic disease. Patient says that his fatigue improved markedly after blood was transfused. DISCHARGE MEDICATIONS: Please see below. ALLERGIES: Please see below. Review of systems: Patient denies headaches, chest pain, palpitations, SOB, difficulty breathing, ABD pain, urinary pain or tenderness, tingling, numbness, or swelling. PHYSICAL EXAMINATION ON DISCHARGE: VITAL SIGNS: Please see below. General: Patient has no fever Psych: Patient is alert and oriented*3. HEENT: No visible thyroid enlargement or lymph node enlargement Heart: Normal heart sounds with S1 and S2, No extra heart sounds or murmurs on auscultation. Lungs: Lung sounds are clear and equal BL Extremities: No pain on palpation, no pitting edema, and BL pedal and posterior tibial pulses and 2/4. Neuro: Patient has no loss of sensation or weakness compared to baseline LABORATORY DATA: Please see below. New Imaging: Abdominal CT 11/13: Inferior pelvic, presacral abscess not significantly changed. Surgical packing is now noted in the rectum. There is no free intraperitoneal air or fluid otherwise. There is a gallbladder calculus as described. There is a small nodular infiltrate in the posterior basilar segment of the right lung lower lobe. Follow-up is recommended. PROGNOSIS: Good ACTIVITY: As tolerated. DIET: Normal - no restrictions DISCHARGE PLAN: Patient should follow up with PCP and General surgery within 7 days of discharge . Remain compliant with treatment plan and medications Return to the ER if you experience any problems DISPOSITION: Home with services DISCHARGE INSTRUCTIONS: 1. Patient should continue course of Antibiotics - Augmentin at home. 2. Follow up outpatient with Dr. Rudd for drain removal ITEMS TO FOLLOWUP ON ON OUTPATIENT: 1. PT/OT from home. 2. Drain removal DISCHARGE CONDITION: Stable. TIME SPENT ON DISCHARGE: 45 minutes. Vital Signs/I&Os Vital Signs Date Time Temp Pulse Resp B/P (MAP) Pulse Ox O2 Delivery O2 Flow Rate FiO2 11/13/20 14:00 98.7 56 14 153/69 (97) 95 Room Air I&O- Last 24 Hours up to 6 AM 11/13/20 06:00 Intake Total 800 ml Output Total 1120 ml Balance -320 ml Laboratory Data Labs 24H Laboratory Tests 2 11/13/20 05:55: Immature Granulocyte % (Auto) 0.8, Neutrophils (%) (Auto) 78.1H, Lymphocytes (%) (Auto) 8.3L, Monocytes (%) (Auto) 8.6H, Eosinophils (%) (Auto) 3.4H, Basophils (%) (Auto) 0.8, Neutrophils # (Auto) 6.7, Lymphocytes # (Auto) 0.7L, Monocytes # (Auto) 0.7, Eosinophils # (Auto) 0.3, Basophils # (Auto) 0.1, Nucleated Red Blood Cells % (auto) 0.2H, Anion Gap 6L, Glomerular Filtration Rate > 60.0, Calcium Level 8.6L, C-Reactive Protein, Quantitative 7.52H CBC/BMP Laboratory Tests 11/13/20 05:55 Microbiology Microbiology 11/11/20 Gram Stain - Final, Complete 11/11/20 Sputum Culture - Final, Complete 11/09/20 Wound Culture - Final, Complete Escherichia Coli Streptococcus Intermedius Corynebacterium Species Enterococcus Faecalis 11/08/20 Wound Culture - Final, Complete Escherichia Coli Klebsiella Pneumoniae Streptococcus Intermedius Corynebacterium Species 11/08/20 Blood Culture - Preliminary, Resulted No Growth after 72 hours. All specime... 11/08/20 Blood Culture - Preliminary, Resulted No Growth after 72 hours. All specime... Discharge Medications Scheduled Amoxicillin/Potassium Clav (Amox-Clav 875-125 mg Tablet) 1 Each Tablet, 875 MG PO BID Apixaban (Eliquis) 5 Mg Tablet, 2.5 MG PO BID, (Reported) Aspirin (Aspirin EC) 81 Mg Tab, 81 MG PO DAILY, (Reported) TAKES AT NOON Atorvastatin Calcium (Atorvastatin Calcium) 40 Mg Tablet, 40 MG PO QHS, (Reported) Baclofen (Baclofen) 10 Mg Tablet, 15 MG PO QHS, (Reported) Carvedilol (Carvedilol) 6.25 Mg Tablet, 6.25 MG PO BID, (Reported) Cholecalciferol (Vitamin D3) (Vitamin D3) 50 Mcg Tablet, 50 MCG PO DAILY, (Reported) TAKES AT NOON Ferrous Sulfate (Iron) 325 Mg Tablet, 325 MG PO DAILY, (Reported) Isosorbide Mononitrate (Isosorbide Mononitrate ER) 60 Mg Tab, 60 MG PO DAILY, (Reported) Lidocaine/Prilocaine (Lidocaine-Prilocaine Cream) 2.5%/2.5% Cream..g., 1 APLCT TOP ASDIRECTED Lisinopril (Lisinopril) 20 Mg Tablet, 20 MG PO DAILY, (Reported) Magnesium Oxide (Magnesium Oxide) 400 Mg Tablet, 400 MG PO BID, (Reported) Megestrol Acetate (Megestrol Acetate) 20 Mg Tablet, 20 MG PO DAILY, (Reported) TAKES AT NOON Mirabegron (Myrbetriq) 50 Mg Tab.er.24h, 50 MG PO DAILY, (Reported) TAKES AT NOON Oxycodone HCl (Oxycodone HCl ER) 20 Mg Tab.er.12h, 20 MG PO BID, (Reported) Pantoprazole Sodium (Pantoprazole Sodium) 40 Mg Tablet.dr, 40 MG PO DAILY, (Reported) Phenazopyridine HCl (Phenazopyridine HCl) 100 Mg Tablet, 100 MG PO TID Pregabalin (Pregabalin) 75 Mg Capsule, 75 MG PO TID, (Reported) TAKES AT NOON Sertraline Hcl (Zoloft) 50 Mg Tablet, 50 MG PO QHS, (Reported) Scheduled PRN Lorazepam (Lorazepam) 1 Mg Tablet, 1.5 MG PO QHS PRN for INSOMNIA, (Reported) Ondansetron HCl (Ondansetron HCl) 8 Mg Tablet, 8 MG PO Q8HP PRN for NAUSEA OR VOMITING Oxycodone HCl (Oxycodone HCl) 5 Mg Tablet, 5 MG PO BID PRN for PAIN LEVEL 5-10, (Reported) Prochlorperazine Maleate (Prochlorperazine Maleate) 10 Mg Tablet, 10 MG PO Q8H PRN for NAUSEA OR VOMITING Allergies Coded Allergies: iopamidol (Verified Allergy, Intermediate, ITCHING, SWELLING, 02/29/20) PTS STATEMENT OF FEELING LIKE HIS LIPS ARE SWOLLEN AND THAT HIS THROAT IS ITCHY. Contrast Media (Verified Allergy, Mild, "itchy throat", 04/25/20) iodine (Verified Allergy, Mild, "ithcy throat", 04/25/20) GME ATTESTATION GME ATTESTATION My faculty preceptor for this patient encounter was physically present during the encounter and was fully available. All aspects of the patient interview, examination, medical decision making process, and medical care plan development were reviewed and approved by the faculty preceptor. The faculty preceptor is aware and concurs with the plan as stated in the body of this note and will attest to such by his/her cosignature. ATTENDING NOTE I, Phuc Schofield, have independently examined this patient and performed my own physical exam, as well as reviewed the documentation and edited where necessary. I have discussed in detail with the resident / student the findings and plan of treatment as documented by the resident / student and edited their note. I agree with their findings and treatment plan and have edited their documentation. I will continue to follow the patient during this hospital stay. Time spent on discharge 35 minutes MARIUSZ NORRIS S-3 Nov 13, 2020 15:56 PHUC SCHOFIELD MD Nov 13, 2020 18:07 CONOR PERAZA D.O. Nov 14, 2020 16:11
[2020-11-13 16:08] LABS: SOLUBLE TRANSFERRIN RECEPTOR 16.4 nmol/L (12.2-27.3)
[2020-11-13] MEDS: ATORVASTATIN 20 MG TAB PO SCH (20:20)
[2020-11-13] MEDS: SERTRALINE HCL 50 MG TAB PO SCH (20:20)
[2020-11-13] MEDS: LORazepam 0.5 MG TAB PO PRN (20:21)
[2020-11-13 21:30] VITALS: BP 153/68
[2020-11-14] MEDS: oxyCODONE 5MG TAB PO PRN ×2 (01:17→12:35)
[2020-11-14] MEDS: MORPHINE 2 MG/ML 1ML VIAL (J2270) IV PRN (05:16)
[2020-11-14 05:17] VITALS: BP 152/73
[2020-11-14 06:35] LABS: BASO # 0.1 10^3/uL (0.0-0.2); BASO % 0.7 % (0.0-1.0); EOS # 0.3 10^3/uL (0.0-0.5); EOS % 3.1 % (0.0-3.0); LYMPH # 0.9 10^3/uL (1.5-5.0); LYMPH % 8.7 % (24.0-44.0); MEAN CORPUSCULAR HEMOGLOBIN 28.6 pg (27.0-33.0); MEAN CORPUSCULAR HGB CONC 32.4 g/dl (32.0-36.5); MEAN CORPUSCULAR VOLUME 88.3 fl (80.0-96.0); MONO # 0.8 10^3/uL (0.0-0.8); MONO % 7.8 % (2.0-8.0); NEUTROPHILS # 7.8 10^3/uL (1.5-8.5); PLATELET COUNT, AUTOMATED 385 10^3/uL (150-450); RED BLOOD COUNT 3.85 10^6/uL (4.30-6.10); WHITE BLOOD COUNT 9.9 10^3/uL (4.0-10.0)
[2020-11-14 06:55] LABS: BLOOD UREA NITROGEN 8 MG/DL (7-18); C REACTIVE PROTEIN QUANTITATIV 7.64 MG/DL (0.00-0.30); CALCIUM LEVEL 8.8 MG/DL (8.8-10.2); CARBON DIOXIDE LEVEL 29 MEQ/L (21-32); CHLORIDE LEVEL 102 MEQ/L (98-107); CREATININE FOR GFR 0.55 MG/DL (0.70-1.30); GLOMERULAR FILTRATION RATE > 60.0 (>49); GLUCOSE, FASTING 97 MG/DL (70-100); POTASSIUM SERUM 4.2 MEQ/L (3.5-5.1); SODIUM LEVEL 137 MEQ/L (136-145)
[2020-11-14] MEDS: ENOXAPARIN 40MG/0.4ML SYRINGE (J1650 PER 10MG) SC SCH (07:59)
[2020-11-14] MEDS: PHENAZOPYRIDINE 100 MG TAB PO SCH (08:06)
[2020-11-14] MEDS: PANTOPRAZOLE 40MG TAB (PROTONIX) PO SCH (08:06)
[2020-11-14] MEDS: PREGABALIN 75 MG CAP(LYRICA) PO SCH (08:06)
[2020-11-14] MEDS: CARVedilol 6.25 MG TAB PO SCH (08:06)
[2020-11-14] MEDS: SENOKOT S TAB PO SCH (08:06)
[2020-11-14 08:07] VITALS: BP 150/80
[2020-11-14] MEDS: ISOSORBIDE MON. (IMDUR) 60 MG XR TAB PO SCH (08:07)
[2020-11-14] MEDS: FERROUS SULFATE 325MG TAB PO SCH (08:07)
[2020-11-14] MEDS: AUGMENTIN 875 MG TAB PO SCH (08:07)
[2020-11-14] MEDS: oxyCODONE 10 MG CR TAB PO SCH (08:08)
[2020-11-14] MEDS: ONDANSETRON 4MG/2ML VIAL IV PRN (08:12)
--- NOTE | 2020-11-14 09:08 | IPNPDOC ---
Text Note Date of Service The patient was seen on 11/14/20. NOTE Patient seen this morning. He looks very comfortable. He reports the rectal discomfort he came in with has mostly gone away. He still is having good amount of drainage from the [place] drain that I placed to his deep peroneal wound. He is denying any abdominal discomfort. His perineal incision from his APR is examined. There is no erythema. There is about a 2 cm opening where I placed a Nikita drain deep into the wound and this is draining still [id number] purulent fluid. No longer having any tenderness around the incision line. Labs reviewed. He has no leukocytosis.'s ERCP is improved but has not normalized yet. I reviewed with him the CT of the abdomen pelvis that was done yesterday. Radiologist is still calling for presacral/pelvic fluid collection so I tried to have this percutaneously drained today. I got a call from Dr. Gonzalez who is doing the procedure and he does not believe that there is significant collection just more air and phlegmon at the area and he does not think that a drain will help any at that area. I actually agree with the read. I do not see any significant fluid collection. I think he can go home with the perineal drain and follow-up with me in the clinic. He is on appropriate oral medication for the sensitivity of the organisms that were cultured. Follow-up with me in 2 weeks. VS,Luly, I+O VS, Luly, I+O Laboratory Tests 11/14/20 06:08 Vital Signs Date Time Temp Pulse Resp B/P (MAP) Pulse Ox O2 Delivery O2 Flow Rate FiO2 11/14/20 08:08 18 11/14/20 08:07 150/80 11/14/20 08:06 68 11/14/20 05:17 98.4 98 Room Air I&O- Last 24 Hours up to 6 AM 11/14/20 05:59 Intake Total 1720 ml Output Total 1450 ml Balance 270 ml DARIUS JOYCE MD Nov 14, 2020 09:08
[2020-11-14 09:41] LABS: INR 1.11; PROTHROMBIN TIME 14.8 SECONDS (12.7-14.5)
[2020-11-14] MEDS ORDERED: PHEN1TAB73 PO (10:09)
[2020-11-14] MEDS ORDERED: AMOX875T2 PO (10:09)
--- NOTE | 2020-11-14 17:01 | IPNPDOC ---
Text Note Date of Service The patient was seen on 11/14/20. NOTE SUBJECTIVE: Patient was seen and examined this morning at bedside. States he is feeling well and ready to go home. Denies rectal pain or pressure. Continues to have good ostomy output and urine output. He does have some red/pink color to the urine due to the medication we have given him for bladder pain. Patient states he has no concerns today. OBJECTIVE: VITAL SIGNS: See below GENERAL: Alert, comfortable, in no acute distress HEENT: Normocephalic, atraumatic, moist mucous membranes NECK: Supple, trachea midline CARDIOVASCULAR: Regular rate and rhythm, normal S1 and S2. No murmurs, rubs, or gallops RESPIRATORY: Clear to auscultation bilaterally with equal air entry bilaterally. No wheezing, rhonchi, or rales. ABDOMEN: Soft, nontender, nondistended, bowel sounds present. Colostomy bag present with small amount of stool and gas. EXTREMITIES: No edema. Pulses 2+/4 in bilateral upper and lower extremities NEUROLOGIC: No focal deficits appreciated PSYCHIATRIC: Mood and affect appropriate ASSESSMENT/PLAN: 65-year-old male with history of colorectal cancer status post colostomy, CAD, hypertension, former smoker, presented with rectal pain found to have perirectal abscess on CT imaging admitted for further management and surgical consultation. #Perirectal abscess Preliminary wound culture with E. coli, Klebsiella, corynebacterium. Repeat wound culture from drain placement shows the same. s/p IV abx, continue antibiotics with PO Augmentin for 10 days total Blood cultures x2 negative after 5 days General surgery consulted, appreciate recommendations. Dr. Rudd to follow up outpatient for drain removal. #Possible right lower lobe pneumonia Patient is not symptomatic but possible infiltrate was noted on his abdominal CT scan - Sputum culture did not have growth Antibiotics coverage for perirectal abscess will also cover for possible pneumonia #Indwelling Knox catheter Status post radical prostatectomy now with chronic Knox Patient was due for exchange on 11/10 and this was done during this admission #Possible acute on chronic anemia versus chronic anemia Iron studies reveal anemia of chronic disease. He also does have low iron and is on iron supplement Status post 2 units PRBCs for hemoglobin 6.2, now corrected - No evidence of bleed or recurrent drop in H/H. It is possible this was dilutional due to IV fluids. Pt is restarted on Eliquis on discharge. #Constipation Continue with Senokot twice daily and simethicone for gas pain #Hypertension Continue home medication #Deconditioning home services to continue with PT Disposition: discharge home today, please see note from 11/13/2020 GME ATTESTATION My faculty preceptor for this patient encounter was physically present during the encounter and was fully available. All aspects of the patient interview, examination, medical decision making process, and medical care plan development were reviewed and approved by the faculty preceptor. The faculty preceptor is aware and concurs with the plan as stated in the body of this note and will att est to such by his/her cosignature. ATTENDING NOTE I personally examined the patient and his lab and imaging findings. I discussed his clinical status and plan with the resident physician team and agree with the above summary of findings and plan as noted above. VS,Fishbone, I+O VS, Fishbone, I+O Laboratory Tests 11/14/20 06:08 Vital Signs Date Time Temp Pulse Resp B/P (MAP) Pulse Ox O2 Delivery O2 Flow Rate FiO2 11/14/20 13:05 18 11/14/20 08:07 150/80 11/14/20 08:06 68 11/14/20 05:17 98.4 98 Room Air I&O- Last 24 Hours up to 6 AM 11/14/20 06:00 Intake Total 1620 ml Output Total 1000 ml Balance 620 ml CONOR PERAZA D.O. Nov 14, 2020 16:08 MARCOS JUAN MD Nov 15, 2020 07:45
== END 2020-11-14 15:30 | disposition home health service (06) | DRG 862 ==
LOC: M ED 19:29 → M ED INP 11-09 01:34 → ENRESERV 11-09 08:05 → M MS5PR 11-09 08:24
PROVIDERS: ADMIT Family Medicine; ATTEND Internal Medicine
PROC: 30233N1 Transfusion of Nonautologous Red Blood Cells into Peripheral Vein, Percutaneous Approach (ICD-10-PCS; principal; 2020-11-09)
DX: T81.49XA Infection following a procedure, other surgical site, initial encounter (principal); J18.9 Pneumonia, unspecified organism; K61.1 Rectal abscess; I25.10 Atherosclerotic heart disease of native coronary artery without angina pectoris; I10 Essential (primary) hypertension; Z87.891 Personal history of nicotine dependence; Z85.038 Personal history of other malignant neoplasm of large intestine; Z92.3 Personal history of irradiation; Z20.822 Contact with and (suspected) exposure to COVID-19; Z79.82 Long term (current) use of aspirin; Z79.899 Other long term (current) drug therapy; Z88.3 Allergy status to other anti-infective agents; Z88.8 Allergy status to other drugs, medicaments and biological substances; Z91.041 Radiographic dye allergy status; Z79.01 Long term (current) use of anticoagulants; D50.0 Iron deficiency anemia secondary to blood loss (chronic); Z96.0 Presence of urogenital implants; K59.00 Constipation, unspecified; R10.9 Unspecified abdominal pain; R07.89 Other chest pain

== ENCOUNTER 2020-11-26 10:46 | Emergency (ER) | payer MEDICARE, OTHER ==
[~2020-11-26] VITALS: Ht 170.2 cm; Wt 59.1 kg
[~2020-11-26 10:46] MED LIST changes: +AMOX875T2 PO; +IRON65TA2 PO; +MEGE20TA3 PO; +PHEN1TAB73 PO
[2020-11-26] MEDS ORDERED: NS 1,000 ML IV SCH (11:35)
[2020-11-26] MEDS ORDERED: ONDANSETRON 4MG/2ML VIAL IV ONE (11:35)
[2020-11-26] MEDS: MORPHINE 2 MG/ML 1ML VIAL (J2270) IV PRN ×2 (12:24→14:45)
[2020-11-26 12:41] LABS: BASO # 0.1 10^3/uL (0.0-0.2); BASO % 0.5 % (0.0-1.0); EOS # 0.4 10^3/uL (0.0-0.5); EOS % 2.8 % (0.0-3.0); HEMATOCRIT 28.2 % (42.0-52.0); HEMOGLOBIN 8.8 g/dl (13.5-17.5); LYMPH # 0.5 10^3/uL (1.5-5.0); LYMPH % 4.2 % (24.0-44.0); MEAN CORPUSCULAR HEMOGLOBIN 27.7 pg (27.0-33.0); MEAN CORPUSCULAR HGB CONC 31.2 g/dl (32.0-36.5); MEAN CORPUSCULAR VOLUME 88.7 fl (80.0-96.0); MONO # 0.8 10^3/uL (0.0-0.8); MONO % 6.2 % (2.0-8.0); NEUTROPHILS # 11.1 10^3/uL (1.5-8.5); NEUTROPHILS % 85.2 % (36.0-66.0); PLATELET COUNT, AUTOMATED 374 10^3/uL (150-450); RED BLOOD COUNT 3.18 10^6/uL (4.30-6.10)
[2020-11-26 13:16] LABS: ALBUMIN 1.7 GM/DL (3.2-5.2); BILIRUBIN,DIRECT 0.3 MG/DL (0.0-0.2); BILIRUBIN,TOTAL 0.4 MG/DL (0.2-1.0); TOTAL PROTEIN 6.5 GM/DL (6.4-8.2)
[2020-11-26 14:10] LABS: BILIRUBIN, URINE MANUAL NEGATIVE (NEGATIVE); GLUCOSE, URINE (UA) MANUAL NEGATIVE (NEGATIVE); KETONE, URINE MANUAL NEGATIVE (NEGATIVE); UROBILINOGEN, URINE MANUAL NORMAL (NORMAL)
[2020-11-26 14:13] LABS: BACTERIA, URINE LARGE AMOUNT; HYALINE CAST, URINE 0-1 /lpf (0-1); RBC, URINE TNTC /hpf (0-3); SQUAMOUS EPITHELIAL CELL URINE SMALL AMOUNT /hpf (SMALL AMT)
[2020-11-26] MEDS ORDERED: PYRI1TAB5 PO (14:48)
[2020-11-26] MEDS ORDERED: OXYB10TA23 PO (14:48)
[2020-11-26] MEDS ORDERED: MACR100C43 PO (14:48)
[2020-11-26 15:23] VITALS: BP 130/60
== END 2020-11-26 15:26 | disposition home or self-care (01) ==
LOC: M ED 10:46
DX: N39.0 Urinary tract infection, site not specified (principal); E87.1 Hypo-osmolality and hyponatremia; I10 Essential (primary) hypertension; J44.9 Chronic obstructive pulmonary disease, unspecified; J45.909 Unspecified asthma, uncomplicated; I25.10 Atherosclerotic heart disease of native coronary artery without angina pectoris; Z85.038 Personal history of other malignant neoplasm of large intestine; Z79.899 Other long term (current) drug therapy; Z79.01 Long term (current) use of anticoagulants; Z79.82 Long term (current) use of aspirin; Z88.8 Allergy status to other drugs, medicaments and biological substances; Z91.041 Radiographic dye allergy status
CPT/HCPCS: 80047; 80076; 81000; 83690; 85025; 87088; 87186; 96361; 96374; 96375; 96376; 99284; J2270; J2405

== ENCOUNTER → 2020-12-05 | Outpatient (CLI) | payer MEDICARE ==
[~2020-12-05] MED LIST changes: +HYDR-4517 PO; +MACR100C43 PO; +OXYB10TA23 PO; +PYRI1TAB5 PO
--- NOTE | 2020-12-06 08:21 | REP ---
INDICATION: UNSP PARAMETRITIS AND PELVIC CELLULITIS COMPARISON: 11/13/2020 TECHNIQUE: Axial noncontrast images from the lung bases to the pubic symphysis with coronal and sagittal reformations. This CT examination was performed using the following dose reduction techniques: Automated exposure control, adjustment of mA and/or kv according to the patient's size, and use of iterative reconstruction technique. FINDINGS: Lung bases demonstrate subtle patchy airspace disease suggesting early versus resolving pneumonia. Liver, spleen, pancreas, gallbladder, bilateral adrenal glands and kidneys are stable and relatively normal. 1.8 cm gallstone again identified along with chronic splenic calcifications and small renovascular calcifications. Patient appears to be status post colostomy via the left anterior abdominal wall. Inflammatory stranding with small foci of gas and suspected poorly defined fluid collection/abscess measuring roughly 4.4 cm diameter identified within the presacral/ischiorectal space (series 201; images 104-153). In comparison with recent prior examination, these findings appear slightly increased. Specifically, the suspected phlegmon/abscess measuring 4.4 cm represents a relatively increased/new finding. Further evaluation of the pelvis demonstrates Knox catheter in collapsed bladder with possible hemorrhagic debris cannot be excluded and require correlation with urinalysis. The prostate gland is poorly defined. No free intraperitoneal gas. No ascites. No obvious significant adenopathy. Atherosclerotic changes to the aorta and vasculature noted without aneurysm. Skeletal structures are grossly intact.. IMPRESSION: 1. Infectious/inflammatory changes in the presacral/ischiorectal space as described above appear increased from prior examination.Specifically, the suspected phlegmon/abscess measuring 4.4 cm represents a relatively increased/new finding. 2. No evidence for pneumoperitoneum, ascites, or significant adenopathy noted. 3. Early versus resolving pneumonia. 4. Stable nonacute findings as described above. <Electronically signed by Jevon Klein > 12/06/20 [id number]
== END ==
LOC: M RAD 16:38
PROVIDERS: ATTEND Surgery
DX: K65.1 Peritoneal abscess (principal); Z96.0 Presence of urogenital implants; J18.9 Pneumonia, unspecified organism

== ENCOUNTER 2020-12-07 09:55 | Inpatient (IN) | payer MEDICARE ==
[~2020-12-07] VITALS: Ht 170.2 cm; Wt 74.5 kg
[2020-12-07] VITALS (8 sets, daily range): BP systolic 101–139; BP diastolic 52–73
[~2020-12-07 09:55] MED LIST changes: -HYDR-4517 PO
[2020-12-07] MEDS ORDERED: SODIUM CHLORIDE 0.9% INJ 10 ML SYR IV PRN (10:25)
[2020-12-07 11:14] LABS: BASO # 0.1 10^3/uL (0.0-0.2); BASO % 0.5 % (0.0-1.0); EOS # 0.5 10^3/uL (0.0-0.5); EOS % 3.6 % (0.0-3.0); HEMATOCRIT 23.5 % (42.0-52.0); HEMOGLOBIN 7.4 g/dl (13.5-17.5); LYMPH # 0.8 10^3/uL (1.5-5.0); LYMPH % 5.8 % (24.0-44.0); MEAN CORPUSCULAR HEMOGLOBIN 27.2 pg (27.0-33.0); MEAN CORPUSCULAR HGB CONC 31.5 g/dl (32.0-36.5); MEAN CORPUSCULAR VOLUME 86.4 fl (80.0-96.0); MONO # 0.7 10^3/uL (0.0-0.8); MONO % 5.2 % (2.0-8.0); NEUTROPHILS % 83.5 % (36.0-66.0); PLATELET COUNT, AUTOMATED 433 10^3/uL (150-450); RED BLOOD COUNT 2.72 10^6/uL (4.30-6.10); WHITE BLOOD COUNT 13.2 10^3/uL (4.0-10.0)
[2020-12-07 11:25] LABS: INR 1.48; PROTHROMBIN TIME 18.4 SECONDS (12.7-14.5)
[2020-12-07 11:35] LABS: BLOOD UREA NITROGEN 12 MG/DL (7-18); CALCIUM LEVEL 8.6 MG/DL (8.8-10.2); CARBON DIOXIDE LEVEL 25 MEQ/L (21-32); CHLORIDE LEVEL 101 MEQ/L (98-107); CREATININE FOR GFR 0.68 MG/DL (0.70-1.30); GLOMERULAR FILTRATION RATE > 60.0 (>49); GLUCOSE, FASTING 113 MG/DL (70-100); POTASSIUM SERUM 4.3 MEQ/L (3.5-5.1); SODIUM LEVEL 132 MEQ/L (136-145)
[2020-12-07] MEDS ORDERED: LIDOCAINE 2% 5ML JELLY UROJET TOP ONE (11:40)
--- NOTE | 2020-12-07 12:28 | REP ---
INDICATION: admission. COMPARISON: Comparison portable chest x-ray November 10, 2020. TECHNIQUE: Portable upright AP sitting radiograph. FINDINGS: There is a right internal jugular cyst central venous Zjbxps-E-Qyvo catheter in place. Its tip is again noted in the expected location of superior vena cava. The lungs are symmetrically aerated and clear. The pleural angles are sharp. Heart size is normal. Pulmonary vasculature is not increased. The infiltrate suspected on the left on the prior study is no longer apparent. IMPRESSION: No acute disease. Right-sided [id number]-P-Hfiw catheter. <Electronically signed by Dylan Red > 12/07/20 [id number]
[2020-12-07 13:04] LABS: RSV AMPLIFICATION NEGATIVE (NEGATIVE)
[2020-12-07] MEDS ORDERED: NS 1,000 ML IV SCH (13:05)
[2020-12-07] MEDS: ANEXSIA, NORCO 7.5MG/325MG TABLET(HYDROCODONE/APAP) PO PRN ×3 (13:19→21:42)
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
--- NOTE | 2020-12-07 14:21 | SMCUROLCON ---
Urology Consultation General Date of Consultation 12/07/20 Reason For Consultation asked to see pt re gross hematuria, catheter in place History of Present Illness 65yo fellow. H/o prostate cancer s/p surgery and then radiation. Followed by [facility]. Cystoscopy with bilateral ureteral catheter placement by me in 10/02 before his APR. Colon cancer. I believe pt developed retention at some point after his apr. Catheter placed. Presents today because of gross hematuria. Known radiation cystitis. Hgb dropped. Admitted by hospitalist service. Medications Current Medications Current Medications Medications (Trade) Dose Ordered Sig/Merry Route PRN Reason Start Time Stop Time Status Last Admin Dose Admin Acetaminophen/ Hydrocodone Bitart (Anexsia, [place] 7.5mg/325mg) 1 tab Q4HP PRN PO moderate pain 12/07/20 13:00 12/07/20 13:19 Docusate Sodium (Colace) 100 mg BID PO 12/07/20 21:00 UNV Heparin Sodium (Heparin (Flush)) 500 units ASDIRECTED PRN IV SEE LABEL COMMENTS 12/07/20 10:25 Piperacillin Sod/ Tazobactam Sod 3.375 gm/Dextrose 50 ml @ 50 mls/hr Q6H IV 12/07/20 14:10 UNV Polyethylene Glycol (Miralax) 1 pkt DAILY PO 12/07/20 14:15 UNV Sodium Chloride 1,000 ml @ 15 mls/hr Q24H IV 12/07/20 13:05 Sodium Chloride 1,000 ml @ 100 mls/hr Q10H IV 12/07/20 14:10 UNV Sodium Chloride (Saline Lock Flush) 10 ml ASDIRECTED PRN IV SEE LABEL COMMENTS 12/07/20 10:25 Allergies Allergies: Coded Allergies: iopamidol (Verified Allergy, Intermediate, ITCHING, SWELLING, 02/29/20) PTS STATEMENT OF FEELING LIKE HIS LIPS ARE SWOLLEN AND THAT HIS THROAT IS ITCHY. Contrast Media (Verified Allergy, Mild, "itchy throat", 04/25/20) iodine (Verified Allergy, Mild, "ithcy throat", 04/25/20) Vital Signs/I&O Vital Signs Date Time Temp Pulse Resp B/P (MAP) Pulse Ox O2 Delivery O2 Flow Rate FiO2 12/07/20 13:19 16 12/07/20 12:46 98.2 98/61 (73) 12/07/20 12:45 76 98 Room Air Laboratory Data 24H Labs Laboratory Tests 2 12/07/20 10:34: Immature Granulocyte % (Auto) 1.4, Neutrophils (%) (Auto) 83.5H, Lymphocytes (%) (Auto) 5.8L, Monocytes (%) (Auto) 5.2, Eosinophils (%) (Auto) 3.6H, Basophils (%) (Auto) 0.5, Neutrophils # (Auto) 11.0H, Lymphocytes # (Auto) 0.8L, Monocytes # (Auto) 0.7, Eosinophils # (Auto) 0.5, Basophils # (Auto) 0.1, Nucleated Red Blood Cells % (auto) 0.0, Prothrombin Time 18.4H, Prothromb Time International Ratio 1.48, Activated Partial Thromboplast Time 42.0H, Anion Gap 6L, Glomerular Filtration Rate > 60.0, Calcium Level 8.6L 12/07/20 12:07: Coronavirus (COVID-19)(PCR) NEGATIVE, Influenza Type A (RT-PCR) NEGATIVE, Influenza Type B (RT-PCR) NEGATIVE, Respiratory Syncytial Virus (PCR) NEGATIVE CBC/BMP Laboratory Tests 12/07/20 10:34 Assessment gross hematuria likely secondary to radiation cystitis, catheter irritation and Eliquis suggest placement of 3way catheter and continuous bladder irrigation will see pt later today JULIEN PETERSEN MD Dec 07, 2020 14:21
[2020-12-07 15:01] LABS: BILIRUBIN, URINE MANUAL OBSCURED (NEGATIVE); GLUCOSE, URINE (UA) MANUAL NEGATIVE (NEGATIVE); KETONE, URINE MANUAL OBSCURED mg/dL (NEGATIVE); UROBILINOGEN, URINE MANUAL OBSCURED mg/dl (NORMAL)
[2020-12-07 15:04] LABS: BACTERIA, URINE SMALL AMOUNT; HYALINE CAST, URINE NONE SEEN /lpf (0-1); RBC, URINE TNTC /hpf (0-3); SQUAMOUS EPITHELIAL CELL URINE NONE SEEN /hpf (SMALL AMT)
[2020-12-07 15:17] LABS: PERCENT SATURATION 18.5 % (19.7-50.0)
[2020-12-07 15:23] LABS: FOLATE 5.3 NG/ML (>5.4)
[2020-12-07] MEDS: ONDANSETRON 4MG/2ML VIAL IV PRN ×2 (15:32→21:33)
[2020-12-07 17:27] LABS: C REACTIVE PROTEIN QUANTITATIV 10.3 MG/DL (0.00-0.30)
[2020-12-07] MEDS: MIRALAX *UNIT DOSE* 17GM PACKET PO SCH (18:23)
[2020-12-07] MEDS: PIPERACILLIN/TAZOBACTAM SOD 3.375 GM in D5W MINI-BAG PLUS 50 ML IV SCH ×2 (18:23→22:22)
[2020-12-07] MEDS: NS 1,000 ML IV SCH (18:24)
--- NOTE | 2020-12-07 19:01 | ECGEPIP ---
[facility] - ED Test Date: 2020-12-07 Pat Name: HUNTER DUARTE Department: Room: [place] [address] Gender: Male Head Baker: KALEB : 1955 Requested By: Noah Flores Order Number: [id number] Reading MD: Tarah Acuña Measurements Intervals Paola Rate: 64 P: 82 ME: 106 QRS: 18 QRSD: 76 T: -5 QT: 424 QTc: 437 Interpretive Statements Sinus rhythm with short ME NSTTW abnormalities similar 11/10/20 Electronically Signed on 12-07-2020 19:01:28 EDT by Tarah Acuña
[2020-12-07] MEDS ORDERED: HYDR-4517 PO (19:35)
[2020-12-07] MEDS ORDERED: OXYB10TA23 PO (19:35)
[2020-12-07] MEDS ORDERED: HOME MED LIST COMPLETE! XX SCH (19:40)
[2020-12-07] MEDS ORDERED: LORazepam 1 MG TAB PO PRN (19:40)
[2020-12-07] MEDS ORDERED: PILL CUTTER 1 EACH XX PRN (19:50)
[2020-12-07] MEDS ORDERED: MAGIC MOUTHWASH SUSPENSION BTL SS PRN (20:00)
[2020-12-07] MEDS: DOCUSATE SODIUM 100MG CAPSULE PO SCH (21:31)
[2020-12-07] MEDS: PREGABALIN 75 MG CAP(LYRICA) PO SCH (21:33)
[2020-12-07] MEDS: MAGNESIUM OXIDE 400MG TAB (MAG-OX) PO SCH (21:33)
[2020-12-07] MEDS: ATORVASTATIN 20 MG TAB PO SCH (21:33)
[2020-12-07] MEDS: CARVedilol 6.25 MG TAB PO SCH (21:33)
[2020-12-07] MEDS: BACLOFEN 10 MG TAB PO SCH (21:33)
[2020-12-08] MEDS: ANEXSIA, NORCO 7.5MG/325MG TABLET(HYDROCODONE/APAP) PO PRN ×4 (04:52→22:50)
[2020-12-08] MEDS: PIPERACILLIN/TAZOBACTAM SOD 3.375 GM in D5W MINI-BAG PLUS 50 ML IV SCH ×4 (04:52→22:52)
[2020-12-08] MEDS: NS 1,000 ML IV SCH ×3 (04:54→16:40)
[2020-12-08 06:00] VITALS: BP 122/73
[2020-12-08 06:43] LABS: HEMOGLOBIN 9.1 g/dl (13.5-17.5); MEAN CORPUSCULAR HEMOGLOBIN 27.8 pg (27.0-33.0); MEAN CORPUSCULAR HGB CONC 32.5 g/dl (32.0-36.5); MEAN CORPUSCULAR VOLUME 85.6 fl (80.0-96.0); PLATELET COUNT, AUTOMATED 342 10^3/uL (150-450); RED BLOOD COUNT 3.27 10^6/uL (4.30-6.10); WHITE BLOOD COUNT 10.2 10^3/uL (4.0-10.0)
[2020-12-08 07:01] LABS: BLOOD UREA NITROGEN 11 MG/DL (7-18); CALCIUM LEVEL 8.4 MG/DL (8.8-10.2); CARBON DIOXIDE LEVEL 25 MEQ/L (21-32); CHLORIDE LEVEL 105 MEQ/L (98-107); CREATININE FOR GFR 0.68 MG/DL (0.70-1.30); GLOMERULAR FILTRATION RATE > 60.0 (>49); GLUCOSE, FASTING 100 MG/DL (70-100); MAGNESIUM LEVEL 2.4 MG/DL (1.8-2.4); POTASSIUM SERUM 4.1 MEQ/L (3.5-5.1); SODIUM LEVEL 137 MEQ/L (136-145)
--- NOTE | 2020-12-08 07:37 | IPNPDOC ---
Date Seen The patient was seen on 12/07/20. Progress Note Pt seen yesterday in the ER 3 way catheter was in place but it seemed he didn't need it - light gross hematuria with no clots I removed pt's catheter for voiding trial, his next appt in the office was for voiding trial developed retention after his APR which is not uncommon hematuria was because of radiation cystitis, catheter and Eliquis pt was being transfused will see pt later today thank you [phone] VS, I&O, 24H, Luly Vital Signs/I&O Vital Signs Date Time Temp Pulse Resp B/P (MAP) Pulse Ox O2 Delivery O2 Flow Rate FiO2 12/08/20 06:00 96.9 62 17 122/73 (89) 97 Room Air I&O- Last 24 Hours up to 6 AM 12/08/20 05:59 Intake Total 400 ml Output Total 0 ml Balance 400 ml Laboratory Data 24H LABS Laboratory Tests 2 12/07/20 10:34: Immature Granulocyte % (Auto) 1.4, Neutrophils (%) (Auto) 83.5H, Lymphocytes (%) (Auto) 5.8L, Monocytes (%) (Auto) 5.2, Eosinophils (%) (Auto) 3.6H, Basophils (%) (Auto) 0.5, Neutrophils # (Auto) 11.0H, Lymphocytes # (Auto) 0.8L, Monocytes # (Auto) 0.7, Eosinophils # (Auto) 0.5, Basophils # (Auto) 0.1, Nucleated Red Blood Cells % (auto) 0.0, Prothrombin Time 18.4H, Prothromb Time International Ratio 1.48, Activated Partial Thromboplast Time 42.0H, Anion Gap 6L, Glomerular Filtration Rate > 60.0, Calcium Level 8.6L 12/07/20 12:07: Coronavirus (COVID-19)(PCR) NEGATIVE, Influenza Type A (RT-PCR) NEGATIVE, Influenza Type B (RT-PCR) NEGATIVE, Respiratory Syncytial Virus (PCR) NEGATIVE 12/07/20 14:16: Reticulocyte # (auto) 33.7, Percent Reticulocyte Count 1.3, Reticulocyte Hemoglobin Equivalent 30.8, Iron Level 24L, Total Iron Binding Capacity 130L, Transferrin % Saturation 18.5L, Ferritin 529H, Lactate Dehydrogenase 116, C- Reactive Protein, Quantitative 10.30H, Vitamin B12 Level 384, Folate 5.3L 12/07/20 14:23: Urine Color (SUNSHINE) REDH, Urine Appearance (SUNSHINE) TURBIDH, Urine pH (SUNSHINE) 8.0, Urine Specific [place] (SUNSHINE) 1.019, Urine Protein 3+H, Bedside Urine Glucose (UA) NEGATIVE, Bedside Urine Ketones (LAB) OBSCUREDH, Bedside Urine Blood POSITIVEH, Bedside Urine Nitrite (LAB) OBSCUREDH, Bedside Urine Bilirubin (LAB) OBSCUREDH, Bedside Urine Urobilinogen (LAB) OBSCUREDH, Bedside Urine Leukocyte Esterase (L OBSCUREDH, Urine Sediment Examination UNSPUN, Urine RBC TNTCH, Urine WBC 3-5H, Urine Squamous Epithelial Cells NONE SEEN, Urine Bacteria SMALL AMOUNTH, Urine Hyaline Casts NONE SEEN 12/08/20 06:24: Nucleated Red Blood Cells % (auto) 0.0, Anion Gap 7L, Glomerular Filtration Rate > 60.0, Calcium Level 8.4L, Magnesium Level 2.4 CBC/BMP Laboratory Tests 12/07/20 10:34 12/08/20 06:24 Microbiology Microbiology 12/07/20 Urine Culture, Received Pending JULIEN PETERSEN MD Dec 08, 2020 07:37
--- NOTE | 2020-12-08 08:21 | IPN ---
PROGRESS NOTE DATE: 12/08/2020 The patient seems to be making some progress overnight, has had some good stool output out of his ostomy and overall he is not complaining of any pain or pressure as he was previously. His white count dropped from 13,000 down to 10,000 as well. He has been afebrile. IMPRESSION/PLAN: 1. Ostomy output issues. Had some constipation issues and overall am not seeing any need for further intervention concerning the ostomy. I would continue him on some stool softeners and laxatives as necessary. 2. Presacral abscess. His white count is dropping nicely. Unfortunately, he had been taking his Eliquis and thus we should wait another 24-48 hours before interventional radiology places a drain if necessary. However, this is the weekend so the consequences of that is that we may have to wait until Friday to have these procedures performed. Given his white count is dropping, the other issue is that we may be able to take care of this with antibiotic treatment alone. In any case, my first recommendation is to continue with IV antibiotic supportive care throughout the weekend, have a followup CT scan on Friday and depending on its results determine whether percutaneous drainage is necessary. Using subcutaneous heparin throughout the weekend is very reasonable from a surgical standpoint, however I am guessing that you may not want to restart some of those anticoagulation issues given his hemorrhagic cystitis issues.
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
[2020-12-08] MEDS ORDERED: oxyBUTYnin *DITROPAN XL* 5 MG TABCR PO SCH (09:00)
--- NOTE | 2020-12-08 10:15 | IPNPDOC ---
Date Seen The patient was seen on 12/08/20. Progress Note pt seen and examined avss lying in bed and looks much more comfortable than yesterday c/o nausea no catheter in place, was removed in ER by me, voiding ok creatinine nl and hgb up since transfusion belly soft, slightly tender no orchitis meds include oxybutynin and pip/tazo no gu intervention required I stopped oxybutynin, which will interfere with voiding from my standpoint, can switch to oral antibiotic, would treat for 5 days total thank you [phone] VS, I&O, 24H, Luly Vital Signs/I&O Vital Signs Date Time Temp Pulse Resp B/P (MAP) Pulse Ox O2 Delivery O2 Flow Rate FiO2 12/08/20 06:00 96.9 62 17 122/73 (89) 97 Room Air I&O- Last 24 Hours up to 6 AM 12/08/20 05:59 Intake Total 1000 ml Output Total 150 ml Balance 850 ml Laboratory Data 24H LABS Laboratory Tests 2 12/07/20 10:34: Immature Granulocyte % (Auto) 1.4, Neutrophils (%) (Auto) 83.5H, Lymphocytes (%) (Auto) 5.8L, Monocytes (%) (Auto) 5.2, Eosinophils (%) (Auto) 3.6H, Basophils (%) (Auto) 0.5, Neutrophils # (Auto) 11.0H, Lymphocytes # (Auto) 0.8L, Monocytes # (Auto) 0.7, Eosinophils # (Auto) 0.5, Basophils # (Auto) 0.1, Nucleated Red Blood Cells % (auto) 0.0, Prothrombin Time 18.4H, Prothromb Time International Ratio 1.48, Activated Partial Thromboplast Time 42.0H, Anion Gap 6L, Glomerular Filtration Rate > 60.0, Calcium Level 8.6L 12/07/20 12:07: Coronavirus (COVID-19)(PCR) NEGATIVE, Influenza Type A (RT-PCR) NEGATIVE, Infl uenza Type B (RT-PCR) NEGATIVE, Respiratory Syncytial Virus (PCR) NEGATIVE 12/07/20 14:16: Reticulocyte # (auto) 33.7, Percent Reticulocyte Count 1.3, Reticulocyte Hemoglobin Equivalent 30.8, Iron Level 24L, Total Iron Binding Capacity 130L, Transferrin % Saturation 18.5L, Ferritin 529H, Lactate Dehydrogenase 116, C- Reactive Protein, Quantitative 10.30H, Vitamin B12 Level 384, Folate 5.3L 12/07/20 14:23: Urine Color (SUNSHINE) REDH, Urine Appearance (SUNSHINE) TURBIDH, Urine pH (SUNSHINE) 8.0, Urine Specific [place] (SUNSHINE) 1.019, Urine Protein 3+H, Bedside Urine Glucose (UA) NEGATIVE, Bedside Urine Ketones (LAB) OBSCUREDH, Bedside Urine Blood POSITIVEH, Bedside Urine Nitrite (LAB) OBSCUREDH, Bedside Urine Bilirubin (LAB) OBSCUREDH, Bedside Urine Urobilinogen (LAB) OBSCUREDH, Bedside Urine Leukocyte Esterase (L OBSCUREDH, Urine Sediment Examination UNSPUN, Urine RBC TNTCH, Urine WBC 3-5H, Urine Squamous Epithelial Cells NONE SEEN, Urine Bacteria SMALL AMOUNTH, Urine Hyaline Casts NONE SEEN 12/08/20 06:24: Nucleated Red Blood Cells % (auto) 0.0, Anion Gap 7L, Glomerular Filtration Rate > 60.0, Calcium Level 8.4L, Magnesium Level 2.4 CBC/BMP Laboratory Tests 12/07/20 10:34 12/08/20 06:24 Microbiology Microbiology 12/07/20 Urine Culture - Final, Complete JULIEN PETERSEN MD Dec 08, 2020 10:15
[2020-12-08] MEDS: MIRALAX *UNIT DOSE* 17GM PACKET PO SCH (10:28)
[2020-12-08] MEDS: MAGNESIUM OXIDE 400MG TAB (MAG-OX) PO SCH ×2 (10:29→22:46)
[2020-12-08] MEDS: PREGABALIN 75 MG CAP(LYRICA) PO SCH ×3 (10:29→22:45)
[2020-12-08] MEDS: FERROUS SULFATE 325MG TAB PO SCH (10:29)
[2020-12-08] MEDS: PANTOPRAZOLE 40MG TAB (PROTONIX) PO SCH (10:29)
[2020-12-08] MEDS: ASPIRIN 81MG ENTERIC TABLET PO SCH (10:29)
[2020-12-08] MEDS: SERTRALINE HCL 50 MG TAB PO SCH (10:29)
[2020-12-08] MEDS: DOCUSATE SODIUM 100MG CAPSULE PO SCH ×2 (10:29→22:46)
[2020-12-08] MEDS: ONDANSETRON 4MG/2ML VIAL IV PRN (10:29)
[2020-12-08] MEDS: CARVedilol 6.25 MG TAB PO SCH ×2 (10:35→21:00)
[2020-12-08] MEDS: ISOSORBIDE MON. (IMDUR) 60 MG XR TAB PO SCH (10:35)
[2020-12-08] MEDS ORDERED: MORPHINE 2 MG/ML 1ML VIAL (J2270) IV STA (14:03)
--- NOTE | 2020-12-08 14:17 | IPNPDOC ---
Subjective Date Seen The patient was seen on 12/08/20. Subjective Chief Complaint/HPI Mr. Crowell is a 65-year-old male with prostate cancer status post radical prostatectomy and colorectal cancer status post chemoradiation and surgery who presents with vivek hematuria, lightheadedness, and fatigue. Last night he received 2u pRBC and hemoglobin responded appropriately. This morning, he was feeling better. He has ostomy output. Otherwise, around 1140AM, I was notified by nurse that patient was unable to urinate. Per nurse, he was about to force out 50cc of pure thick blood with clots, the largest being a quarter. Nurse bladder scan patient and he had >500cc of fluid. I asked the nurse to re-insert Knox and restart CBI. Objective Physical Examination General Exam: Positive: Alert, Cooperative, Mild Distress Eye Exam: Positive: EOMI (Left eye); Negative: Sclera icteric ENT Exam: Positive: Atraumatic Chest Exam: Positive: Clear to auscultation, Diminished Heart Exam: Positive: Rate Normal, Regular Rhythm Abdomen Exam: Positive: Normal bowel sounds Extremity Exam: Negative: Edema Neuro Exam: Positive: Normal Speech, Cranial Nerves 3-12 NL (Grossly intact except for no right eye) Psych Exam: Positive: Mental status NL, Anxiety Assessment /Plan Assessment Mr. Crowell is a 65-year-old male with prostate cancer status post radical prostatectomy and colorectal cancer status post chemoradiation and surgery who presents with vivek hematuria, lightheadedness, and fatigue. I spoke with Urology who suspects that the hematuria is from radiation cystitis. Otherwise, patient has symptomatic anemia at 7.4. Will transfuse patient with 2u pRBC. I have reached out to general surgery about growing abscess. Since WBC is going down, will wait until Friday to repeat CT abd/pelvis. This will help determine if antibiotics alone will be sufficient or if patient would need drainage. Plan/VTE VTE Prophylaxis Ordered?: Yes Plan 1. Acute blood loss anemia Secondary to vivek hematuria Urology consulted, recommendations appreciated Continue with CBI Hold Eliquis Total of 2 units of blood given 2. Radiation cystitis Urology consulted, recommendations appreciated Continue with CBI 3. Presacral/ischiorectal abscess CT abdomen pelvis without contrast on 12/05/2020 demonstrates increasing/new suspected phlegmon/abscess measuring 4.4 Started patient on Zosyn day 2 General surgery consulted, recommendations appreciated -Since WBC improving, will wait until Friday for repeat CT abd/pelvis. Will de termine if antibiotics alone will be enough or if patient would need drainage. 4. History of left lower extremity DVT in the setting of cancer We will hold patient's Eliquis due to acute hemorrhage 5. CAD s/p CABG -Continue aspirin, atorvastatin, carvedilol, lisinopril, and Imdur 6. Chronic pain -Continue pregabalin, baclofen, and hydrocortisone/acetaminophen 7. DVT ppx -No chemical ppx due to acute blood loss -SCD and TEDs Disposition: Pending control of hematuria and stability of H&H. Pending CT abd/pelvis for Friday. VS, I&O, 24H, Fishbone Vital Signs/I&O Vital Signs Date Time Temp Pulse Resp B/P (MAP) Pulse Ox O2 Delivery O2 Flow Rate FiO2 12/08/20 13:40 18 12/08/20 10:35 62 119/71 12/08/20 06:00 96.9 97 Room Air I&O- Last 24 Hours up to 6 AM 12/08/20 06:00 Intake Total 1900 ml Output Total 250 ml Balance 1650 ml Laboratory Data 24H LABS Laboratory Tests 2 12/07/20 14:16: Reticulocyte # (auto) 33.7, Percent Reticulocyte Count 1.3, Reticulocyte Hemoglobin Equivalent 30.8, Iron Level 24L, Total Iron Binding Capacity 130L, Transferrin % Saturation 18.5L, Ferritin 529H, Lactate Dehydrogenase 116, C- Reactive Protein, Quantitative 10.30H, Vitamin B12 Level 384, Folate 5.3L 12/07/20 14:23: Urine Color (SUNSHINE) REDH, Urine Appearance (SUNSHINE) TURBIDH, Urine pH (SUNSHINE) 8.0, Urine Specific [place] (SUNSHINE) 1.019, Urine Protein 3+H, Bedside Urine Glucose (UA) NEGATIVE, Bedside Urine Ketones (LAB) OBSCUREDH, Bedside Urine Blood POSITIVEH, Bedside Urine Nitrite (LAB) OBSCUREDH, Bedside Urine Bilirubin (LAB) OBSCUREDH, Bedside Urine Urobilinogen (LAB) OBSCUREDH, Bedside Urine Leukocyte E sterase (L OBSCUREDH, Urine Sediment Examination UNSPUN, Urine RBC TNTCH, Urine WBC 3-5H, Urine Squamous Epithelial Cells NONE SEEN, Urine Bacteria SMALL AMOUNTH, Urine Hyaline Casts NONE SEEN 12/08/20 06:24: Nucleated Red Blood Cells % (auto) 0.0, Anion Gap 7L, Glomerular Filtration Rate > 60.0, Calcium Level 8.4L, Magnesium Level 2.4 CBC/BMP Laboratory Tests 12/08/20 06:24 Microbiology Microbiology 12/07/20 Urine Culture - Final, Complete GIA PAL DO Dec 08, 2020 14:17
--- NOTE | 2020-12-08 15:33 | IPNPDOC ---
Date Seen The patient was seen on 12/08/20. Progress Note pt seen catheter is draining fine no fresh blood in urine hand irrigation and continuous bladder irrigation are not needed when pt discharged home, home with catheter and plug 3rd port catheter now in for retention only, hematuria is not an issue currently thank you [phone] VS, I&O, 24H, Fishbone Vital Signs/I&O Vital Signs Date Time Temp Pulse Resp B/P (MAP) Pulse Ox O2 Delivery O2 Flow Rate FiO2 12/08/20 14:27 19 12/08/20 14:09 98 Room Air 12/08/20 10:35 62 119/71 12/08/20 06:00 96.9 I&O- Last 24 Hours up to 6 AM 12/08/20 05:59 Intake Total 1000 ml Output Total 150 ml Balance 850 ml Laboratory Data 24H LABS Laboratory Tests 2 12/08/20 06:24: Nucleated Red Blood Cells % (auto) 0.0, Anion Gap 7L, Glomerular Filtration Rate > 60.0, Calcium Level 8.4L, Magnesium Level 2.4 CBC/BMP Laboratory Tests 12/08/20 06:24 Microbiology Microbiology 12/07/20 Urine Culture - Final, Complete JULIEN PETERSEN MD Dec 08, 2020 15:33
[2020-12-08] MEDS ORDERED: RAMELTEON 8 MG TAB (ROZEREM) PO SCH (21:00)
[2020-12-08 22:00] VITALS: BP 122/66
[2020-12-08] MEDS: ATORVASTATIN 20 MG TAB PO SCH (22:50)
[2020-12-08] MEDS: BACLOFEN 10 MG TAB PO SCH (22:51)
[2020-12-09] MEDS: NS 1,000 ML IV SCH ×2 (05:24→16:10)
[2020-12-09] MEDS: PIPERACILLIN/TAZOBACTAM SOD 3.375 GM in D5W MINI-BAG PLUS 50 ML IV SCH ×2 (05:29→11:07)
[2020-12-09 06:00] VITALS: BP 137/68
[2020-12-09] MEDS: ONDANSETRON 4MG/2ML VIAL IV PRN (06:43)
[2020-12-09 06:52] LABS: HEMATOCRIT 27.1 % (42.0-52.0); HEMOGLOBIN 8.7 g/dl (13.5-17.5); MEAN CORPUSCULAR HGB CONC 32.1 g/dl (32.0-36.5); MEAN CORPUSCULAR VOLUME 87.1 fl (80.0-96.0); PLATELET COUNT, AUTOMATED 323 10^3/uL (150-450); RED BLOOD COUNT 3.11 10^6/uL (4.30-6.10); WHITE BLOOD COUNT 9.8 10^3/uL (4.0-10.0)
[2020-12-09 07:15] LABS: BLOOD UREA NITROGEN 11 MG/DL (7-18); CALCIUM LEVEL 7.8 MG/DL (8.8-10.2); CARBON DIOXIDE LEVEL 24 MEQ/L (21-32); CHLORIDE LEVEL 108 MEQ/L (98-107); CREATININE FOR GFR 0.69 MG/DL (0.70-1.30); GLOMERULAR FILTRATION RATE > 60.0 (>49); GLUCOSE, FASTING 97 MG/DL (70-100); MAGNESIUM LEVEL 2.2 MG/DL (1.8-2.4); POTASSIUM SERUM 3.8 MEQ/L (3.5-5.1); SODIUM LEVEL 138 MEQ/L (136-145)
[2020-12-09] MEDS: SERTRALINE HCL 50 MG TAB PO SCH (08:45)
[2020-12-09] MEDS: ASPIRIN 81MG ENTERIC TABLET PO SCH (08:45)
[2020-12-09] MEDS: DOCUSATE SODIUM 100MG CAPSULE PO SCH (08:45)
[2020-12-09] MEDS: MAGNESIUM OXIDE 400MG TAB (MAG-OX) PO SCH (08:46)
[2020-12-09] MEDS: PREGABALIN 75 MG CAP(LYRICA) PO SCH ×2 (08:46→16:37)
[2020-12-09] MEDS: FERROUS SULFATE 325MG TAB PO SCH (08:46)
[2020-12-09] MEDS: PANTOPRAZOLE 40MG TAB (PROTONIX) PO SCH (08:46)
[2020-12-09] MEDS: CARVedilol 6.25 MG TAB PO SCH (08:47)
[2020-12-09 08:48] VITALS: BP 141/59
[2020-12-09] MEDS: MIRALAX *UNIT DOSE* 17GM PACKET PO SCH (08:48)
[2020-12-09] MEDS: ISOSORBIDE MON. (IMDUR) 60 MG XR TAB PO SCH (08:48)
[2020-12-09] MEDS: ANEXSIA, NORCO 7.5MG/325MG TABLET(HYDROCODONE/APAP) PO PRN ×2 (11:06→15:17)
[2020-12-09 14:00] VITALS: BP 134/65
--- NOTE | 2020-12-09 14:43 | REP ---
INDICATION: re-evaluation of pelvic abscess COMPARISON: 12/05/2020 TECHNIQUE: Axial noncontrast images from the lung bases to the pubic symphysis with coronal and sagittal reformations. This CT examination was performed using the following dose reduction techniques: Automated exposure control, adjustment of mA and/or kv according to the patient's size, and use of iterative reconstruction technique. FINDINGS: Lung bases demonstrate stable small infiltrates and tree in bud type changes. Liver, spleen, pancreas, gallbladder, bilateral adrenal glands and kidneys are unchanged and without acute process. Cholelithiasis is again noted along with splenic parenchymal calcifications consistent with prior granulomatous disease. Small and large bowel is without obstruction or obvious acute inflammatory process and the patient is again noted to be status post sigmoid resection with colostomy via the left anterior abdominal wall. Pelvis demonstrates Knox catheter and small amount of gas in the bladder. Infectious/Inflammatory stranding involving the presacral and ischiorectal space with small foci of gas and phlegmon/abscess appears essentially unchanged from the prior examination (series 201; images 100-138). No intraperitoneal ascites. No pneumoperitoneum. Atherosclerotic changes to the aorta and vasculature again noted without aneurysm. Osseous structures are stable and without acute process. IMPRESSION: 1. No significant change in the infectious/inflammatory findings within the presacral and ischiorectal space. Central phlegmon/abscess is again suspected and unchanged in appearance or size. No new obvious collection or abnormalities identified. 2. Stable nonacute abdominopelvic findings. <Electronically signed by Jevon Klein > 12/09/20 [id number]
[2020-12-09] MEDS ORDERED: AMOX875T2 PO (15:23)
[2020-12-09] MEDS ORDERED: COLA100C5 PO (15:23)
[2020-12-09] MEDS ORDERED: POLY17PO18 PO (15:23)
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
== END 2020-12-09 16:59 | disposition home health service (06) | DRG 863 ==
LOC: EDBD 09:55 → M ED 09:55 → M ED INP 12:58 → ENRESERV 16:58 → M MSPAV 17:32
PROVIDERS: ADMIT Internal Medicine; ATTEND Internal Medicine
PROC: 30233N1 Transfusion of Nonautologous Red Blood Cells into Peripheral Vein, Percutaneous Approach (ICD-10-PCS; principal; 2020-12-07)
DX: T81.43XA Infection following a procedure, organ and space surgical site, initial encounter (principal); N30.41 Irradiation cystitis with hematuria; G81.94 Hemiplegia, unspecified affecting left nondominant side; D62 Acute posthemorrhagic anemia; I25.10 Atherosclerotic heart disease of native coronary artery without angina pectoris; G89.29 Other chronic pain; Z85.46 Personal history of malignant neoplasm of prostate; Z85.038 Personal history of other malignant neoplasm of large intestine; Z92.21 Personal history of antineoplastic chemotherapy; K61.39 Other ischiorectal abscess; Z86.718 Personal history of other venous thrombosis and embolism; K59.00 Constipation, unspecified; Z93.3 Colostomy status; Z79.01 Long term (current) use of anticoagulants; Z79.82 Long term (current) use of aspirin; Z79.899 Other long term (current) drug therapy; Z88.8 Allergy status to other drugs, medicaments and biological substances; Z91.041 Radiographic dye allergy status; Z95.5 Presence of coronary angioplasty implant and graft; I10 Essential (primary) hypertension; Z90.49 Acquired absence of other specified parts of digestive tract; Z20.822 Contact with and (suspected) exposure to COVID-19; Y83.8 Other surgical procedures as the cause of abnormal reaction of the patient, or of later complication, without mention of misadventure at the time of the procedure

== ENCOUNTER 2020-12-17 11:58 | Emergency (ER) | payer MEDICARE ==
[~2020-12-17] VITALS: Ht 167.6 cm; Wt 68.2 kg
[~2020-12-17 11:58] MED LIST changes: +HYDR-4517 PO; +POLY17PO18 PO
[2020-12-17 12:49] LABS: BASO # 0.1 10^3/uL (0.0-0.2); BASO % 0.5 % (0.0-1.0); EOS # 0.3 10^3/uL (0.0-0.5); EOS % 2.8 % (0.0-3.0); HEMATOCRIT 27.1 % (42.0-52.0); HEMOGLOBIN 8.7 g/dl (13.5-17.5); LYMPH # 0.7 10^3/uL (1.5-5.0); LYMPH % 6.3 % (24.0-44.0); MEAN CORPUSCULAR HEMOGLOBIN 27.8 pg (27.0-33.0); MEAN CORPUSCULAR HGB CONC 32.1 g/dl (32.0-36.5); MEAN CORPUSCULAR VOLUME 86.6 fl (80.0-96.0); MONO # 0.7 10^3/uL (0.0-0.8); MONO % 6.4 % (2.0-8.0); NEUTROPHILS # 9.1 10^3/uL (1.5-8.5); NEUTROPHILS % 83.3 % (36.0-66.0); PLATELET COUNT, AUTOMATED 359 10^3/uL (150-450); RED BLOOD COUNT 3.13 10^6/uL (4.30-6.10)
[2020-12-17 12:56] LABS: BILIRUBIN, URINE MANUAL OBSCURED (NEGATIVE); GLUCOSE, URINE (UA) MANUAL NEGATIVE (NEGATIVE); KETONE, URINE MANUAL OBSCURED mg/dL (NEGATIVE); UROBILINOGEN, URINE MANUAL OBSCURED mg/dl (NORMAL)
[2020-12-17 13:14] LABS: BACTERIA, URINE SMALL AMOUNT; HYALINE CAST, URINE NONE SEEN /lpf (0-1); RBC, URINE TNTC /hpf (0-3); SQUAMOUS EPITHELIAL CELL URINE SMALL AMOUNT /hpf (SMALL AMT)
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
[2020-12-17 16:16] VITALS: BP 118/58
== END 2020-12-17 16:26 | disposition home or self-care (01) ==
LOC: M ED 11:58 → EDBD 11:58 → M ED 16:26
DX: R33.9 Retention of urine, unspecified (principal); R31.9 Hematuria, unspecified; T83.098A Other mechanical complication of other urinary catheter, initial encounter; Y92.89 Other specified places as the place of occurrence of the external cause; I10 Essential (primary) hypertension; E78.9 Disorder of lipoprotein metabolism, unspecified; I25.2 Old myocardial infarction; Z85.46 Personal history of malignant neoplasm of prostate; Z79.899 Other long term (current) drug therapy; Z79.01 Long term (current) use of anticoagulants; Z79.82 Long term (current) use of aspirin

== ENCOUNTER → 2020-12-21 | Outpatient (CLI) | payer MEDICARE, OTHER ==
[2020-12-21 13:06] LABS: HEMATOCRIT 26.5 % (42.0-52.0); HEMOGLOBIN 8.3 g/dl (13.5-17.5); MEAN CORPUSCULAR HEMOGLOBIN 27.7 pg (27.0-33.0); MEAN CORPUSCULAR HGB CONC 31.3 g/dl (32.0-36.5); MEAN CORPUSCULAR VOLUME 88.3 fl (80.0-96.0); PLATELET COUNT, AUTOMATED 428 10^3/uL (150-450); WHITE BLOOD COUNT 8.9 10^3/uL (4.0-10.0)
[2020-12-21 13:56] LABS: ALBUMIN 1.7 GM/DL (3.2-5.2); ALT/SGPT 21 U/L (12-78); BILIRUBIN,TOTAL 0.3 MG/DL (0.2-1.0); BLOOD UREA NITROGEN 16 MG/DL (7-18); CALCIUM LEVEL 8.7 MG/DL (8.8-10.2); CARBON DIOXIDE LEVEL 25 MEQ/L (21-32); CHLORIDE LEVEL 101 MEQ/L (98-107); CREATININE FOR GFR 0.52 MG/DL (0.70-1.30); GLOMERULAR FILTRATION RATE > 60.0 (>49); GLUCOSE, FASTING 94 MG/DL (70-100); POTASSIUM SERUM 5.4 MEQ/L (3.5-5.1); SODIUM LEVEL 132 MEQ/L (136-145); TOTAL PROTEIN 6.7 GM/DL (6.4-8.2)
== END ==
LOC: M PLALAB 09:27
PROVIDERS: ATTEND Urology
DX: R31.0 Gross hematuria (principal)
CPT/HCPCS: 36415; 80053; 85027; G0463

== ENCOUNTER → 2021-01-02 | Outpatient (REF) | payer MEDICARE, OTHER ==
[2021-01-02 14:08] LABS: HEMATOCRIT 28.6 % (42.0-52.0); HEMOGLOBIN 8.6 g/dl (13.5-17.5); MEAN CORPUSCULAR HEMOGLOBIN 28.2 pg (27.0-33.0); MEAN CORPUSCULAR HGB CONC 30.1 g/dl (32.0-36.5); MEAN CORPUSCULAR VOLUME 93.8 fl (80.0-96.0); PLATELET COUNT, AUTOMATED 397 10^3/uL (150-450); RED BLOOD COUNT 3.05 10^6/uL (4.30-6.10); WHITE BLOOD COUNT 10.5 10^3/uL (4.0-10.0)
== END ==
LOC: M SMT 13:18
PROVIDERS: ATTEND Urology
DX: R33.9 Retention of urine, unspecified (principal)

== ENCOUNTER → 2021-01-10 | Outpatient (CLI) | payer MEDICARE, OTHER ==
--- NOTE | 2021-01-10 12:39 | REP ---
INDICATION: PAIN IN LEFT ANKLE AND JOINTS OF LEFT FOOT COMPARISON: None. TECHNIQUE: AP, lateral, bilateral oblique views left foot. FINDINGS: Advanced osteopenia and generalized arthritic degenerative changes are appreciated with a somewhat mottled appearance of the osseous structures. There is evidence for prior open reduction and fixation for ankle fractures and these findings may represent underlying chronic Sudeck's atrophy. No obvious acute fracture or dislocation. IMPRESSION: Osteopenia and degenerative changes as noted above. Findings may reflect underlying reflex osteodystrophy/Sudeck's atrophy <Electronically signed by Jevon Klein > 01/10/21 [id number]
--- NOTE | 2021-01-10 12:43 | REP ---
INDICATION: PAIN IN LEFT ANKLE AND JOINTS OF LEFT FOOT COMPARISON: None. TECHNIQUE: AP, lateral, bilateral oblique views. FINDINGS: Evidence for prior open reduction and fixation for distal fibular shaft and distal tibial metaphyseal fractures. Underlying fracture lines are evident suggesting incomplete healing process, and correlation with history is and timing of injury recommended. The overlying soft tissues are relatively normal and without significant swelling. Generalized osteopenia and advanced degenerative changes including mottled appearance to the osseous structures through the ankle raising the possibility of underlying reflex osteodystrophy. IMPRESSION: Degenerative changes as described above <Electronically signed by Jevon Klein > 01/10/21 [id number]
== END ==
LOC: M RAD 11:47
PROVIDERS: ATTEND Pediatrics
DX: M85.872 Other specified disorders of bone density and structure, left ankle and foot (principal); M25.572 Pain in left ankle and joints of left foot